=== PATIENT | male | born 1985 | race American Indian/Alaskan Native ===

== ENCOUNTER 2018-05-17 08:39 | Emergency (ER) | payer MEDICAID ==
[2018-05-17] MEDS ORDERED: Sodium Chloride 0.9% 1,000 ML IV ONE (08:42)
[2018-05-17] MEDS ORDERED: HYDROmorphone 0.5 MG/0.5 ML Syringe IVPUSH ONE ×3 (08:51→09:39)
[2018-05-17] MEDS ORDERED: Aspirin 81 MG Tab.Chew PO ONE (08:53)
--- NOTE | 2018-05-17 09:00 | EDM.PDOC ---
ED HPI GENERAL MEDICAL PROBLEM - General Chief Complaint: Back Pain or Injury Stated Complaint: BY AMBULANCE Time Seen by Provider: 05/17/18 08:45 Source of Information: Reports: Patient History Limitations: Reports: No Limitations - History of Present Illness INITIAL COMMENTS - FREE TEXT/NARRATIVE: This 32 yo male patient was brought to the ED by [facility] due to upper chest, upper back and upper abdominal pain. The patient reports his pain started about 3 days ago when he was lifting up a heavy log while working with his father. The patient reports he has been dealing with pain since that time. The patient has been taking Tylenol, ibuprofen and a muscle relaxer with no changes in his pain. The patient reports his pain started with upper anterior chest pain and has spread to his upper back and upper abdomen. The patient reports his pain is currently rated at a 9/10. Onset Date: 05/15/18 Duration: Constant Location: Reports: Chest (upper anterior chest), Abdomen (diffuse upper abdominal pain), Back (upper back pain and tightness) Quality: Reports: Ache, Sharp, Throbbing Severity: Severe Improves with: Reports: None Worsens with: Reports: None Context: Reports: Other Associated Symptoms: Reports: Chest Pain Treatments RECORDS TECH: Reports: Acetaminophen, NSAIDS, Other Medication(s) (muscle relaxer) Upper Back Pain Score (Numeric/FACES): 10 - Related Data Allergies Allergy/AdvReac Type Severity Reaction Status Date / Time bee venom protein (honey bee) Allergy Severe I need to Verified 05/17/18 08:51 use an epi pen Home Meds: Home Meds . [No Known Home Meds] 05/17/18 [History] Social & Family History - Tobacco Use Smoking Status *Q: Current Every Day Smoker Years of Tobacco use: 10 Packs/Tins Daily: 0.5 ED ROS GENERAL - Review of Systems Review Of Systems: ROS reveals no pertinent complaints other than HPI. ED EXAM, GENERAL - Physical Exam Exam: See Below Exam Limited By: No Limitations General Appearance: Alert, WD/WN, Severe Distress Eye Exam: Bilateral Eye: EOMI, Normal Inspection, PERRL Ears: Normal External Exam, Normal Canal, Hearing Grossly Normal, Normal TMs Nose: Normal Inspection, Normal Mucosa, No Blood Throat/Mouth: Normal Inspection, Normal Lips, Normal Teeth, Normal Gums, Normal Oropharynx, Normal Voice, No Airway Compromise Head: Atraumatic, Normocephalic Neck: Normal Inspection, Supple, Non-Tender, Full Range of Motion Respiratory/Chest: No Respiratory Distress, Decreased Breath Sounds (bilateral lower lobes) Cardiovascular: Normal Peripheral Pulses, Regular Rate, Rhythm, No Edema, No Gallop, No JVD, No Murmur, No Rub GI/Abdominal: Normal Bowel Sounds, Soft, Tender (diffuse upper abdomen) (Male) Exam: Deferred Rectal (Males) Exam: Deferred Back Exam: Paraspinal Tenderness (upper back ), Vertebral Tenderness (upper back ) Extremities: Normal Inspection, Normal Range of Motion, Non-Tender, Normal Capillary Refill, No Pedal Edema Neurological: Alert, Oriented, CN II-XII Intact, Normal Cognition, Normal Gait, Normal Reflexes, No Motor/Sensory Deficits Psychiatric: Normal Affect, Normal Mood Skin Exam: Warm, Dry, Intact, Normal Color, No Rash Lymphatic: No Adenopathy Course - Vital Signs Last Recorded V/S: Last Vital Signs Temp 36.6 C 05/17/18 08:39 Pulse 112 H 05/17/18 08:39 Resp 36 H 05/17/18 08:39 BP 149/124 H 05/17/18 09:30 Pulse Ox 100 05/17/18 08:39 - Orders/Labs/Meds Orders: Active Orders 24 hr Category Date Time Status EKG Documentation Completion [RC] URGENT Care 05/17/18 08:43 Active CULTURE BLOOD [BC] Stat Lab 05/17/18 08:54 Received DRUG SCREEN URINE BIORAD [URCHEM] Stat Lab 05/17/18 08:42 Ordered UA W/MICROSCOPIC [URIN] Stat Lab 05/17/18 08:42 Ordered Heparin Sodium/0.45% NaCl [Heparin 25,000 Units in 1/2 Med 05/17/18 09:35 Ordered NS 500 ML] 25,000 units in 500 ml IV ONETIME Medication Orders Heparin Sodium/Sodium Chloride (Heparin 25,000 Units In 1/2 Ns 500 Ml) 25,000 units in 500 mls @ 22.317 mls/hr IV ONETIME ONE Stop: 05/18/18 07:59 Labs: Laboratory Tests 05/17/18 05/17/18 05/17/18 Range/Units 08:54 08:54 08:54 WBC 23.3 H (5.0-10.0) 10^3/uL RBC 5.32 (4.6-6.2) 10^6/uL Hgb 16.2 (14.0-18.0) g/dL Hct 47.1 (40.0-54.0) % MCV 88.5 (80-100) fL MCH 30.5 (27.0-34.0) pg MCHC 34.4 (33.0-35.0) g/dL Plt Count 199 (150-450) 10^3/uL Neut % (Auto) 79.2 H (42.2-75.2) % Lymph % (Auto) 10.1 L (20.5-50.1) % [place] % (Auto) 10.3 H (2-8) % Eos % (Auto) 0.2 L (1.0-3.0) % Baso % (Auto) 0.2 (0.0-1.0) % Sodium 134 L (135-145) mmol/L Potassium 3.8 (3.6-5.0) mmol/L Chloride 100 L (101-111) mmol/L Carbon Dioxide 21.0 (21.0-31.0) mmol/L Anion Gap 16.8 BUN 23 H (7-18) mg/dL Creatinine 1.1 (0.6-1.3) mg/dL Est Cr Clr Drug Dosing 101.73 mL/min Estimated GFR (MDRD) > 60 BUN/Creatinine Ratio 20.90 Glucose 118 H (74-105) mg/dL Lactic Acid 1.8 (0.5-2.2) mmol/L Calcium 9.5 (8.4-10.2) mg/dl Total Bilirubin 2.7 H (0.2-1.0) mg/dL AST 521 H (10-42) IU/L ALT 121 H (10-60) IU/L Alkaline Phosphatase 91 (42-121) IU/L Troponin I 92.69 H* (0.00-0.02) ng/ml Total Protein 8.1 (6.7-8.2) g/dl Albumin 4.4 (3.2-5.5) g/dl Globulin 3.7 Albumin/Globulin Ratio 1.19 Amylase 73 (28-100) U/L Lipase 34 (22-51) U/L Meds: Medications Generic Name Dose Route Start Last Admin Trade Name Freq PRN Reason Stop Dose Admin Heparin Sodium/Sodium Chloride 25,000 units in 500 mls @ 22.317 mls/hr 09:35 Heparin 25,000 Units In 1/2 Ns 500 Ml IV 05/18/18 07:59 ONETIME ONE 12 UNITS/KG/HR Discontinued Medications Generic Name Dose Route Start Last Admin Trade Name Tiera PRN Reason Stop Dose Admin Aspirin 324 mg 05/17/18 08:53 05/17/18 09:02 Aspirin PO 05/17/18 08:54 324 mg ONETIME ONE Administration Heparin Sodium (Porcine) 4,000 units 05/17/18 09:35 Heparin Sodium IVPUSH 05/17/18 09:36 .BOLUS ONE Hydromorphone HCl 0.5 mg 05/17/18 08:51 05/17/18 08:55 Dilaudid IVPUSH 05/17/18 08:52 0.5 mg ONETIME ONE Administration Hydromorphone HCl 0.5 mg 05/17/18 09:04 05/17/18 09:07 Dilaudid IVPUSH 05/17/18 09:05 0.5 mg ONETIME ONE Administration Hydromorphone HCl 1 mg 05/17/18 09:39 05/17/18 09:42 Dilaudid IVPUSH 05/17/18 09:40 1 mg ONETIME ONE Administration Sodium Chloride 1,000 mls @ 999 mls/hr 05/17/18 08:42 05/17/18 08:58 Normal Saline IV 05/17/18 09:42 125 mls/hr .BOLUS ONE Administration Nitroglycerin 0.4 mg 05/17/18 09:27 05/17/18 09:30 Nitrostat SL 05/17/18 09:28 0.4 mg ONETIME ONE Administration - Re-Assessments/Exams Free Text/Narrative Re-Assessment/Exam: 05/17/18 09:49 The patient reported no changes in pain with Aspirin, Dilaudid (0.5 mg, 0.5 mg and 1 mg), Nitro (0.4 mg SL). Departure - Departure Time of Disposition: 09:45 Disposition: DC/Tfer to Acute Hospital 02 Condition: Serious Clinical Impression: Elevated troponin I level STEMI (ST elevation myocardial infarction) Qualifiers: Involved coronary artery: unspecified coronary artery Qualified Code(s): I21.3 - ST elevation (STEMI) myocardial infarction of unspecified site - Discharge Information *PRESCRIPTION DRUG MONITORING PROGRAM REVIEWED*: Not Applicable *COPY OF PRESCRIPTION DRUG MONITORING REPORT IN PATIENT FRANKIE: Not Applicable Forms: Interfacility Transfer EMTALA Care Plan Goals: Discussed the history, examination, lab, x-ray and EKG results with Dr. Eckert. Dr. Eckert accepted the patient for continued evaluation and management at [facility] in [place] (Emergency Department). The patient will be transported by [facility]. - My Orders Last 24 Hours: My Active Orders 05/17/18 08:42 DRUG SCREEN URINE BIORAD [URCHEM] Stat UA W/MICROSCOPIC [URIN] Stat 05/17/18 08:43 EKG Documentation Completion [RC] URGENT 05/17/18 08:54 CULTURE BLOOD [BC] Stat 05/17/18 09:35 Heparin Sodium/0.45% NaCl [Heparin 25,000 Units in 1/2 NS 500 ML] 25,000 units in 500 ml IV ONETIME - Assessment/Plan Last 24 Hours: My Active Orders 05/17/18 08:42 DRUG SCREEN URINE BIORAD [URCHEM] Stat UA W/MICROSCOPIC [URIN] Stat 05/17/18 08:43 EKG Documentation Completion [RC] URGENT 05/17/18 08:54 CULTURE BLOOD [BC] Stat 05/17/18 09:35 Heparin Sodium/0.45% NaCl [Heparin 25,000 Units in 1/2 NS 500 ML] 25,000 units in 500 ml IV ONETIME
[2018-05-17 09:25] LABS: ANION GAP 16.8; CHLORIDE,CL 100 mmol/L (101-111); SODIUM,NA 134 mmol/L (135-145)
[2018-05-17] MEDS ORDERED: Nitroglycerin 0.4 MG Tab.SL SL ONE (09:27)
--- NOTE | 2018-05-17 09:29 | CR ---
Clinical history: 32-year-old male chest pain and "DC". Interpretation: Less than optimal inspiratory effort with crowding and accentuation of the bronchovas cular markings. Normal cardiac silhouette without alveolar edema or dependent pleural fluid accumulation. No lung mass, hilar lymphadenopathy or focal lobar pneumonia. Thorax unremarkable. No pneumothorax.
[2018-05-17] MEDS ORDERED: Heparin Sodium 5,000 Units/ML Vial IVPUSH ONE (09:35)
[2018-05-17] MEDS ORDERED: Heparin Sodium/0.45% NaCl 25,000 UNITS/500 ML BAG IV ONE (09:35)
--- NOTE | 2018-05-19 09:37 | EKG ---
05/17/2018- REG STEIN - FINDINGS: A 12-lead EKG shows normal sinus rhythm with sinus tachycardia with heart rate of 110. No significant ST elevation or ST depression noted except for nonspecific ST-T wave changes noted on the lateral leads from V2, V3, V4, and V5. Evidence of right bundle-branch block incomplete, left anterior fascicular block, and possible acute anterior infarct. I did recommend repeating the EKG, and based on the patient's symptoms, I did recommend cardiology evaluation. [facility] /[id number]
== END 2018-05-17 10:24 ==
LOC: DL.ED 08:39
DX: I21.3 ST elevation (STEMI) myocardial infarction of unspecified site (principal); F17.210 Nicotine dependence, cigarettes, uncomplicated; Z91.030 Bee allergy status
CPT/HCPCS: 36415; 71045; 80053; 82150; 83605; 83690; 84484; 85025; 87040; 93005; 96361; 96365; 96375; 96376; 99285; A9270; J1170; J1644; J7030

== ENCOUNTER 2018-06-17 10:04 | Emergency (ER) | payer MEDICAID ==
[2018-06-17] MEDS ORDERED: Sodium Chloride 0.9% 10 ML Syringe FLUSH PRN (10:15)
[2018-06-17 10:50] LABS: ANION GAP 16.1; CHLORIDE,CL 99 mmol/L (101-111); SODIUM,NA 131 mmol/L (135-145)
--- NOTE | 2018-06-17 11:54 | EDM.PDOC ---
ED HPI GENERAL MEDICAL PROBLEM - General Chief Complaint: Chest Pain Stated Complaint: CHEST PAIN / AMBULANCE Time Seen by Provider: 06/17/18 10:17 Source of Information: Reports: Patient, EMS, EMS Notes Reviewed, RN, RN Notes Reviewed History Limitations: Reports: No Limitations - History of Present Illness INITIAL COMMENTS - FREE TEXT/NARRATIVE: Pt to ER per [facility] with c/o midsternal chest pain that began about 0400 today and has progressively gotten worse. He states the pain is worse when he coughs. In May the patient had a STEMI and was transferred to [facility] in where he had 2 stents placed. Last week he was again transferred to [facility] in [place] with pneumonia. Patient states the pain has moved from midsternal where it originated to the diaphragm area. Patient denies fever and chills, N/V/D. He states he has had chest pains and SOB. States the aspirin and Nitro that he was given in the ambulance helped the pain. Onset: Today, Sudden Duration: Intermittent, Improving Location: Reports: Chest Quality: Reports: Ache, Pressure Severity: Moderate Improves with: Reports: None Worsens with: Reports: Other (coughing) Associated Symptoms: Reports: Chest Pain, cough w sputum, Shortness of Breath - Related Data Allergies Allergy/AdvReac Type Severity Reaction Status Date / Time bee venom protein (honey bee) Allergy Severe I need to Verified 06/17/18 10:35 use an epi pen red dye Allergy Hives Verified 06/17/18 10:35 Home Meds: Home Meds Aspirin [Ecotrin] 325 mg PO BID 06/10/18 [History] Clopidogrel Bisulfate [Clopidogrel] 75 mg PO DAILY 06/10/18 [History] Lisinopril 5 mg PO DAILY 06/10/18 [History] Nitroglycerin 0.4 mg SL ASDIRECTED PRN 06/10/18 [History] Pantoprazole [ProTONIX] 40 mg PO DAILY 06/10/18 [History] Warfarin Sodium 2.5 mg PO DAILY 06/10/18 [History] atorvaSTATin [Lipitor] 40 mg PO BEDTIME 06/10/18 [History] Past Medical History - Past Health History Medical/Surgical History: Denies Medical/Surgical History HEENT History: Reports: Impaired Vision Other HEENT History: wears glasses Cardiovascular History: Reports: CAD, High Cholesterol, Hypertension, VA, SOB on Exertion, Stents Respiratory History: Reports: Pneumonia, Recurrent Gastrointestinal History: Reports: GERD - Past Surgical History Cardiovascular Surgical History: Reports: Coronary Artery Stent Social & Family History - Family History Family Medical History: Noncontributory - Tobacco Use Smoking Status *Q: Unknown Ever Smoked Tobacco Use Comment: States he does not smoke. Second Hand Smoke Exposure: No - Caffeine Use Caffeine Use: Reports: None - Recreational Drug Use Recreational Drug Use: No - Living Situation & Occupation Living situation: Reports: with Family Occupation: Disabled ED ROS GENERAL - Review of Systems Review Of Systems: ROS reveals no pertinent complaints other than HPI. ED EXAM, GENERAL - Physical Exam Exam: See Below Exam Limited By: No Limitations General Appearance: Alert, WD/WN, Mild Distress Eye Exam: Bilateral Eye: EOMI, Normal Inspection Ears: Normal External Exam, Hearing Grossly Normal Nose: Normal Inspection Throat/Mouth: Normal Inspection, No Airway Compromise Head: Atraumatic, Normocephalic Neck: Normal Inspection, Supple, Non-Tender, Full Range of Motion Respiratory/Chest: Decreased Breath Sounds, Crackles (bases bilaterally) Cardiovascular: Normal Peripheral Pulses, Regular Rate, Rhythm, No Edema, No Gallop, No JVD, No Murmur, No Rub Peripheral Pulses: 2+: Radial (L), Radial (R) GI/Abdominal: Normal Bowel Sounds, Soft, Non-Tender (Male) Exam: Deferred Rectal (Males) Exam: Deferred Back Exam: Normal Inspection, Full Range of Motion, CVA Tenderness (L), CVA Tenderness (R) Extremities: Normal Inspection, Normal Range of Motion, Non-Tender, No Pedal Edema, Normal Capillary Refill Neurological: Alert, Oriented, Normal Cognition, Normal Gait, No Motor/Sensory Deficits Psychiatric: Normal Affect, Normal Mood Skin Exam: Warm, Intact, Normal Color, No Rash, Diaphoretic Lymphatic: No Adenopathy EKG INTERPRETATION EKG Date: 06/17/18 Time: 10:19 Rhythm: Other (sinus tachycardia) Rate (Beats/Min): 109 [place]: Normal P-Wave: Present QRS: Wide ST-T: Normal QT: Prolonged Comparison: No Change Course - Vital Signs Last Recorded V/S: Last Vital Signs Temp 97.7 F 06/17/18 14:20 Pulse 110 H 06/17/18 14:20 Resp 24 H 06/17/18 14:20 BP 111/68 09/13/18 14:20 Pulse Ox 98 06/17/18 14:20 - Orders/Labs/Meds Labs: Laboratory Tests 06/17/18 06/17/18 06/17/18 Range/Units 10:22 10:22 10:27 WBC 15.0 H (5.0-10.0) 10^3/uL RBC 3.91 L (4.6-6.2) 10^6/uL Hgb 11.3 L (14.0-18.0) g/dL Hct 34.2 L (40.0-54.0) % MCV 87.5 (80-100) fL MCH 28.9 (27.0-34.0) pg MCHC 33.0 (33.0-35.0) g/dL Plt Count 367 (150-450) 10^3/uL Neut % (Auto) 79.9 H (42.2-75.2) % Lymph % (Auto) 10.6 L (20.5-50.1) % [place] % (Auto) 6.2 (2-8) % Eos % (Auto) 3.0 (1.0-3.0) % Baso % (Auto) 0.3 (0.0-1.0) % Sodium 131 L (135-145) mmol/L Potassium 4.1 (3.6-5.0) mmol/L Chloride 99 L (101-111) mmol/L Carbon Dioxide 20.0 L (21.0-31.0) mmol/L Anion Gap 16.1 BUN 9 (7-18) mg/dL Creatinine 0.9 (0.6-1.3) mg/dL Est Cr Clr Drug Dosing TNP Estimated GFR (MDRD) > 60 BUN/Creatinine Ratio 10.00 Glucose 100 (74-105) mg/dL Lactic Acid (0.5-2.2) mmol/L Calcium 8.5 (8.4-10.2) mg/dl Total Bilirubin 1.8 H (0.2-1.0) mg/dL AST 16 (10-42) IU/L ALT 19 (10-60) IU/L Alkaline Phosphatase 78 (42-121) IU/L Troponin I 1.73 H* (0.00-0.02) ng/ml B-Natriuretic Peptide 792 H (0-100) pg/ml Total Protein 7.6 (6.7-8.2) g/dl Albumin 3.4 (3.2-5.5) g/dl Globulin 4.2 Albumin/Globulin Ratio 0.81 Urine Color Cancelled Urine Appearance Cancelled Urine pH Cancelled Ur Specific [place] Cancelled Urine Protein Cancelled Urine Glucose (UA) Cancelled Urine Ketones Cancelled Urine Occult Blood Cancelled Urine Nitrite Cancelled Urine Bilirubin Cancelled Urine Urobilinogen Cancelled Ur Leukocyte Esterase Cancelled Urine RBC Cancelled Urine WBC Cancelled Ur Epithelial Cells Cancelled Calcium Phosphate Cryst Cancelled Calcium Oxalate Crystal Cancelled Uric Acid Crystals Cancelled Triple Phos Crystals Cancelled Other Crystals Cancelled Amorphous Sediment Cancelled Urine Bacteria Cancelled Hyaline Casts Cancelled Granular Casts Cancelled Fine Granular Casts Cancelled Coarse Granular Casts Cancelled Urine Mucus Cancelled Urine Other Cancelled Urine Trichomonas Cancelled Urine Yeast Cancelled Urinalysis Comment Cancelled Urine Opiates Screen (NEGATIVE) Ur Oxycodone Screen (NEGATIVE) Urine Methadone Screen (NEGATIVE) Ur Barbiturates Screen (NEGATIVE) U Tricyclic Antidepress (NEGATIVE) Ur Phencyclidine Scrn (NEGATIVE) Ur Amphetamine Screen (NEGATIVE) U Methamphetamines Scrn (NEGATIVE) Urine MDMA Screen (NEGATIVE) U Benzodiazepines Scrn (NEGATIVE) Urine Cocaine Screen (NEGATIVE) U Marijuana (THC) Screen (NEGATIVE) Ethyl Alcohol < 5 mg/dL 06/17/18 06/17/18 06/17/18 Range/Units 11:10 11:10 11:29 WBC (5.0-10.0) 10^3/uL RBC (4.6-6.2) 10^6/uL Hgb (14.0-18.0) g/dL Hct (40.0-54.0) % MCV (80-100) fL MCH (27.0-34.0) pg MCHC (33.0-35.0) g/dL Plt Count (150-450) 10^3/uL Neut % (Auto) (42.2-75.2) % Lymph % (Auto) (20.5-50.1) % [place] % (Auto) (2-8) % Eos % (Auto) (1.0-3.0) % Baso % (Auto) (0.0-1.0) % Sodium (135-145) mmol/L Potassium (3.6-5.0) mmol/L Chloride (101-111) mmol/L Carbon Dioxide (21.0-31.0) mmol/L Anion Gap BUN (7-18) mg/dL Creatinine (0.6-1.3) mg/dL Est Cr Clr Drug Dosing Estimated GFR (MDRD) BUN/Creatinine Ratio Glucose (74-105) mg/dL Lactic Acid 1.0 (0.5-2.2) mmol/L Calcium (8.4-10.2) mg/dl Total Bilirubin (0.2-1.0) mg/dL AST (10-42) IU/L ALT (10-60) IU/L Alkaline Phosphatase (42-121) IU/L Troponin I (0.00-0.02) ng/ml B-Natriuretic Peptide (0-100) pg/ml Total Protein (6.7-8.2) g/dl Albumin (3.2-5.5) g/dl Globulin Albumin/Globulin Ratio Urine Color Straw Urine Appearance Slightly cloudy Urine pH 6.0 Ur Specific [place] 1.025 Urine Protein Trace H Urine Glucose (UA) Negative Urine Ketones >=160 H Urine Occult Blood Negative Urine Nitrite Negative Urine Bilirubin Moderate H Urine Urobilinogen 0.2 Ur Leukocyte Esterase Negative Urine RBC Not seen Urine WBC 0-5 Ur Epithelial Cells Few Calcium Phosphate Cryst Calcium Oxalate Crystal Uric Acid Crystals Triple Phos Crystals Other Crystals Amorphous Sediment Rare Urine Bacteria Few Hyaline Casts Granular Casts Fine Granular Casts Coarse Granular Casts Urine Mucus Many H Urine Other Urine Trichomonas Urine Yeast Urinalysis Comment Urine Opiates Screen Negative (NEGATIVE) Ur Oxycodone Screen Negative (NEGATIVE) Urine Methadone Screen Negative (NEGATIVE) Ur Barbiturates Screen Negative (NEGATIVE) U Tricyclic Antidepress Negative (NEGATIVE) Ur Phencyclidine Scrn Negative (NEGATIVE) Ur Amphetamine Screen Negative (NEGATIVE) U Methamphetamines Scrn Negative (NEGATIVE) Urine MDMA Screen Negative (NEGATIVE) U Benzodiazepines Scrn Negative (NEGATIVE) Urine Cocaine Screen Negative (NEGATIVE) U Marijuana (THC) Screen Positive H (NEGATIVE) Ethyl Alcohol mg/dL Meds: Medications Discontinued Medications Generic Name Dose Route Start Last Admin Trade Name Freq PRN Reason Stop Dose Admin Ceftriaxone Sodium 1 gm 06/17/18 12:00 06/17/18 12:18 Rocephin IVPUSH 06/17/18 12:01 1 gm ONETIME ONE Administration Furosemide 80 mg 06/17/18 12:58 06/17/18 13:51 Lasix IVPUSH 06/17/18 12:59 Not Given NOW ONE Levofloxacin/Dextrose 500 mg/ 100 mls @ 100 mls/hr 06/17/18 12:01 06/17/18 12 :22 Premix IV 06/17/18 13:00 100 mls/hr ONETIME ONE Administration Sodium Chloride 1,000 mls @ 999 mls/hr 06/17/18 12:02 06/17/18 12:17 Normal Saline IV 06/17/18 13:02 999 mls/hr .BOLUS ONE Administration Sodium Chloride 10 ml 06/17/18 10:15 06/17/18 10:19 Saline Flush FLUSH 10 ml ASDIRECTED PRN Administration Keep Vein Open - Radiology Interpretation Free Text/Narrative:: Chest xray: IMPRESSION: Decreased right basilar chest compared with 06/10/18, with interval development of left basilar infiltrate. Recommend continued followup. Consider PA and lateral views for better assessment when the patient is able. See rad report - Re-Assessments/Exams Free Text/Narrative Re-Assessment/Exam: 06/17/18 12:10 Patient case discussed with Dr. Parish, hospitalist at [facility]. Dr. Parish feels the patient would be best suited to go to [facility] for further care, knowing is recent history. Patient case then discussed with Dr. An at [facility] in [place] who accepted the patient for transfer. Departure - Departure Time of Disposition: 15:00 Disposition: DC/Tfer to Acute Hospital 02 Reason for Transfer *Q: Other Condition: Fair Clinical Impression: History of ST elevation myocardial infarction (STEMI) Pneumonia Qualifiers: Pneumonia type: due to unspecified organism Laterality: right Lung location: lower lobe of lung Qualified Code(s): J18.1 - Lobar pneumonia, unspecified organism Referrals: Racheal Diggs MD [Primary Care Provider] - Forms: ED Department Discharge, Interfacility Transfer SUMAYA
[2018-06-17] MEDS ORDERED: cefTRIAXone 1 GM Vial IVPUSH ONE (12:00)
[2018-06-17] MEDS ORDERED: Levofloxacin/Dextrose 5%-Water 500 MG in Premix Bag 1 BAG IV ONE (12:01)
[2018-06-17] MEDS ORDERED: Sodium Chloride 0.9% 1,000 ML IV ONE (12:02)
[2018-06-17] MEDS ORDERED: Furosemide 40 MG/4 ML VIAL IVPUSH ONE (12:58)
--- NOTE | 2018-06-20 14:13 | EKG ---
06/17/2018 - REG STEIN - TIME: 10:19 a.m. FINDINGS: Sinus tachycardia at 109. [facility] /[id number]
--- NOTE | 2018-06-20 15:13 | EKG ---
06/17/2018 - REG STEIN - TIME: 10:04 p.m. FINDINGS: As per my reading, sinus tachycardia at 109, probable left atrial abnormality. [facility] /[id number]
== END 2018-06-17 15:00 ==
LOC: DL.ED 10:04
DX: J18.9 Pneumonia, unspecified organism (principal); I10 Essential (primary) hypertension; E78.00 Pure hypercholesterolemia, unspecified; I25.2 Old myocardial infarction; Z91.030 Bee allergy status; Z79.82 Long term (current) use of aspirin; Z79.01 Long term (current) use of anticoagulants; Z79.899 Other long term (current) drug therapy; Z95.5 Presence of coronary angioplasty implant and graft; Z87.01 Personal history of pneumonia (recurrent)
CPT/HCPCS: 36415; 71045; 80053; 80305; 81001; 83605; 83880; 84484; 85025; 87040; 93005; 96361; 96365; 96375; 99285; G0480; J0696; J1956; J7030; J7050

== ENCOUNTER 2018-12-15 09:31 | Emergency (ER) | payer MEDICAID, OTHER ==
[2018-12-15] MEDS ORDERED: Sodium Chloride 0.9% 10 ML Syringe FLUSH PRN (09:37)
[2018-12-15] MEDS ORDERED: diphenhydrAMINE 50 MG/ML SDV IVPUSH ONE (09:46)
[2018-12-15] MEDS ORDERED: Ondansetron 4 MG/2 ML SDV IV ONE (09:46)
--- NOTE | 2018-12-15 09:50 | EDM.PDOC ---
ED HPI GENERAL MEDICAL PROBLEM - General Chief Complaint: Chest Pain Stated Complaint: COMING BY AMBULANCE Time Seen by Provider: 12/15/18 09:35 Source of Information: Reports: Patient History Limitations: Reports: No Limitations - History of Present Illness INITIAL COMMENTS - FREE TEXT/NARRATIVE: Patient comes emergency department today with complaints of right-sided chest pain and abdominal pain. Reports for the last 3 days he has had intermittent sharp shooting stabbing right-sided chest pain. He is also developed some abdominal distention and abdominal pain. He was recently in the hospital in [place] following a paracentesis as well as some fluid overload concerns. He feels that for the last couple of days that his water pill stopped working and he is urinating very little. He has been drinking his normal amount of 5 glasses of water a day. He does complain of subjective fever and chills but did not check his temperature. No black or tarry stools. He is nauseated and vomiting when he enters the emergency department. He did have 4 aspirins by ambulance well logging captain. Right Chest Pain Score (Numeric/FACES): 8 Right Upper Abdominal Pain Score (Numeric/FACES): 10 - Related Data Allergies Allergy/AdvReac Type Severity Reaction Status Date / Time bee venom protein (honey bee) Allergy Severe I need to Verified 12/15/18 09:39 use an epi pen red dye Allergy Hives Verified 12/15/18 09:39 [place] And Derivatives AdvReac abd. fluid Verified 12/15/18 09:40 grapefruit AdvReac Mild Other Uncoded 12/15/18 09:39 Home Meds: Home Meds Clopidogrel Bisulfate [Clopidogrel] 75 mg PO DAILY 06/10/18 [History] Lisinopril 2.5 mg PO DAILY 06/10/18 [History] Nitroglycerin 0.4 mg SL ASDIRECTED PRN 06/10/18 [History] Pantoprazole [ProTONIX] 40 mg PO DAILY 06/10/18 [History] Warfarin Sodium 2.5 mg PO DAILY 06/10/18 [History] atorvaSTATin [Lipitor] 40 mg PO BEDTIME 06/10/18 [History] Aspirin [Lo-Dose Aspirin EC] 81 mg PO DAILY 10/04/18 [History] Furosemide 80 mg PO BID 10/04/18 [History] hydrOXYzine HCl [Atarax] 50 mg PO QID 10/04/18 [History] Past Medical History - Past Health History Medical/Surgical History: Denies Medical/Surgical History HEENT History: Reports: Impaired Vision Other HEENT History: wears glasses Cardiovascular History: Reports: CAD, High Cholesterol, Hypertension, [place], SOB on Exertion, Stents Respiratory History: Reports: Pneumonia, Recurrent Gastrointestinal History: Reports: GERD, GI Bleed Musculoskeletal History: Reports: Back Pain, Chronic Neurological History: Reports: None Psychiatric History: Reports: Addiction Immunologic History: Reports: None Oncologic (Cancer) History: Reports: None Dermatologic History: Reports: Other (See Below) Other Dermatologic History: patient has multiple tatoos to arms and chest - Infectious Disease History Infectious Disease History: Reports: None - Past Surgical History Cardiovascular Surgical History: Reports: Coronary Artery Stent GI Surgical History: Reports: Appendectomy, Other (See Below) Other GI Surgeries/Procedures: ?abdominal surgery just prior to 2017 Social & Family History - Family History Family Medical History: Noncontributory - Caffeine Use Caffeine Use: Reports: None - Living Situation & Occupation Living situation: Reports: with Family Occupation: Disabled ED ROS GENERAL - Review of Systems Review Of Systems: ROS reveals no pertinent complaints other than HPI. ED EXAM, GENERAL - Physical Exam Exam: See Below Exam Limited By: No Limitations General Appearance: Alert Eye Exam: Bilateral Eye: EOMI, PERRL, Other (mild icteric) Ears: Normal External Exam Nose: Normal Inspection Throat/Mouth: No: Normal Inspection (oral mucosa is dry. ) Head: Atraumatic, Normocephalic Neck: Normal Inspection, Supple, Non-Tender Respiratory/Chest: No Respiratory Distress, Lungs Clear, Normal Breath Sounds, No Accessory Muscle Use, Chest Non-Tender Cardiovascular: Normal Peripheral Pulses, Regular Rate, Rhythm Peripheral Pulses: 2+: Radial (L), Radial (R), Posterior Tibial (L), Posterior Tibial (R), Dorsalis Pedis (L), Dorsalis Pedis (R) GI/Abdominal: Normal Bowel Sounds (Well healed vertical abd incision. ), Distended (rounded), Tender (generalized without rebound. ) Back Exam: Normal Inspection, Full Range of Motion Extremities: Normal Inspection Neurological: Alert, Oriented, CN II-XII Intact, Normal Cognition, No Motor/ Sensory Deficits Psychiatric: Normal Affect, Normal Mood Skin Exam: No Rash, Cool, Diaphoretic, Ecchymosis (on the arms but appears to be from phlebotomy or other injections. ), Pallor. No: Cyanosis EKG INTERPRETATION EKG Date: 12/15/18 Time: 10:18 Rhythm: NSR Rate (Beats/Min): 89 [place]: Normal P-Wave: Present QRS: Normal ST-T: Normal QT: Normal Comparison: No Change Course - Vital Signs Last Recorded V/S: Last Vital Signs Temp 35.9 C 12/15/18 09:32 Pulse 84 12/15/18 09:32 Resp 18 12/15/18 09:32 BP 98/65 12/15/18 09:32 Pulse Ox 99 12/15/18 09:32 - Orders/Labs/Meds Orders: Active Orders 24 hr Category Date Time Status EKG 12 Lead [EKG Documentation Completion] [RC] URGENT Care 12/15/18 09:38 Active Peripheral IV Care [RC] . DIRECTED Care 12/15/18 09:38 Active DRUG SCREEN, URINE [URCHEM] Stat Lab 12/15/18 09:38 Ordered ETHANOL (MEDICAL) [REF] Urgent Lab 12/15/18 09:38 Ordered Sodium Chloride 0.9% [Saline Flush] Med 12/15/18 09:37 Active 10 ml FLUSH ASDIRECTED PRN Peripheral IV Insertion Adult [OM.PC] Stat Oth 12/15/18 09:38 Ordered Medication Orders Sodium Chloride (Saline Flush) 10 ml FLUSH ASDIRECTED PRN PRN Reason: Keep Vein Open Last Admin: 12/15/18 09:54 Dose: 10 ml Labs: Laboratory Tests 12/15/18 12/15/18 12/15/18 Range/Units 09:40 09:40 09:40 WBC 11.6 H (5.0-10.0) 10^3/uL RBC 4.94 (4.6-6.2) 10^6/uL Hgb 12.6 L (14.0-18.0) g/dL Hct 37.9 L (40.0-54.0) % MCV 76.7 L (80-100) fL MCH 25.5 L (27.0-34.0) pg MCHC 33.2 (33.0-35.0) g/dL Plt Count 329 D (150-450) 10^3/uL Neut % (Auto) 70.7 (42.2-75.2) % Lymph % (Auto) 16.4 L (20.5-50.1) % [place] % (Auto) 9.7 H (2-8) % Eos % (Auto) 2.7 (1.0-3.0) % Baso % (Auto) 0.5 (0.0-1.0) % PT (9.0-12.0) SEC INR (0.9-1.2) Sodium 130 L (135-145) mmol/L Potassium 3.7 (3.6-5.0) mmol/L Chloride 100 L (101-111) mmol/L Carbon Dioxide 20.0 L (21.0-31.0) mmol/L Anion Gap 13.7 BUN 26 H (7-18) mg/dL Creatinine 0.9 (0.6-1.3) mg/dL Est Cr Clr Drug Dosing TNP Estimated GFR (MDRD) > 60 BUN/Creatinine Ratio 28.88 Glucose 103 (74-105) mg/dL Calcium 8.3 L (8.4-10.2) mg/dl Total Bilirubin 1.6 H (0.2-1.0) mg/dL AST 32 (10-42) IU/L ALT 22 (10-60) IU/L Alkaline Phosphatase 150 H (42-121) IU/L Ammonia (11-35) umol/L Troponin I 0.05 H* (0.00-0.02) ng/ml C-Reactive Protein 0.8 (0.0-1.3) mg/dL B-Natriuretic Peptide 2120 H (0-100) pg/ml Total Protein 7.6 (6.7-8.2) g/dl Albumin 3.4 (3.2-5.5) g/dl Globulin 4.2 Albumin/Globulin Ratio 0.81 Ethyl Alcohol < 5 mg/dL 12/15/18 12/15/18 Range/Units 09:40 09:40 WBC (5.0-10.0) 10^3/uL RBC (4.6-6.2) 10^6/uL Hgb (14.0-18.0) g/dL Hct (40.0-54.0) % MCV (80-100) fL MCH (27.0-34.0) pg MCHC (33.0-35.0) g/dL Plt Count (150-450) 10^3/uL Neut % (Auto) (42.2-75.2) % Lymph % (Auto) (20.5-50.1) % [place] % (Auto) (2-8) % Eos % (Auto) (1.0-3.0) % Baso % (Auto) (0.0-1.0) % PT 18.1 H D (9.0-12.0) SEC INR 1.8 H (0.9-1.2) Sodium (135-145) mmol/L Potassium (3.6-5.0) mmol/L Chloride (101-111) mmol/L Carbon Dioxide (21.0-31.0) mmol/L Anion Gap BUN (7-18) mg/dL Creatinine (0.6-1.3) mg/dL Est Cr Clr Drug Dosing Estimated GFR (MDRD) BUN/Creatinine Ratio Glucose (74-105) mg/dL Calcium (8.4-10.2) mg/dl Total Bilirubin (0.2-1.0) mg/dL AST (10-42) IU/L ALT (10-60) IU/L Alkaline Phosphatase (42-121) IU/L Ammonia 38 H (11-35) umol/L Troponin I (0.00-0.02) ng/ml C-Reactive Protein (0.0-1.3) mg/dL B-Natriuretic Peptide (0-100) pg/ml Total Protein (6.7-8.2) g/dl Albumin (3.2-5.5) g/dl Globulin Albumin/Globulin Ratio Ethyl Alcohol mg/dL Meds: Medications Generic Name Dose Route Start Last Admin Trade Name Freq PRN Reason Stop Dose Admin Sodium Chloride 10 ml 12/15/18 09:37 12/15/18 09:54 Saline Flush FLUSH 10 ml ASDIRECTED PRN Administration Keep Vein Open Discontinued Medications Generic Name Dose Route Start Last Admin Trade Name Freq PRN Reason Stop Dose Admin Diphenhydramine HCl 25 mg 12/15/18 09:46 12/15/18 10:01 Benadryl IVPUSH 12/15/18 09:47 25 mg ONETIME ONE Administration Furosemide 40 mg 12/15/18 10:36 12/15/18 10:43 Lasix IVPUSH 12/15/18 10:37 40 mg NOW ONE Administration Ondansetron HCl 4 mg 12/15/18 09:46 12/15/18 09:58 Zofran IV 12/15/18 09:47 4 mg ONETIME ONE Administration - Radiology Interpretation Free Text/Narrative:: small bibasilar effusions improved from previous. No mass or pneumonia. - Re-Assessments/Exams Free Text/Narrative Re-Assessment/Exam: 12/15/18 10:50 Patient was given 40 of Lasix IV push. His proBNP is highes that we have recorded here with good kidney function. I do have concerns for SBP due to the recent taps within distended abdomen and pain. He also has an elevated troponin which is most likely due to his cardiomyopathy and congestive heart failure. His EKG is rather unchanged. I called and spoke with the hospitalist on-call at [facility] and he accepted the patient in transfer. Departure - Departure Time of Disposition: 10:50 Disposition: DC/Tfer to [facility] 02 Reason for Transfer *Q: Other Clinical Impression: Elevated troponin, care home current use of anticoagulant Congestive heart failure Qualifiers: Heart failure type: unspecified Heart failure chronicity: acute on chronic Qualified Code(s): I50.9 - Heart failure, unspecified Forms: ED Department Discharge ED Communication - Discussed Case With (1) Discussed Case With (1): Admitting Provider (I called and spoke with Dr Burdick at [facility] in [place]. HPI ER COURSE findings and concerns were relayed to him. HIs questions were answered and no new orders at this time to include rocephin for possible SBP.) - My Orders Last 24 Hours: My Active Orders 12/15/18 09:37 Sodium Chloride 0.9% [Saline Flush] 10 ml FLUSH ASDIRECTED PRN 12/15/18 09:38 EKG 12 Lead [EKG Documentation Completion] [RC] URGENT Peripheral IV Care [RC] . DIRECTED DRUG SCREEN, URINE [URCHEM] Stat ETHANOL (MEDICAL) [REF] Urgent Peripheral IV Insertion Adult [OM.PC] Stat - Assessment/Plan Last 24 Hours: My Active Orders 12/15/18 09:37 Sodium Chloride 0.9% [Saline Flush] 10 ml FLUSH ASDIRECTED PRN 03/13/19 09:38 EKG 12 Lead [EKG Documentation Completion] [RC] URGENT Peripheral IV Care [RC] . DIRECTED DRUG SCREEN, URINE [URCHEM] Stat ETHANOL (MEDICAL) [REF] Urgent Peripheral IV Insertion Adult [OM.PC] Stat Assessment:: Elevated troponin CP CHF Cardiomyopathy Cirrhosis abd pain distention recent tap with concerns for SBP. Plan: Transfer to [facility].
[2018-12-15 10:21] LABS: ANION GAP 13.7; CHLORIDE,CL 100 mmol/L (101-111); SODIUM,NA 130 mmol/L (135-145)
--- NOTE | 2018-12-15 10:26 | CR ---
Clinical history: 33-year-old chronically ill patient with history of cirrhosis, heart disease and now right chest pain. Interpretation: PA lateral chest films today confirm small dependent subpulmonic pleural effusions bilaterally (blunting posterior costophrenic sulcus) and some underlying lower lobe atelectasis or fibrosis. Normal cardiac silhouette without cephalization of vascular flow or alveolar edema. No lung mass or focal lobar pneumonia. No free subdiaphragmatic air or signs of pneumothorax is patient who previously (04 October 2018 had right chest tube). CONCLUSION: Small bibasilar effusions. Otherwise negative exam.
[2018-12-15] MEDS ORDERED: Furosemide 40 MG/4 ML VIAL IVPUSH ONE (10:36)
== END 2018-12-15 11:25 ==
LOC: DL.ED 09:31
DX: I11.0 Hypertensive heart disease with heart failure (principal); I50.9 Heart failure, unspecified; R79.89 Other specified abnormal findings of blood chemistry; K74.60 Unspecified cirrhosis of liver; I42.9 Cardiomyopathy, unspecified; R10.9 Unspecified abdominal pain; Z91.030 Bee allergy status; Z91.041 Radiographic dye allergy status; Z79.899 Other long term (current) drug therapy; Z79.01 Long term (current) use of anticoagulants; I25.10 Atherosclerotic heart disease of native coronary artery without angina pectoris; I25.2 Old myocardial infarction
CPT/HCPCS: 36415; 71046; 80053; 80305; 82140; 83880; 84484; 85025; 85610; 86140; 93005; 96374; 96375; 99285; G0480; J1200; J1940; J2405

== ENCOUNTER 2018-12-25 17:39 | Emergency (ER) | payer MEDICAID ==
[2018-12-25] MEDS ORDERED: Sodium Chloride 0.9% 10 ML Syringe FLUSH PRN (17:40)
[2018-12-25 18:50] LABS: CHLORIDE,CL 103 mmol/L (101-111); SODIUM,NA 135 mmol/L (135-145)
--- NOTE | 2018-12-25 19:04 | EDM.PDOC ---
Scribed by Estefany Ojeda 12/25/18 [id number] for Silke Egan NP ED HPI GENERAL MEDICAL PROBLEM - General Chief Complaint: Respiratory Problem Stated Complaint: [facility] Time Seen by Provider: 12/25/18 17:48 Source of Information: Reports: Patient, EMS, EMS Notes Reviewed, RN, RN Notes Reviewed History Limitations: Reports: No Limitations - History of Present Illness INITIAL COMMENTS - FREE TEXT/NARRATIVE: Patient presents to ER per [facility] with complaints of shortness of breath. He was discharged from [facility] 1 week ago. He was to have paracentesis next week when pacemaker/defibrillator would be placed. He rates pain in chest and abdomen 7-/10. He has had chest pains, shortness of breath, fever and chills. No nausea, vomiting or diarrhea. Onset: Today Duration: Getting Worse Location: Reports: Chest Quality: Reports: Ache Severity: Severe Improves with: Reports: None Worsens with: Reports: None Associated Symptoms: Reports: No Other Symptoms Treatments FLOAT BUILDER: Reports: EKG, IV/IO Right Chest Pain Score (Numeric/FACES): 7 - Related Data Allergies Allergy/AdvReac Type Severity Reaction Status Date / Time bee venom protein (honey bee) Allergy Severe I need to Verified 12/25/18 18:06 use an epi pen red dye Allergy Hives Verified 12/25/18 18:06 [place] And Derivatives AdvReac abd. fluid Verified 12/25/18 18:06 grapefruit AdvReac Mild Other Uncoded 12/25/18 18:06 Home Meds: Home Meds Clopidogrel Bisulfate [Clopidogrel] 75 mg PO DAILY 06/10/18 [History] Lisinopril 2.5 mg PO DAILY 06/10/18 [History] Nitroglycerin 0.4 mg SL ASDIRECTED PRN 06/10/18 [History] Pantoprazole [ProTONIX] 40 mg PO DAILY 06/10/18 [History] Warfarin Sodium 2.5 mg PO DAILY 06/10/18 [History] atorvaSTATin [Lipitor] 40 mg PO BEDTIME 06/10/18 [History] Aspirin [Lo-Dose Aspirin EC] 81 mg PO DAILY 10/04/18 [History] Furosemide 80 mg PO BID 10/04/18 [History] hydrOXYzine HCl [Atarax] 50 mg PO QID 10/04/18 [History] Past Medical History - Past Health History Medical/Surgical History: Denies Medical/Surgical History HEENT History: Reports: Impaired Vision Other HEENT History: wears glasses Cardiovascular History: Reports: CAD, Heart Failure, High Cholesterol, Hypertension, [place], SOB on Exertion, Stents Other Cardiovascular History: Ejection Fraction of 25% Respiratory History: Reports: Pneumonia, Recurrent Gastrointestinal History: Reports: GERD, GI Bleed Musculoskeletal History: Reports: Back Pain, Chronic Neurological History: Reports: None Psychiatric History: Reports: Addiction Immunologic History: Reports: None Oncologic (Cancer) History: Reports: None Dermatologic History: Reports: Other (See Below) Other Dermatologic History: patient has multiple tatoos to arms and chest - Infectious Disease History Infectious Disease History: Reports: None - Past Surgical History Cardiovascular Surgical History: Reports: Coronary Artery Stent GI Surgical History: Reports: Appendectomy, Other (See Below) Other GI Surgeries/Procedures: ?abdominal surgery just prior to 2017 Social & Family History - Family History Family Medical History: Noncontributory - Tobacco Use Smoking Status *Q: Never Smoker - Caffeine Use Caffeine Use: Reports: None - Recreational Drug Use Recreational Drug Use: No - Living Situation & Occupation Living situation: Reports: with Family Occupation: Disabled ED ROS GENERAL - Review of Systems Review Of Systems: ROS reveals no pertinent complaints other than HPI. ED EXAM, GENERAL - Physical Exam Exam: See Below Exam Limited By: No Limitations General Appearance: Alert, WD/WN, No Apparent Distress Eye Exam: Bilateral Eye: EOMI, Normal Inspection, PERRL Ears: Normal External Exam, Normal Canal, Hearing Grossly Normal, Normal TMs Nose: Normal Inspection, Normal Mucosa, No Blood Throat/Mouth: Normal Inspection, Normal Lips, Normal Teeth, Normal Gums, Normal Oropharynx, Normal Voice, No Airway Compromise Head: Atraumatic, Normocephalic Neck: Normal Inspection, Supple, Non-Tender, Full Range of Motion Cardiovascular: Systolic Murmur (regular) GI/Abdominal: Distended, Other (decreased bowel sounds) (Male) Exam: Deferred Rectal (Males) Exam: Deferred Back Exam: Normal Inspection, Full Range of Motion, NT Extremities: Normal Inspection, Normal Range of Motion, Non-Tender, Normal Capillary Refill, No Pedal Edema Neurological: Alert, Oriented, CN II-XII Intact, Normal Cognition, Normal Gait, Normal Reflexes, No Motor/Sensory Deficits Psychiatric: Normal Affect, Normal Mood Skin Exam: Warm, Dry, Intact, Normal Color, No Rash Lymphatic: No Adenopathy EKG INTERPRETATION EKG Date: 12/25/18 Time: 17:44 Rhythm: Other (sinus rhythm) Rate (Beats/Min): 89 EKG Interpretation Comments: Probable left atrial abnormality. Lateral infarct, age indeterminate. Probable anteroseptal infarct, age indeterminate. Borderline T abnormalities, inferior leads. Course - Vital Signs Last Recorded V/S: Last Vital Signs Temp 98.8 F 12/25/18 17:42 Pulse 92 12/25/18 17:42 Resp 20 12/25/18 17:42 BP 97/59 L 12/25/18 17:42 Pulse Ox 97 12/25/18 17:42 - Orders/Labs/Meds Orders: Active Orders 24 hr Category Date Time Status EKG Documentation Completion [RC] STAT Care 12/25/18 17:40 Active Peripheral IV Care [RC] . DIRECTED Care 12/25/18 17:41 Active DRUG SCREEN URINE BIORAD [URCHEM] Stat Lab 12/25/18 17:40 Ordered UA RFX EVANGELIST AND CULT IF INDIC [URIN] Stat Lab 12/25/18 17:41 Ordered Sodium Chloride 0.9% [Saline Flush] Med 12/25/18 17:40 Active 10 ml FLUSH ASDIRECTED PRN Peripheral IV Insertion Adult [OM.PC] Stat Oth 12/25/18 17:40 Ordered Medication Orders Sodium Chloride (Saline Flush) 10 ml FLUSH ASDIRECTED PRN PRN Reason: Keep Vein Open Last Admin: 12/25/18 18:21 Dose: 10 ml Labs: Laboratory Tests 12/25/18 12/25/18 Range/Units 18:20 18:20 WBC 6.9 (5.0-10.0) 10^3/uL RBC 4.70 (4.6-6.2) 10^6/uL Hgb 11.7 L (14.0-18.0) g/dL Hct 36.3 L (40.0-54.0) % MCV 77.2 L (80-100) fL MCH 24.9 L (27.0-34.0) pg MCHC 32.2 L (33.0-35.0) g/dL Plt Count 224 D (150-450) 10^3/uL Neut % (Auto) 73.1 (42.2-75.2) % Lymph % (Auto) 15.1 L (20.5-50.1) % [place] % (Auto) 6.9 (2-8) % Eos % (Auto) 4.3 H (1.0-3.0) % Baso % (Auto) 0.6 (0.0-1.0) % Sodium 135 (135-145) mmol/L Potassium 4.0 (3.6-5.0) mmol/L Chloride 103 (101-111) mmol/L Carbon Dioxide 21.0 (21.0-31.0) mmol/L Anion Gap 15.0 BUN 20 H (7-18) mg/dL Creatinine 1.1 (0.6-1.3) mg/dL Est Cr Clr Drug Dosing 100.78 mL/min Estimated GFR (MDRD) > 60 BUN/Creatinine Ratio 18.18 Glucose 90 (74-105) mg/dL Calcium 8.4 (8.4-10.2) mg/dl Total Bilirubin 1.7 H (0.2-1.0) mg/dL AST 31 (10-42) IU/L ALT 18 (10-60) IU/L Alkaline Phosphatase 101 (42-121) IU/L Troponin I 0.04 H* (0.00-0.02) ng/ml B-Natriuretic Peptide 1390 H (0-100) pg/ml Total Protein 7.0 (6.7-8.2) g/dl Albumin 3.1 L (3.2-5.5) g/dl Globulin 3.9 Albumin/Globulin Ratio 0.79 Ethyl Alcohol < 5 mg/dL Meds: Medications Generic Name Dose Route Start Last Admin Trade Name Freq PRN Reason Stop Dose Admin Sodium Chloride 10 ml 12/25/18 17:40 12/25/18 18:21 Saline Flush FLUSH 10 ml ASDIRECTED PRN Administration Keep Vein Open - Radiology Interpretation Free Text/Narrative:: Chest xray: FINDINGS: Lungs: Unremarkable. No consolidation. Pleural space: Unremarkable. No pleural effusion. No pneumothorax. Heart/Mediastinum: Unremarkable. No cardiomegaly. Bones/joints: Unremarkable. IMPRESSION: No acute findings. Thank you for allowing us to participate in the care of your patient. Dictated and Authenticated by: Alexandr Velasquez MD 12/25/2018 7:01 PM Central Time ([place] & [place]) See rad report - Re-Assessments/Exams Free Text/Narrative Re-Assessment/Exam: 12/25/18 19:02 Discussed patient case with Dr. Concepcion who agreed to accept the patient for transfer. Departure - Departure Time of Disposition: 19:02 Disposition: DC/Tfer to [facility] 02 Condition: Fair Clinical Impression: Ascites Qualifiers: Ascites type: other type Qualified Code(s): R18.8 - Other ascites - Discharge Information *PRESCRIPTION DRUG MONITORING PROGRAM REVIEWED*: No *COPY OF PRESCRIPTION DRUG MONITORING REPORT IN PATIENT FRANKIE: No Forms: ED Department Discharge, Interfacility Transfer EMTALA - My Orders Last 24 Hours: My Active Orders 12/25/18 17:40 EKG Documentation Completion [RC] STAT DRUG SCREEN URINE BIORAD [URCHEM] Stat Sodium Chloride 0.9% [Saline Flush] 10 ml FLUSH ASDIRECTED PRN Peripheral IV Insertion Adult [OM.PC] Stat 12/25/18 17:41 Peripheral IV Care [RC] . DIRECTED UA RFX EVANGELIST AND CULT IF INDIC [URIN] Stat - Assessment/Plan Last 24 Hours: My Active Orders 12/25/18 17:40 EKG Documentation Completion [RC] STAT DRUG SCREEN URINE [place]ORAD [URCHEM] Stat Sodium Chloride 0.9% [Saline Flush] 10 ml FLUSH ASDIRECTED PRN Peripheral IV Insertion Adult [OM.PC] Stat 12/25/18 17:41 Peripheral IV Care [RC] . DIRECTED UA RFX EVANGELIST AND CULT IF INDIC [URIN] Stat I have read and agree with the documentation that has been completed regarding this visit. By signing this record, I attest that the documentation was completed in my physical presence and is an accurate record of the encounter.
== END 2018-12-25 19:25 ==
LOC: DL.ED 17:39
DX: R18.8 Other ascites (principal); I11.0 Hypertensive heart disease with heart failure; I50.9 Heart failure, unspecified; E78.00 Pure hypercholesterolemia, unspecified; K21.9 Gastro-esophageal reflux disease without esophagitis; Z79.82 Long term (current) use of aspirin; Z79.899 Other long term (current) drug therapy; Z91.030 Bee allergy status; Z91.041 Radiographic dye allergy status; Z91.018 Allergy to other foods
CPT/HCPCS: 36415; 71045; 80053; 83880; 84484; 85025; 93005; 99285; G0480

== ENCOUNTER 2019-01-09 10:00 | Emergency (ER) | payer MEDICAID ==
[2019-01-09] MEDS ORDERED: Sodium Chloride 0.9% 10 ML Syringe FLUSH PRN (10:11)
[2019-01-09 10:40] LABS: ANION GAP 13.1; CHLORIDE,CL 103 mmol/L (101-111); SODIUM,NA 137 mmol/L (135-145)
--- NOTE | 2019-01-09 11:30 | EDM.PDOC ---
Scribed by Estefany Ojeda 01/09/19 1038 Jonas Velez MD ED HPI GENERAL MEDICAL PROBLEM - General Chief Complaint: Abdominal Pain Stated Complaint: AMBULANCE Time Seen by Provider: 01/09/19 10:16 Source of Information: Reports: Patient, EMS, EMS Notes Reviewed, RN, RN Notes Reviewed History Limitations: Reports: No Limitations - History of Present Illness INITIAL COMMENTS - FREE TEXT/NARRATIVE: Patient presents to the ER by [facility]. Patient c/o a large distended abdomen. He states that it has been this way since he was discharged from [facility]. Patient states that he called the ambulance today because the pain in his upper abdomen has progressively been getting worse and starting last night he just cant take it anymore. He states that it is now starting to cause him to SOB. Patient states that both sides of abdomen hurt but the left is worse. He did not have paracentesis during his last admission. He denies fever, chills, N/V, diarrhea, lower extremity edema, or orthopnea. Onset: Gradual Duration: Getting Worse Location: Reports: Abdomen Quality: Reports: Pressure, Same as Previous Episode Severity: Severe Improves with: Reports: None Worsens with: Reports: None Associated Symptoms: Reports: No Other Symptoms Bilateral Upper Abdominal Pain Score (Numeric/FACES): 9 - Related Data Allergies Allergy/AdvReac Type Severity Reaction Status Date / Time bee venom protein (honey bee) Allergy Severe I need to Verified 01/09/19 10:06 use an epi pen red dye Allergy Hives Verified 01/09/19 10:06 [place] And Derivatives AdvReac abd. fluid Verified 01/09/19 10:06 grapefruit AdvReac Mild Other Uncoded 01/09/19 10:06 Home Meds: Home Meds Clopidogrel Bisulfate [Clopidogrel] 75 mg PO DAILY 06/10/18 [History] Lisinopril 2.5 mg PO DAILY 06/10/18 [History] Nitroglycerin 0.4 mg SL ASDIRECTED PRN 06/10/18 [History] Pantoprazole [ProTONIX] 40 mg PO DAILY 06/10/18 [History] Warfarin Sodium 2.5 mg PO DAILY 06/10/18 [History] atorvaSTATin [Lipitor] 40 mg PO BEDTIME 06/10/18 [History] Aspirin [Lo-Dose Aspirin EC] 81 mg PO DAILY 10/04/18 [History] Furosemide 80 mg PO BID 10/04/18 [History] hydrOXYzine HCl [Atarax] 50 mg PO QID 10/04/18 [History] Past Medical History - Past Health History Medical/Surgical History: Denies Medical/Surgical History HEENT History: Reports: Impaired Vision Other HEENT History: wears glasses Cardiovascular History: Reports: CAD, Heart Failure, High Cholesterol, Hypertension, OR, SOB on Exertion, Stents Other Cardiovascular History: Ejection Fraction of 25% Respiratory History: Reports: Pneumonia, Recurrent Gastrointestinal History: Reports: GERD, GI Bleed Other Gastrointestinal History: ascites Genitourinary History: Reports: None Musculoskeletal History: Reports: Back Pain, Chronic Neurological History: Reports: None Psychiatric History: Reports: Addiction Endocrine/Metabolic History: Reports: None Hematologic History: Reports: None Immunologic History: Reports: None Oncologic (Cancer) History: Reports: None Dermatologic History: Reports: Other (See Below) Other Dermatologic History: patient has multiple tatoos to arms and chest - Infectious Disease History Infectious Disease History: Reports: None - Past Surgical History Head Surgeries/Procedures: Reports: None Cardiovascular Surgical History: Reports: Coronary Artery Stent GI Surgical History: Reports: Appendectomy, Other (See Below) Other GI Surgeries/Procedures: ?abdominal surgery just prior to 2017 Social & Family History - Family History Family Medical History: Noncontributory - Tobacco Use Smoking Status *Q: Never Smoker Second Hand Smoke Exposure: No - Caffeine Use Caffeine Use: Reports: None - Recreational Drug Use Recreational Drug Use: No - Living Situation & Occupation Living situation: Reports: with Family Occupation: Disabled ED ROS GENERAL - Review of Systems Review Of Systems: ROS reveals no pertinent complaints other than HPI. ED EXAM, GI/ABD - Physical Exam Exam: See Below Exam Limited By: No Limitations General Appearance: Alert, No Apparent Distress, Other (Chronically ill appearing) Eyes: Bilateral: Normal Appearance (No scleral icterus) Nose: Normal Inspection, Normal Mucosa, No Blood Throat/Mouth: Normal Inspection, Normal Lips, Normal Voice, No Airway Compromise Head: Atraumatic, Normocephalic Neck: Normal Inspection, Supple, Non-Tender, Full Range of Motion Respiratory/Chest: No Respiratory Distress, No Accessory Muscle Use, Decreased Breath Sounds. No: Crackles, Rales, Rhonchi, Wheezing Cardiovascular: Regular Rate, Rhythm, No Edema GI/Abdominal Exam: Normal Bowel Sounds, Other (large distended abdomen w/fluid wave consistent with significant ascites). No: Guarding, Rigid, Rebound (Male) Exam: Deferred Rectal (Males) Exam: Deferred Back Exam: Normal Inspection Extremities: Normal Inspection, Normal Range of Motion, Non-Tender, Normal Capillary Refill, No Pedal Edema Neurological: Alert, Oriented, CN II-XII Intact, Normal Cognition, No Motor/ Sensory Deficits Psychiatric: Normal Mood, Flat Affect Skin Exam: Warm, Dry, Intact, Normal Color, No Rash. No: Jaundice, Petechiae Course - Vital Signs Last Recorded V/S: Last Vital Signs Temp 36.8 C 01/09/19 10:00 Pulse 85 01/09/19 10:00 Resp 16 01/09/19 10:00 BP 106/76 01/09/19 10:00 Pulse Ox 100 01/09/19 10:00 - Orders/Labs/Meds Orders: Active Orders 24 hr Category Date Time Status Peripheral IV Care [RC] . DIRECTED Care 01/09/19 10:11 Active Sodium Chloride 0.9% [Saline Flush] Med 01/09/19 10:11 Active 10 ml FLUSH ASDIRECTED PRN Peripheral IV Insertion Adult [OM.PC] Routine Oth 01/09/19 10:11 Ordered Medication Orders Sodium Chloride (Saline Flush) 10 ml FLUSH ASDIRECTED PRN PRN Reason: Keep Vein Open Last Admin: 01/09/19 10:12 Dose: 10 ml Labs: Laboratory Tests 01/09/19 01/09/19 01/09/19 Range/Units 10:14 10:14 10:14 WBC 8.8 (5.0-10.0) 10^3/uL RBC 4.66 (4.6-6.2) 10^6/uL Hgb 11.7 L (14.0-18.0) g/dL Hct 36.0 L (40.0-54.0) % MCV 77.3 L (80-100) fL MCH 25.1 L (27.0-34.0) pg MCHC 32.5 L (33.0-35.0) g/dL Plt Count 333 D (150-450) 10^3/uL Neut % (Auto) 69.2 (42.2-75.2) % Lymph % (Auto) 19.3 L (20.5-50.1) % [place] % (Auto) 7.9 (2-8) % Eos % (Auto) 3.1 H (1.0-3.0) % Baso % (Auto) 0.5 (0.0-1.0) % PT 12.6 H D (9.0-12.0) SEC INR 1.3 H (0.9-1.2) APTT 26.2 (22.0-34.0) SEC Sodium 137 (135-145) mmol/L Potassium 3.1 L (3.6-5.0) mmol/L Chloride 103 (101-111) mmol/L Carbon Dioxide 24.0 (21.0-31.0) mmol/L Anion Gap 13.1 BUN 16 (7-18) mg/dL Creatinine 0.9 (0.6-1.3) mg/dL Est Cr Clr Drug Dosing 123.18 mL/min Estimated GFR (MDRD) > 60 BUN/Creatinine Ratio 17.77 Glucose 82 (74-105) mg/dL Lactic Acid (0.5-2.2) mmol/L Calcium 8.5 (8.4-10.2) mg/dl Total Bilirubin 1.6 H (0.2-1.0) mg/dL AST 27 (10-42) IU/L ALT 19 (10-60) IU/L Alkaline Phosphatase 141 H (42-121) IU/L Ammonia (11-35) umol/L B-Natriuretic Peptide (0-100) pg/ml Total Protein 7.6 (6.7-8.2) g/dl Albumin 3.1 L (3.2-5.5) g/dl Globulin 4.5 Albumin/Globulin Ratio 0.69 Lipase (22-51) U/L 01/09/19 01/09/19 01/09/19 Range/Units 10:14 10:14 10:14 WBC (5.0-10.0) 10^3/uL RBC (4.6-6.2) 10^6/uL Hgb (14.0-18.0) g/dL Hct (40.0-54.0) % MCV (80-100) fL MCH (27.0-34.0) pg MCHC (33.0-35.0) g/dL Plt Count (150-450) 10^3/uL Neut % (Auto) (42.2-75.2) % Lymph % (Auto) (20.5-50.1) % [place] % (Auto) (2-8) % Eos % (Auto) (1.0-3.0) % Baso % (Auto) (0.0-1.0) % PT (9.0-12.0) SEC INR (0.9-1.2) APTT (22.0-34.0) SEC Sodium (135-145) mmol/L Potassium (3.6-5.0) mmol/L Chloride (101-111) mmol/L Carbon Dioxide (21.0-31.0) mmol/L Anion Gap BUN (7-18) mg/dL Creatinine (0.6-1.3) mg/dL Est Cr Clr Drug Dosing mL/min Estimated GFR (MDRD) BUN/Creatinine Ratio Glucose (74-105) mg/dL Lactic Acid 1.4 (0.5-2.2) mmol/L Calcium (8.4-10.2) mg/dl Total Bilirubin (0.2-1.0) mg/dL AST (10-42) IU/L ALT (10-60) IU/L Alkaline Phosphatase (42-121) IU/L Ammonia 18 (11-35) umol/L B-Natriuretic Peptide 1020 H (0-100) pg/ml Total Protein (6.7-8.2) g/dl Albumin (3.2-5.5) g/dl Globulin Albumin/Globulin Ratio Lipase 39 (22-51) U/L Meds: Medications Generic Name Dose Route Start Last Admin Trade Name Freq PRN Reason Stop Dose Admin Sodium Chloride 10 ml 01/09/19 10:11 01/09/19 10:12 Saline Flush FLUSH 10 ml ASDIRECTED PRN Administration Keep Vein Open - Radiology Interpretation Free Text/Narrative:: CXR: stable chest, no acute process, see Rad. report. Departure - Departure Time of Disposition: 11:27 Disposition: DC/Tfer to Acute Hospital 02 Condition: Serious Clinical Impression: Ascites Qualifiers: Ascites type: other type Qualified Code(s): R18.8 - Other ascites Abdominal pain Qualifiers: Abdominal location: generalized Qualified Code(s): R10.84 - Generalized abdominal pain - Discharge Information *PRESCRIPTION DRUG MONITORING PROGRAM REVIEWED*: No *COPY OF PRESCRIPTION DRUG MONITORING REPORT IN PATIENT FRANKIE: No Forms: ED Department Discharge, Interfacility Transfer EMTALA - My Orders Last 24 Hours: My Active Orders 01/09/19 10:11 Peripheral IV Care [RC] . DIRECTED Sodium Chloride 0.9% [Saline Flush] 10 ml FLUSH ASDIRECTED PRN Peripheral IV Insertion Adult [OM.PC] Routine - Assessment/Plan Last 24 Hours: My Active Orders 01/09/19 10:11 Peripheral IV Care [RC] . DIRECTED Sodium Chloride 0.9% [Saline Flush] 10 ml FLUSH ASDIRECTED PRN Peripheral IV Insertion Adult [OM.PC] Routine I have read and agree with the documentation that has been completed regarding this visit. By signing this record, I attest that the documentation was completed in my physical presence and is an accurate record of the encounter.
[2019-01-09] MEDS ORDERED: HYDROmorphone 1 MG/ML Syringe IVPUSH ONE (11:37)
== END 2019-01-09 12:08 ==
LOC: DL.ED 10:00
DX: R18.8 Other ascites (principal); R10.84 Generalized abdominal pain; I11.0 Hypertensive heart disease with heart failure; I50.9 Heart failure, unspecified; E78.00 Pure hypercholesterolemia, unspecified; I25.2 Old myocardial infarction; I25.10 Atherosclerotic heart disease of native coronary artery without angina pectoris; K21.9 Gastro-esophageal reflux disease without esophagitis; Z79.899 Other long term (current) drug therapy; Z79.82 Long term (current) use of aspirin; Z91.018 Allergy to other foods; Z91.030 Bee allergy status; Z91.09 Other allergy status, other than to drugs and biological substances
CPT/HCPCS: 36415; 71045; 80053; 82140; 83605; 83690; 83880; 85025; 85610; 85730; 96374; 99285; J1170

== ENCOUNTER 2019-01-22 13:48 | Emergency (ER) | payer MEDICAID ==
[2019-01-22] MEDS ORDERED: Sodium Chloride 0.9% 10 ML Syringe FLUSH PRN (13:59)
[2019-01-22 14:29] LABS: ANION GAP 15.6; CHLORIDE,CL 104 mmol/L (101-111); SODIUM,NA 137 mmol/L (135-145)
[2019-01-22] MEDS ORDERED: HYDROmorphone 1 MG/ML Syringe IVPUSH ONE (14:43)
--- NOTE | 2019-01-22 14:52 | EDM.PDOC ---
Scribed by Estefany Ojeda 01/22/19 [id number] for Silke Egan NP ED HPI GENERAL MEDICAL PROBLEM - General Chief Complaint: Abdominal Pain Stated Complaint: AMBULANCE/UNKNOWN Time Seen by Provider: 01/22/19 13:50 Source of Information: Reports: Patient, RN, RN Notes Reviewed History Limitations: Reports: No Limitations - History of Present Illness INITIAL COMMENTS - FREE TEXT/NARRATIVE: Patient presents to ER by [facility] with complaint of chest pain and abdominal discomfort. He last had paracentesis done last week. He has history of chronic ascites. Denies fever, chills, nausea, vomiting and diarrhea. States he has had chest pain and shortness of breath. Onset: Gradual Duration: Getting Worse Location: Reports: Chest, Abdomen Quality: Reports: Ache Severity: Moderate Improves with: Reports: None Worsens with: Reports: None Associated Symptoms: Reports: No Other Symptoms Upper Abdomen Pain Score (Numeric/FACES): 9 - Related Data Allergies Allergy/AdvReac Type Severity Reaction Status Date / Time bee venom protein (honey bee) Allergy Severe I need to Verified 01/09/19 10:06 use an epi pen red dye Allergy Hives Verified 01/09/19 10:06 [place] And Derivatives AdvReac abd. fluid Verified 01/09/19 10:06 grapefruit AdvReac Mild Other Uncoded 01/09/19 10:06 Home Meds: Home Meds Clopidogrel Bisulfate [Clopidogrel] 75 mg PO DAILY 06/10/18 [History] Lisinopril 2.5 mg PO DAILY 06/10/18 [History] Nitroglycerin 0.4 mg SL ASDIRECTED PRN 06/10/18 [History] Pantoprazole [ProTONIX] 40 mg PO DAILY 06/10/18 [History] Warfarin Sodium 2.5 mg PO DAILY 06/10/18 [History] atorvaSTATin [Lipitor] 40 mg PO BEDTIME 06/10/18 [History] Aspirin [Lo-Dose Aspirin EC] 81 mg PO DAILY 10/04/18 [History] Furosemide 80 mg PO BID 10/04/18 [History] hydrOXYzine HCl [Atarax] 50 mg PO QID 10/04/18 [History] Past Medical History - Past Health History Medical/Surgical History: Denies Medical/Surgical History HEENT History: Reports: Impaired Vision Other HEENT History: wears glasses Cardiovascular History: Reports: CAD, Heart Failure, High Cholesterol, Hypertension, PR, SOB on Exertion, Stents Other Cardiovascular History: Ejection Fraction of 25% Respiratory History: Reports: Pneumonia, Recurrent Gastrointestinal History: Reports: GERD, GI Bleed Other Gastrointestinal History: ascites Genitourinary History: Reports: None Musculoskeletal History: Reports: Back Pain, Chronic Neurological History: Reports: None Psychiatric History: Reports: Addiction Endocrine/Metabolic History: Reports: None Hematologic History: Reports: None Immunologic History: Reports: None Oncologic (Cancer) History: Reports: None Dermatologic History: Reports: Other (See Below) Other Dermatologic History: patient has multiple tatoos to arms and chest - Infectious Disease History Infectious Disease History: Reports: None - Past Surgical History Head Surgeries/Procedures: Reports: None Cardiovascular Surgical History: Reports: Coronary Artery Stent GI Surgical History: Reports: Appendectomy, Other (See Below) Other GI Surgeries/Procedures: ?abdominal surgery just prior to 2017 Social & Family History - Family History Family Medical History: Noncontributory - Tobacco Use Smoking Status *Q: Never Smoker Second Hand Smoke Exposure: No - Caffeine Use Caffeine Use: Reports: None - Recreational Drug Use Recreational Drug Use: No - Living Situation & Occupation Living situation: Reports: with Family Occupation: Disabled ED ROS GENERAL - Review of Systems Review Of Systems: ROS reveals no pertinent complaints other than HPI. ED EXAM, GI/ABD - Physical Exam Exam: See Below Exam Limited By: No Limitations General Appearance: Moderate Distress Eyes: Bilateral: Normal Appearance Ears: Normal External Exam, Normal Canal, Hearing Grossly Normal, Normal TMs Nose: Normal Inspection, Normal Mucosa, No Blood Throat/Mouth: Normal Inspection, Normal Lips, Normal Teeth, Normal Gums, Normal Oropharynx, Normal Voice, No Airway Compromise Head: Atraumatic, Normocephalic Neck: Normal Inspection, Supple, Non-Tender, Full Range of Motion Respiratory/Chest: Crackles (bases bilateral. Diminished) Cardiovascular: Normal Peripheral Pulses, Regular Rate, Rhythm, No Edema, No Gallop, No JVD, No Murmur, No Rub GI/Abdominal Exam: Other (distended and rigid. ) (Male) Exam: Deferred Rectal (Males) Exam: Deferred Back Exam: Normal Inspection, Full Range of Motion, NT Extremities: Normal Inspection, Normal Range of Motion, Non-Tender, Normal Capillary Refill, No Pedal Edema Neurological: Alert, Oriented, CN II-XII Intact, Normal Cognition, Normal Gait, Normal Reflexes, No Motor/Sensory Deficits Psychiatric: Normal Affect, Normal Mood Skin Exam: Cool (moist), Diaphoretic, Pallor Lymphatic: No Adenopathy Course - Vital Signs Last Recorded V/S: Last Vital Signs Temp 96.3 F 01/22/19 13:48 Pulse 91 01/22/19 13:48 Resp 18 01/22/19 13:48 BP 107/74 01/22/19 13:48 Pulse Ox 100 01/22/19 13:48 - Orders/Labs/Meds Orders: Active Orders 24 hr Category Date Time Status EKG Documentation Completion [RC] STAT Care 01/22/19 14:00 Active Peripheral IV Care [RC] . DIRECTED Care 01/22/19 14:00 Active Sodium Chloride 0.9% [Saline Flush] Med 01/22/19 13:59 Active 10 ml FLUSH ASDIRECTED PRN Peripheral IV Insertion Adult [OM.PC] Stat Oth 01/22/19 13:59 Ordered Medication Orders Sodium Chloride (Saline Flush) 10 ml FLUSH ASDIRECTED PRN PRN Reason: Keep Vein Open Last Admin: 01/22/19 14:02 Dose: 10 ml Labs: Laboratory Tests 01/22/19 01/22/19 Range/Units 14:01 14:01 WBC 9.6 (5.0-10.0) 10^3/uL RBC 4.93 (4.6-6.2) 10^6/uL Hgb 12.5 L (14.0-18.0) g/dL Hct 38.6 L (40.0-54.0) % MCV 78.3 L (80-100) fL MCH 25.4 L (27.0-34.0) pg MCHC 32.4 L (33.0-35.0) g/dL Plt Count 300 (150-450) 10^3/uL Neut % (Auto) 69.9 (42.2-75.2) % Lymph % (Auto) 16.3 L (20.5-50.1) % [place] % (Auto) 8.2 H (2-8) % Eos % (Auto) 5.3 H (1.0-3.0) % Baso % (Auto) 0.3 (0.0-1.0) % Sodium 137 (135-145) mmol/L Potassium 3.6 (3.6-5.0) mmol/L Chloride 104 (101-111) mmol/L Carbon Dioxide 21.0 (21.0-31.0) mmol/L Anion Gap 15.6 BUN 21 H (7-18) mg/dL Creatinine 1.0 (0.6-1.3) mg/dL Est Cr Clr Drug Dosing 110.86 mL/min Estimated GFR (MDRD) > 60 BUN/Creatinine Ratio 21.00 Glucose 113 H (74-105) mg/dL Calcium 8.8 (8.4-10.2) mg/dl Total Bilirubin 1.9 H (0.2-1.0) mg/dL AST 34 (10-42) IU/L ALT 18 (10-60) IU/L Alkaline Phosphatase 134 H (42-121) IU/L Troponin I 0.06 H* (0.00-0.02) ng/ml B-Natriuretic Peptide 1310 H (0-100) pg/ml Total Protein 8.0 (6.7-8.2) g/dl Albumin 3.4 (3.2-5.5) g/dl Globulin 4.6 Albumin/Globulin Ratio 0.74 Meds: Medications Generic Name Dose Route Start Last Admin Trade Name Freq PRN Reason Stop Dose Admin Sodium Chloride 10 ml 01/22/19 13:59 01/22/19 14:02 Saline Flush FLUSH 10 ml ASDIRECTED PRN Administration Keep Vein Open Discontinued Medications Generic Name Dose Route Start Last Admin Trade Name Freq PRN Reason Stop Dose Admin Hydromorphone HCl 1 mg 01/22/19 14:43 01/22/19 14:47 Dilaudid IVPUSH 01/22/19 14:44 1 mg ONETIME ONE Administration - Re-Assessments/Exams Free Text/Narrative Re-Assessment/Exam: 01/22/19 14:50 Discussed patient case with Dr. Davis who agreed to accept the patient for transfer to [facility]. Departure - Departure Time of Disposition: 14:50 Disposition: DC/Tfer to Acute Hospital 02 Condition: Fair Clinical Impression: Cirrhosis Qualifiers: Hepatic cirrhosis type: unspecified hepatic cirrhosis Ascites presence: with ascites Qualified Code(s): K74.60 - Unspecified cirrhosis of liver; R18.8 - Other ascites Ascites Qualifiers: Ascites type: due to alcoholic cirrhosis Qualified Code(s): K70.31 - Alcoholic cirrhosis of liver with ascites - Discharge Information *PRESCRIPTION DRUG MONITORING PROGRAM REVIEWED*: No *COPY OF PRESCRIPTION DRUG MONITORING REPORT IN PATIENT FRANKIE: No Forms: ED Department Discharge, Interfacility Transfer EMTALA - My Orders Last 24 Hours: My Active Orders 01/22/19 13:59 Sodium Chloride 0.9% [Saline Flush] 10 ml FLUSH ASDIRECTED PRN Peripheral IV Insertion Adult [OM.PC] Stat 01/22/19 14:00 EKG Documentation Completion [RC] STAT Peripheral IV Care [RC] . DIRECTED - Assessment/Plan Last 24 Hours: My Active Orders 01/22/19 13:59 Sodium Chloride 0.9% [Saline Flush] 10 ml FLUSH ASDIRECTED PRN Peripheral IV Insertion Adult [OM.PC] Stat 01/22/19 14:00 EKG Documentation Completion [RC] STAT Peripheral IV Care [RC] . DIRECTED I have read and agree with the documentation that has been completed regarding this visit. By signing this record, I attest that the documentation was completed in my physical presence and is an accurate record of the encounter.
== END 2019-01-22 15:40 ==
LOC: DL.ED 13:48
DX: K70.31 Alcoholic cirrhosis of liver with ascites (principal); I11.0 Hypertensive heart disease with heart failure; I50.9 Heart failure, unspecified; I25.2 Old myocardial infarction; I25.10 Atherosclerotic heart disease of native coronary artery without angina pectoris; K21.9 Gastro-esophageal reflux disease without esophagitis; Z91.030 Bee allergy status; Z91.018 Allergy to other foods; Z79.899 Other long term (current) drug therapy
CPT/HCPCS: 36415; 80053; 83880; 84484; 85025; 93005; 96374; 99285; J1170

== ENCOUNTER 2019-02-09 18:15 | Emergency (ER) | payer MEDICAID ==
--- NOTE | 2019-02-09 18:15 | EDM.PDOC ---
ED HPI GENERAL MEDICAL PROBLEM - General Chief Complaint: Abdominal Pain Stated Complaint: AMBULANCE Time Seen by Provider: 02/09/19 18:15 Source of Information: Reports: Patient, RN, RN Notes Reviewed History Limitations: Reports: No Limitations - History of Present Illness INITIAL COMMENTS - FREE TEXT/NARRATIVE: Pt presents to ER by ambulance with c/o increased abdomen size, lower extremity edema, and mild shortness of breath. Pt states that he has ascites and he knows that he needs to be "tapped" again. He denies fever, chill, N/V, or confusion. He ran out of his Lactulose for a few days, but got it refilled today. He has not had a BM today. He states that his abdominal is "sore", but not painful. Onset: Gradual Duration: Constant Location: Reports: Abdomen Quality: Reports: Pressure Severity: Moderate Improves with: Reports: None Worsens with: Reports: Movement Associated Symptoms: Reports: No Other Symptoms - Related Data Allergies Allergy/AdvReac Type Severity Reaction Status Date / Time bee venom protein (honey bee) Allergy Severe I need to Verified 01/09/19 10:06 use an epi pen red dye Allergy Hives Verified 01/09/19 10:06 Haynes And Derivatives AdvReac abd. fluid Verified 01/09/19 10:06 grapefruit AdvReac Mild Other Uncoded 01/09/19 10:06 Home Meds: Home Meds Clopidogrel Bisulfate [Clopidogrel] 75 mg PO DAILY 06/10/18 [History] Lisinopril 2.5 mg PO DAILY 06/10/18 [History] Nitroglycerin 0.4 mg SL ASDIRECTED PRN 06/10/18 [History] Pantoprazole [ProTONIX] 40 mg PO DAILY 06/10/18 [History] Warfarin Sodium 2.5 mg PO DAILY 06/10/18 [History] atorvaSTATin [Lipitor] 40 mg PO BEDTIME 06/10/18 [History] Aspirin [Lo-Dose Aspirin EC] 81 mg PO DAILY 10/04/18 [History] Furosemide 80 mg PO BID 10/04/18 [History] hydrOXYzine HCl [Atarax] 50 mg PO QID 10/04/18 [History] Past Medical History - Past Health History Medical/Surgical History: Denies Medical/Surgical History HEENT History: Reports: Impaired Vision Other HEENT History: wears glasses Cardiovascular History: Reports: CAD, Heart Failure, High Cholesterol, Hypertension, [place], SOB on Exertion, Stents Other Cardiovascular History: Ejection Fraction of 25% Respiratory History: Reports: Pneumonia, Recurrent Gastrointestinal History: Reports: GERD, GI Bleed Other Gastrointestinal History: ascites Genitourinary History: Reports: None Musculoskeletal History: Reports: Back Pain, Chronic Neurological History: Reports: None Psychiatric History: Reports: Addiction Endocrine/Metabolic History: Reports: None Hematologic History: Reports: None Immunologic History: Reports: None Oncologic (Cancer) History: Reports: None Dermatologic History: Reports: Other (See Below) Other Dermatologic History: patient has multiple tatoos to arms and chest - Infectious Disease History Infectious Disease History: Reports: None - Past Surgical History Head Surgeries/Procedures: Reports: None Cardiovascular Surgical History: Reports: Coronary Artery Stent GI Surgical History: Reports: Appendectomy, Other (See Below) Other GI Surgeries/Procedures: ?abdominal surgery just prior to 2017 Social & Family History - Family History Family Medical History: Noncontributory - Caffeine Use Caffeine Use: Reports: None - Living Situation & Occupation Living situation: Reports: with Family Occupation: Disabled ED ROS GENERAL - Review of Systems Review Of Systems: ROS reveals no pertinent complaints other than HPI. ED EXAM, GENERAL - Physical Exam Exam: See Below Exam Limited By: No Limitations General Appearance: Alert, No Apparent Distress, Other (Chronically ill appearing) Eye Exam: Bilateral Eye: Normal Inspection (No scleral icterus) Nose: Normal Inspection Throat/Mouth: Normal Inspection, Normal Oropharynx, Normal Voice, No Airway Compromise Head: Atraumatic, Normocephalic Neck: Normal Inspection, Supple, Non-Tender, Full Range of Motion Respiratory/Chest: No Respiratory Distress, Lungs Clear, Normal Breath Sounds, No Accessory Muscle Use, Chest Non-Tender Cardiovascular: Regular Rate, Rhythm GI/Abdominal: Normal Bowel Sounds, Soft, Other (protruberant abdomen with large ascites and fluid wave) Extremities: Normal Range of Motion, Non-Tender, Pedal Edema Neurological: Alert, Oriented, Normal Gait, No Motor/Sensory Deficits Psychiatric: Normal Mood Skin Exam: Warm, Dry, Intact, Jaundice Course - Vital Signs Last Recorded V/S: Last Vital Signs Temp 36.4 C 02/09/19 18:34 Pulse Resp 16 02/09/19 18:34 BP 110/74 05/08/19 18:34 Pulse Ox 99 02/09/19 18:34 - Orders/Labs/Meds Orders: Active Orders 24 hr Category Date Time Status Peripheral IV Care [RC] . DIRECTED Care 02/09/19 18:17 Active Sodium Chloride 0.9% [Saline Flush] Med 02/09/19 18:16 Active 10 ml FLUSH ASDIRECTED PRN Peripheral IV Insertion Adult [OM.PC] Stat Oth 02/09/19 18:16 Ordered Medication Orders Sodium Chloride (Saline Flush) 10 ml FLUSH ASDIRECTED PRN PRN Reason: Keep Vein Open Labs: Laboratory Tests 02/09/19 02/09/19 02/09/19 Range/Units 18:30 18:30 18:30 WBC 9.3 (5.0-10.0) 10^3/uL RBC 4.66 (4.6-6.2) 10^6/uL Hgb 12.1 L (14.0-18.0) g/dL Hct 37.0 L (40.0-54.0) % MCV 79.4 L (80-100) fL MCH 26.0 L (27.0-34.0) pg MCHC 32.7 L (33.0-35.0) g/dL Plt Count 259 (150-450) 10^3/uL Neut % (Auto) 65.5 (42.2-75.2) % Lymph % (Auto) 20.4 L (20.5-50.1) % [place] % (Auto) 8.6 H (2-8) % Eos % (Auto) 5.1 H (1.0-3.0) % Baso % (Auto) 0.4 (0.0-1.0) % PT 17.0 H D (9.0-12.0) SEC INR 1.7 H (0.9-1.2) APTT 26.2 (22.0-34.0) SEC Sodium 134 L (135-145) mmol/L Potassium 3.9 (3.6-5.0) mmol/L Chloride 98 L (101-111) mmol/L Carbon Dioxide 25.0 (21.0-31.0) mmol/L Anion Gap 14.9 BUN 21 H (7-18) mg/dL Creatinine 0.9 (0.6-1.3) mg/dL Est Cr Clr Drug Dosing 119.41 mL/min Estimated GFR (MDRD) > 60 BUN/Creatinine Ratio 23.33 Glucose 78 (74-105) mg/dL Lactic Acid (0.5-2.2) mmol/L Calcium 8.2 L (8.4-10.2) mg/dl Total Bilirubin 1.4 H (0.2-1.0) mg/dL AST 35 (10-42) IU/L ALT 18 (10-60) IU/L Alkaline Phosphatase 160 H (42-121) IU/L B-Natriuretic Peptide 1020 H (0-100) pg/ml Total Protein 7.1 (6.7-8.2) g/dl Albumin 3.2 (3.2-5.5) g/dl Globulin 3.9 Albumin/Globulin Ratio 0.82 Amylase 52 (28-100) U/L Lipase 51 (22-51) U/L /05/23 Range/Units 18:30 WBC (5.0-10.0) 10^3/uL RBC (4.6-6.2) 10^6/uL Hgb (14.0-18.0) g/dL Hct (40.0-54.0) % MCV (80-100) fL MCH (27.0-34.0) pg MCHC (33.0-35.0) g/dL Plt Count (150-450) 10^3/uL Neut % (Auto) (42.2-75.2) % Lymph % (Auto) (20.5-50.1) % [place] % (Auto) (2-8) % Eos % (Auto) (1.0-3.0) % Baso % (Auto) (0.0-1.0) % PT (9.0-12.0) SEC INR (0.9-1.2) APTT (22.0-34.0) SEC Sodium (135-145) mmol/L Potassium (3.6-5.0) mmol/L Chloride (101-111) mmol/L Carbon Dioxide (21.0-31.0) mmol/L Anion Gap BUN (7-18) mg/dL Creatinine (0.6-1.3) mg/dL Est Cr Clr Drug Dosing mL/min Estimated GFR (MDRD) BUN/Creatinine Ratio Glucose (74-105) mg/dL Lactic Acid 1.8 (0.5-2.2) mmol/L Calcium (8.4-10.2) mg/dl Total Bilirubin (0.2-1.0) mg/dL AST (10-42) IU/L ALT (10-60) IU/L Alkaline Phosphatase (42-121) IU/L B-Natriuretic Peptide (0-100) pg/ml Total Protein (6.7-8.2) g/dl Albumin (3.2-5.5) g/dl Globulin Albumin/Globulin Ratio Amylase (28-100) U/L Lipase (22-51) U/L Meds: Medications Generic Name Dose Route Start Last Admin Trade Name Freq PRN Reason Stop Dose Admin Sodium Chloride 10 ml 02/09/19 18:16 Saline Flush FLUSH ASDIRECTED PRN Keep Vein Open Departure - Departure Time of Disposition: 19:00 Disposition: DC/Tfer to [facility] 02 Condition: Serious Clinical Impression: Ascites Qualifiers: Ascites type: due to alcoholic cirrhosis Qualified Code(s): K70.31 - Alcoholic cirrhosis of liver with ascites Cirrhosis Qualifiers: Hepatic cirrhosis type: unspecified hepatic cirrhosis Ascites presence: with ascites Qualified Code(s): K74.60 - Unspecified cirrhosis of liver - Discharge Information *PRESCRIPTION DRUG MONITORING PROGRAM REVIEWED*: No *COPY OF PRESCRIPTION DRUG MONITORING REPORT IN PATIENT FRANKIE: No Forms: ED Department Discharge, Interfacility Transfer EMTALA - My Orders Last 24 Hours: My Active Orders 02/09/19 18:16 Sodium Chloride 0.9% [Saline Flush] 10 ml FLUSH ASDIRECTED PRN Peripheral IV Insertion Adult [OM.PC] Stat 02/09/19 18:17 Peripheral IV Care [RC] . DIRECTED - Assessment/Plan Last 24 Hours: My Active Orders 02/09/19 18:16 Sodium Chloride 0.9% [Saline Flush] 10 ml FLUSH ASDIRECTED PRN Peripheral IV Insertion Adult [OM.PC] Stat 02/09/19 18:17 Peripheral IV Care [RC] . DIRECTED
[2019-02-09] MEDS ORDERED: Sodium Chloride 0.9% 10 ML Syringe FLUSH PRN (18:16)
[2019-02-09 18:58] LABS: ANION GAP 14.9; CHLORIDE,CL 98 mmol/L (101-111); SODIUM,NA 134 mmol/L (135-145)
== END 2019-02-09 19:36 ==
LOC: DL.ED 18:15
DX: K70.31 Alcoholic cirrhosis of liver with ascites (principal); I11.0 Hypertensive heart disease with heart failure; I50.9 Heart failure, unspecified; E78.00 Pure hypercholesterolemia, unspecified; I25.10 Atherosclerotic heart disease of native coronary artery without angina pectoris; K21.9 Gastro-esophageal reflux disease without esophagitis; Z79.01 Long term (current) use of anticoagulants; Z79.82 Long term (current) use of aspirin; Z79.899 Other long term (current) drug therapy; Z91.018 Allergy to other foods; Z91.030 Bee allergy status; Z91.09 Other allergy status, other than to drugs and biological substances
CPT/HCPCS: 36415; 80053; 82150; 83605; 83690; 83880; 85025; 85610; 85730; 99285

== ENCOUNTER 2019-03-22 00:52 | Emergency (ER) | payer MEDICAID ==
[2019-03-22 01:34] LABS: ANION GAP 14.5; CHLORIDE,CL 105 mmol/L (101-111); SODIUM,NA 139 mmol/L (135-145)
[2019-03-22] MEDS ORDERED: Ondansetron 4 MG/2 ML SDV IV ONE (01:35)
[2019-03-22] MEDS ORDERED: Morphine 2 MG/ML Syringe IVPUSH ONE (01:36)
[2019-03-22] MEDS ORDERED: Furosemide 40 MG/4 ML VIAL IVPUSH ONE (01:38)
--- NOTE | 2019-03-22 01:40 | EDM.PDOC ---
"ED HPI GENERAL MEDICAL PROBLEM - General Chief Complaint: Abdominal Pain Stated Complaint: AMBULANCE-UNKNOWN Time Seen by Provider: 03/22/19 00:55 Source of Information: Reports: Patient, EMS, RN History Limitations: Reports: No Limitations - History of Present Illness INITIAL COMMENTS - FREE TEXT/NARRATIVE: ED with c/o abdominal pain and distension. Denies nausea or vomiting. appetite good, BM today, passing flatus. intermittent chest pain, with burping bile. No fever or chills. Hx cirrhosis and ascites. Abdomen Pain Score (Numeric/FACES): 10 - Related Data Allergies Allergy/AdvReac Type Severity Reaction Status Date / Time bee venom protein (honey bee) Allergy Severe I need to Verified 03/22/19 00:57 use an epi pen red dye Allergy Hives Verified 03/22/19 00:57 [place] And Derivatives AdvReac abd. fluid Verified 03/22/19 00:57 grapefruit AdvReac Mild Other Uncoded 03/22/19 00:57 Home Meds: Home Meds Clopidogrel Bisulfate [Clopidogrel] 75 mg PO DAILY 06/10/18 [History] Lisinopril 2.5 mg PO DAILY 06/10/18 [History] Nitroglycerin 0.4 mg SL ASDIRECTED PRN 06/10/18 [History] Pantoprazole [ProTONIX] 40 mg PO DAILY 06/10/18 [History] Warfarin Sodium 2.5 mg PO DAILY 06/10/18 [History] atorvaSTATin [Lipitor] 40 mg PO BEDTIME 06/10/18 [History] Aspirin [Lo-Dose Aspirin EC] 81 mg PO DAILY 10/04/18 [History] Furosemide 80 mg PO BID 10/04/18 [History] hydrOXYzine HCl [Atarax] 50 mg PO QID 10/04/18 [History] Past Medical History - Past Health History Medical/Surgical History: Denies Medical/Surgical History HEENT History: Reports: Impaired Vision Other HEENT History: wears glasses Cardiovascular History: Reports: CAD, Heart Failure, High Cholesterol, Hypertension, [place], SOB on Exertion, Stents Other Cardiovascular History: Ejection Fraction of 25% Respiratory History: Reports: Pneumonia, Recurrent Gastrointestinal History: Reports: GERD, GI Bleed Other Gastrointestinal History: ascites, liver disease Genitourinary History: Reports: None Musculoskeletal History: Reports: Back Pain, Chronic Neurological History: Reports: None Psychiatric History: Reports: Addiction Endocrine/Metabolic History: Reports: None Hematologic History: Reports: None Immunologic History: Reports: None Oncologic (Cancer) History: Reports: None Dermatologic History: Reports: Other (See Below) Other Dermatologic History: patient has multiple tatoos to arms and chest - Infectious Disease History Infectious Disease History: Reports: None - Past Surgical History Head Surgeries/Procedures: Reports: None Cardiovascular Surgical History: Reports: Coronary Artery Stent GI Surgical History: Reports: Appendectomy, Other (See Below) Other GI Surgeries/Procedures: ?abdominal surgery just prior to 2017 Social & Family History - Family History Family Medical History: Noncontributory - Tobacco Use Smoking Status *Q: Never Smoker - Caffeine Use Caffeine Use: Reports: Tea - Recreational Drug Use Recreational Drug Use: No - Living Situation & Occupation Living situation: Reports: with Family Occupation: Disabled ED ROS GENERAL - Review of Systems Review Of Systems: ROS reveals no pertinent complaints other than HPI. ED EXAM, GI/ABD - Physical Exam Exam: See Below Exam Limited By: No Limitations General Appearance: Alert, Mild Distress Ears: Normal External Exam, Hearing Grossly Normal Nose: Normal Inspection Throat/Mouth: Normal Inspection, Normal Voice Head: Atraumatic, Normocephalic Neck: Normal Inspection Respiratory/Chest: No Respiratory Distress, Decreased Breath Sounds. No: Crackles, Rales Cardiovascular: Normal Peripheral Pulses, Regular Rate, Rhythm GI/Abdominal Exam: Distended, Tender (general greater ruq), Abnormal Bowel Sounds (distant) Extremities: Normal Inspection, Normal Range of Motion Neurological: Alert, Oriented, Normal Cognition Psychiatric: Normal Affect, Normal Mood Skin Exam: Warm, Dry, Intact, Tattoo(s) EKG INTERPRETATION Rhythm: NSR Course - Vital Signs Last Recorded V/S: Last Vital Signs Temp 98.4 F 03/22/19 00:52 Pulse 99 03/22/19 00:52 Resp 14 03/22/19 00:52 BP 114/80 03/22/19 00:52 Pulse Ox 100 03/22/19 00:52 - Orders/Labs/Meds Orders: Active Orders 24 hr Category Date Time Status EKG Documentation Completion [RC] URGENT Care 03/22/19 00:52 Active Abdomen Pelvis wo Cont [CT] Urgent Exams 03/22/19 01:41 Taken CXR [Chest 1V Frontal] [CR] Urgent Exams 03/22/19 00:52 Taken CULTURE BLOOD [BC] Stat Lab 03/22/19 01:05 Results CULTURE BLOOD [BC] Stat Lab 03/22/19 02:05 Received Blood Culture x2 Reflex Set [OM.PC] Stat Oth 03/22/19 00:56 Ordered Labs: Laboratory Tests 03/22/19 03/22/19 03/22/19 Range/Units 01:05 01:05 01:05 WBC 8.9 (5.0-10.0) 10^3/uL RBC 4.78 (4.6-6.2) 10^6/uL Hgb 12.3 L (14.0-18.0) g/dL Hct 38.9 L (40.0-54.0) % MCV 81.4 (80-100) fL MCH 25.7 L (27.0-34.0) pg MCHC 31.6 L (33.0-35.0) g/dL Plt Count 267 (150-450) 10^3/uL Neut % (Auto) 69.8 (42.2-75.2) % Lymph % (Auto) 17.4 L (20.5-50.1) % [place] % (Auto) 8.4 H (2-8) % Eos % (Auto) 3.8 H (1.0-3.0) % Baso % (Auto) 0.6 (0.0-1.0) % PT (9.0-12.0) SEC INR (0.9-1.2) Sodium 139 (135-145) mmol/L Potassium 3.5 L (3.6-5.0) mmol/L Chloride 105 (101-111) mmol/L Carbon Dioxide 23.0 (21.0-31.0) mmol/L Anion Gap 14.5 BUN 21 H (7-18) mg/dL Creatinine 1.5 H (0.6-1.3) mg/dL Est Cr Clr Drug Dosing 73.91 mL/min Estimated GFR (MDRD) 54 BUN/Creatinine Ratio 14.00 Glucose 70 L (74-105) mg/dL Lactic Acid (0.5-2.2) mmol/L Calcium 8.4 (8.4-10.2) mg/dl Total Bilirubin 1.4 H (0.2-1.0) mg/dL AST 25 (10-42) IU/L ALT 16 (10-60) IU/L Alkaline Phosphatase 146 H (42-121) IU/L CK-MB (CK-2) 1.10 (0.4-4.7) ng/mL Troponin I 0.04 H* (0.00-0.02) ng/ml B-Natriuretic Peptide (0-100) pg/ml Total Protein 7.5 (6.7-8.2) g/dl Albumin 3.4 (3.2-5.5) g/dl Globulin 4.1 Albumin/Globulin Ratio 0.83 Amylase 61 (28-100) U/L Lipase 33 (22-51) U/L Urine Opiates Screen (NEGATIVE) Ur Oxycodone Screen (NEGATIVE) Urine Methadone Screen (NEGATIVE) Ur Barbiturates Screen (NEGATIVE) U Tricyclic Antidepress (NEGATIVE) Ur Phencyclidine Scrn (NEGATIVE) Ur Amphetamine Screen (NEGATIVE) U Methamphetamines Scrn (NEGATIVE) Urine MDMA Screen (NEGATIVE) U Benzodiazepines Scrn (NEGATIVE) Urine Cocaine Screen (NEGATIVE) U Marijuana (THC) Screen (NEGATIVE) Ethyl Alcohol < 5 mg/dL 03/22/19 03/22/19 03/22/19 Range/Units 01:05 01:05 01:05 WBC (5.0-10.0) 10^3/uL RBC (4.6-6.2) 10^6/uL Hgb (14.0-18.0) g/dL Hct (40.0-54.0) % MCV (80-100) fL MCH (27.0-34.0) pg MCHC (33.0-35.0) g/dL Plt Count (150-450) 10^3/uL Neut % (Auto) (42.2-75.2) % Lymph % (Auto) (20.5-50.1) % [place] % (Auto) (2-8) % Eos % (Auto) (1.0-3.0) % Baso % (Auto) (0.0-1.0) % PT 11.6 D (9.0-12.0) SEC INR 1.1 (0.9-1.2) Sodium (135-145) mmol/L Potassium (3.6-5.0) mmol/L Chloride (101-111) mmol/L Carbon Dioxide (21.0-31.0) mmol/L Anion Gap BUN (7-18) mg/dL Creatinine (0.6-1.3) mg/dL Est Cr Clr Drug Dosing mL/min Estimated GFR (MDRD) BUN/Creatinine Ratio Glucose (74-105) mg/dL Lactic Acid 1.9 (0.5-2.2) mmol/L Calcium (8.4-10.2) mg/dl Total Bilirubin (0.2-1.0) mg/dL AST (10-42) IU/L ALT (10-60) IU/L Alkaline Phosphatase (42-121) IU/L CK-MB (CK-2) (0.4-4.7) ng/mL Troponin I (0.00-0.02) ng/ml B-Natriuretic Peptide 1480 H (0-100) pg/ml Total Protein (6.7-8.2) g/dl Albumin (3.2-5.5) g/dl Globulin Albumin/Globulin Ratio Amylase (28-100) U/L Lipase (22-51) U/L Urine Opiates Screen (NEGATIVE) Ur Oxycodone Screen (NEGATIVE) Urine Methadone Screen (NEGATIVE) Ur Barbiturates Screen (NEGATIVE) U Tricyclic Antidepress (NEGATIVE) Ur Phencyclidine Scrn (NEGATIVE) Ur Amphetamine Screen (NEGATIVE) U Methamphetamines Scrn (NEGATIVE) Urine MDMA Screen (NEGATIVE) U Benzodiazepines Scrn (NEGATIVE) Urine Cocaine Screen (NEGATIVE) U Marijuana (THC) Screen (NEGATIVE) Ethyl Alcohol mg/dL 03/22/19 Range/Units 02:30 WBC (5.0-10.0) 10^3/uL RBC (4.6-6.2) 10^6/uL Hgb (14.0-18.0) g/dL Hct (40.0-54.0) % MCV (80-100) fL MCH (27.0-34.0) pg MCHC (33.0-35.0) g/dL Plt Count (150-450) 10^3/uL Neut % (Auto) (42.2-75.2) % Lymph % (Auto) (20.5-50.1) % [place] % (Auto) (2-8) % Eos % (Auto) (1.0-3.0) % Baso % (Auto) (0.0-1.0) % PT (9.0-12.0) SEC INR (0.9-1.2) Sodium (135-145) mmol/L Potassium (3.6-5.0) mmol/L Chloride (101-111) mmol/L Carbon Dioxide (21.0-31.0) mmol/L Anion Gap BUN (7-18) mg/dL Creatinine (0.6-1.3) mg/dL Est Cr Clr Drug Dosing mL/min Estimated GFR (MDRD) BUN/Creatinine Ratio Glucose (74-105) mg/dL Lactic Acid (0.5-2.2) mmol/L Calcium (8.4-10.2) mg/dl Total Bilirubin (0.2-1.0) mg/dL AST (10-42) IU/L ALT (10-60) IU/L Alkaline Phosphatase (42-121) IU/L CK-MB (CK-2) (0.4-4.7) ng/mL Troponin I (0.00-0.02) ng/ml B-Natriuretic Peptide (0-100) pg/ml Total Protein (6.7-8.2) g/dl Albumin (3.2-5.5) g/dl Globulin Albumin/Globulin Ratio Amylase (28-100) U/L Lipase (22-51) U/L Urine Opiates Screen Positive H (NEGATIVE) Ur Oxycodone Screen Negative (NEGATIVE) Urine Methadone Screen Negative (NEGATIVE) Ur Barbiturates Screen Negative (NEGATIVE) U Tricyclic Antidepress Negative (NEGATIVE) Ur Phencyclidine Scrn Negative (NEGATIVE) Ur Amphetamine Screen Negative (NEGATIVE) U Methamphetamines Scrn Positive H (NEGATIVE) Urine MDMA Screen Negative (NEGATIVE) U Benzodiazepines Scrn Negative (NEGATIVE) Urine Cocaine Screen Negative (NEGATIVE) U Marijuana (THC) Screen Positive H (NEGATIVE) Ethyl Alcohol mg/dL Meds: Medications Discontinued Medications Generic Name Dose Route Start Last Admin Trade Name Carlosq PRN Reason Stop Dose Admin Furosemide 40 mg 03/22/19 01:38 03/22/19 01:45 Lasix IVPUSH 03/22/19 01:39 40 mg NOW ONE Administration Morphine Sulfate 2 mg 03/22/19 01:36 03/22/19 01:44 Morphine IVPUSH 03/22/19 01:37 2 mg ONETIME ONE Administration Ondansetron HCl 4 mg 03/22/19 01:35 03/22/19 01:44 Zofran IV 03/22/19 01:36 4 mg ONETIME ONE Administration - Radiology Interpretation Free Text/Narrative:: [facility] Final Radiology Report Call: [phone] assistance Online chat: [email or web address] Name: REG STEIN Age: 33Years M Date: 03/22/2019 SSN: -- : 1985 Study: XR CHEST 1 VIEW FRONTAL Requesting Physician: NENO SANCHEZ Images: 1 Addl Studies: Provided Clinical History: Contrast: Contrast Medium: Contrast Amount: Contrast Method: CONFIDENTIALITY STATEMENT This report is intended only for use by the referring physician, and only in accordance with law. If you received this in error, call [phone]. Page 1 of 1 EXAM: XR Chest, 1 View EXAM DATE/TIME: 03/22/2019 1:25 AM CLINICAL HISTORY: 33 years old, male; Signs and symptoms; Shortness of breath and other: Abdomen pain TECHNIQUE: Imaging protocol: XR of the chest, 1 view. COMPARISON: CR Chest 1V Frontal 01/09/2019 10:38 AM FINDINGS: Lungs: Unremarkable. No consolidation. Pleural space: Unremarkable. No pleural effusion. No pneumothorax. Heart/Mediastinum: Unremarkable. No cardiomegaly. Bones/joints: Unremarkable. IMPRESSION: No acute findings. Thank you for allowing us to participate in the care of your patient. Dictated and Authenticated by: Filiberto Cole MD [facility] Final Radiology Report Call: [phone] assistance Online chat: [email or web address] Name: REG STEIN Age: 33Years M Date: 03/22/2019 SSN: -- : 1985 Study: CT ABDOMEN/PELVIS WO Requesting Physician: NENO SANCHEZ Images: 257 Addl Studies: Provided Clinical History: Contrast: Without Contrast Medium: Contrast Amount: Contrast Method: Page 1 of 2 EXAM: CT Abdomen and Pelvis Without Contrast EXAM DATE/TIME: 03/22/2019 1:54 AM CLINICAL HISTORY: 33 years old, male; Other: Abdomen pain and distension, HX of cirrhosis TECHNIQUE: Imaging protocol: Axial computed tomography images of the abdomen and pelvis without contrast. Coronal and sagittal reformatted images were created and reviewed. Radiation optimization: All CT scans at this facility use at least one of these dose optimization techniques: automated exposure control; mA and/or kV adjustment per patient size (includes targeted exams where dose is matched to clinical indication); or iterative reconstruction. COMPARISON: No relevant prior studies available. FINDINGS: Lungs: Minimal subsegmental atelectasis in both lower lungs Pleural space: Small bilateral pleural effusions ABDOMEN: Liver: Cirrhosis of the liver. No mass is identified Gallbladder and bile ducts: Normal. No calcified stones. No ductal dilation. Pancreas: Normal. No ductal dilation. Spleen: Normal. No splenomegaly. Adrenals: Normal. No mass. Kidneys and ureters: Normal. No hydronephrosis. Stomach and bowel: Normal. No obstruction. No mucosal thickening. [facility] | Final Radiology Report CONFIDENTIALITY STATEMENT This report is intended only for use by the referring physician, and only in accordance with law. If you received this in error, call [phone]. Page 2 of 2 Appendix: No evidence of appendicitis. PELVIS: Bladder: Unremarkable as visualized. Reproductive: Unremarkable as visualized. ABDOMEN and PELVIS: Intraperitoneal space: Massive abdominal and pelvic ascites Bones/joints: No acute fracture. No dislocation. Soft tissues: Unremarkable. Vasculature: Normal. No abdominal aortic aneurysm. Lymph nodes: Normal. No enlarged lymph nodes. IMPRESSION: 1. Cirrhosis of the liver 2. Massive abdominal and pelvic ascites 3. Small umbilical hernia containing mesenteric fat and ascites. Thank you for allowing us to participate in the care of your patient. Dictated and Authenticated by: Filiberto Cole MD 03/22/2019 2:40 AM Central Time ([place] & [place]) - Re-Assessments/Exams Free Text/Narrative Re-Assessment/Exam: 03/22/19 02:[address] Negrete accepting of patient in tx. Tx via [facility]. Departure - Departure Time of Disposition: 02:31 Disposition: DC/Tfer to Acute Hospital 02 Condition: Undetermined Clinical Impression: Abdominal distension, History of ST elevation myocardial infarction (STEMI), Elevated troponin I level, Subtherapeutic anticoagulation Abdominal pain Qualifiers: Abdominal location: generalized Qualified Code(s): R10.84 - Generalized abdominal pain Ascites Qualifiers: Ascites type: due to alcoholic cirrhosis Qualified Code(s): K70.31 - Alcoholic cirrhosis of liver with ascites Cirrhosis Qualifiers: Hepatic cirrhosis type: unspecified hepatic cirrhosis Ascites presence: with ascites Qualified Code(s): K74.60 - Unspecified cirrhosis of liver - Discharge Information *PRESCRIPTION DRUG MONITORING PROGRAM REVIEWED*: Not Applicable *COPY OF PRESCRIPTION DRUG MONITORING REPORT IN PATIENT FRANKIE: Not Applicable Referrals: Ruben Sevilla [Primary Care Provider] - Forms: ED Department Discharge - My Orders Last 24 Hours: My Active Orders 03/22/19 00:52 EKG Documentation Completion [RC] URGENT CXR [Chest 1V Frontal] [CR] Urgent 03/22/19 00:56 Blood Culture x2 Reflex Set [OM.PC] Stat 03/22/19 01:05 CULTURE BLOOD [BC] Stat 03/22/19 01:41 Abdomen Pelvis wo Cont [CT] Urgent 03/22/19 02:05 CULTURE BLOOD [BC] Stat - Assessment/Plan Last 24 Hours: My Active Orders 03/22/19 00:52 EKG Documentation Completion [RC] URGENT CXR [Chest 1V Frontal] [CR] Urgent 03/22/19 00:56 Blood Culture x2 Reflex Set [OM.PC] Stat 03/22/19 01:05 CULTURE BLOOD [BC] Stat 03/22/19 01:41 Abdomen Pelvis wo Cont [CT] Urgent 03/22/19 02:05 CULTURE BLOOD [BC] Stat"
== END 2019-03-22 02:54 ==
LOC: DL.ED 00:52
DX: K70.31 Alcoholic cirrhosis of liver with ascites (principal); I25.2 Old myocardial infarction; I11.0 Hypertensive heart disease with heart failure; I50.9 Heart failure, unspecified; K21.9 Gastro-esophageal reflux disease without esophagitis; Z79.82 Long term (current) use of aspirin; Z79.899 Other long term (current) drug therapy; Z79.01 Long term (current) use of anticoagulants; Z87.01 Personal history of pneumonia (recurrent); Z95.5 Presence of coronary angioplasty implant and graft; Z90.49 Acquired absence of other specified parts of digestive tract; Z91.018 Allergy to other foods; Z91.030 Bee allergy status
CPT/HCPCS: 36415; 71045; 74176; 80053; 80305; 82150; 82553; 83605; 83690; 83880; 84484; 85025; 85610; 87040; 93005; 96374; 96375; 99285; G0480; J1940; J2270; J2405

== ENCOUNTER 2019-06-28 14:21 | Emergency (ER) | payer MEDICAID ==
--- NOTE | 2019-06-28 14:17 | EDM.PDOC ---
ED HPI GENERAL MEDICAL PROBLEM - General Chief Complaint: Abdominal Pain Stated Complaint: ambulance Time Seen by Provider: 06/28/19 14:17 Source of Information: Reports: Patient, EMS, EMS Notes Reviewed, RN, RN Notes Reviewed History Limitations: Reports: No Limitations - History of Present Illness INITIAL COMMENTS - FREE TEXT/NARRATIVE: Patient presents to ER per [facility] with complaints of chest and abdominal pain. Patient has history of alcoholic liver cirrhosis. He was transferred to [place] on 06/10/19. States pain has gradually been getting worse. Admits to nausea. Denies vomiting or diarrhea. Admits to shortness of breath at times. Denies fever or chills. States he was told that he had an infection in his abdomen when he was last in [place]. He rates pain 8/10. Onset: Gradual Duration: Getting Worse Location: Reports: Abdomen Quality: Reports: Ache Severity: Severe Improves with: Reports: None Worsens with: Reports: None Associated Symptoms: Reports: No Other Symptoms Back Pain Score (Numeric/FACES): 10 - Related Data Allergies Allergy/AdvReac Type Severity Reaction Status Date / Time bee venom protein (honey bee) Allergy Severe I need to Verified 06/28/19 14:56 use an epi pen red dye Allergy Hives Verified 06/28/19 14:56 [place] And Derivatives AdvReac Other Verified 06/28/19 14:56 grapefruit AdvReac Mild Other Uncoded 06/28/19 14:56 Home Meds: Home Meds Clopidogrel Bisulfate [Clopidogrel] 75 mg PO DAILY 06/10/18 [History] Lisinopril 2.5 mg PO DAILY 06/10/18 [History] Nitroglycerin 0.4 mg SL ASDIRECTED PRN 06/10/18 [History] Pantoprazole [ProTONIX] 40 mg PO DAILY 06/10/18 [History] Warfarin Sodium 2.5 mg PO DAILY 06/10/18 [History] atorvaSTATin [Lipitor] 40 mg PO BEDTIME 06/10/18 [History] Aspirin [Lo-Dose Aspirin EC] 81 mg PO DAILY 10/04/18 [History] Furosemide 80 mg PO BID 10/04/18 [History] hydrOXYzine HCl [Atarax] 50 mg PO QID 10/04/18 [History] Lactulose 15 ml PO TID 04/12/19 [History] Past Medical History - Past Health History Medical/Surgical History: Denies Medical/Surgical History HEENT History: Reports: Impaired Vision Other HEENT History: wears glasses Cardiovascular History: Reports: CAD, Heart Failure, High Cholesterol, Hypertension, [place], SOB on Exertion, Stents Other Cardiovascular History: Ejection Fraction of 25% Respiratory History: Reports: Pneumonia, Recurrent Gastrointestinal History: Reports: GERD, GI Bleed Other Gastrointestinal History: ascites, liver disease Genitourinary History: Reports: None Musculoskeletal History: Reports: Back Pain, Chronic Neurological History: Reports: None Psychiatric History: Reports: Addiction Endocrine/Metabolic History: Reports: None Hematologic History: Reports: None Immunologic History: Reports: None Oncologic (Cancer) History: Reports: None Dermatologic History: Reports: Other (See Below) Other Dermatologic History: patient has multiple tatoos to arms and chest - Infectious Disease History Infectious Disease History: Reports: None - Past Surgical History Head Surgeries/Procedures: Reports: None Cardiovascular Surgical History: Reports: Coronary Artery Stent GI Surgical History: Reports: Appendectomy, Other (See Below) Other GI Surgeries/Procedures: ?abdominal surgery just prior to 2017 Social & Family History - Family History Family Medical History: Noncontributory - Caffeine Use Caffeine Use: Reports: None - Living Situation & Occupation Living situation: Reports: with Family Occupation: Disabled ED ROS GENERAL - Review of Systems Review Of Systems: ROS reveals no pertinent complaints other than HPI. ED EXAM, GENERAL - Physical Exam Exam: See Below Exam Limited By: No Limitations General Appearance: Moderate Distress Eye Exam: Bilateral Eye: EOMI, Normal Inspection, PERRL Ears: Normal External Exam, Normal Canal, Hearing Grossly Normal, Normal TMs Nose: Normal Inspection, Normal Mucosa, No Blood Throat/Mouth: Normal Inspection, Normal Lips, Normal Teeth, Normal Gums, Normal Oropharynx, Normal Voice, No Airway Compromise Head: Atraumatic, Normocephalic Neck: Normal Inspection, Supple, Non-Tender, Full Range of Motion Respiratory/Chest: Other (diminished breath sounds) Cardiovascular: Normal Peripheral Pulses, Regular Rate, Rhythm, No Edema, No Gallop, No JVD, No Murmur, No Rub GI/Abdominal: Other (distended. Large ascites) (Male) Exam: Deferred Rectal (Males) Exam: Deferred Back Exam: Normal Inspection, Full Range of Motion, NT Extremities: Normal Inspection, Normal Range of Motion, Non-Tender, Normal Capillary Refill, No Pedal Edema Neurological: Alert, Oriented, CN II-XII Intact, Normal Cognition, Normal Gait, Normal Reflexes, No Motor/Sensory Deficits Psychiatric: Normal Affect, Normal Mood Skin Exam: Warm, Dry, Intact, Normal Color, No Rash Lymphatic: No Adenopathy Course - Vital Signs Last Recorded V/S: Last Vital Signs Temp 97.0 F 06/28/19 14:17 Pulse 108 H 06/28/19 14:17 Resp 16 06/28/19 14:17 BP 124/91 H 06/28/19 14:17 Pulse Ox 98 06/28/19 14:17 - Orders/Labs/Meds Orders: Active Orders 24 hr Category Date Time Status EKG Documentation Completion [RC] STAT Care 06/28/19 14:18 Active Peripheral IV Care [RC] . DIRECTED Care 06/28/19 14:18 Active CULTURE BLOOD [BC] Stat Lab 06/28/19 14:28 Received CULTURE BLOOD [BC] Stat Lab 06/28/19 14:42 Received Blood Culture x2 Reflex Set [OM.PC] Stat Oth 06/28/19 14:18 Ordered Peripheral IV Insertion Adult [OM.PC] Stat Oth 06/28/19 14:17 Ordered Labs: Laboratory Tests 06/28/19 06/28/19 06/28/19 Range/Units 14:18 14:18 14:18 WBC 7.5 (5.0-10.0) 10^3/uL RBC 5.13 (4.6-6.2) 10^6/uL Hgb 13.4 L (14.0-18.0) g/dL Hct 42.2 (40.0-54.0) % MCV 82.3 (80-100) fL MCH 26.1 L (27.0-34.0) pg MCHC 31.8 L (33.0-35.0) g/dL Plt Count 287 (150-450) 10^3/uL Neut % (Auto) 63.5 (42.2-75.2) % Lymph % (Auto) 19.1 L (20.5-50.1) % [place] % (Auto) 8.5 H (2-8) % Eos % (Auto) 8.1 H (1.0-3.0) % Baso % (Auto) 0.8 (0.0-1.0) % Sodium 139 (135-145) mmol/L Potassium 3.4 L (3.6-5.0) mmol/L Chloride 106 (101-111) mmol/L Carbon Dioxide 25.0 (21.0-31.0) mmol/L Anion Gap 11.4 BUN 17 (7-18) mg/dL Creatinine 0.8 (0.6-1.3) mg/dL Est Cr Clr Drug Dosing 138.57 mL/min Estimated GFR (MDRD) > 60 BUN/Creatinine Ratio 21.25 Glucose 70 L (74-105) mg/dL Lactic Acid 1.8 (0.5-2.2) mmol/L Calcium 8.5 (8.4-10.2) mg/dl Total Bilirubin 1.7 H (0.2-1.0) mg/dL AST 33 (10-42) IU/L ALT 33 (10-60) IU/L Alkaline Phosphatase 120 (42-121) IU/L Troponin I 0.09 H* (0.00-0.02) ng/ml B-Natriuretic Peptide 835 H (0-100) pg/ml Total Protein 7.3 (6.7-8.2) g/dl Albumin 3.4 (3.2-5.5) g/dl Globulin 3.9 Albumin/Globulin Ratio 0.87 Amylase 51 (28-100) U/L Lipase 29 (22-51) U/L Urine Color (YELLOW) Urine Appearance (CLEAR) Urine pH (5.0-9.0) Ur Specific [place] (1.005-1.030) Urine Protein (NEGATIVE) Urine Glucose (UA) (NEGATIVE) Urine Ketones (NEGATIVE) Urine Occult Blood (NEGATIVE) Urine Nitrite (NEGATIVE) Urine Bilirubin (NEGATIVE) Urine Urobilinogen (0.2-1.0) mg/dL Ur Leukocyte Esterase (NEGATIVE) Urine Opiates Screen (NEGATIVE) Ur Oxycodone Screen (NEGATIVE) Urine Methadone Screen (NEGATIVE) Ur Barbiturates Screen (NEGATIVE) U Tricyclic Antidepress (NEGATIVE) Ur Phencyclidine Scrn (NEGATIVE) Ur Amphetamine Screen (NEGATIVE) U Methamphetamines Scrn (NEGATIVE) Urine MDMA Screen (NEGATIVE) U Benzodiazepines Scrn (NEGATIVE) Urine Cocaine Screen (NEGATIVE) U Marijuana (THC) Screen (NEGATIVE) Ethyl Alcohol < 5 mg/dL 06/28/19 06/28/19 Range/Units 15:19 15:19 WBC (5.0-10.0) 10^3/uL RBC (4.6-6.2) 10^6/uL Hgb (14.0-18.0) g/dL Hct (40.0-54.0) % MCV (80-100) fL MCH (27.0-34.0) pg MCHC (33.0-35.0) g/dL Plt Count (150-450) 10^3/uL Neut % (Auto) (42.2-75.2) % Lymph % (Auto) (20.5-50.1) % [place] % (Auto) (2-8) % Eos % (Auto) (1.0-3.0) % Baso % (Auto) (0.0-1.0) % Sodium (135-145) mmol/L Potassium (3.6-5.0) mmol/L Chloride (101-111) mmol/L Carbon Dioxide (21.0-31.0) mmol/L Anion Gap BUN (7-18) mg/dL Creatinine (0.6-1.3) mg/dL Est Cr Clr Drug Dosing mL/min Estimated GFR (MDRD) BUN/Creatinine Ratio Glucose (74-105) mg/dL Lactic Acid (0.5-2.2) mmol/L Calcium (8.4-10.2) mg/dl Total Bilirubin (0.2-1.0) mg/dL AST (10-42) IU/L ALT (10-60) IU/L Alkaline Phosphatase (42-121) IU/L Troponin I (0.00-0.02) ng/ml B-Natriuretic Peptide (0-100) pg/ml Total Protein (6.7-8.2) g/dl Albumin (3.2-5.5) g/dl Globulin Albumin/Globulin Ratio Amylase (28-100) U/L Lipase (22-51) U/L Urine Color Yellow (YELLOW) Urine Appearance Clear (CLEAR) Urine pH 5.5 (5.0-9.0) Ur Specific [place] 1.025 (1.005-1.030) Urine Protein Negative (NEGATIVE) Urine Glucose (UA) Negative (NEGATIVE) Urine Ketones Trace H (NEGATIVE) Urine Occult Blood Negative (NEGATIVE) Urine Nitrite Negative (NEGATIVE) Urine Bilirubin Negative (NEGATIVE) Urine Urobilinogen 0.2 (0.2-1.0) mg/dL Ur Leukocyte Esterase Negative (NEGATIVE) Urine Opiates Screen Negative (NEGATIVE) Ur Oxycodone Screen Negative (NEGATIVE) Urine Methadone Screen Negative (NEGATIVE) Ur Barbiturates Screen Negative (NEGATIVE) U Tricyclic Antidepress Negative (NEGATIVE) Ur Phencyclidine Scrn Negative (NEGATIVE) Ur Amphetamine Screen Negative (NEGATIVE) U Methamphetamines Scrn Positive H (NEGATIVE) Urine MDMA Screen Negative (NEGATIVE) U Benzodiazepines Scrn Negative (NEGATIVE) Urine Cocaine Screen Negative (NEGATIVE) U Marijuana (THC) Screen Positive H (NEGATIVE) Ethyl Alcohol mg/dL Meds: Medications Discontinued Medications Generic Name Dose Route Start Last Admin Trade Name Freq PRN Reason Stop Dose Admin Fentanyl 100 mcg 06/28/19 15:47 06/28/19 15:54 Sublimaze IVPUSH 06/28/19 15:48 100 mcg ONETIME ONE Administration Ondansetron HCl 4 mg 06/28/19 15:48 06/28/19 15:54 Zofran IV 06/28/19 15:49 4 mg ONETIME ONE Administration Sodium Chloride 10 ml 06/28/19 14:17 06/28/19 14:39 Saline Flush FLUSH 10 ml ASDIRECTED PRN Administration Keep Vein Open - Radiology Interpretation Free Text/Narrative:: Chest xray: New platelike atelectasis and/or infiltrate left midlung since 22 March 2019 comparison film Normal cardiac silhouette without alveolar edema or dependent effusion No lung mass, other focal lobar consolidation or pneumothorax See rad report - Re-Assessments/Exams Free Text/Narrative Re-Assessment/Exam: 06/28/19 18:20 Discussed patient case with Dr. An who agreed to accept the patient for transfer to [facility] Departure - Departure Time of Disposition: 16:04 Disposition: DC/Tfer to Acute Hospital 02 Reason for Transfer *Q: Other Condition: Fair Clinical Impression: Elevated troponin Alcoholic cirrhosis of liver Qualifiers: Ascites presence: with ascites Qualified Code(s): K70.31 - Alcoholic cirrhosis of liver with ascites Referrals: PCP,Unobtain [Primary Care Provider] - Forms: ED Department Discharge, Interfacility Transfer EMTALA - My Orders Last 24 Hours: My Active Orders 06/28/19 14:17 Peripheral IV Insertion Adult [OM.PC] Stat 06/28/19 14:18 EKG Documentation Completion [RC] STAT Peripheral IV Care [RC] . DIRECTED Blood Culture x2 Reflex Set [OM.PC] Stat 06/28/19 14:28 CULTURE BLOOD [BC] Stat 06/28/19 14:42 CULTURE BLOOD [BC] Stat - Assessment/Plan Last 24 Hours: My Active Orders 06/28/19 14:17 Peripheral IV Insertion Adult [OM.PC] Stat 06/28/19 14:18 EKG Documentation Completion [RC] STAT Peripheral IV Care [RC] . DIRECTED Blood Culture x2 Reflex Set [OM.PC] Stat 06/28/19 14:28 CULTURE BLOOD [BC] Stat 06/28/19 14:42 CULTURE BLOOD [BC] Stat
[~2019-06-28 14:21] MED LIST: Sodium Chloride 0.9% 10 ML Syringe FLUSH PRN
[2019-06-28 15:03] LABS: ANION GAP 11.4; CHLORIDE,CL 106 mmol/L (101-111); SODIUM,NA 139 mmol/L (135-145)
--- NOTE | 2019-06-28 15:12 | CR ---
EXAMINATION: Chest 1V Frontal SEX: Male AGE: 33 years CLINICAL HISTORY: 33-year-old obese male with chest pain. INTERPRETATION: Upright AP portable chest film abnormal. 1. *New platelike atelectasis and/or developing infiltrate left midlung since 22 March 2019 comparison film. 2. Normal cardiac silhouette without alveolar edema or dependent effusion. 3. No lung mass, other focal lobar consolidation or pneumothorax.
[2019-06-28] MEDS ORDERED: fentaNYL 100 MCG/2 ML SDV IVPUSH ONE (15:47)
[2019-06-28] MEDS ORDERED: Ondansetron 4 MG/2 ML SDV IV ONE (15:48)
== END 2019-06-28 16:04 ==
LOC: DL.ED 14:21
DX: K70.31 Alcoholic cirrhosis of liver with ascites (principal); R79.89 Other specified abnormal findings of blood chemistry; I11.0 Hypertensive heart disease with heart failure; I50.9 Heart failure, unspecified; I25.2 Old myocardial infarction; K21.9 Gastro-esophageal reflux disease without esophagitis; Z91.030 Bee allergy status; Z91.041 Radiographic dye allergy status; Z91.018 Allergy to other foods; Z79.899 Other long term (current) drug therapy; Z79.01 Long term (current) use of anticoagulants; Z79.82 Long term (current) use of aspirin
CPT/HCPCS: 36415; 71045; 80053; 80305-QW; 81003; 82150; 83605; 83690; 83880; 84484; 85025; 87040; 93005; 96374; 96375; 99285-25; G0480; J2405; J3010

== ENCOUNTER 2019-07-19 17:37 | Emergency (ER) | payer MEDICAID ==
[2019-07-19] MEDS ORDERED: Aspirin 81 MG Tab.Chew PO ONE (17:57)
--- NOTE | 2019-07-19 18:18 | EDM.PDOC ---
ED HPI GENERAL MEDICAL PROBLEM - General Chief Complaint: Chest Pain Stated Complaint: [facility] Time Seen by Provider: 07/19/19 18:05 Source of Information: Reports: Patient History Limitations: Reports: No Limitations - History of Present Illness INITIAL COMMENTS - FREE TEXT/NARRATIVE: This 33 yo male patient was brought to the ED by [facility] due to increased chest pain (tightness) and increased abdominal distension. The patient has a history of ascites and has needed to have the fluid drained every 2 weeks. The patient reports he was last drained about 2 1/2 weeks ago. The patient also reports he has chest pain over the past two days. The patient reports that his chest feels "like it is wrapped in plastic wrap." The patient does also have a history of a previous RI and an elevated Troponin level. Duration: Day(s): (2 days increased chest pain/tightness, 4 days increased abdominal distension) Location: Reports: Chest, Abdomen Quality: Reports: Dull, Pressure Severity: Moderate Improves with: Reports: None Worsens with: Reports: None Context: Reports: Other Associated Symptoms: Reports: Chest Pain, Other Chest Pain Score (Numeric/FACES): 8 - Related Data Allergies Allergy/AdvReac Type Severity Reaction Status Date / Time bee venom protein (honey bee) Allergy Severe I need to Verified 06/28/19 14:56 use an epi pen red dye Allergy Hives Verified 06/28/19 14:56 [place] And Derivatives AdvReac Other Verified 06/28/19 14:56 grapefruit AdvReac Mild Other Uncoded 06/28/19 14:56 Home Meds: Home Meds Clopidogrel Bisulfate [Clopidogrel] 75 mg PO DAILY 06/10/18 [History] Lisinopril 2.5 mg PO DAILY 06/10/18 [History] Nitroglycerin 0.4 mg SL ASDIRECTED PRN 06/10/18 [History] Pantoprazole [ProTONIX] 40 mg PO DAILY 06/10/18 [History] Warfarin Sodium 2.5 mg PO DAILY 06/10/18 [History] atorvaSTATin [Lipitor] 40 mg PO BEDTIME 06/10/18 [History] Aspirin [Lo-Dose Aspirin EC] 81 mg PO DAILY 10/04/18 [History] Furosemide 80 mg PO BID 10/04/18 [History] Lactulose 15 ml PO TID 04/12/19 [History] Past Medical History - Past Health History Medical/Surgical History: Denies Medical/Surgical History HEENT History: Reports: Impaired Vision Other HEENT History: wears glasses Cardiovascular History: Reports: CAD, Heart Failure, High Cholesterol, Hypertension, [place], SOB on Exertion, Stents Other Cardiovascular History: Ejection Fraction of 25% Respiratory History: Reports: Pneumonia, Recurrent Gastrointestinal History: Reports: GERD, GI Bleed Other Gastrointestinal History: ascites, liver disease Genitourinary History: Reports: None Musculoskeletal History: Reports: Back Pain, Chronic Neurological History: Reports: None Psychiatric History: Reports: Addiction Endocrine/Metabolic History: Reports: None Hematologic History: Reports: None Immunologic History: Reports: None Oncologic (Cancer) History: Reports: None Dermatologic History: Reports: Other (See Below) Other Dermatologic History: patient has multiple tatoos to arms and chest - Infectious Disease History Infectious Disease History: Reports: None - Past Surgical History Head Surgeries/Procedures: Reports: None Cardiovascular Surgical History: Reports: Coronary Artery Stent GI Surgical History: Reports: Appendectomy, Other (See Below) Other GI Surgeries/Procedures: ?abdominal surgery just prior to 2017 Social & Family History - Family History Family Medical History: Noncontributory - Tobacco Use Smoking Status *Q: Never Smoker - Caffeine Use Caffeine Use: Reports: None - Recreational Drug Use Recreational Drug Use: Yes Drug Use in Last 12 Months: Yes Recreational Drug Type: Reports: Marijuana/Hashish, Methamphetamine - Living Situation & Occupation Living situation: Reports: with Family Occupation: Disabled ED ROS GENERAL - Review of Systems Review Of Systems: ROS reveals no pertinent complaints other than HPI. ED EXAM, GENERAL - Physical Exam Exam: See Below Exam Limited By: No Limitations General Appearance: Alert, WD/WN, Moderate Distress Eye Exam: Bilateral Eye: EOMI, Normal Inspection, PERRL Ears: Normal External Exam, Normal Canal, Hearing Grossly Normal, Normal TMs Nose: Normal Inspection, Normal Mucosa, No Blood Throat/Mouth: Normal Inspection, Normal Lips, Normal Teeth, Normal Gums, Normal Oropharynx, Normal Voice, No Airway Compromise Head: Atraumatic, Normocephalic Neck: Normal Inspection, Supple, Non-Tender, Full Range of Motion Respiratory/Chest: No Respiratory Distress, Lungs Clear, Normal Breath Sounds, No Accessory Muscle Use, Chest Non-Tender Cardiovascular: Regular Rate, Rhythm, No Edema, No Gallop, No JVD, No Rub, Systolic Murmur GI/Abdominal: Distended, Tender (diffuse), Other (fluid wave) (Male) Exam: Deferred Rectal (Males) Exam: Deferred Back Exam: Normal Inspection, Full Range of Motion, NT Extremities: Normal Inspection, Normal Range of Motion, Non-Tender, Normal Capillary Refill, No Pedal Edema Neurological: Alert, Oriented, CN II-XII Intact, Normal Cognition, Normal Gait, Normal Reflexes, No Motor/Sensory Deficits Psychiatric: Normal Affect, Normal Mood Skin Exam: Warm, Dry, Intact, Normal Color, No Rash Lymphatic: No Adenopathy Course - Vital Signs Last Recorded V/S: Last Vital Signs Temp 36.3 C 07/19/19 17:34 Pulse 100 07/19/19 17:34 Resp 18 07/19/19 17:34 BP 114/88 07/19/19 17:34 Pulse Ox 100 07/19/19 17:34 - Orders/Labs/Meds Orders: Active Orders 24 hr Category Date Time Status EKG Documentation Completion [RC] URGENT Care 07/19/19 17:26 Active Chest 1V Frontal [CR] Urgent Exams 07/19/19 17:26 Taken B-TYPE NATRIURETIC PEPTIDE,BNP [CHEM] Stat Lab 07/19/19 18:30 Ordered Labs: Laboratory Tests 07/19/19 07/19/19 07/19/19 Range/Units 17:50 17:50 17:50 WBC (5.0-10.0) 10^3/uL RBC (4.6-6.2) 10^6/uL Hgb (14.0-18.0) g/dL Hct (40.0-54.0) % MCV (80-100) fL MCH (27.0-34.0) pg MCHC (33.0-35.0) g/dL Plt Count (150-450) 10^3/uL Neut % (Auto) (42.2-75.2) % Lymph % (Auto) (20.5-50.1) % [place] % (Auto) (2-8) % Eos % (Auto) (1.0-3.0) % Baso % (Auto) (0.0-1.0) % Sodium (135-145) mmol/L Potassium (3.6-5.0) mmol/L Chloride (101-111) mmol/L Carbon Dioxide (21.0-31.0) mmol/L Anion Gap BUN (7-18) mg/dL Creatinine (0.6-1.3) mg/dL Est Cr Clr Drug Dosing mL/min Estimated GFR (MDRD) BUN/Creatinine Ratio Glucose (74-105) mg/dL Lactic Acid 1.1 (0.5-2.2) mmol/L Calcium (8.4-10.2) mg/dl Total Bilirubin (0.2-1.0) mg/dL AST (10-42) IU/L ALT (10-60) IU/L Alkaline Phosphatase (42-121) IU/L Ammonia 18 (11-35) umol/L Troponin I (0.00-0.02) ng/ml Total Protein (6.7-8.2) g/dl Albumin (3.2-5.5) g/dl Globulin Albumin/Globulin Ratio Urine Color (YELLOW) Urine Appearance (CLEAR) Urine pH (5.0-9.0) Ur Specific [place] (1.005-1.030) Urine Protein (NEGATIVE) Urine Glucose (UA) (NEGATIVE) Urine Ketones (NEGATIVE) Urine Occult Blood (NEGATIVE) Urine Nitrite (NEGATIVE) Urine Bilirubin (NEGATIVE) Urine Urobilinogen (0.2-1.0) mg/dL Ur Leukocyte Esterase (NEGATIVE) Salicylates < 4 mg/dL Urine Opiates Screen (NEGATIVE) Ur Oxycodone Screen (NEGATIVE) Urine Methadone Screen (NEGATIVE) Acetaminophen < 10 ug/mL Ur Barbiturates Screen (NEGATIVE) U Tricyclic Antidepress (NEGATIVE) Ur Phencyclidine Scrn (NEGATIVE) Ur Amphetamine Screen (NEGATIVE) U Methamphetamines Scrn (NEGATIVE) Urine MDMA Screen (NEGATIVE) U Benzodiazepines Scrn (NEGATIVE) Urine Cocaine Screen (NEGATIVE) U Marijuana (THC) Screen (NEGATIVE) 07/19/19 07/19/19 07/19/19 Range/Units 17:50 17:50 18:07 WBC 9.1 (5.0-10.0) 10^3/uL RBC 5.33 (4.6-6.2) 10^6/uL Hgb 14.1 (14.0-18.0) g/dL Hct 43.4 (40.0-54.0) % MCV 81.4 (80-100) fL MCH 26.5 L (27.0-34.0) pg MCHC 32.5 L (33.0-35.0) g/dL Plt Count 312 (150-450) 10^3/uL Neut % (Auto) 65.6 (42.2-75.2) % Lymph % (Auto) 19.1 L (20.5-50.1) % [place] % (Auto) 8.8 H (2-8) % Eos % (Auto) 5.8 H (1.0-3.0) % Baso % (Auto) 0.7 (0.0-1.0) % Sodium 136 (135-145) mmol/L Potassium 4.6 (3.6-5.0) mmol/L Chloride 100 L (101-111) mmol/L Carbon Dioxide 27.0 (21.0-31.0) mmol/L Anion Gap 13.6 BUN 20 H (7-18) mg/dL Creatinine 1.1 (0.6-1.3) mg/dL Est Cr Clr Drug Dosing 100.78 mL/min Estimated GFR (MDRD) > 60 BUN/Creatinine Ratio 18.18 Glucose 104 (74-105) mg/dL Lactic Acid (0.5-2.2) mmol/L Calcium 9.1 (8.4-10.2) mg/dl Total Bilirubin 2.2 H (0.2-1.0) mg/dL AST 25 (10-42) IU/L ALT 23 (10-60) IU/L Alkaline Phosphatase 127 H (42-121) IU/L Ammonia (11-35) umol/L Troponin I 0.06 H* (0.00-0.02) ng/ml Total Protein 7.9 (6.7-8.2) g/dl Albumin 3.6 (3.2-5.5) g/dl Globulin 4.3 Albumin/Globulin Ratio 0.84 Urine Color Yellow (YELLOW) Urine Appearance Clear (CLEAR) Urine pH 5.5 (5.0-9.0) Ur Specific [place] 1.015 (1.005-1.030) Urine Protein Negative (NEGATIVE) Urine Glucose (UA) Negative (NEGATIVE) Urine Ketones Negative (NEGATIVE) Urine Occult Blood Negative (NEGATIVE) Urine Nitrite Negative (NEGATIVE) Urine Bilirubin Negative (NEGATIVE) Urine Urobilinogen 0.2 (0.2-1.0) mg/dL Ur Leukocyte Esterase Negative (NEGATIVE) Salicylates mg/dL Urine Opiates Screen (NEGATIVE) Ur Oxycodone Screen (NEGATIVE) Urine Methadone Screen (NEGATIVE) Acetaminophen ug/mL Ur Barbiturates Screen (NEGATIVE) U Tricyclic Antidepress (NEGATIVE) Ur Phencyclidine Scrn (NEGATIVE) Ur Amphetamine Screen (NEGATIVE) U Methamphetamines Scrn (NEGATIVE) Urine MDMA Screen (NEGATIVE) U Benzodiazepines Scrn (NEGATIVE) Urine Cocaine Screen (NEGATIVE) U Marijuana (THC) Screen (NEGATIVE) 07/19/19 Range/Units 18:07 WBC (5.0-10.0) 10^3/uL RBC (4.6-6.2) 10^6/uL Hgb (14.0-18.0) g/dL Hct (40.0-54.0) % MCV (80-100) fL MCH (27.0-34.0) pg MCHC (33.0-35.0) g/dL Plt Count (150-450) 10^3/uL Neut % (Auto) (42.2-75.2) % Lymph % (Auto) (20.5-50.1) % [place] % (Auto) (2-8) % Eos % (Auto) (1.0-3.0) % Baso % (Auto) (0.0-1.0) % Sodium (135-145) mmol/L Potassium (3.6-5.0) mmol/L Chloride (101-111) mmol/L Carbon Dioxide (21.0-31.0) mmol/L Anion Gap BUN (7-18) mg/dL Creatinine (0.6-1.3) mg/dL Est Cr Clr Drug Dosing mL/min Estimated GFR (MDRD) BUN/Creatinine Ratio Glucose (74-105) mg/dL Lactic Acid (0.5-2.2) mmol/L Calcium (8.4-10.2) mg/dl Total Bilirubin (0.2-1.0) mg/dL AST (10-42) IU/L ALT (10-60) IU/L Alkaline Phosphatase (42-121) IU/L Ammonia (11-35) umol/L Troponin I (0.00-0.02) ng/ml Total Protein (6.7-8.2) g/dl Albumin (3.2-5.5) g/dl Globulin Albumin/Globulin Ratio Urine Color (YELLOW) Urine Appearance (CLEAR) Urine pH (5.0-9.0) Ur Specific [place] (1.005-1.030) Urine Protein (NEGATIVE) Urine Glucose (UA) (NEGATIVE) Urine Ketones (NEGATIVE) Urine Occult Blood (NEGATIVE) Urine Nitrite (NEGATIVE) Urine Bilirubin (NEGATIVE) Urine Urobilinogen (0.2-1.0) mg/dL Ur Leukocyte Esterase (NEGATIVE) Salicylates mg/dL Urine Opiates Screen Negative (NEGATIVE) Ur Oxycodone Screen Negative (NEGATIVE) Urine Methadone Screen Negative (NEGATIVE) Acetaminophen ug/mL Ur Barbiturates Screen Negative (NEGATIVE) U Tricyclic Antidepress Negative (NEGATIVE) Ur Phencyclidine Scrn Negative (NEGATIVE) Ur Amphetamine Screen Negative (NEGATIVE) U Methamphetamines Scrn Negative (NEGATIVE) Urine MDMA Screen Negative (NEGATIVE) U Benzodiazepines Scrn Negative (NEGATIVE) Urine Cocaine Screen Negative (NEGATIVE) U Marijuana (THC) Screen Negative (NEGATIVE) Meds: Medications Discontinued Medications Generic Name Dose Route Start Last Admin Trade Name Freq PRN Reason Stop Dose Admin Aspirin 324 mg 07/19/19 17:57 07/19/19 18:04 Aspirin PO 07/19/19 17:58 324 mg ONETIME ONE Administration Departure - Departure Time of Disposition: 18:49 Disposition: DC/Tfer to Acute Hospital 02 Reason for Transfer *Q: Other Condition: Poor Clinical Impression: Elevated troponin I level Ascites Qualifiers: Ascites type: due to alcoholic cirrhosis Qualified Code(s): K70.31 - Alcoholic cirrhosis of liver with ascites Forms: Interfacility Transfer EMTALA Care Plan Goals: Discussed the patient's history, examination, treatments and lab results with Dr. Concepcion. Dr. Concepcion accepted the patient for continued evaluation and management as an inpatient at [facility] in [place]. The patient will be transported by [facility]. - My Orders Last 24 Hours: My Active Orders 07/19/19 17:26 EKG Documentation Completion [RC] URGENT Chest 1V Frontal [CR] Urgent 07/19/19 18:30 B-TYPE NATRIURETIC PEPTIDE,BNP [CHEM] Stat - Assessment/Plan Last 24 Hours: My Active Orders 07/19/19 17:26 EKG Documentation Completion [RC] URGENT Chest 1V Frontal [CR] Urgent 07/19/19 18:30 B-TYPE NATRIURETIC PEPTIDE,BNP [CHEM] Stat
[2019-07-19 18:25] LABS: ANION GAP 13.6; CHLORIDE,CL 100 mmol/L (101-111); SODIUM,NA 136 mmol/L (135-145)
[2019-07-19 18:33] LABS: ACETAMINOPHEN < 10 ug/mL
== END 2019-07-19 19:15 ==
LOC: DL.ED 17:37
DX: K70.31 Alcoholic cirrhosis of liver with ascites (principal); R79.89 Other specified abnormal findings of blood chemistry; I25.10 Atherosclerotic heart disease of native coronary artery without angina pectoris; I11.0 Hypertensive heart disease with heart failure; I50.9 Heart failure, unspecified; E78.00 Pure hypercholesterolemia, unspecified; I25.2 Old myocardial infarction; K21.9 Gastro-esophageal reflux disease without esophagitis; Z91.030 Bee allergy status; Z91.048 Other nonmedicinal substance allergy status; Z91.018 Allergy to other foods; Z79.01 Long term (current) use of anticoagulants; Z79.82 Long term (current) use of aspirin; Z79.899 Other long term (current) drug therapy; Z95.5 Presence of coronary angioplasty implant and graft
CPT/HCPCS: 36415; 71045; 80053; 80305; 80329; 81003; 82140; 83605; 83880; 84484; 85025; 93005; 99285; A9270; G0480

== ENCOUNTER 2019-07-23 23:19 | Emergency (ER) | payer MEDICAID ==
--- NOTE | 2019-07-23 23:39 | EDM.PDOC ---
ED HPI GENERAL MEDICAL PROBLEM - General Chief Complaint: Abdominal Pain Stated Complaint: AMBULANCE Time Seen by Provider: 07/23/19 23:37 Source of Information: Reports: Patient History Limitations: Reports: No Limitations - History of Present Illness INITIAL COMMENTS - FREE TEXT/NARRATIVE: h/o ascites requiring drainage in GF. last one 3 days ago but it filled back up following day and now hurts and can feel a hard pocket left side. no appetite. Left Lower Abdomen Pain Score (Numeric/FACES): 10 Right Upper Chest Pain Score (Numeric/FACES): 10 - Related Data Allergies Allergy/AdvReac Type Severity Reaction Status Date / Time bee venom protein (honey bee) Allergy Severe I need to Verified 07/23/19 23:25 use an epi pen red dye Allergy Hives Verified 07/23/19 23:25 [place] And Derivatives AdvReac Other Verified 07/23/19 23:25 grapefruit AdvReac Mild Other Uncoded 06/28/19 14:56 Home Meds: Home Meds Clopidogrel Bisulfate [Clopidogrel] 75 mg PO DAILY 06/10/18 [History] Lisinopril 2.5 mg PO DAILY 06/10/18 [History] Nitroglycerin 0.4 mg SL ASDIRECTED PRN 06/10/18 [History] Pantoprazole [ProTONIX] 40 mg PO DAILY 06/10/18 [History] Warfarin Sodium 2.5 mg PO DAILY 06/10/18 [History] atorvaSTATin [Lipitor] 40 mg PO BEDTIME 06/10/18 [History] Aspirin [Lo-Dose Aspirin EC] 81 mg PO DAILY 10/04/18 [History] Furosemide 80 mg PO BID 10/04/18 [History] Lactulose 15 ml PO TID 04/12/19 [History] Past Medical History - Past Health History Medical/Surgical History: Denies Medical/Surgical History HEENT History: Reports: Impaired Vision Other HEENT History: wears glasses Cardiovascular History: Reports: CAD, Heart Failure, High Cholesterol, Hypertension, MD, SOB on Exertion, Stents Other Cardiovascular History: Ejection Fraction of 25% Respiratory History: Reports: Pneumonia, Recurrent Gastrointestinal History: Reports: GERD, GI Bleed Other Gastrointestinal History: ascites, liver disease Genitourinary History: Reports: None Musculoskeletal History: Reports: Back Pain, Chronic Neurological History: Reports: None Psychiatric History: Reports: Addiction Endocrine/Metabolic History: Reports: None Hematologic History: Reports: None Immunologic History: Reports: None Oncologic (Cancer) History: Reports: None Dermatologic History: Reports: Other (See Below) Other Dermatologic History: patient has multiple tatoos to arms and chest - Infectious Disease History Infectious Disease History: Reports: None - Past Surgical History Head Surgeries/Procedures: Reports: None Cardiovascular Surgical History: Reports: Coronary Artery Stent GI Surgical History: Reports: Appendectomy, Other (See Below) Other GI Surgeries/Procedures: ?abdominal surgery just prior to 2017 Social & Family History - Family History Family Medical History: Noncontributory - Tobacco Use Smoking Status *Q: Never Smoker - Caffeine Use Caffeine Use: Reports: None - Recreational Drug Use Recreational Drug Use: No - Living Situation & Occupation Living situation: Reports: with Family Occupation: Disabled ED ROS GENERAL - Review of Systems Review Of Systems: ROS reveals no pertinent complaints other than HPI. ED EXAM, GI/ABD - Physical Exam Exam: See Below Exam Limited By: No Limitations General Appearance: Alert, WD/WN, Mild Distress, Other. No: Active Emesis ( tearful) Ears: Hearing Grossly Normal Throat/Mouth: Normal Voice, No Airway Compromise Head: Atraumatic Neck: Non-Tender, Full Range of Motion Respiratory/Chest: No Respiratory Distress Cardiovascular: Regular Rate, Rhythm GI/Abdominal Exam: Distended, Tender, Other (left mass without erythema but warm to touch, puncture site oozing fluid, ascites). No: Guarding, Rigid, Rebound Neurological: Alert, Oriented, Normal Cognition, Normal Gait, No Motor/Sensory Deficits Psychiatric: Tearful Skin Exam: Warm, Dry, Normal Color Lymphatic: No Adenopathy Course - Vital Signs Last Recorded V/S: Last Vital Signs Temp 36.5 C 07/23/19 23:25 Pulse 95 07/24/19 00:44 Resp 18 07/24/19 00:44 BP 107/75 07/24/19 00:44 Pulse Ox 100 07/24/19 00:44 - Orders/Labs/Meds Orders: Active Orders 24 hr Category Date Time Status Abdomen Pelvis wo Cont [CT] Urgent Exams 07/24/19 00:25 Taken CULTURE BLOOD [BC] Stat Lab 07/24/19 01:51 Ordered ceFAZolin [Ancef] 1 gm Med 07/24/19 01:52 Active Premix Bag 1 bag IV ONETIME Medication Orders Cefazolin Sodium/Dextrose 1 gm (/ Premix) 50 mls @ 100 mls/hr IV ONETIME ONE Stop: 07/24/19 02:21 Labs: Laboratory Tests 07/23/19 07/23/19 07/23/19 Range/Units 23:45 23:45 23:45 WBC 10.8 H (5.0-10.0) 10^3/uL RBC 5.21 (4.6-6.2) 10^6/uL Hgb 13.8 L (14.0-18.0) g/dL Hct 41.8 (40.0-54.0) % MCV 80.2 (80-100) fL MCH 26.5 L (27.0-34.0) pg MCHC 33.0 (33.0-35.0) g/dL Plt Count 282 (150-450) 10^3/uL Neut % (Auto) 68.6 (42.2-75.2) % Lymph % (Auto) 14.2 L (20.5-50.1) % Hall % (Auto) 11.0 H (2-8) % Eos % (Auto) 5.8 H (1.0-3.0) % Baso % (Auto) 0.4 (0.0-1.0) % PT (9.0-12.0) SEC INR (0.9-1.2) APTT (22.0-34.0) SEC Sodium 139 (135-145) mmol/L Potassium 4.1 (3.6-5.0) mmol/L Chloride 103 (101-111) mmol/L Carbon Dioxide 26.0 (21.0-31.0) mmol/L Anion Gap 14.1 BUN 40 H (7-18) mg/dL Creatinine 1.1 (0.6-1.3) mg/dL Est Cr Clr Drug Dosing 100.78 mL/min Estimated GFR (MDRD) > 60 BUN/Creatinine Ratio 36.36 Glucose 84 (74-105) mg/dL Lactic Acid 1.2 (0.5-2.2) mmol/L Calcium 8.6 (8.4-10.2) mg/dl Total Bilirubin 1.6 H (0.2-1.0) mg/dL AST 30 (10-42) IU/L ALT 39 (10-60) IU/L Alkaline Phosphatase 154 H (42-121) IU/L Troponin I (0.00-0.08) ng/mL B-Natriuretic Peptide 716 H (0-100) pg/ml Total Protein 7.3 (6.7-8.2) g/dl Albumin 3.7 (3.2-5.5) g/dl Globulin 3.6 Albumin/Globulin Ratio 1.03 Ethyl Alcohol mg/dL 07/23/19 07/23/19 Range/Units 23:45 23:45 WBC (5.0-10.0) 10^3/uL RBC (4.6-6.2) 10^6/uL Hgb (14.0-18.0) g/dL Hct (40.0-54.0) % MCV (80-100) fL MCH (27.0-34.0) pg MCHC (33.0-35.0) g/dL Plt Count (150-450) 10^3/uL Neut % (Auto) (42.2-75.2) % Lymph % (Auto) (20.5-50.1) % Hall % (Auto) (2-8) % Eos % (Auto) (1.0-3.0) % Baso % (Auto) (0.0-1.0) % PT 24.2 H D (9.0-12.0) SEC INR 2.5 H (0.9-1.2) APTT 27.9 (22.0-34.0) SEC Sodium (135-145) mmol/L Potassium (3.6-5.0) mmol/L Chloride (101-111) mmol/L Carbon Dioxide (21.0-31.0) mmol/L Anion Gap BUN (7-18) mg/dL Creatinine (0.6-1.3) mg/dL Est Cr Clr Drug Dosing mL/min Estimated GFR (MDRD) BUN/Creatinine Ratio Glucose (74-105) mg/dL Lactic Acid (0.5-2.2) mmol/L Calcium (8.4-10.2) mg/dl Total Bilirubin (0.2-1.0) mg/dL AST (10-42) IU/L ALT (10-60) IU/L Alkaline Phosphatase (42-121) IU/L Troponin I 0.01 (0.00-0.08) ng/mL B-Natriuretic Peptide (0-100) pg/ml Total Protein (6.7-8.2) g/dl Albumin (3.2-5.5) g/dl Globulin Albumin/Globulin Ratio Ethyl Alcohol < 5 mg/dL Meds: Medications Generic Name Dose Route Start Last Admin Trade Name Tiera PRN Reason Stop Dose Admin Cefazolin Sodium/Dextrose 1 gm 50 mls @ 100 mls/hr 07/24/19 01:52 / Premix IV 07/24/19 02:21 ONETIME ONE Discontinued Medications Generic Name Dose Route Start Last Admin Trade Name Freq PRN Reason Stop Dose Admin Iopamidol 100 ml 07/24/19 00:10 07/24/19 00:16 Isovue-300 (61%) IVPUSH 07/24/19 00:11 100 ml ONETIME ONE Administration Morphine Sulfate 2 mg 07/23/19 23:46 07/23/19 23:54 Morphine IVPUSH 07/23/19 23:47 2 mg ONETIME ONE Administration Morphine Sulfate 2 mg 07/24/19 01:13 07/24/19 01:30 Morphine IVPUSH 07/24/19 01:14 2 mg ONETIME ONE Administration Ondansetron HCl 4 mg 07/23/19 23:46 07/23/19 23:54 Zofran IV 07/23/19 23:47 4 mg ONETIME ONE Administration - Re-Assessments/Exams Free Text/Narrative Re-Assessment/Exam: 07/24/19 01:[address] Vidales who kindly accepted pt Departure - Departure Time of Disposition: 01:57 Disposition: DC/Tfer to Acute Hospital 02 Condition: Fair Clinical Impression: Abdominal wall cellulitis Ascites Qualifiers: Ascites type: due to alcoholic cirrhosis Qualified Code(s): K70.31 - Alcoholic cirrhosis of liver with ascites Alcoholic cirrhosis of liver Qualifiers: Ascites presence: with ascites Qualified Code(s): K70.31 - Alcoholic cirrhosis of liver with ascites - Discharge Information Forms: Interfacility Transfer EMTALA - My Orders Last 24 Hours: My Active Orders 07/24/19 00:25 Abdomen Pelvis wo Cont [CT] Urgent 07/24/19 01:51 CULTURE BLOOD [BC] Stat 07/24/19 01:52 ceFAZolin [Ancef] 1 gm Premix Bag 1 bag IV ONETIME - Assessment/Plan Last 24 Hours: My Active Orders 07/24/19 00:25 Abdomen Pelvis wo Cont [CT] Urgent 07/24/19 01:51 CULTURE BLOOD [BC] Stat 07/24/19 01:52 ceFAZolin [Ancef] 1 gm Premix Bag 1 bag IV ONETIME
[2019-07-23] MEDS ORDERED: Ondansetron 4 MG/2 ML SDV IV ONE (23:46)
[2019-07-23] MEDS ORDERED: Morphine 2 MG/ML Syringe IVPUSH ONE (23:46)
[2019-07-24 00:10] LABS: ANION GAP 14.1; CHLORIDE,CL 103 mmol/L (101-111); SODIUM,NA 139 mmol/L (135-145)
[2019-07-24] MEDS ORDERED: Iopamidol 612 MG/ML 100 ML Bottle IVPUSH ONE (00:10)
[2019-07-24] MEDS ORDERED: Morphine 2 MG/ML Syringe IVPUSH ONE (01:13)
[2019-07-24] MEDS ORDERED: ceFAZolin 1 GM in Premix Bag 1 BAG IV ONE (01:52)
[2019-07-24] MEDS ORDERED: HYDROmorphone 1 MG/ML Syringe IVPUSH ONE (02:37)
== END 2019-07-24 02:54 ==
LOC: DL.ED 23:19
DX: L03.311 Cellulitis of abdominal wall (principal); K70.31 Alcoholic cirrhosis of liver with ascites; I25.10 Atherosclerotic heart disease of native coronary artery without angina pectoris; I11.0 Hypertensive heart disease with heart failure; I50.9 Heart failure, unspecified; I25.2 Old myocardial infarction; K21.9 Gastro-esophageal reflux disease without esophagitis; E78.00 Pure hypercholesterolemia, unspecified; Z91.030 Bee allergy status; Z91.041 Radiographic dye allergy status; Z91.018 Allergy to other foods; Z79.01 Long term (current) use of anticoagulants; Z79.899 Other long term (current) drug therapy; Z79.82 Long term (current) use of aspirin
CPT/HCPCS: 36415; 74176; 80053; 80320; 83605; 83880; 84484; 85025; 85610; 85730; 87040; 96365; 96375; 96376; 99285; J0690; J1170; J2270; J2405; Q9967; G0480

== ENCOUNTER 2019-08-02 10:40 | Emergency (ER) | payer MEDICAID ==
--- NOTE | 2019-08-02 09:36 | EDM.PDOC ---
ED HPI GENERAL MEDICAL PROBLEM - General Stated Complaint: AMBULANCE Time Seen by Provider: 08/02/19 09:35 Source of Information: Reports: Patient, EMS History Limitations: Reports: No Limitations - History of Present Illness INITIAL COMMENTS - FREE TEXT/NARRATIVE: This 33 yo male patient was brought to the ED by [facility] due to increased abdominal pain and bloating. The patient also reports right sided chest pain ( described as pressure). The patient reports his increased abdominal pain and chest pain started last Thursday and has been getting worse throughout the weekend. The patient reports a history of alcoholic cirrhosis that has required him to be tapped to remove excess fluid. The patient reports he was last sent to [facility] in [place] on 07/23/19 and 07/19/19. The patient also reports a history of previous AR. The patient reports he does have a follow-up appointment established for this Thursday, but does not think he can wait that long. The patient reports he is currently waiting for the [facility] to complete a weekly referral for continued evaluation and care. Duration: Day(s):, Constant, Getting Worse Location: Reports: Chest (right sided chest pressure), Abdomen (Diffuse abdominal pain ) Quality: Reports: Ache, Pressure Severity: Severe Improves with: Reports: None Worsens with: Reports: Movement Context: Reports: Other Associated Symptoms: Reports: Chest Pain (Right sided chest pressure) Abdomen Pain Score (Numeric/FACES): 10 - Related Data Allergies Allergy/AdvReac Type Severity Reaction Status Date / Time bee venom protein (honey bee) Allergy Severe I need to Verified 07/23/19 23:25 use an epi pen red dye Allergy Hives Verified 07/23/19 23:25 [place] And Derivatives AdvReac Other Verified 07/23/19 23:25 grapefruit AdvReac Mild Other Uncoded 06/28/19 14:56 Home Meds: Home Meds Clopidogrel Bisulfate [Clopidogrel] 75 mg PO DAILY 06/10/18 [History] Lisinopril 2.5 mg PO DAILY 06/10/18 [History] Nitroglycerin 0.4 mg SL ASDIRECTED PRN 06/10/18 [History] Pantoprazole [ProTONIX] 40 mg PO DAILY 06/10/18 [History] Warfarin Sodium 2.5 mg PO DAILY 06/10/18 [History] atorvaSTATin [Lipitor] 40 mg PO BEDTIME 06/10/18 [History] Aspirin [Lo-Dose Aspirin EC] 81 mg PO DAILY 10/04/18 [History] Furosemide 80 mg PO BID 10/04/18 [History] Lactulose 15 ml PO TID 04/12/19 [History] Past Medical History - Past Health History Medical/Surgical History: Denies Medical/Surgical History HEENT History: Reports: Impaired Vision Other HEENT History: wears glasses Cardiovascular History: Reports: CAD, Heart Failure, High Cholesterol, Hypertension, AR, SOB on Exertion, Stents Other Cardiovascular History: Ejection Fraction of 25% Respiratory History: Reports: Pneumonia, Recurrent Gastrointestinal History: Reports: GERD, GI Bleed Other Gastrointestinal History: ascites, liver disease Genitourinary History: Reports: None Musculoskeletal History: Reports: Back Pain, Chronic Neurological History: Reports: None Psychiatric History: Reports: Addiction Endocrine/Metabolic History: Reports: None Hematologic History: Reports: None Immunologic History: Reports: None Oncologic (Cancer) History: Reports: None Dermatologic History: Reports: Other (See Below) Other Dermatologic History: patient has multiple tatoos to arms and chest - Infectious Disease History Infectious Disease History: Reports: None - Past Surgical History Head Surgeries/Procedures: Reports: None Cardiovascular Surgical History: Reports: Coronary Artery Stent GI Surgical History: Reports: Appendectomy, Other (See Below) Other GI Surgeries/Procedures: ?abdominal surgery just prior to 2017 Social & Family History - Family History Family Medical History: Noncontributory - Caffeine Use Caffeine Use: Reports: None - Living Situation & Occupation Living situation: Reports: with Family Occupation: Disabled ED ROS GENERAL - Review of Systems Review Of Systems: ROS reveals no pertinent complaints other than HPI. ED EXAM, GI/ABD - Physical Exam Exam: See Below Exam Limited By: No Limitations General Appearance: Alert, WD/WN, Moderate Distress Eyes: Bilateral: Normal Appearance, EOMI Ears: Normal External Exam, Normal Canal, Hearing Grossly Normal, Normal TMs Nose: Normal Inspection, Normal Mucosa, No Blood Throat/Mouth: Normal Inspection, Normal Lips, Normal Teeth, Normal Gums, Normal Oropharynx, Normal Voice, No Airway Compromise Head: Atraumatic, Normocephalic Neck: Normal Inspection, Supple, Non-Tender, Full Range of Motion Respiratory/Chest: No Respiratory Distress, Lungs Clear, Normal Breath Sounds, No Accessory Muscle Use, Chest Non-Tender Cardiovascular: Normal Peripheral Pulses, Regular Rate, Rhythm, No Edema, No Gallop, No JVD, No Rub, Systolic Murmur GI/Abdominal Exam: Normal Bowel Sounds, Distended, Tender (diffuse) (Male) Exam: Deferred Rectal (Males) Exam: Deferred Back Exam: Normal Inspection, Full Range of Motion, NT Extremities: Normal Inspection, Normal Range of Motion, Non-Tender, Normal Capillary Refill, No Pedal Edema Neurological: Alert, Oriented, CN II-XII Intact, Normal Cognition, Normal Gait, Normal Reflexes, No Motor/Sensory Deficits Psychiatric: Normal Affect, Normal Mood Skin Exam: Warm, Dry, Intact, Normal Color, No Rash Lymphatic: No Adenopathy Course - Vital Signs Last Recorded V/S: Last Vital Signs Temp 36.2 C 08/02/19 09:24 Pulse 97 08/02/19 09:24 Resp 18 08/02/19 09:24 BP 121/78 08/02/19 09:24 Pulse Ox 100 08/02/19 09:24 - Orders/Labs/Meds Orders: Active Orders 24 hr Category Date Time Status EKG Documentation Completion [RC] URGENT Care 08/02/19 09:36 Active Labs: Laboratory Tests 08/02/19 08/02/19 08/02/19 Range/Units 09:40 09:40 09:40 WBC 10.1 H (5.0-10.0) 10^3/uL RBC 4.99 (4.6-6.2) 10^6/uL Hgb 13.3 L (14.0-18.0) g/dL Hct 40.7 (40.0-54.0) % MCV 81.6 (80-100) fL MCH 26.7 L (27.0-34.0) pg MCHC 32.7 L (33.0-35.0) g/dL Plt Count 316 (150-450) 10^3/uL Neut % (Auto) 65.1 (42.2-75.2) % Lymph % (Auto) 17.0 L (20.5-50.1) % [place] % (Auto) 11.7 H (2-8) % Eos % (Auto) 5.3 H (1.0-3.0) % Baso % (Auto) 0.9 (0.0-1.0) % Sodium 134 L (135-145) mmol/L Potassium 4.4 (3.6-5.0) mmol/L Chloride 102 (101-111) mmol/L Carbon Dioxide 25.0 (21.0-31.0) mmol/L Anion Gap 11.4 BUN 30 H (7-18) mg/dL Creatinine 1.1 (0.6-1.3) mg/dL Est Cr Clr Drug Dosing 103.86 mL/min Estimated GFR (MDRD) > 60 BUN/Creatinine Ratio 27.27 Glucose 75 (74-105) mg/dL Calcium 8.5 (8.4-10.2) mg/dl Total Bilirubin 1.3 H (0.2-1.0) mg/dL AST 22 (10-42) IU/L ALT 20 (10-60) IU/L Alkaline Phosphatase 123 H (42-121) IU/L Troponin I (0.00-0.02) ng/ml Total Protein 6.8 (6.7-8.2) g/dl Albumin 3.3 (3.2-5.5) g/dl Globulin 3.5 Albumin/Globulin Ratio 0.94 Amylase 51 (28-100) U/L Lipase 38 (22-51) U/L Urine Color (YELLOW) Urine Appearance (CLEAR) Urine pH (5.0-9.0) Ur Specific Cranks (1.005-1.030) Urine Protein (NEGATIVE) Urine Glucose (UA) (NEGATIVE) Urine Ketones (NEGATIVE) Urine Occult Blood (NEGATIVE) Urine Nitrite (NEGATIVE) Urine Bilirubin (NEGATIVE) Urine Urobilinogen (0.2-1.0) mg/dL Ur Leukocyte Esterase (NEGATIVE) Salicylates < 4 mg/dL Urine Opiates Screen (NEGATIVE) Ur Oxycodone Screen (NEGATIVE) Urine Methadone Screen (NEGATIVE) Acetaminophen < 10 ug/mL Ur Barbiturates Screen (NEGATIVE) U Tricyclic Antidepress (NEGATIVE) Ur Phencyclidine Scrn (NEGATIVE) Ur Amphetamine Screen (NEGATIVE) U Methamphetamines Scrn (NEGATIVE) Urine MDMA Screen (NEGATIVE) U Benzodiazepines Scrn (NEGATIVE) Urine Cocaine Screen (NEGATIVE) U Marijuana (THC) Screen (NEGATIVE) Ethyl Alcohol < 5 mg/dL 08/02/19 08/02/19 08/02/19 Range/Units 09:40 10:21 10:21 WBC (5.0-10.0) 10^3/uL RBC (4.6-6.2) 10^6/uL Hgb (14.0-18.0) g/dL Hct (40.0-54.0) % MCV (80-100) fL MCH (27.0-34.0) pg MCHC (33.0-35.0) g/dL Plt Count (150-450) 10^3/uL Neut % (Auto) (42.2-75.2) % Lymph % (Auto) (20.5-50.1) % [place] % (Auto) (2-8) % Eos % (Auto) (1.0-3.0) % Baso % (Auto) (0.0-1.0) % Sodium (135-145) mmol/L Potassium (3.6-5.0) mmol/L Chloride (101-111) mmol/L Carbon Dioxide (21.0-31.0) mmol/L Anion Gap BUN (7-18) mg/dL Creatinine (0.6-1.3) mg/dL Est Cr Clr Drug Dosing mL/min Estimated GFR (MDRD) BUN/Creatinine Ratio Glucose (74-105) mg/dL Calcium (8.4-10.2) mg/dl Total Bilirubin (0.2-1.0) mg/dL AST (10-42) IU/L ALT (10-60) IU/L Alkaline Phosphatase (42-121) IU/L Troponin I 0.06 H* (0.00-0.02) ng/ml Total Protein (6.7-8.2) g/dl Albumin (3.2-5.5) g/dl Globulin Albumin/Globulin Ratio Amylase (28-100) U/L Lipase (22-51) U/L Urine Color Yellow (YELLOW) Urine Appearance Clear (CLEAR) Urine pH 6.0 (5.0-9.0) Ur Specific Cranks 1.020 (1.005-1.030) Urine Protein Negative (NEGATIVE) Urine Glucose (UA) Negative (NEGATIVE) Urine Ketones Negative (NEGATIVE) Urine Occult Blood Negative (NEGATIVE) Urine Nitrite Negative (NEGATIVE) Urine Bilirubin Negative (NEGATIVE) Urine Urobilinogen 0.2 (0.2-1.0) mg/dL Ur Leukocyte Esterase Negative (NEGATIVE) Salicylates mg/dL Urine Opiates Screen Negative (NEGATIVE) Ur Oxycodone Screen Negative (NEGATIVE) Urine Methadone Screen Negative (NEGATIVE) Acetaminophen ug/mL Ur Barbiturates Screen Negative (NEGATIVE) U Tricyclic Antidepress Negative (NEGATIVE) Ur Phencyclidine Scrn Negative (NEGATIVE) Ur Amphetamine Screen Negative (NEGATIVE) U Methamphetamines Scrn Negative (NEGATIVE) Urine MDMA Screen Negative (NEGATIVE) U Benzodiazepines Scrn Negative (NEGATIVE) Urine Cocaine Screen Negative (NEGATIVE) U Marijuana (THC) Screen Positive H (NEGATIVE) Ethyl Alcohol mg/dL Meds: Medications Discontinued Medications Generic Name Dose Route Start Last Admin Trade Name Freq PRN Reason Stop Dose Admin Hydromorphone HCl 1 mg 08/02/19 09:43 08/02/19 09:57 Dilaudid IVPUSH 08/02/19 09:44 1 mg ONETIME ONE Administration Ondansetron HCl 4 mg 08/02/19 09:53 08/02/19 09:57 Zofran IV 08/02/19 09:54 4 mg ONETIME ONE Administration Departure - Departure Time of Disposition: 10:38 Disposition: DC/Tfer to Acute Hospital 02 Condition: Poor Clinical Impression: Abdominal distension Alcoholic cirrhosis of liver Qualifiers: Ascites presence: with ascites Qualified Code(s): K70.31 - Alcoholic cirrhosis of liver with ascites Ascites Qualifiers: Ascites type: due to alcoholic cirrhosis Qualified Code(s): K70.31 - Alcoholic cirrhosis of liver with ascites Abdominal pain Qualifiers: Abdominal location: generalized Qualified Code(s): R10.84 - Generalized abdominal pain - Discharge Information *PRESCRIPTION DRUG MONITORING PROGRAM REVIEWED*: Not Applicable *COPY OF PRESCRIPTION DRUG MONITORING REPORT IN PATIENT FRANKIE: Not Applicable Forms: Interfacility Transfer EMTALA Care Plan Goals: Discussed the patient's history, examination, EKG and lab results with Dr. An (Hospitalist with [facility] in [place]). Dr. An accepted the patient for continued evaluation and management. The patient will be transported by [facility]. - My Orders Last 24 Hours: My Active Orders 08/02/19 09:36 EKG Documentation Completion [RC] URGENT - Assessment/Plan Last 24 Hours: My Active Orders 08/02/19 09:36 EKG Documentation Completion [RC] URGENT
[2019-08-02 10:09] LABS: ANION GAP 11.4; CHLORIDE,CL 102 mmol/L (101-111); SODIUM,NA 134 mmol/L (135-145)
[2019-08-02 10:13] LABS: ACETAMINOPHEN < 10 ug/mL
[~2019-08-02 10:40] MED LIST changes: +HYDROmorphone 1 MG/ML Syringe IVPUSH ONE; +Ondansetron 4 MG/2 ML SDV IV ONE; -Sodium Chloride 0.9% 10 ML Syringe FLUSH PRN
== END 2019-08-02 11:14 ==
LOC: DL.ED 10:40
DX: K70.31 Alcoholic cirrhosis of liver with ascites (principal); I25.2 Old myocardial infarction; I11.0 Hypertensive heart disease with heart failure; I50.9 Heart failure, unspecified; E78.00 Pure hypercholesterolemia, unspecified; K21.9 Gastro-esophageal reflux disease without esophagitis; Z91.030 Bee allergy status; Z91.041 Radiographic dye allergy status; Z91.018 Allergy to other foods; Z79.899 Other long term (current) drug therapy; Z79.01 Long term (current) use of anticoagulants
CPT/HCPCS: 36415; 80053; 80305; 80320; 80329; 81003; 82150; 83690; 84484; 85025; 93005; 96374; 96375; 99284; J1170; J2405; G0480

== ENCOUNTER 2019-09-12 14:08 | Emergency (ER) | payer SELFPAY ==
--- NOTE | 2019-09-12 15:11 | EDM.PDOC ---
ED HPI GENERAL MEDICAL PROBLEM - General Chief Complaint: Respiratory Problem Stated Complaint: AMBULANCE Time Seen by Provider: 09/12/19 15:00 Source of Information: Reports: Patient History Limitations: Reports: No Limitations - History of Present Illness INITIAL COMMENTS - FREE TEXT/NARRATIVE: This 33 yo male patient was brought to the ED by [facility] due to tightness in the right side of his chest. The patient reports he started noticing symptoms 3-4 days. The patient has a history of ascites (last tapped about 1 month ago). The patient reports a previous episode of a pulmonary effusion requiring chest tubes (about 1 year ago) with similar symptoms. The patient reports he has not had any follow-up since the last time he was transferred to [facility] in [place]. The patient reports that he was not aware of any scheduled appointments or follow-up appointments that he has or has missed. Onset Date: 09/08/19 Duration: Constant, Getting Worse Location: Reports: Chest (right sided) Quality: Reports: Dull, Pressure Severity: Moderate Improves with: Reports: None Worsens with: Reports: None Context: Reports: Other Associated Symptoms: Reports: Chest Pain (right sided chest "squeezing" ), Shortness of Breath Right Back Pain Score (Numeric/FACES): 6 - Related Data Allergies Allergy/AdvReac Type Severity Reaction Status Date / Time bee venom protein (honey bee) Allergy Severe I need to Verified 08/23/19 08:56 use an epi pen red dye Allergy Hives Verified 08/23/19 08:56 [place] And Derivatives AdvReac Other Verified 08/23/19 08:56 grapefruit AdvReac Mild Other Uncoded 06/28/19 14:56 Home Meds: Home Meds Clopidogrel Bisulfate [Clopidogrel] 75 mg PO DAILY 06/10/18 [History] Lisinopril 2.5 mg PO DAILY 06/10/18 [History] Nitroglycerin 0.4 mg SL ASDIRECTED PRN 06/10/18 [History] Pantoprazole [ProTONIX] 40 mg PO DAILY 06/10/18 [History] Warfarin Sodium 2.5 mg PO DAILY 06/10/18 [History] atorvaSTATin [Lipitor] 40 mg PO BEDTIME 06/10/18 [History] Aspirin [Lo-Dose Aspirin EC] 81 mg PO DAILY 10/04/18 [History] Furosemide 80 mg PO BID 10/04/18 [History] Lactulose 15 ml PO TID 04/12/19 [History] Past Medical History - Past Health History Medical/Surgical History: Denies Medical/Surgical History HEENT History: Reports: Impaired Vision Other HEENT History: wears glasses Cardiovascular History: Reports: CAD, Heart Failure, High Cholesterol, Hypertension, [place], SOB on Exertion, Stents Other Cardiovascular History: Ejection Fraction of 25% Respiratory History: Reports: Pneumonia, Recurrent Gastrointestinal History: Reports: GERD, GI Bleed Other Gastrointestinal History: ascites, liver disease Genitourinary History: Reports: None Musculoskeletal History: Reports: Back Pain, Chronic Neurological History: Reports: None Psychiatric History: Reports: Addiction Endocrine/Metabolic History: Reports: None Hematologic History: Reports: None Immunologic History: Reports: None Oncologic (Cancer) History: Reports: None Dermatologic History: Reports: Other (See Below) Other Dermatologic History: patient has multiple tatoos to arms and chest - Infectious Disease History Infectious Disease History: Reports: None - Past Surgical History Head Surgeries/Procedures: Reports: None Cardiovascular Surgical History: Reports: Coronary Artery Stent GI Surgical History: Reports: Appendectomy, Other (See Below) Other GI Surgeries/Procedures: ?abdominal surgery just prior to 2017 Social & Family History - Family History Family Medical History: Noncontributory - Caffeine Use Caffeine Use: Reports: None - Living Situation & Occupation Living situation: Reports: with Family Occupation: Disabled ED ROS GENERAL - Review of Systems Review Of Systems: Comprehensive ROS is negative, except as noted in HPI. ED EXAM, GENERAL - Physical Exam Exam: See Below Exam Limited By: No Limitations General Appearance: Alert, WD/WN, Moderate Distress Eye Exam: Bilateral Eye: EOMI, Normal Inspection, PERRL Ears: Normal External Exam, Normal Canal, Hearing Grossly Normal, Normal TMs Nose: Normal Inspection, Normal Mucosa, No Blood Throat/Mouth: Normal Inspection, Normal Lips, Normal Teeth, Normal Gums, Normal Oropharynx, Normal Voice, No Airway Compromise Head: Atraumatic, Normocephalic Neck: Normal Inspection, Supple, Non-Tender, Full Range of Motion Respiratory/Chest: Decreased Breath Sounds (right side) Cardiovascular: Normal Peripheral Pulses, Regular Rate, Rhythm, No Edema, No Gallop, No JVD, No Murmur, No Rub GI/Abdominal: Normal Bowel Sounds, Soft, Non-Tender, No Organomegaly, Distended (mild) (Male) Exam: Deferred Rectal (Males) Exam: Deferred Back Exam: Normal Inspection, Full Range of Motion, NT Extremities: Normal Inspection, Normal Range of Motion, Non-Tender, Normal Capillary Refill, No Pedal Edema Neurological: Alert, Oriented, CN II-XII Intact, Normal Cognition, Normal Gait, Normal Reflexes, No Motor/Sensory Deficits Psychiatric: Normal Affect, Normal Mood Skin Exam: Warm, Dry, Intact, Normal Color, No Rash Lymphatic: No Adenopathy Course - Vital Signs Last Recorded V/S: Last Vital Signs Temp 36.6 C 09/12/19 14:52 Pulse 97 09/12/19 14:52 Resp 18 09/12/19 14:52 BP 124/86 09/12/19 14:52 Pulse Ox 100 09/12/19 14:52 - Orders/Labs/Meds Orders: Active Orders 24 hr Category Date Time Status EKG Documentation Completion [RC] URGENT Care 09/12/19 15:04 Ordered CBC WITH AUTO DIFF [HEME] Urgent Lab 09/12/19 16:30 Ordered COMPREHENSIVE METABOLIC PN,CMP [CHEM] Urgent Lab 09/12/19 16:30 Ordered CULTURE BLOOD [BC] Stat Lab 09/12/19 15:03 Ordered DRUG SCREEN URINE BIORAD [URCHEM] Stat Lab 09/12/19 15:03 Ordered UA RFX EVANGELIST AND CULT IF INDIC [URIN] Urgent Lab 09/12/19 15:03 Ordered Labs: Laboratory Tests 09/12/19 09/12/19 09/12/19 Range/Units 15:10 15:10 15:10 Lactic Acid 1.4 (0.5-2.2) mmol/L Ammonia 17 (11-35) umol/L Troponin I 0.04 H* (0.00-0.02) ng/ml B-Natriuretic Peptide 873 H (0-100) pg/ml Amylase 42 (28-100) U/L Lipase 28 (22-51) U/L Departure - Departure Time of Disposition: 16:45 Disposition: DC/Tfer to [facility] 02 Condition: Poor Clinical Impression: 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, right - Discharge Information *PRESCRIPTION DRUG MONITORING PROGRAM REVIEWED*: Not Applicable *COPY OF PRESCRIPTION DRUG MONITORING REPORT IN PATIENT FRANKIE: Not Applicable Forms: Interfacility Transfer EMTALA Care Plan Goals: Discussed the patient's history, examination, lab, EKG and x-ray results with Dr. An (Hospitalist with [facility] in [place]). Dr. An accepted the patient for continued evaluation and further management as an inpatient at [facility] in [place]. The patient will be transported by [facility]. - My Orders Last 24 Hours: My Active Orders 09/12/19 15:03 CULTURE BLOOD [BC] Stat DRUG SCREEN URINE BIORAD [URCHEM] Stat UA RFX EVANGELIST AND CULT IF INDIC [URIN] Urgent 09/12/19 15:04 EKG Documentation Completion [RC] URGENT 09/12/19 16:30 CBC WITH AUTO DIFF [HEME] Urgent COMPREHENSIVE METABOLIC PN,CMP [CHEM] Urgent - Assessment/Plan Last 24 Hours: My Active Orders 09/12/19 15:03 CULTURE BLOOD [BC] Stat DRUG SCREEN URINE BIORAD [URCHEM] Stat UA RFX EVANGELIST AND CULT IF INDIC [URIN] Urgent 09/12/19 15:04 EKG Documentation Completion [RC] URGENT 09/12/19 16:30 CBC WITH AUTO DIFF [HEME] Urgent COMPREHENSIVE METABOLIC PN,CMP [CHEM] Urgent
--- NOTE | 2019-09-12 16:23 | CR ---
EXAMINATION: Chest 2V SEX: Male AGE: 33 years CLINICAL HISTORY: 33-year-old male complaining of short of breath (SOB). Comparison CXR 19 July 2019. INTERPRETATION: 1. Complete opacification lower two thirds of the right hemithorax with lateral "meniscus" indicating huge right PLEURAL EFFUSION that is new since comparison film 19 July 2019. 2. No obvious rib fractures or pneumothorax. 3. Chronic enlarged cardiac silhouette without vascular congestion, cephalization of flow or alveolar edema. 4. Left lung and pleural space remain clear. CONCLUSION: Large new right pleural effusion. (See above)
[2019-09-12 16:58] LABS: ANION GAP 14.9; CHLORIDE,CL 107 mmol/L (101-111); SODIUM,NA 138 mmol/L (135-145)
== END 2019-09-12 17:20 ==
LOC: DL.ED 14:08
DX: J90 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, not elsewhere classified (principal); I11.0 Hypertensive heart disease with heart failure; I50.9 Heart failure, unspecified; I25.10 Atherosclerotic heart disease of native coronary artery without angina pectoris; K21.9 Gastro-esophageal reflux disease without esophagitis; Z79.01 Long term (current) use of anticoagulants; Z79.899 Other long term (current) drug therapy; Z91.030 Bee allergy status; Z91.018 Allergy to other foods
CPT/HCPCS: 36415; 71046; 80053; 80305-QW; 81003; 82140; 82150; 83605; 83690; 83880; 84484; 85025; 87040; 93005; 99284; 99285-25

== ENCOUNTER 2019-10-18 08:33 | Emergency (ER) | payer SELFPAY ==
--- NOTE | 2019-10-18 08:35 | EDM.PDOC ---
ED HPI GENERAL MEDICAL PROBLEM - General Stated Complaint: ABDOMINAL PAIN Time Seen by Provider: 10/18/19 08:25 Source of Information: Reports: Patient, EMS History Limitations: Reports: No Limitations - History of Present Illness INITIAL COMMENTS - FREE TEXT/NARRATIVE: This 33 yo male patient reports to the ED with increased shortness of breath and abdominal distension. The patient reports the shortness of breath has been getting worse over the past 2 weeks to the point that the patient has to lay on his right side to be able to breath. The patient reports he has also noticed increased abdominal distension over the past 3 weeks. The patient reports he was last in [facility] on 09/12/19 due to ascites. Duration: Week(s):, Constant, Getting Worse Location: Reports: Chest, Abdomen Quality: Reports: Ache, Dull Severity: Moderate Improves with: Reports: None Worsens with: Reports: None Associated Symptoms: Reports: Cough, Shortness of Breath - Related Data Allergies Allergy/AdvReac Type Severity Reaction Status Date / Time bee venom protein (honey bee) Allergy Severe I need to Verified 08/23/19 08:56 use an epi pen red dye Allergy Hives Verified 08/23/19 08:56 [place] And Derivatives AdvReac Other Verified 08/23/19 08:56 grapefruit AdvReac Mild Other Uncoded 06/28/19 14:56 Home Meds: Home Meds Clopidogrel Bisulfate [Clopidogrel] 75 mg PO DAILY 06/10/18 [History] Lisinopril 2.5 mg PO DAILY 06/10/18 [History] Nitroglycerin 0.4 mg SL ASDIRECTED PRN 06/10/18 [History] Pantoprazole [ProTONIX] 40 mg PO DAILY 06/10/18 [History] Warfarin Sodium 2.5 mg PO DAILY 06/10/18 [History] atorvaSTATin [Lipitor] 40 mg PO BEDTIME 06/10/18 [History] Aspirin [Lo-Dose Aspirin EC] 81 mg PO DAILY 10/04/18 [History] Furosemide 80 mg PO BID 10/04/18 [History] Lactulose 15 ml PO TID 04/12/19 [History] Past Medical History - Past Health History Medical/Surgical History: Denies Medical/Surgical History HEENT History: Reports: Impaired Vision Other HEENT History: wears glasses Cardiovascular History: Reports: CAD, Heart Failure, High Cholesterol, Hypertension, [place], SOB on Exertion, Stents Other Cardiovascular History: Ejection Fraction of 25% Respiratory History: Reports: Pneumonia, Recurrent Gastrointestinal History: Reports: GERD, GI Bleed Other Gastrointestinal History: ascites, liver disease Genitourinary History: Reports: None Musculoskeletal History: Reports: Back Pain, Chronic Neurological History: Reports: None Psychiatric History: Reports: Addiction Endocrine/Metabolic History: Reports: None Hematologic History: Reports: None Immunologic History: Reports: None Oncologic (Cancer) History: Reports: None Dermatologic History: Reports: Other (See Below) Other Dermatologic History: patient has multiple tatoos to arms and chest - Infectious Disease History Infectious Disease History: Reports: None - Past Surgical History Head Surgeries/Procedures: Reports: None Cardiovascular Surgical History: Reports: Coronary Artery Stent GI Surgical History: Reports: Appendectomy, Other (See Below) Other GI Surgeries/Procedures: ?abdominal surgery just prior to 2017 Social & Family History - Family History Family Medical History: Noncontributory - Caffeine Use Caffeine Use: Reports: None - Living Situation & Occupation Living situation: Reports: with Family Occupation: Disabled ED ROS GENERAL - Review of Systems Review Of Systems: Comprehensive ROS is negative, except as noted in HPI. ED EXAM, GENERAL - Physical Exam Exam: See Below Exam Limited By: No Limitations General Appearance: Alert, WD/WN, Moderate Distress Eye Exam: Bilateral Eye: EOMI, Normal Inspection, PERRL Ears: Normal External Exam, Normal Canal, Hearing Grossly Normal, Normal TMs Nose: Normal Inspection, Normal Mucosa, No Blood Throat/Mouth: Normal Inspection, Normal Lips, Normal Teeth, Normal Gums, Normal Oropharynx, Normal Voice, No Airway Compromise Head: Atraumatic, Normocephalic Neck: Normal Inspection, Supple, Non-Tender, Full Range of Motion Respiratory/Chest: Decreased Breath Sounds (right side), Wheezing (diffuse left side) Cardiovascular: Normal Peripheral Pulses, Regular Rate, Rhythm, No Edema, No Gallop, No JVD, No Murmur, No Rub GI/Abdominal: Distended, Tender, Hernia (periumbilical ) (Male) Exam: Deferred Rectal (Males) Exam: Deferred Back Exam: Normal Inspection, Full Range of Motion, NT Extremities: Normal Inspection, Normal Range of Motion, Non-Tender, Normal Capillary Refill, No Pedal Edema Neurological: Alert, Oriented, CN II-XII Intact, Normal Cognition, Normal Gait, Normal Reflexes, No Motor/Sensory Deficits Psychiatric: Normal Affect, Normal Mood Skin Exam: Warm, Dry, Intact, Normal Color, No Rash Lymphatic: No Adenopathy Course - Vital Signs Last Recorded V/S: Last Vital Signs Temp 36.4 C 10/18/19 08:30 Pulse 102 H 10/18/19 08:30 Resp 18 10/18/19 08:30 BP 123/76 10/18/19 08:30 Pulse Ox 98 10/18/19 08:30 - Orders/Labs/Meds Orders: Active Orders 24 hr Category Date Time Status EKG Documentation Completion [RC] URGENT Care 10/18/19 08:13 Active DRUG SCREEN URINE BIORAD [URCHEM] Stat Lab 10/18/19 08:14 Ordered UA RFX EVANGELIST AND CULT IF INDIC [URIN] Urgent Lab 10/18/19 08:14 Ordered Labs: Laboratory Tests 10/18/19 10/18/19 10/18/19 Range/Units 08:40 08:40 08:40 WBC 8.2 (5.0-10.0) 10^3/uL RBC 4.95 (4.6-6.2) 10^6/uL Hgb 13.4 L D (14.0-18.0) g/dL Hct 40.8 (40.0-54.0) % MCV 82.4 (80-100) fL MCH 27.1 (27.0-34.0) pg MCHC 32.8 L (33.0-35.0) g/dL Plt Count 291 (150-450) 10^3/uL Neut % (Auto) 70.3 (42.2-75.2) % Lymph % (Auto) 14.7 L (20.5-50.1) % [place] % (Auto) 11.1 H (2-8) % Eos % (Auto) 3.5 H (1.0-3.0) % Baso % (Auto) 0.4 (0.0-1.0) % Sodium 137 (135-145) mmol/L Potassium 3.7 (3.6-5.0) mmol/L Chloride 105 (101-111) mmol/L Carbon Dioxide 23.0 (21.0-31.0) mmol/L Anion Gap 12.7 BUN 14 (7-18) mg/dL Creatinine 0.8 (0.6-1.3) mg/dL Est Cr Clr Drug Dosing TNP Estimated GFR (MDRD) > 60 BUN/Creatinine Ratio 17.50 Glucose 95 (74-105) mg/dL Calcium 8.5 (8.4-10.2) mg/dl Total Bilirubin 2.7 H (0.2-1.0) mg/dL AST 24 (10-42) IU/L ALT 16 (10-60) IU/L Alkaline Phosphatase 159 H (42-121) IU/L Troponin I 0.06 H* (0.00-0.02) ng/ml B-Natriuretic Peptide 863 H (0-100) pg/ml Total Protein 8.4 H (6.7-8.2) g/dl Albumin 3.2 (3.2-5.5) g/dl Globulin 5.2 Albumin/Globulin Ratio 0.62 Amylase 31 (28-100) U/L Lipase 22 (22-51) U/L Ethyl Alcohol < 5 mg/dL Departure - Departure Time of Disposition: 09:17 Disposition: DC/Tfer to [facility] 02 Condition: Poor Clinical Impression: Recurrent right pleural effusion Ascites Qualifiers: Ascites type: due to alcoholic cirrhosis Qualified Code(s): K70.31 - Alcoholic cirrhosis of liver with ascites - Discharge Information *PRESCRIPTION DRUG MONITORING PROGRAM REVIEWED*: Not Applicable *COPY OF PRESCRIPTION DRUG MONITORING REPORT IN PATIENT FRANKIE: Not Applicable Forms: Interfacility Transfer EMTALA Care Plan Goals: Discussed the patient's history, examination, lab and x-ray results with Dr. An (Hospitalist with [facility] in [place]). Dr. An accepted the patient for continued evaluation and further management. The patient will be transferred by [facility]. Sepsis Event Note - Focused Exam Vital Signs: Vital Signs Temp Pulse Resp BP Pulse Ox 10/18/19 08:30 36.4 C 102 H 18 123/76 98 Date Exam was Performed: 10/18/19 Time Exam was Performed: 09:17 - My Orders Last 24 Hours: My Active Orders 10/18/19 08:13 EKG Documentation Completion [RC] URGENT 10/18/19 08:14 DRUG SCREEN URINE BIORAD [URCHEM] Stat UA RFX EVANGELIST AND CULT IF INDIC [URIN] Urgent - Assessment/Plan Last 24 Hours: My Active Orders 10/18/19 08:13 EKG Documentation Completion [RC] URGENT 10/18/19 08:14 DRUG SCREEN URINE BIORAD [URCHEM] Stat UA RFX EVANGELIST AND CULT IF INDIC [URIN] Urgent
[2019-10-18 09:07] LABS: ANION GAP 12.7; CHLORIDE,CL 105 mmol/L (101-111); SODIUM,NA 137 mmol/L (135-145)
[2019-10-18] MEDS ORDERED: HYDROmorphone 1 MG/ML Syringe IVPUSH ONE (09:18)
== END 2019-10-18 09:48 ==
LOC: DL.ED 08:33
DX: J90 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, not elsewhere classified (principal); K70.31 Alcoholic cirrhosis of liver with ascites; I11.0 Hypertensive heart disease with heart failure; I50.9 Heart failure, unspecified; I25.10 Atherosclerotic heart disease of native coronary artery without angina pectoris; E78.00 Pure hypercholesterolemia, unspecified; I25.2 Old myocardial infarction; K21.9 Gastro-esophageal reflux disease without esophagitis; Z90.49 Acquired absence of other specified parts of digestive tract; Z91.030 Bee allergy status; Z91.018 Allergy to other foods; Z79.02 Long term (current) use of antithrombotics/antiplatelets; Z79.899 Other long term (current) drug therapy; Z79.01 Long term (current) use of anticoagulants; Z79.82 Long term (current) use of aspirin
CPT/HCPCS: 36415; 71046; 80053; 80305; 80320; 81001; 82150; 83690; 83880; 84484; 85025; 93005; 96374; 99284; 99285; J1170; G0480

== ENCOUNTER 2019-11-17 14:26 | Emergency (ER) | payer SELFPAY ==
--- NOTE | 2019-11-17 14:35 | CR ---
EXAMINATION: Chest 1V Frontal SEX: Male AGE: 33 years CLINICAL HISTORY: 33-year-old male with CHEST PAIN reported on recent exam October, to have "large new right pleural effusion". INTERPRETATION: 1. Persistent dependent right pleural effusion but decided decreased volume since and October exam (thoracentesis?). 2. No postprocedural pneumothorax, signs of pneumomediastinum or free subdiaphragmatic air. 3. Cardiac silhouette prominent without increased pulmonary venous congestion, new cephalization of vascular flow or alveolar edema. 4. Underlying lower lobe atelectasis or infiltrate possible. No sign of lung mass or other focal lobar consolidation. CONCLUSION: Decreased volume dependent right pleural effusion. No pneumothorax or other abnormality.
--- NOTE | 2019-11-17 14:44 | EDM.PDOC ---
<Hank Connors - Last Filed: 11/17/19 18:55> ED HPI GENERAL MEDICAL PROBLEM - General Chief Complaint: Chest Pain Stated Complaint: UNKNOWN Time Seen by Provider: 11/17/19 14:30 Source of Information: Reports: Patient, RN, RN Notes Reviewed History Limitations: Reports: No Limitations - History of Present Illness INITIAL COMMENTS - FREE TEXT/NARRATIVE: Patient arrived via [facility], did need assistance to move from stretcher to cot. Patient reports chest pain started last night which is constant and sharp and radiates to his back. Patient states he took nitro about an hour ago, approximately 1300 with no relief. Pain has not changed from last night and was not able to sleep due to the pain. Patient denies headache, N/V, dizziness, feeling ill. Has not been around any sick contacts. Onset Date: 11/16/19 Duration: Constant Quality: Reports: Sharp Severity: Moderate Improves with: Reports: None Worsens with: Reports: None Associated Symptoms: Reports: Chest Pain. Denies: Cough, Fever/Chills, Headaches, Loss of Appetite, Nausea/Vomiting, Shortness of Breath, Syncope Chest Pain Score (Numeric/FACES): 9 - Related Data Allergies Allergy/AdvReac Type Severity Reaction Status Date / Time bee venom protein (honey bee) Allergy Severe I need to Verified 11/17/19 14:09 use an epi pen red dye Allergy Hives Verified 11/17/19 14:09 [place] And Derivatives AdvReac Other Verified 11/17/19 14:09 grapefruit AdvReac Mild Other Uncoded 11/17/19 14:09 Home Meds: Home Meds Clopidogrel Bisulfate [Clopidogrel] 75 mg PO DAILY 06/10/18 [History] Lisinopril 2.5 mg PO DAILY 06/10/18 [History] Nitroglycerin 0.4 mg SL ASDIRECTED PRN 06/10/18 [History] Pantoprazole [ProTONIX] 40 mg PO DAILY 06/10/18 [History] Warfarin Sodium 2.5 mg PO .SUNMONWEDFRI 06/10/18 [History] atorvaSTATin [Lipitor] 40 mg PO BEDTIME 06/10/18 [History] Aspirin [Lo-Dose Aspirin EC] 81 mg PO DAILY 10/04/18 [History] Furosemide 80 mg PO BID 10/04/18 [History] Lactulose 15 ml PO TID 04/12/19 [History] Warfarin [Coumadin] 5 mg PO .TUESTHURSAT 11/17/19 [History] Past Medical History - Past Health History Medical/Surgical History: Denies Medical/Surgical History HEENT History: Reports: Impaired Vision Other HEENT History: wears glasses Cardiovascular History: Reports: CAD, Heart Failure, High Cholesterol, Hypertension, [place], SOB on Exertion, Stents Other Cardiovascular History: Ejection Fraction of 25% Respiratory History: Reports: Pneumonia, Recurrent Gastrointestinal History: Reports: GERD, GI Bleed Other Gastrointestinal History: ascites, liver disease Genitourinary History: Reports: None Musculoskeletal History: Reports: Back Pain, Chronic Neurological History: Reports: None Psychiatric History: Reports: Addiction Endocrine/Metabolic History: Reports: None Hematologic History: Reports: None Immunologic History: Reports: None Oncologic (Cancer) History: Reports: None Dermatologic History: Reports: Other (See Below) Other Dermatologic History: patient has multiple tatoos to arms and chest - Infectious Disease History Infectious Disease History: Reports: None - Past Surgical History Head Surgeries/Procedures: Reports: None Cardiovascular Surgical History: Reports: Coronary Artery Stent GI Surgical History: Reports: Appendectomy, Other (See Below) Other GI Surgeries/Procedures: ?abdominal surgery just prior to 2017 Social & Family History - Family History Family Medical History: Noncontributory - Tobacco Use Smoking Status *Q: Former Smoker Used Tobacco, but Quit: Yes Month/Year Tobacco Last Used: 1 year ago - Caffeine Use Caffeine Use: Reports: None - Recreational Drug Use Recreational Drug Use: Yes Drug Use in Last 12 Months: Yes Recreational Drug Type: Reports: Marijuana/Hashish Recreational Drug Use Frequency: Weekly Recreational Drug Last Use: 11/14/2019 - Living Situation & Occupation Living situation: Reports: with Family Occupation: Disabled ED ROS GENERAL - Review of Systems Review Of Systems: See Below Constitutional: Denies: Fever, Chills, Weakness, Night Sweats HEENT: Reports: No Symptoms Respiratory: Reports: No Symptoms Cardiovascular: Reports: Chest Pain. Denies: Lightheadedness, Palpitations, Syncope Endocrine: Reports: No Symptoms GI/Abdominal: Reports: No Symptoms : Reports: No Symptoms Musculoskeletal: Reports: Back Pain (radiation from chest pain) Skin: Reports: No Symptoms Neurological: Reports: No Symptoms Psychiatric: Reports: No Symptoms Hematologic/Lymphatic: Reports: No Symptoms Immunologic: Reports: No Symptoms ED EXAM, GENERAL - Physical Exam Exam: See Below Exam Limited By: No Limitations General Appearance: Alert, WD/WN, Moderate Distress Head: Atraumatic, Normocephalic Neck: Normal Inspection, Supple, Non-Tender, Full Range of Motion Respiratory/Chest: No Respiratory Distress, Lungs Clear, Normal Breath Sounds, No Accessory Muscle Use, Chest Non-Tender Cardiovascular: Normal Peripheral Pulses, Regular Rate, Rhythm, No Edema, No Gallop, No JVD, No Murmur, No Rub Peripheral Pulses: 2+: Carotid (L), Carotid (R), Radial (L), Radial (R) GI/Abdominal: Normal Bowel Sounds, Soft, Non-Tender, No Organomegaly, No Distention, No Abnormal Bruit, No Mass (Male) Exam: Deferred Rectal (Males) Exam: Deferred Back Exam: Normal Inspection, Full Range of Motion, NT Extremities: Normal Inspection, Normal Range of Motion, Non-Tender, Normal Capillary Refill, No Pedal Edema Neurological: Alert, Oriented, CN II-XII Intact, Normal Cognition, Normal Gait, Normal Reflexes, No Motor/Sensory Deficits Psychiatric: Normal Affect, Normal Mood Skin Exam: Warm, Dry, Intact, Normal Color Lymphatic: No Adenopathy Course - Vital Signs Last Recorded V/S: Last Vital Signs Temp 96.7 F L 11/17/19 14:09 Pulse 94 11/17/19 14:09 Resp 18 11/17/19 14:09 BP 112/78 11/17/19 14:09 Pulse Ox 100 11/17/19 14:09 - Orders/Labs/Meds Orders: Active Orders 24 hr Category Date Time Status EKG 12 Lead [EKG Documentation Completion] [RC] STAT Care 11/17/19 14:13 Active Labs: Laboratory Tests 11/17/19 11/17/19 11/17/19 Range/Units 14:17 14:17 14:28 WBC 8.3 (5.0-10.0) 10^3/uL RBC 5.02 (4.6-6.2) 10^6/uL Hgb 13.6 L (14.0-18.0) g/dL Hct 43.0 (40.0-54.0) % MCV 85.7 D (80-100) fL MCH 27.1 (27.0-34.0) pg MCHC 31.6 L (33.0-35.0) g/dL Plt Count 232 (150-450) 10^3/uL Neut % (Auto) 66.3 (42.2-75.2) % Lymph % (Auto) 15.0 L (20.5-50.1) % [place] % (Auto) 12.0 H (2-8) % Eos % (Auto) 6.3 H (1.0-3.0) % Baso % (Auto) 0.4 (0.0-1.0) % Sodium 133 L (135-145) mmol/L Potassium 4.6 (3.6-5.0) mmol/L Chloride 104 (101-111) mmol/L Carbon Dioxide 20.0 L (21.0-31.0) mmol/L Anion Gap 13.6 BUN 18 (7-18) mg/dL Creatinine 0.7 (0.6-1.3) mg/dL Est Cr Clr Drug Dosing 158.37 mL/min Estimated GFR (MDRD) > 60 BUN/Creatinine Ratio 25.71 Glucose 82 (74-105) mg/dL Calcium 8.6 (8.4-10.2) mg/dl Total Bilirubin 1.3 H (0.2-1.0) mg/dL AST 20 (10-42) IU/L ALT 15 (10-60) IU/L Alkaline Phosphatase 142 H (42-121) IU/L Troponin I 0.05 H* (0.00-0.02) ng/ml Total Protein 8.0 (6.7-8.2) g/dl Albumin 3.6 (3.2-5.5) g/dl Globulin 4.4 Albumin/Globulin Ratio 0.82 Amylase 49 (28-100) U/L Lipase 27 (22-51) U/L Urine Opiates Screen Negative (NEGATIVE) Ur Oxycodone Screen Negative (NEGATIVE) Urine Methadone Screen Negative (NEGATIVE) Ur Barbiturates Screen Negative (NEGATIVE) U Tricyclic Antidepress Negative (NEGATIVE) Ur Phencyclidine Scrn Negative (NEGATIVE) Ur Amphetamine Screen Positive H (NEGATIVE) U Methamphetamines Scrn Positive H (NEGATIVE) Urine MDMA Screen Negative (NEGATIVE) U Benzodiazepines Scrn Negative (NEGATIVE) Urine Cocaine Screen Negative (NEGATIVE) U Marijuana (THC) Screen Positive H (NEGATIVE) Meds: Medications Discontinued Medications Generic Name Dose Route Start Last Admin Trade Name Tiera PRN Reason Stop Dose Admin Lorazepam 1 mg 11/17/19 15:28 11/17/19 15:44 Ativan IVPUSH 11/17/19 15:29 1 mg ONETIME ONE Administration Departure - Departure Disposition: Home, Self-Care 01 Condition: Good Clinical Impression: Atypical chest pain Instructions: Nonspecific Chest Pain, [id number], Pain Without a Known Cause , Chest Wall Pain Forms: ED Department Discharge Additional Instructions: Pain does not appear to be cardiac in nature. Follow-up with primary care provider in clinic next week for evaluation for anxiety. Sepsis Event Note - Evaluation Sepsis Screening Result: No Definite Risk - Focused Exam Vital Signs: Vital Signs Temp Pulse Resp BP Pulse Ox 11/17/19 14:09 96.7 F L 94 18 112/78 100 Date Exam was Performed: 11/17/19 Time Exam was Performed: 18:55 <Silke Egan - Last Filed: 11/17/19 19:37> Course - Re-Assessments/Exams Free Text/Narrative Re-Assessment/Exam: 11/17/19 19:37 I personally performed or re-performed the physical examination and medical decision making. I have verified all student documentation or findings, including history, physical exam and/or medical decision making. Departure - Departure Time of Disposition: 16:26 Sepsis Event Note - Focused Exam Date Exam was Performed: 11/17/19 Time Exam was Performed: 19:36
[2019-11-17 14:45] LABS: ANION GAP 13.6; CHLORIDE,CL 104 mmol/L (101-111); SODIUM,NA 133 mmol/L (135-145)
[2019-11-17] MEDS ORDERED: LORazepam 2 MG/ML SDV IVPUSH ONE (15:28)
== END 2019-11-17 16:42 | disposition home or self-care (01) ==
LOC: DL.ED 14:26
DX: R07.89 Other chest pain (principal); I25.2 Old myocardial infarction; I25.10 Atherosclerotic heart disease of native coronary artery without angina pectoris; I10 Essential (primary) hypertension; E78.00 Pure hypercholesterolemia, unspecified; Z79.01 Long term (current) use of anticoagulants; Z79.02 Long term (current) use of antithrombotics/antiplatelets; Z79.82 Long term (current) use of aspirin; Z79.899 Other long term (current) drug therapy; Z87.891 Personal history of nicotine dependence; Z91.018 Allergy to other foods; Z91.030 Bee allergy status; Z91.048 Other nonmedicinal substance allergy status; Z95.5 Presence of coronary angioplasty implant and graft
CPT/HCPCS: 36415; 71045; 80053; 80305; 82150; 83690; 84484; 85025; 93005; 96374; 99285; J2060; 99283

== ENCOUNTER 2020-02-21 19:58 | Emergency (ER) | payer SELFPAY ==
[2020-02-21 20:54] LABS: ANION GAP 10.5 mEq/L (7-13); CHLORIDE,CL 97 mmol/L (98-107); SODIUM,NA 133 mmol/L (136-145)
[2020-02-21] MEDS: Morphine 2 MG/ML Syringe IVPUSH ONE (21:35)
--- NOTE | 2020-02-23 05:14 | EDM.PDOC ---
ED HPI GENERAL MEDICAL PROBLEM - General Chief Complaint: Respiratory Problem Stated Complaint: ambulance Time Seen by Provider: 02/21/20 20:15 Source of Information: Reports: Patient, EMS History Limitations: Reports: No Limitations - History of Present Illness INITIAL COMMENTS - FREE TEXT/NARRATIVE: ED via [facility] with report of SOB tonight, admits progressive worsening over last 2 -3 weeks, Attempting to work in garage tonight and got worse. No chest pain on presentation. Stated had been trying to take better care of self and take medications. Some swelling to lower legs starting this week, Abdomen bloating again. Last "tap" approximately 2 months prior. No fever or chills. No known exposure to Covid . No travel. 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 - Related Data Allergies Allergy/AdvReac Type Severity Reaction Status Date / Time bee venom protein (honey bee) Allergy Severe I need to Verified 02/21/20 20:25 use an epi pen red dye Allergy Hives Verified 02/21/20 20:25 [place] And Derivatives AdvReac Other Verified 02/21/20 20:25 grapefruit AdvReac Mild Other Uncoded 02/21/20 20:25 Home Meds: Home Meds Clopidogrel Bisulfate [Clopidogrel] 75 mg PO DAILY 06/10/18 [History] Lisinopril 2.5 mg PO DAILY 06/10/18 [History] Nitroglycerin 0.4 mg SL ASDIRECTED PRN 06/10/18 [History] Pantoprazole [ProTONIX] 40 mg PO DAILY 06/10/18 [History] Warfarin Sodium 2.5 mg PO .SUNMONWEDFRI 06/10/18 [History] atorvaSTATin [Lipitor] 40 mg PO BEDTIME 06/10/18 [History] Aspirin [Lo-Dose Aspirin EC] 81 mg PO DAILY 10/04/18 [History] Furosemide 80 mg PO BID 10/04/18 [History] Lactulose 15 ml PO TID 04/12/19 [History] Warfarin [Coumadin] 5 mg PO .TUESTHURSAT 11/17/19 [History] Past Medical History - Past Health History Medical/Surgical History: Denies Medical/Surgical History HEENT History: Reports: Impaired Vision Other HEENT History: wears glasses Cardiovascular History: Reports: CAD, Heart Failure, High Cholesterol, Hypertension, [place], SOB on Exertion, Stents Other Cardiovascular History: Ejection Fraction of 25% Respiratory History: Reports: Pneumonia, Recurrent Gastrointestinal History: Reports: GERD, GI Bleed Other Gastrointestinal History: ascites, liver disease Genitourinary History: Reports: None Musculoskeletal History: Reports: Back Pain, Chronic Neurological History: Reports: None Psychiatric History: Reports: Addiction Endocrine/Metabolic History: Reports: None Hematologic History: Reports: None Immunologic History: Reports: None Oncologic (Cancer) History: Reports: None Dermatologic History: Reports: Other (See Below) Other Dermatologic History: patient has multiple tatoos to arms and chest - Infectious Disease History Infectious Disease History: Reports: None - Past Surgical History Head Surgeries/Procedures: Reports: None Cardiovascular Surgical History: Reports: Coronary Artery Stent GI Surgical History: Reports: Appendectomy, Other (See Below) Other GI Surgeries/Procedures: ?abdominal surgery just prior to 2017 Social & Family History - Family History Family Medical History: Noncontributory - Tobacco Use Smoking Status *Q: Never Smoker - Caffeine Use Caffeine Use: Reports: Soda - Recreational Drug Use Recreational Drug Use: Yes Drug Use in Last 12 Months: No - Living Situation & Occupation Living situation: Reports: with Family Occupation: Disabled ED ROS GENERAL - Review of Systems Review Of Systems: Comprehensive ROS is negative, except as noted in HPI. ED EXAM, GENERAL - Physical Exam Exam: See Below Exam Limited By: No Limitations General Appearance: Alert, Mild Distress, Thin Eye Exam: Bilateral Eye: PERRL Ears: Normal External Exam Nose: Normal Inspection Throat/Mouth: Normal Inspection Head: Atraumatic, Normocephalic Neck: Normal Inspection Respiratory/Chest: No Respiratory Distress, Lungs Clear, Normal Breath Sounds Cardiovascular: Normal Peripheral Pulses, Regular Rate, Rhythm. No: No Edema GI/Abdominal: Other (BS present, distant, Abdomen mild distension, soft, ascities) Extremities: Pedal Edema (2+) Neurological: Alert, Oriented, Normal Cognition Psychiatric: Normal Affect Skin Exam: Warm, Dry, Intact, Normal Color Course - Vital Signs Last Recorded V/S: Last Vital Signs Temp 97.9 F 02/21/20 20:05 Pulse 118 H 02/21/20 20:05 Resp 25 H 02/21/20 20:05 BP 104/74 02/21/20 20:05 Pulse Ox 100 02/21/20 20:05 - Orders/Labs/Meds Labs: Laboratory Tests 05/02/21/20 02/21/20 Range/Units 20:11 20:11 20:11 WBC 12.6 H (5.0-10.0) 10^3/uL RBC 4.94 (4.6-6.2) 10^6/uL Hgb 13.0 L (14.0-18.0) g/dL Hct 38.5 L (40.0-54.0) % MCV 77.9 L D (80-100) fL MCH 26.3 L (27.0-34.0) pg MCHC 33.8 (33.0-35.0) g/dL Plt Count 305 (150-450) 10^3/uL Neut % (Auto) 75.9 H (42.2-75.2) % Lymph % (Auto) 7.9 L (20.5-50.1) % [place] % (Auto) 14.8 H (2-8) % Eos % (Auto) 1.2 (1.0-3.0) % Baso % (Auto) 0.2 (0.0-1.0) % Add Manual Diff Yes Neutrophils % (Manual) 70 (42-75) % Band Neutrophils % 1 % Lymphocytes % (Manual) 14 L (20-50) % Monocytes % (Manual) 14 H (2-8) % Eosinophils % (Manual) 1 (1-3) % PT (9.0-12.0) SEC INR (0.9-1.2) D-Dimer, Quantitative (0-400) ng/mL Sodium 133 L (136-145) mmol/L Potassium 3.5 (3.5-5.1) mmol/L Chloride 97 L (98-107) mmol/L Carbon Dioxide 29 (21-32) mmol/L Anion Gap 10.5 (7-13) mEq/L BUN 13 (7-18) mg/dL Creatinine 1.02 (0.70-1.30) mg/dL Est Cr Clr Drug Dosing 110.95 mL/min Estimated GFR (MDRD) > 60 BUN/Creatinine Ratio 12.7 (No establ ref range) Glucose 109 H (74-99) mg/dL Calcium 7.6 L (8.5-10.1) mg/dL Total Bilirubin 2.8 H (0.2-1.0) mg/dL AST 40 H (15-37) U/L ALT 30 (16-63) U/L Alkaline Phosphatase 240 H (46-116) U/L CK-MB (CK-2) < 0.5 (0.0-3.6) ng/mL Troponin I 0.277 H* (0.000-0.056) ng/mL C-Reactive Protein 19.4 H (0.0-0.9) mg/dL B-Natriuretic Peptide 983 H (0-100) pg/ml Total Protein 7.6 (6.4-8.2) g/dL Albumin 2.0 L (3.4-5.0) g/dL Globulin 5.6 Albumin/Globulin Ratio 0.36 Urine Color (YELLOW) Urine Appearance (CLEAR) Urine pH (5.0-9.0) Ur Specific [place] (1.005-1.030) Urine Protein (NEGATIVE) Urine Glucose (UA) (NEGATIVE) Urine Ketones (NEGATIVE) Urine Occult Blood (NEGATIVE) Urine Nitrite (NEGATIVE) Urine Bilirubin (NEGATIVE) Urine Urobilinogen (0.2-1.0) mg/dL Ur Leukocyte Esterase (NEGATIVE) Urine RBC /HPF Urine WBC (0-5/HPF) /HPF Ur Epithelial Cells (NOT SEEN) /HPF Amorphous Sediment (NOT SEEN) /HPF Urine Mucus (NOT SEEN) /LPF Urine Opiates Screen (NEGATIVE) Ur Oxycodone Screen (NEGATIVE) Urine Methadone Screen (NEGATIVE) Ur Barbiturates Screen (NEGATIVE) U Tricyclic Antidepress (NEGATIVE) Ur Phencyclidine Scrn (NEGATIVE) Ur Amphetamine Screen (NEGATIVE) U Methamphetamines Scrn (NEGATIVE) Urine MDMA Screen (NEGATIVE) U Benzodiazepines Scrn (NEGATIVE) Urine Cocaine Screen (NEGATIVE) U Marijuana (THC) Screen (NEGATIVE) SARS-CoV-2 RNA (RT-PCR) (NEGATIVE) 02/21/20 02/21/20 02/21/20 Range/Units 20:11 20:11 20:44 WBC (5.0-10.0) 10^3/uL RBC (4.6-6.2) 10^6/uL Hgb (14.0-18.0) g/dL Hct (40.0-54.0) % MCV (80-100) fL MCH (27.0-34.0) pg MCHC (33.0-35.0) g/dL Plt Count (150-450) 10^3/uL Neut % (Auto) (42.2-75.2) % Lymph % (Auto) (20.5-50.1) % [place] % (Auto) (2-8) % Eos % (Auto) (1.0-3.0) % Baso % (Auto) (0.0-1.0) % Add Manual Diff Neutrophils % (Manual) (42-75) % Band Neutrophils % % Lymphocytes % (Manual) (20-50) % Monocytes % (Manual) (2-8) % Eosinophils % (Manual) (1-3) % PT 13.0 H D (9.0-12.0) SEC INR 1.4 H (0.9-1.2) D-Dimer, Quantitative > 5000 H (0-400) ng/mL Sodium (136-145) mmol/L Potassium (3.5-5.1) mmol/L Chloride (98-107) mmol/L Carbon Dioxide (21-32) mmol/L Anion Gap (7-13) mEq/L BUN (7-18) mg/dL Creatinine (0.70-1.30) mg/dL Est Cr Clr Drug Dosing mL/min Estimated GFR (MDRD) BUN/Creatinine Ratio (No establ ref range) Glucose (74-99) mg/dL Calcium (8.5-10.1) mg/dL Total Bilirubin (0.2-1.0) mg/dL AST (15-37) U/L ALT (16-63) U/L Alkaline Phosphatase (46-116) U/L CK-MB (CK-2) (0.0-3.6) ng/mL Troponin I (0.000-0.056) ng/mL C-Reactive Protein (0.0-0.9) mg/dL B-Natriuretic Peptide (0-100) pg/ml Total Protein (6.4-8.2) g/dL Albumin (3.4-5.0) g/dL Globulin Albumin/Globulin Ratio Urine Color (YELLOW) Urine Appearance (CLEAR) Urine pH (5.0-9.0) Ur Specific [place] (1.005-1.030) Urine Protein (NEGATIVE) Urine Glucose (UA) (NEGATIVE) Urine Ketones (NEGATIVE) Urine Occult Blood (NEGATIVE) Urine Nitrite (NEGATIVE) Urine Bilirubin (NEGATIVE) Urine Urobilinogen (0.2-1.0) mg/dL Ur Leukocyte Esterase (NEGATIVE) Urine RBC /HPF Urine WBC (0-5/HPF) /HPF Ur Epithelial Cells (NOT SEEN) /HPF Amorphous Sediment (NOT SEEN) /HPF Urine Mucus (NOT SEEN) /LPF Urine Opiates Screen (NEGATIVE) Ur Oxycodone Screen (NEGATIVE) Urine Methadone Screen (NEGATIVE) Ur Barbiturates Screen (NEGATIVE) U Tricyclic Antidepress (NEGATIVE) Ur Phencyclidine Scrn (NEGATIVE) Ur Amphetamine Screen (NEGATIVE) U Methamphetamines Scrn (NEGATIVE) Urine MDMA Screen (NEGATIVE) U Benzodiazepines Scrn (NEGATIVE) Urine Cocaine Screen (NEGATIVE) U Marijuana (THC) Screen (NEGATIVE) SARS-CoV-2 RNA (RT-PCR) Negative (NEGATIVE) 02/21/20 02/21/20 Range/Units 21:48 21:48 WBC (5.0-10.0) 10^3/uL RBC (4.6-6.2) 10^6/uL Hgb (14.0-18.0) g/dL Hct (40.0-54.0) % MCV (80-100) fL MCH (27.0-34.0) pg MCHC (33.0-35.0) g/dL Plt Count (150-450) 10^3/uL Neut % (Auto) (42.2-75.2) % Lymph % (Auto) (20.5-50.1) % [place] % (Auto) (2-8) % Eos % (Auto) (1.0-3.0) % Baso % (Auto) (0.0-1.0) % Add Manual Diff Neutrophils % (Manual) (42-75) % Band Neutrophils % % Lymphocytes % (Manual) (20-50) % Monocytes % (Manual) (2-8) % Eosinophils % (Manual) (1-3) % PT (9.0-12.0) SEC INR (0.9-1.2) D-Dimer, Quantitative (0-400) ng/mL Sodium (136-145) mmol/L Potassium (3.5-5.1) mmol/L Chloride (98-107) mmol/L Carbon Dioxide (21-32) mmol/L Anion Gap (7-13) mEq/L BUN (7-18) mg/dL Creatinine (0.70-1.30) mg/dL Est Cr Clr Drug Dosing mL/min Estimated GFR (MDRD) BUN/Creatinine Ratio (No establ ref range) Glucose (74-99) mg/dL Calcium (8.5-10.1) mg/dL Total Bilirubin (0.2-1.0) mg/dL AST (15-37) U/L ALT (16-63) U/L Alkaline Phosphatase (46-116) U/L CK-MB (CK-2) (0.0-3.6) ng/mL Troponin I (0.000-0.056) ng/mL C-Reactive Protein (0.0-0.9) mg/dL B-Natriuretic Peptide (0-100) pg/ml Total Protein (6.4-8.2) g/dL Albumin (3.4-5.0) g/dL Globulin Albumin/Globulin Ratio Urine Color Dark yellow (YELLOW) Urine Appearance Slightly cloudy (CLEAR) Urine pH 6.0 (5.0-9.0) Ur Specific [place] 1.020 (1.005-1.030) Urine Protein 30 H (NEGATIVE) Urine Glucose (UA) Negative (NEGATIVE) Urine Ketones Trace H (NEGATIVE) Urine Occult Blood Negative (NEGATIVE) Urine Nitrite Negative (NEGATIVE) Urine Bilirubin Moderate H (NEGATIVE) Urine Urobilinogen >=8.0 H (0.2-1.0) mg/dL Ur Leukocyte Esterase Negative (NEGATIVE) Urine RBC 0-5 /HPF Urine WBC 0-5 (0-5/HPF) /HPF Ur Epithelial Cells Rare (NOT SEEN) /HPF Amorphous Sediment Rare (NOT SEEN) /HPF Urine Mucus Moderate H (NOT SEEN) /LPF Urine Opiates Screen Negative (NEGATIVE) Ur Oxycodone Screen Negative (NEGATIVE) Urine Methadone Screen Negative (NEGATIVE) Ur Barbiturates Screen Negative (NEGATIVE) U Tricyclic Antidepress Negative (NEGATIVE) Ur Phencyclidine Scrn Negative (NEGATIVE) Ur Amphetamine Screen Negative (NEGATIVE) U Methamphetamines Scrn Positive H (NEGATIVE) Urine MDMA Screen Negative (NEGATIVE) U Benzodiazepines Scrn Negative (NEGATIVE) Urine Cocaine Screen Negative (NEGATIVE) U Marijuana (THC) Screen Positive H (NEGATIVE) SARS-CoV-2 RNA (RT-PCR) (NEGATIVE) Meds: Medications Discontinued Medications Generic Name Dose Route Start Last Admin Trade Name Freq PRN Reason Stop Dose Admin Morphine Sulfate 2 mg 02/21/20 21:29 02/21/20 21:35 Morphine IVPUSH 02/21/20 21:30 2 mg ONETIME ONE Administration Departure - Departure Time of Disposition: 21:45 Disposition: DC/Tfer to Acute Hospital 02 Condition: Poor Clinical Impression: 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, 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, 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, Subtherapeutic anticoagulation Congestive heart failure Qualifiers: Heart failure type: unspecified Heart failure chronicity: acute on chronic Qualified Code(s): I50.9 - Heart failure, unspecified Ascites Qualifiers: Ascites type: due to alcoholic cirrhosis Qualified Code(s): K70.31 - Alcoholic cirrhosis of liver with ascites Cirrhosis Qualifiers: Hepatic cirrhosis type: unspecified hepatic cirrhosis Ascites presence: with ascites Qualified Code(s): K74.60 - Unspecified cirrhosis of liver - Discharge Information *PRESCRIPTION DRUG MONITORING PROGRAM REVIEWED*: No *COPY OF PRESCRIPTION DRUG MONITORING REPORT IN PATIENT FRANKIE: No Referrals: PCP,None [Primary Care Provider] - Sepsis Event Note - Evaluation Sepsis Screening Result: No Definite Risk
== END 2020-02-21 21:45 ==
LOC: DL.ED 19:58
DX: J90 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, not elsewhere classified (principal); R79.1 Abnormal coagulation profile; K70.31 Alcoholic cirrhosis of liver with ascites; I11.0 Hypertensive heart disease with heart failure; I50.9 Heart failure, unspecified; I25.10 Atherosclerotic heart disease of native coronary artery without angina pectoris; E78.00 Pure hypercholesterolemia, unspecified; I25.2 Old myocardial infarction; Z91.030 Bee allergy status; Z79.01 Long term (current) use of anticoagulants; Z91.048 Other nonmedicinal substance allergy status; Z79.899 Other long term (current) drug therapy; Z79.02 Long term (current) use of antithrombotics/antiplatelets; Z79.82 Long term (current) use of aspirin; Z95.5 Presence of coronary angioplasty implant and graft
CPT/HCPCS: 36415; 71045; 80053; 80305; 81001; 82553; 83880; 84484; 85025; 85379; 85610; 86140; 87635; 93005; 96374; 99285; J2270; U0002

== ENCOUNTER 2020-03-14 15:30 | Emergency (ER) | payer SELFPAY ==
[2020-03-14] MEDS ORDERED: Sodium Chloride 0.9% 10 ML Syringe FLUSH PRN (15:44)
[2020-03-14] MEDS ORDERED: HYDROmorphone 0.5 MG/0.5 ML Syringe IVPUSH ONE (16:41)
[2020-03-14 16:46] LABS: ANION GAP 9.6 mEq/L (7-13); CHLORIDE,CL 100 mmol/L (98-107); SODIUM,NA 135 mmol/L (136-145)
[2020-03-14 16:49] LABS: PTT,PARTIAL THROMBOPLSTIN TIME 23.6 SEC (22.0-34.0)
--- NOTE | 2020-03-14 17:20 | EDM.PDOC ---
Scribed by Estefany Ojeda 03/14/20 3045 for Jonas Deng MD ED HPI GENERAL MEDICAL PROBLEM - General Chief Complaint: Abdominal Pain Stated Complaint: AMBULANCE Time Seen by Provider: 03/14/20 15:40 Source of Information: Reports: Patient, EMS, EMS Notes Reviewed, RN, RN Notes Reviewed History Limitations: Reports: No Limitations - History of Present Illness INITIAL COMMENTS - FREE TEXT/NARRATIVE: Patient arrives to ER by [facility]. Patient states that he is having right upper abdominal pain. He states that this is a chronic issue for him. He also states that he gets ascites and needs to have his abdomen drained when this happens. He states that he first got the pain 4 days ago. Denies fever, chills, N/V/D, syncope, confusion, or edema. Onset: Gradual Onset Date: 03/10/20 Duration: Getting Worse Location: Reports: Abdomen Quality: Reports: Ache, Pressure, Same as Previous Episode Severity: Severe Improves with: Reports: None Worsens with: Reports: None Associated Symptoms: Reports: No Other Symptoms Right Upper Abdomen Pain Score (Numeric/FACES): 7 - Related Data Allergies Allergy/AdvReac Type Severity Reaction Status Date / Time bee venom protein (honey bee) Allergy Severe I need to Verified 02/21/20 20:25 use an epi pen red dye Allergy Hives Verified 02/21/20 20:25 [place] And Derivatives AdvReac Other Verified 02/21/20 20:25 grapefruit AdvReac Mild Other Uncoded 02/21/20 20:25 Home Meds: Home Meds Clopidogrel Bisulfate [Clopidogrel] 75 mg PO DAILY 06/10/18 [History] Lisinopril 2.5 mg PO DAILY 06/10/18 [History] Nitroglycerin 0.4 mg SL ASDIRECTED PRN 06/10/18 [History] Pantoprazole [ProTONIX] 40 mg PO DAILY 06/10/18 [History] Warfarin Sodium 2.5 mg PO .SUNMONWEDFRI 06/10/18 [History] atorvaSTATin [Lipitor] 40 mg PO BEDTIME 06/10/18 [History] Aspirin [Lo-Dose Aspirin EC] 81 mg PO DAILY 10/04/18 [History] Furosemide 80 mg PO BID 10/04/18 [History] Lactulose 15 ml PO TID 04/12/19 [History] Warfarin [Coumadin] 5 mg PO .TUESTHURSAT 11/17/19 [History] Past Medical History - Past Health History Medical/Surgical History: Denies Medical/Surgical History HEENT History: Reports: Impaired Vision Other HEENT History: wears glasses Cardiovascular History: Reports: CAD, Heart Failure, High Cholesterol, Hypertension, [place], SOB on Exertion, Stents Other Cardiovascular History: Ejection Fraction of 25% Respiratory History: Reports: Pneumonia, Recurrent Gastrointestinal History: Reports: GERD, GI Bleed Other Gastrointestinal History: ascites, liver disease Genitourinary History: Reports: None Musculoskeletal History: Reports: Back Pain, Chronic Neurological History: Reports: None Psychiatric History: Reports: Addiction Endocrine/Metabolic History: Reports: None Hematologic History: Reports: None Immunologic History: Reports: None Oncologic (Cancer) History: Reports: None Dermatologic History: Reports: Other (See Below) Other Dermatologic History: patient has multiple tatoos to arms and chest - Infectious Disease History Infectious Disease History: Reports: None - Past Surgical History Head Surgeries/Procedures: Reports: None Cardiovascular Surgical History: Reports: Coronary Artery Stent GI Surgical History: Reports: Appendectomy, Other (See Below) Other GI Surgeries/Procedures: ?abdominal surgery just prior to 2017 Social & Family History - Family History Family Medical History: Noncontributory - Caffeine Use Caffeine Use: Reports: Soda - Living Situation & Occupation Living situation: Reports: with Family Occupation: Disabled ED ROS GENERAL - Review of Systems Review Of Systems: Comprehensive ROS is negative, except as noted in HPI. ED EXAM, GENERAL - Physical Exam Exam: See Below Exam Limited By: No Limitations General Appearance: Alert, No Apparent Distress, Other (Chronically ill appearing) Eye Exam: Bilateral Eye: EOMI (Mild scleral icterus (chronic/stable per pt)), PERRL Nose: Normal Inspection Throat/Mouth: Normal Inspection, Normal Voice, No Airway Compromise Head: Atraumatic, Normocephalic Neck: Normal Inspection, Supple, Non-Tender, Full Range of Motion Respiratory/Chest: No Respiratory Distress, Lungs Clear, Normal Breath Sounds, No Accessory Muscle Use, Chest Non-Tender Cardiovascular: Regular Rate, Rhythm, Tachycardia GI/Abdominal: Normal Bowel Sounds, Soft, Tender (RUQ, protruberant abdomen with large fluid wave consistent with ascites.). No: Guarding, Rigid, Rebound (Male) Exam: Deferred Rectal (Males) Exam: Deferred Back Exam: Normal Inspection Extremities: Normal Range of Motion, Non-Tender, Pedal Edema (Trace). No: Joint Swelling, Pramod's Sign Neurological: Alert, Oriented, CN II-XII Intact, Normal Cognition, Normal Gait, No Motor/Sensory Deficits Psychiatric: Normal Mood Skin Exam: Warm, Dry, Intact, Jaundice (Mild) Course - Vital Signs Last Recorded V/S: Last Vital Signs Temp 97.8 F 03/14/20 15:33 Pulse 100 03/14/20 15:33 Resp 18 03/14/20 15:33 BP 114/75 03/14/20 15:33 Pulse Ox 96 03/14/20 15:33 - Orders/Labs/Meds Orders: Active Orders 24 hr Category Date Time Status Peripheral IV Care [RC] . DIRECTED Care 03/14/20 15:44 Active DRUG SCREEN URINE BIORAD [URCHEM] Stat Lab 03/14/20 15:43 Ordered UA RFX EVANGELIST AND CULT IF INDIC [URIN] Stat Lab 03/14/20 15:44 Ordered Sodium Chloride 0.9% [Saline Flush] Med 03/14/20 15:44 Active 10 ml FLUSH ASDIRECTED PRN Peripheral IV Insertion Adult [OM.PC] Stat Oth 03/14/20 15:43 Ordered Medication Orders Sodium Chloride (Saline Flush) 10 ml FLUSH ASDIRECTED PRN PRN Reason: Keep Vein Open Last Admin: 03/14/20 16:50 Dose: 10 ml Labs: Laboratory Tests 03/14/20 03/14/20 03/14/20 Range/Units 15:56 15:56 15:56 WBC 9.9 (5.0-10.0) 10^3/uL RBC 4.82 (4.6-6.2) 10^6/uL Hgb 13.0 L (14.0-18.0) g/dL Hct 40.3 (40.0-54.0) % MCV 83.6 D (80-100) fL MCH 27.0 (27.0-34.0) pg MCHC 32.3 L (33.0-35.0) g/dL Plt Count 290 (150-450) 10^3/uL Neut % (Auto) 69.6 (42.2-75.2) % Lymph % (Auto) 14.0 L (20.5-50.1) % [place] % (Auto) 10.7 H (2-8) % Eos % (Auto) 5.2 H (1.0-3.0) % Baso % (Auto) 0.5 (0.0-1.0) % PT 12.6 H (9.0-12.0) SEC INR 1.3 H (0.9-1.2) APTT 23.6 (22.0-34.0) SEC Sodium 135 L (136-145) mmol/L Potassium 3.6 (3.5-5.1) mmol/L Chloride 100 (98-107) mmol/L Carbon Dioxide 29 (21-32) mmol/L Anion Gap 9.6 (7-13) mEq/L BUN 23 H (7-18) mg/dL Creatinine 0.99 (0.70-1.30) mg/dL Est Cr Clr Drug Dosing 114.31 mL/min Estimated GFR (MDRD) > 60 BUN/Creatinine Ratio 23.2 (No establ ref range) Glucose 107 H (74-99) mg/dL Lactic Acid (0.4-2.0) mmol/L Calcium 8.1 L (8.5-10.1) mg/dL Total Bilirubin 1.7 H (0.2-1.0) mg/dL AST 27 (15-37) U/L ALT 20 (16-63) U/L Alkaline Phosphatase 235 H (46-116) U/L Ammonia (11-32) umol/L B-Natriuretic Peptide 1230 H (0-100) pg/ml Total Protein 7.9 (6.4-8.2) g/dL Albumin 2.2 L (3.4-5.0) g/dL Globulin 5.7 Albumin/Globulin Ratio 0.39 Amylase 40 (25-115) U/L Lipase 65 L (73-393) U/L Ethyl Alcohol < 3 (0) mg/dL 03/14/20 03/14/20 Range/Units 15:56 15:56 WBC (5.0-10.0) 10^3/uL RBC (4.6-6.2) 10^6/uL Hgb (14.0-18.0) g/dL Hct (40.0-54.0) % MCV (80-100) fL MCH (27.0-34.0) pg MCHC (33.0-35.0) g/dL Plt Count (150-450) 10^3/uL Neut % (Auto) (42.2-75.2) % Lymph % (Auto) (20.5-50.1) % [place] % (Auto) (2-8) % Eos % (Auto) (1.0-3.0) % Baso % (Auto) (0.0-1.0) % PT (9.0-12.0) SEC INR (0.9-1.2) APTT (22.0-34.0) SEC Sodium (136-145) mmol/L Potassium (3.5-5.1) mmol/L Chloride (98-107) mmol/L Carbon Dioxide (21-32) mmol/L Anion Gap (7-13) mEq/L BUN (7-18) mg/dL Creatinine (0.70-1.30) mg/dL Est Cr Clr Drug Dosing mL/min Estimated GFR (MDRD) BUN/Creatinine Ratio (No establ ref range) Glucose (74-99) mg/dL Lactic Acid 1.4 (0.4-2.0) mmol/L Calcium (8.5-10.1) mg/dL Total Bilirubin (0.2-1.0) mg/dL AST (15-37) U/L ALT (16-63) U/L Alkaline Phosphatase (46-116) U/L Ammonia 22 (11-32) umol/L B-Natriuretic Peptide (0-100) pg/ml Total Protein (6.4-8.2) g/dL Albumin (3.4-5.0) g/dL Globulin Albumin/Globulin Ratio Amylase (25-115) U/L Lipase (73-393) U/L Ethyl Alcohol (0) mg/dL Meds: Medications Generic Name Dose Route Start Last Admin Trade Name Freq PRN Reason Stop Dose Admin Sodium Chloride 10 ml 03/14/20 15:44 03/14/20 16:50 Saline Flush FLUSH 10 ml ASDIRECTED PRN Administration Keep Vein Open Discontinued Medications Generic Name Dose Route Start Last Admin Trade Name Freq PRN Reason Stop Dose Admin Hydromorphone HCl 0.5 mg 03/14/20 16:41 03/14/20 16:47 Dilaudid IVPUSH 03/14/20 16:42 0.5 mg ONETIME ONE Administration Departure - Departure Time of Disposition: 17:18 Disposition: DC/Tfer to Acute Hospital 02 Condition: Fair Clinical Impression: Abdominal pain Ascites Qualifiers: Ascites type: due to alcoholic cirrhosis Qualified Code(s): K70.31 - Alcoholic cirrhosis of liver with ascites - Discharge Information *PRESCRIPTION DRUG MONITORING PROGRAM REVIEWED*: Not Applicable *COPY OF PRESCRIPTION DRUG MONITORING REPORT IN PATIENT FRANKIE: Not Applicable Forms: ED Department Discharge, Interfacility Transfer EMTALA Sepsis Event Note (ED) - Focused Exam Vital Signs: Vital Signs Temp Pulse Resp BP Pulse Ox 03/14/20 15:33 97.8 F 100 18 114/75 96 - My Orders Last 24 Hours: My Active Orders 03/14/20 15:43 DRUG SCREEN URINE BIORAD [URCHEM] Stat Peripheral IV Insertion Adult [OM.PC] Stat 03/14/20 15:44 Peripheral IV Care [RC] . DIRECTED UA RFX EVANGELIST AND CULT IF INDIC [URIN] Stat Sodium Chloride 0.9% [Saline Flush] 10 ml FLUSH ASDIRECTED PRN - Assessment/Plan Last 24 Hours: My Active Orders 03/14/20 15:43 DRUG SCREEN URINE BIORAD [URCHEM] Stat Peripheral IV Insertion Adult [OM.PC] Stat 03/14/20 15:44 Peripheral IV Care [RC] . DIRECTED UA RFX EVANGELIST AND CULT IF INDIC [URIN] Stat Sodium Chloride 0.9% [Saline Flush] 10 ml FLUSH ASDIRECTED PRN I have read and agree with the documentation that has been completed regarding this visit. By signing this record, I attest that the documentation was completed in my physical presence and is an accurate record of the encounter.
== END 2020-03-14 18:15 ==
LOC: DL.ED 15:30
DX: K70.31 Alcoholic cirrhosis of liver with ascites (principal); E78.00 Pure hypercholesterolemia, unspecified; I11.0 Hypertensive heart disease with heart failure; I50.9 Heart failure, unspecified; I25.10 Atherosclerotic heart disease of native coronary artery without angina pectoris; I25.2 Old myocardial infarction; K21.9 Gastro-esophageal reflux disease without esophagitis; Z91.030 Bee allergy status; Z91.041 Radiographic dye allergy status; Z91.018 Allergy to other foods; Z79.82 Long term (current) use of aspirin; Z79.899 Other long term (current) drug therapy; Z95.5 Presence of coronary angioplasty implant and graft
CPT/HCPCS: 36415; 80053; 80307; 82140; 82150; 83605; 83690; 83880; 85025; 85610; 85730; 96374; 99285; J1170; 99284

== ENCOUNTER 2020-03-30 14:56 | Emergency (ER) | payer SELFPAY ==
[2020-03-30 17:07] LABS: ANION GAP 10.7 mEq/L (7-13); CHLORIDE,CL 104 mmol/L (98-107); SODIUM,NA 139 mmol/L (136-145)
--- NOTE | 2020-03-30 17:10 | CR ---
PROCEDURE INFORMATION: Exam: XR Chest, 1 View Exam date and time: 03/30/2020 4:56 PM Age: 34 years old Clinical indication: Shortness of breath; Additional info: SOB TECHNIQUE: Imaging protocol: XR of the chest Views: 1 view. COMPARISON: CR Chest 1V Frontal 02/21/2020 8:32 PM FINDINGS: Lungs: Right middle lobe and right lower lobe infiltrate present. Atelectatic changes noted within the left lung base. Pleural space: Right pleural effusion is present. No evidence of pneumothorax. Heart/Mediastinum: The heart demonstrates mild diffuse enlargement. Bones/joints: Unremarkable. IMPRESSION: 1. Right middle lobe and right lower lobe infiltrate present. 2. Right pleural effusion is present. 3. Atelectatic changes noted within the left lung base.
--- NOTE | 2020-03-30 17:28 | EDM.PDOC ---
ED HPI GENERAL MEDICAL PROBLEM - General Chief Complaint: Abdominal Pain Stated Complaint: AMBULANCE STOMACH PAIN Time Seen by Provider: 03/30/20 15:15 Source of Information: Reports: Patient History Limitations: Reports: No Limitations - History of Present Illness INITIAL COMMENTS - FREE TEXT/NARRATIVE: ED with c/o abdominal pain x 2-3 days. SOB when lying flat, no cough. No fever No GI sx. Hx cirrhosis ascites, tapped abdomen 2 weeks ago. Onset: Other (2-3 days ago) - Related Data Allergies Allergy/AdvReac Type Severity Reaction Status Date / Time bee venom protein (honey bee) Allergy Severe I need to Verified 02/21/20 20:25 use an epi pen red dye Allergy Hives Verified 02/21/20 20:25 [place] And Derivatives AdvReac Other Verified 02/21/20 20:25 grapefruit AdvReac Mild Other Uncoded 02/21/20 20:25 Home Meds: Home Meds Clopidogrel Bisulfate [Clopidogrel] 75 mg PO DAILY 06/10/18 [History] Lisinopril 2.5 mg PO DAILY 06/10/18 [History] Nitroglycerin 0.4 mg SL ASDIRECTED PRN 06/10/18 [History] Pantoprazole [ProTONIX] 40 mg PO DAILY 06/10/18 [History] Warfarin Sodium 2.5 mg PO .SUNMONWEDFRI 06/10/18 [History] atorvaSTATin [Lipitor] 40 mg PO BEDTIME 06/10/18 [History] Aspirin [Lo-Dose Aspirin EC] 81 mg PO DAILY 10/04/18 [History] Furosemide 80 mg PO BID 10/04/18 [History] Lactulose 15 ml PO TID 04/12/19 [History] Warfarin [Coumadin] 5 mg PO .TUESTHURSAT 11/17/19 [History] Past Medical History - Past Health History Medical/Surgical History: Denies Medical/Surgical History HEENT History: Reports: Impaired Vision Other HEENT History: wears glasses Cardiovascular History: Reports: CAD, Heart Failure, High Cholesterol, Hypertension, [place], SOB on Exertion, Stents Other Cardiovascular History: Ejection Fraction of 25% Respiratory History: Reports: Pneumonia, Recurrent Gastrointestinal History: Reports: GERD, GI Bleed Other Gastrointestinal History: ascites, liver disease Genitourinary History: Reports: None Musculoskeletal History: Reports: Back Pain, Chronic Neurological History: Reports: None Psychiatric History: Reports: Addiction Endocrine/Metabolic History: Reports: None Hematologic History: Reports: None Immunologic History: Reports: None Oncologic (Cancer) History: Reports: None Dermatologic History: Reports: Other (See Below) Other Dermatologic History: patient has multiple tatoos to arms and chest - Infectious Disease History Infectious Disease History: Reports: None - Past Surgical History Head Surgeries/Procedures: Reports: None Cardiovascular Surgical History: Reports: Coronary Artery Stent GI Surgical History: Reports: Appendectomy, Other (See Below) Other GI Surgeries/Procedures: ?abdominal surgery just prior to 2017 Social & Family History - Family History Family Medical History: Noncontributory - Tobacco Use Smoking Status *Q: Never Smoker - Caffeine Use Caffeine Use: Reports: Soda - Recreational Drug Use Recreational Drug Use: No - Living Situation & Occupation Living situation: Reports: with Family Occupation: Disabled ED ROS GENERAL - Review of Systems Review Of Systems: Comprehensive ROS is negative, except as noted in HPI. ED EXAM, GENERAL - Physical Exam Exam: See Below Exam Limited By: No Limitations General Appearance: Alert, No Apparent Distress Eye Exam: Bilateral Eye: EOMI Ears: Normal External Exam Nose: Normal Inspection Throat/Mouth: Normal Inspection Head: Atraumatic, Normocephalic Neck: Normal Inspection Respiratory/Chest: No Respiratory Distress, Decreased Breath Sounds, Rales (bilateral bases) Cardiovascular: Normal Peripheral Pulses, Regular Rate, Rhythm, No Edema GI/Abdominal: Distended, Guarding, Tender, Hepatomegaly. No: Normal Bowel Sounds (distant) Extremities: Normal Range of Motion, Pedal Edema Neurological: Alert, Oriented, Normal Cognition Psychiatric: Normal Affect, Normal Mood Skin Exam: Warm, Dry, Intact, Normal Color Course - Vital Signs Last Recorded V/S: Last Vital Signs Temp 97.6 F 03/30/20 15:11 Pulse 103 H 03/30/20 15:11 Resp 16 03/30/20 15:11 BP 120/73 03/30/20 15:11 Pulse Ox 99 03/30/20 15:11 - Orders/Labs/Meds Labs: Laboratory Tests 03/30/20 03/30/20 03/30/20 Range/Units 16:39 16:39 16:39 WBC 9.2 (5.0-10.0) 10^3/uL RBC 4.87 (4.6-6.2) 10^6/uL Hgb 13.3 L (14.0-18.0) g/dL Hct 41.7 (40.0-54.0) % MCV 85.6 (80-100) fL MCH 27.3 (27.0-34.0) pg MCHC 31.9 L (33.0-35.0) g/dL Plt Count 289 (150-450) 10^3/uL Neut % (Auto) 68.9 (42.2-75.2) % Lymph % (Auto) 16.4 L (20.5-50.1) % [place] % (Auto) 9.1 H (2-8) % Eos % (Auto) 4.9 H (1.0-3.0) % Baso % (Auto) 0.7 (0.0-1.0) % PT 11.6 (9.0-12.0) SEC INR 1.2 (0.9-1.2) Sodium 139 (136-145) mmol/L Potassium 4.7 (3.5-5.1) mmol/L Chloride 104 (98-107) mmol/L Carbon Dioxide 29 (21-32) mmol/L Anion Gap 10.7 (7-13) mEq/L BUN 24 H (7-18) mg/dL Creatinine 1.02 (0.70-1.30) mg/dL Est Cr Clr Drug Dosing TNP Estimated GFR (MDRD) > 60 BUN/Creatinine Ratio 23.5 (No establ ref range) Glucose 93 (74-99) mg/dL Calcium 8.8 (8.5-10.1) mg/dL Total Bilirubin 1.3 H (0.2-1.0) mg/dL AST 41 H (15-37) U/L ALT 37 (16-63) U/L Alkaline Phosphatase 244 H (46-116) U/L Troponin I 0.326 H* (0.000-0.056) ng/mL B-Natriuretic Peptide 1020 H (0-100) pg/ml Total Protein 8.2 (6.4-8.2) g/dL Albumin 2.7 L (3.4-5.0) g/dL Globulin 5.5 Albumin/Globulin Ratio 0.49 Meds: Medications Discontinued Medications Generic Name Dose Route Start Last Admin Trade Name Freq PRN Reason Stop Dose Admin Fentanyl 25 mcg 03/30/20 17:39 03/30/20 18:03 Sublimaze IVPUSH 03/30/20 17:40 25 mcg ONETIME ONE Administration Furosemide 40 mg 03/30/20 17:38 03/30/20 18:03 Lasix IVPUSH 03/30/20 17:39 40 mg NOW ONE Administration - Re-Assessments/Exams Free Text/Narrative Re-Assessment/Exam: 04/01/20 17:00 Tx [facility] stable Primary Hospitalist accepting. Tx via [facility]. Departure - Departure Time of Disposition: 18:10 Disposition: Home, Self-Care 01 Condition: Good Clinical Impression: Abdominal distension, Recurrent right pleural effusion Alcoholic cirrhosis of liver Qualifiers: Ascites presence: with ascites Qualified Code(s): K70.31 - Alcoholic cirrhosis of liver with ascites Congestive heart failure Qualifiers: Heart failure type: unspecified Heart failure chronicity: acute on chronic Qualified Code(s): I50.9 - Heart failure, unspecified - Discharge Information *PRESCRIPTION DRUG MONITORING PROGRAM REVIEWED*: No *COPY OF PRESCRIPTION DRUG MONITORING REPORT IN PATIENT FRANKIE: No Referrals: PCP,None [Primary Care Provider] - Forms: ED Department Discharge Sepsis Event Note (ED) - Evaluation Sepsis Screening Result: No Definite Risk
[2020-03-30] MEDS ORDERED: Furosemide 40 MG/4 ML VIAL IVPUSH ONE (17:38)
[2020-03-30] MEDS ORDERED: fentaNYL 100 MCG/2 ML SDV IVPUSH ONE (17:39)
== END 2020-03-30 18:16 | disposition home or self-care (01) ==
LOC: DL.ED 14:56
DX: K70.31 Alcoholic cirrhosis of liver with ascites (principal); J90 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, not elsewhere classified; I11.0 Hypertensive heart disease with heart failure; I50.9 Heart failure, unspecified; K21.9 Gastro-esophageal reflux disease without esophagitis; I25.2 Old myocardial infarction; I25.10 Atherosclerotic heart disease of native coronary artery without angina pectoris; Z91.030 Bee allergy status; E78.00 Pure hypercholesterolemia, unspecified; Z91.041 Radiographic dye allergy status; Z95.5 Presence of coronary angioplasty implant and graft; Z91.018 Allergy to other foods; Z79.02 Long term (current) use of antithrombotics/antiplatelets; Z79.899 Other long term (current) drug therapy; Z79.82 Long term (current) use of aspirin; Z79.01 Long term (current) use of anticoagulants
CPT/HCPCS: 36415; 71045; 80053; 83880; 84484; 85025; 85610; 93005; 96374; 96375; 99285; J1940; J3010

== ENCOUNTER 2020-04-18 20:12 | Emergency (ER) | payer MEDICAID, OTHER ==
--- NOTE | 2020-04-18 20:38 | CR ---
PROCEDURE INFORMATION: Exam: XR Chest, 1 View Exam date and time: 04/18/2020 8:29 PM Age: 34 years old Clinical indication: Other: Ascites TECHNIQUE: Imaging protocol: XR of the chest Views: 1 view. COMPARISON: CR Chest 1V Frontal 03/30/2020 4:56 PM FINDINGS: Lungs: Patchy bilateral airspace disease, right greater than left. Pleural space: Right pleural effusion. Heart/Mediastinum: Cardiomegaly. Bones/joints: Unremarkable. IMPRESSION: Patchy bilateral airspace disease, right greater than left. Right pleural effusion. Cardiomegaly.
[2020-04-18 20:43] LABS: ANION GAP 11.8 mEq/L (7-13); CHLORIDE,CL 108 mmol/L (98-107); SODIUM,NA 140 mmol/L (136-145)
[2020-04-18] MEDS ORDERED: fentaNYL 100 MCG/2 ML SDV IVPUSH ONE ×2 (20:49→21:34)
[2020-04-18] MEDS ORDERED: Heparin Sodium/0.45% NaCl 25,000 UNITS/500 ML BAG IV SCH (21:30)
[2020-04-18] MEDS ORDERED: Heparin Sodium 5,000 Units/ML Vial IVPUSH ONE (21:30)
--- NOTE | 2020-04-18 21:38 | EDM.PDOC ---
ED HPI GENERAL MEDICAL PROBLEM - General Chief Complaint: Abdominal Pain Stated Complaint: AMBULANCE Time Seen by Provider: 04/18/20 20:15 Source of Information: Reports: Patient, EMS History Limitations: Reports: No Limitations - History of Present Illness INITIAL COMMENTS - FREE TEXT/NARRATIVE: hx ascites, tapped last 2 weeks ago 5 liters, increased SOB today and abdominal pain, Belly getting larger, No fever chils no cough. SOB worse if trying to lay flat. No swelling of extremities. Denies chest pain Abdominal Pain Score (Numeric/FACES): 5 - Related Data Allergies Allergy/AdvReac Type Severity Reaction Status Date / Time bee venom protein (honey bee) Allergy Severe I need to Verified 04/18/20 20:21 use an epi pen red dye Allergy Hives Verified 04/18/20 20:21 [place] And Derivatives AdvReac Other Verified 04/18/20 20:21 grapefruit AdvReac Mild Other Uncoded 04/18/20 20:21 Home Meds: Home Meds Clopidogrel Bisulfate [Clopidogrel] 75 mg PO DAILY 06/10/18 [History] Lisinopril 2.5 mg PO DAILY 06/10/18 [History] Nitroglycerin 0.4 mg SL ASDIRECTED PRN 06/10/18 [History] Pantoprazole [ProTONIX] 40 mg PO DAILY 06/10/18 [History] Warfarin Sodium 2.5 mg PO .SUNMONWEDFRI 06/10/18 [History] atorvaSTATin [Lipitor] 40 mg PO BEDTIME 06/10/18 [History] Aspirin [Lo-Dose Aspirin EC] 81 mg PO DAILY 10/04/18 [History] Furosemide 80 mg PO BID 10/04/18 [History] Lactulose 15 ml PO TID 04/12/19 [History] Warfarin [Coumadin] 5 mg PO .TUESTHURSAT 11/17/19 [History] Past Medical History - Past Health History Medical/Surgical History: Denies Medical/Surgical History HEENT History: Reports: Impaired Vision Other HEENT History: wears glasses Cardiovascular History: Reports: CAD, Heart Failure, High Cholesterol, Hypertension, [place], SOB on Exertion, Stents Other Cardiovascular History: Ejection Fraction of 25% Respiratory History: Reports: Pneumonia, Recurrent Gastrointestinal History: Reports: GERD, GI Bleed Other Gastrointestinal History: ascites, liver disease Genitourinary History: Reports: None Musculoskeletal History: Reports: Back Pain, Chronic Neurological History: Reports: None Psychiatric History: Reports: Addiction Endocrine/Metabolic History: Reports: None Hematologic History: Reports: None Immunologic History: Reports: None Oncologic (Cancer) History: Reports: None Dermatologic History: Reports: Other (See Below) Other Dermatologic History: patient has multiple tatoos to arms and chest - Infectious Disease History Infectious Disease History: Reports: None - Past Surgical History Head Surgeries/Procedures: Reports: None Cardiovascular Surgical History: Reports: Coronary Artery Stent GI Surgical History: Reports: Appendectomy, Other (See Below) Other GI Surgeries/Procedures: ?abdominal surgery just prior to 2017 Social & Family History - Family History Family Medical History: Noncontributory - Tobacco Use Smoking Status *Q: Light Tobacco Smoker Years of Tobacco use: 10 Packs/Tins Daily: 0.1 - Caffeine Use Caffeine Use: Reports: None - Recreational Drug Use Recreational Drug Use: Yes Drug Use in Last 12 Months: No - Living Situation & Occupation Living situation: Reports: with Family Occupation: Disabled ED ROS GENERAL - Review of Systems Review Of Systems: Comprehensive ROS is negative, except as noted in HPI. ED EXAM, GENERAL - Physical Exam Exam: See Below Exam Limited By: No Limitations General Appearance: Alert, Moderate Distress Eye Exam: Bilateral Eye: EOMI, PERRL Ears: Normal External Exam Nose: Normal Inspection Throat/Mouth: Normal Inspection Head: Atraumatic, Normocephalic Neck: Normal Inspection Respiratory/Chest: Normal Breath Sounds Cardiovascular: Normal Peripheral Pulses, Regular Rate, Rhythm GI/Abdominal: Distended, Tender, Hepatomegaly, Other (bowel sounds distant) Back Exam: Normal Inspection Extremities: Normal Inspection Neurological: Alert, Oriented, Normal Cognition Skin Exam: Warm, Dry, Intact Course - Vital Signs Last Recorded V/S: Last Vital Signs Temp 97.2 F 04/18/20 20:00 Pulse 104 H 04/18/20 20:00 Resp 20 04/18/20 20:00 BP 116/81 04/18/20 20:00 Pulse Ox 100 04/18/20 20:00 - Orders/Labs/Meds Labs: Laboratory Tests 04/18/20 04/18/20 04/18/20 Range/Units 20:07 20:07 20:07 WBC 6.8 (5.0-10.0) 10^3/uL RBC 4.94 (4.6-6.2) 10^6/uL Hgb 13.5 L (14.0-18.0) g/dL Hct 42.3 (40.0-54.0) % MCV 85.6 (80-100) fL MCH 27.3 (27.0-34.0) pg MCHC 31.9 L (33.0-35.0) g/dL Plt Count 237 (150-450) 10^3/uL Neut % (Auto) 69.9 (42.2-75.2) % Lymph % (Auto) 16.4 L (20.5-50.1) % [place] % (Auto) 8.5 H (2-8) % Eos % (Auto) 4.8 H (1.0-3.0) % Baso % (Auto) 0.4 (0.0-1.0) % PT (9.0-12.0) SEC INR (0.9-1.2) Sodium 140 (136-145) mmol/L Potassium 4.8 (3.5-5.1) mmol/L Chloride 108 H (98-107) mmol/L Carbon Dioxide 25 (21-32) mmol/L Anion Gap 11.8 (7-13) mEq/L BUN 19 H (7-18) mg/dL Creatinine 1.09 (0.70-1.30) mg/dL Est Cr Clr Drug Dosing 103.82 mL/min Estimated GFR (MDRD) > 60 BUN/Creatinine Ratio 17.4 (No establ ref range) Glucose 90 (74-99) mg/dL Lactic Acid 0.7 (0.4-2.0) mmol/L Calcium 8.1 L (8.5-10.1) mg/dL Total Bilirubin 1.1 H (0.2-1.0) mg/dL AST 34 (15-37) U/L ALT 30 (16-63) U/L Alkaline Phosphatase 230 H (46-116) U/L Troponin I 4.969 H* (0.000-0.056) ng/mL B-Natriuretic Peptide 824 H (0-100) pg/ml Total Protein 7.3 (6.4-8.2) g/dL Albumin 2.5 L (3.4-5.0) g/dL Globulin 4.8 Albumin/Globulin Ratio 0.52 Amylase 50 (25-115) U/L Lipase 94 (73-393) U/L 07/15/20 Range/Units 20:07 WBC (5.0-10.0) 10^3/uL RBC (4.6-6.2) 10^6/uL Hgb (14.0-18.0) g/dL Hct (40.0-54.0) % MCV (80-100) fL MCH (27.0-34.0) pg MCHC (33.0-35.0) g/dL Plt Count (150-450) 10^3/uL Neut % (Auto) (42.2-75.2) % Lymph % (Auto) (20.5-50.1) % [place] % (Auto) (2-8) % Eos % (Auto) (1.0-3.0) % Baso % (Auto) (0.0-1.0) % PT 10.9 (9.0-12.0) SEC INR 1.2 (0.9-1.2) Sodium (136-145) mmol/L Potassium (3.5-5.1) mmol/L Chloride (98-107) mmol/L Carbon Dioxide (21-32) mmol/L Anion Gap (7-13) mEq/L BUN (7-18) mg/dL Creatinine (0.70-1.30) mg/dL Est Cr Clr Drug Dosing mL/min Estimated GFR (MDRD) BUN/Creatinine Ratio (No establ ref range) Glucose (74-99) mg/dL Lactic Acid (0.4-2.0) mmol/L Calcium (8.5-10.1) mg/dL Total Bilirubin (0.2-1.0) mg/dL AST (15-37) U/L ALT (16-63) U/L Alkaline Phosphatase (46-116) U/L Troponin I (0.000-0.056) ng/mL B-Natriuretic Peptide (0-100) pg/ml Total Protein (6.4-8.2) g/dL Albumin (3.4-5.0) g/dL Globulin Albumin/Globulin Ratio Amylase (25-115) U/L Lipase (73-393) U/L Meds: Medications Discontinued Medications Generic Name Dose Route Start Last Admin Trade Name Freq PRN Reason Stop Dose Admin Fentanyl 50 mcg 04/18/20 20:49 04/18/20 20:53 Sublimaze IVPUSH 04/18/20 20:50 50 mcg ONETIME ONE Administration Fentanyl 50 mcg 04/18/20 21:34 04/18/20 21:43 Sublimaze IVPUSH 04/18/20 21:35 50 mcg ONETIME ONE Administration Heparin Sodium (Porcine) 4,000 units 04/18/20 21:30 04/18/20 21:36 Heparin Sodium IVPUSH 04/18/20 21:31 4,000 units .BOLUS ONE Administration Heparin Sodium/Sodium Chloride 25,000 units in 500 mls @ 20.814 mls/hr 04/18/20 21:30 04/18/20 21:38 Heparin 25,000 Units In 1/2 Ns 500 Ml IV 12 units/kg/hr TITRATE KIRK 20.814 mls/hr Administration Protocol 12 UNITS/KG/HR - Re-Assessments/Exams Free Text/Narrative Re-Assessment/Exam: 04/19/20 06:36 Dr Davis accepting patient, Tx via [facility]. Departure - Departure Time of Disposition: 22:20 Disposition: Admitted As Inpatient 65 Condition: Undetermined Clinical Impression: NSTEMI (non-ST elevated myocardial infarction), 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, right Ascites Qualifiers: Ascites type: due to alcoholic cirrhosis Qualified Code(s): K70.31 - Alcoholic cirrhosis of liver with ascites - Discharge Information *PRESCRIPTION DRUG MONITORING PROGRAM REVIEWED*: No *COPY OF PRESCRIPTION DRUG MONITORING REPORT IN PATIENT FRANKIE: No Referrals: PCP,Unobtain [Primary Care Provider] - Forms: ED Department Discharge Sepsis Event Note (ED) - Evaluation Sepsis Screening Result: No Definite Risk - Focused Exam Vital Signs: Vital Signs Temp Pulse Resp BP Pulse Ox 04/18/20 20:00 97.2 F 104 H 20 116/81 100
== END 2020-04-18 22:00 | disposition critical access hospital (66) ==
LOC: DL.ED 20:12
DX: I21.4 Non-ST elevation (NSTEMI) myocardial infarction (principal); K70.31 Alcoholic cirrhosis of liver with ascites; J90 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, not elsewhere classified; I11.0 Hypertensive heart disease with heart failure; I50.9 Heart failure, unspecified; I25.10 Atherosclerotic heart disease of native coronary artery without angina pectoris; I25.2 Old myocardial infarction; K21.9 Gastro-esophageal reflux disease without esophagitis; F17.290 Nicotine dependence, other tobacco product, uncomplicated; Z79.82 Long term (current) use of aspirin; Z91.030 Bee allergy status; Z91.041 Radiographic dye allergy status; Z91.018 Allergy to other foods; Z79.02 Long term (current) use of antithrombotics/antiplatelets; Z79.899 Other long term (current) drug therapy
CPT/HCPCS: 36415; 71045; 80053; 82150; 83605; 83690; 83880; 84484; 85025; 85610; 93005; 96365; 96375; 96376; 99285; J1644; J3010; 99284

== ENCOUNTER 2020-06-01 15:15 | Emergency (ER) | payer MEDICAID, MEDICARE ==
[2020-06-01 16:06] LABS: ANION GAP 13.3 mEq/L (7-13); CHLORIDE,CL 108 mmol/L (98-107); SODIUM,NA 141 mmol/L (136-145)
[2020-06-01] MEDS ORDERED: Orphenadrine 60 MG/2 ML Inj IM ONE (16:19)
--- NOTE | 2020-06-01 16:34 | EDM.PDOC ---
ED HPI GENERAL MEDICAL PROBLEM - General Chief Complaint: Upper Extremity Injury/Pain Stated Complaint: AMBULANCE Time Seen by Provider: 06/01/20 16:00 Source of Information: Reports: Patient, RN History Limitations: Reports: No Limitations - History of Present Illness INITIAL COMMENTS - FREE TEXT/NARRATIVE: 34-year-old male who presents to the ER with right shoulder pain after falling at home 2 days ago. He reports his shoulder has been hurting but he is able to walk around at home with it. he denies any numbness and tingling in his arms. he rates his pain as a 6 on the 10 and describes it as spasms. He did not try anything at home for pain. He also states he is here to be transferred for paracentesis for ascites. He is almost 2 weeks past his last appointment for a tap. Patient has a known history for liver cirrhosis and ascites. He gets a paracentesis at [facility] in [place] every 2 minutes. Right Neck Pain Score (Numeric/FACES): 10 - Related Data Allergies Allergy/AdvReac Type Severity Reaction Status Date / Time bee venom protein (honey bee) Allergy Severe I need to Verified 06/01/20 15:20 use an epi pen red dye Allergy Hives Verified 06/01/20 15:20 [place] And Derivatives AdvReac Other Verified 06/01/20 15:20 grapefruit AdvReac Mild Other Uncoded 06/01/20 15:20 Home Meds: Home Meds Clopidogrel Bisulfate [Clopidogrel] 75 mg PO DAILY 06/10/18 [History] Lisinopril 2.5 mg PO DAILY 06/10/18 [History] Nitroglycerin 0.4 mg SL ASDIRECTED PRN 06/10/18 [History] Pantoprazole [ProTONIX] 40 mg PO DAILY 06/10/18 [History] Warfarin Sodium 2.5 mg PO .SUNMONWEDFRI 06/10/18 [History] atorvaSTATin [Lipitor] 40 mg PO BEDTIME 06/10/18 [History] Aspirin [Lo-Dose Aspirin EC] 81 mg PO DAILY 10/04/18 [History] Furosemide 80 mg PO BID 10/04/18 [History] Lactulose 15 ml PO TID 04/12/19 [History] Warfarin [Coumadin] 5 mg PO .TUESTHURSAT 11/17/19 [History] Past Medical History - Past Health History Medical/Surgical History: Denies Medical/Surgical History HEENT History: Reports: Impaired Vision Other HEENT History: wears glasses Cardiovascular History: Reports: CAD, Heart Failure, High Cholesterol, Hypertension, [place], SOB on Exertion, Stents Other Cardiovascular History: Ejection Fraction of 25% Respiratory History: Reports: Pneumonia, Recurrent Gastrointestinal History: Reports: GERD, GI Bleed Other Gastrointestinal History: ascites, liver disease Genitourinary History: Reports: None Musculoskeletal History: Reports: Back Pain, Chronic Neurological History: Reports: None Psychiatric History: Reports: Addiction Endocrine/Metabolic History: Reports: None Hematologic History: Reports: None Immunologic History: Reports: None Oncologic (Cancer) History: Reports: None Dermatologic History: Reports: Other (See Below) Other Dermatologic History: patient has multiple tatoos to arms and chest - Infectious Disease History Infectious Disease History: Reports: None - Past Surgical History Head Surgeries/Procedures: Reports: None Cardiovascular Surgical History: Reports: Coronary Artery Stent GI Surgical History: Reports: Appendectomy, Other (See Below) Other GI Surgeries/Procedures: ?abdominal surgery just prior to 2017 Social & Family History - Family History Family Medical History: Noncontributory - Tobacco Use Smoking Status *Q: Current Some Day Smoker Years of Tobacco use: 10 Packs/Tins Daily: 0.1 - Caffeine Use Caffeine Use: Reports: None - Recreational Drug Use Recreational Drug Use: No - Living Situation & Occupation Living situation: Reports: with Family Occupation: Disabled Review of Systems - Review of Systems Review Of Systems: See Below Constitutional: Reports: No Symptoms Mouth/Throat: Reports: No Symptoms Respiratory: Reports: No Symptoms Cardiovascular: Reports: No Symptoms GI/Abdominal: Reports: Abdominal Pain. Denies: Constipation, Hematemesis, Nausea, Vomiting Genitourinary: Reports: No Symptoms Musculoskeletal: Reports: Shoulder Pain, Muscle Stiffness Skin: Reports: No Symptoms Neurological: Reports: No Symptoms Psychiatric: Reports: Anxiety ED EXAM, GENERAL - Physical Exam Exam: See Below Exam Limited By: No Limitations General Appearance: Alert, Moderate Distress Head: Atraumatic, Normocephalic Neck: Normal Inspection, Supple, Full Range of Motion, Other (muscle spasms on the trapezius muscle) Respiratory/Chest: No Respiratory Distress, Lungs Clear, Normal Breath Sounds, No Accessory Muscle Use, Chest Non-Tender Cardiovascular: Normal Peripheral Pulses, Regular Rate, Rhythm, No Gallop, No JVD, No Murmur, No Rub Peripheral Pulses: 3+: Dorsalis Pedis (L), Dorsalis Pedis (R) GI/Abdominal: Normal Bowel Sounds, No Abnormal Bruit, No Mass, Distended, Guarding, Tender Neurological: Alert, Oriented Psychiatric: Anxious Skin Exam: Warm Course - Vital Signs Last Recorded V/S: Last Vital Signs Temp 96.9 F 06/01/20 15:24 Pulse 103 H 06/01/20 15:24 Resp 20 06/01/20 15:24 BP 123/78 06/01/20 15:24 Pulse Ox 98 06/01/20 15:24 - Orders/Labs/Meds Labs: Laboratory Tests 06/01/20 06/01/20 Range/Units 15:39 15:39 WBC 8.0 (5.0-10.0) 10^3/uL RBC 4.68 (4.6-6.2) 10^6/uL Hgb 13.0 L (14.0-18.0) g/dL Hct 39.9 L (40.0-54.0) % MCV 85.3 (80-100) fL MCH 27.8 (27.0-34.0) pg MCHC 32.6 L (33.0-35.0) g/dL Plt Count 260 (150-450) 10^3/uL Neut % (Auto) 71.8 (42.2-75.2) % Lymph % (Auto) 12.0 L (20.5-50.1) % [place] % (Auto) 8.6 H (2-8) % Eos % (Auto) 7.3 H (1.0-3.0) % Baso % (Auto) 0.3 (0.0-1.0) % Sodium 141 (136-145) mmol/L Potassium 4.3 (3.5-5.1) mmol/L Chloride 108 H (98-107) mmol/L Carbon Dioxide 24 (21-32) mmol/L Anion Gap 13.3 H (7-13) mEq/L BUN 19 H (7-18) mg/dL Creatinine 1.14 (0.70-1.30) mg/dL Est Cr Clr Drug Dosing 99.27 mL/min Estimated GFR (MDRD) > 60 BUN/Creatinine Ratio 16.7 (No establ ref range) Glucose 104 H (74-99) mg/dL Calcium 8.0 L (8.5-10.1) mg/dL Total Bilirubin 1.1 H (0.2-1.0) mg/dL AST 23 (15-37) U/L ALT 19 (16-63) U/L Alkaline Phosphatase 212 H (46-116) U/L B-Natriuretic Peptide 927 H (0-100) pg/ml Total Protein 7.0 (6.4-8.2) g/dL Albumin 2.4 L (3.4-5.0) g/dL Globulin 4.6 Albumin/Globulin Ratio 0.52 Meds: Medications Discontinued Medications Generic Name Dose Route Start Last Admin Trade Name Freq PRN Reason Stop Dose Admin Orphenadrine Citrate 60 mg 06/01/20 16:19 06/01/20 16:29 Norflex IM 06/01/20 16:20 60 mg ONETIME ONE Administration - Re-Assessments/Exams Free Text/Narrative Re-Assessment/Exam: Review exam findings with patient. Norflex given for right side neck spasms. Lab reviewed with patient. Consulted with ER at [facility] for transfer for paracentesis and the Er is on divert. Call [facility] call and patient was accepted for transfer by Dr. Núñez (IR)/Dr. Woodruff. Patient transferred to [place] by ground ambulance. 06/01/20 18:16 R Departure - Departure Time of Disposition: 18:12 Disposition: DC/Tfer to Acute Hospital 02 Condition: Good Clinical Impression: Neck muscle spasm Cirrhosis Qualifiers: Hepatic cirrhosis type: unspecified hepatic cirrhosis Ascites presence: with ascites Qualified Code(s): K74.60 - Unspecified cirrhosis of liver Abdominal pain Qualifiers: Abdominal location: generalized Qualified Code(s): R10.84 - Generalized abdomi nal pain Ascites Qualifiers: Ascites type: due to alcoholic cirrhosis Qualified Code(s): K70.31 - Alcoholic cirrhosis of liver with ascites - Discharge Information Forms: ED Department Discharge, Interfacility Transfer [facility] Sepsis Event Note (ED) - Evaluation Sepsis Screening Result: No Definite Risk
[2020-06-01] MEDS ORDERED: Lidocaine 2% with EPINEPHrine 1:200,000 20 ML SDV INJECT ONE (18:22)
== END 2020-06-01 18:41 ==
LOC: DL.ED 15:15
DX: K70.31 Alcoholic cirrhosis of liver with ascites (principal); M62.838 Other muscle spasm; I25.10 Atherosclerotic heart disease of native coronary artery without angina pectoris; I11.0 Hypertensive heart disease with heart failure; I50.9 Heart failure, unspecified; K21.9 Gastro-esophageal reflux disease without esophagitis; E78.00 Pure hypercholesterolemia, unspecified; F17.210 Nicotine dependence, cigarettes, uncomplicated; I25.2 Old myocardial infarction; Z95.5 Presence of coronary angioplasty implant and graft; Z79.01 Long term (current) use of anticoagulants; Z79.02 Long term (current) use of antithrombotics/antiplatelets; Z79.899 Other long term (current) drug therapy; Z79.82 Long term (current) use of aspirin; Z91.030 Bee allergy status; Z91.041 Radiographic dye allergy status; Z91.018 Allergy to other foods
CPT/HCPCS: 36415; 80053; 83880; 85025; 96372; 99285; J2360; 99283

== ENCOUNTER 2020-06-20 18:56 | Emergency (ER) | payer MEDICAID ==
[2020-06-20 19:52] LABS: ANION GAP 11.7 mEq/L (7-13); CHLORIDE,CL 106 mmol/L (98-107); SODIUM,NA 141 mmol/L (136-145)
--- NOTE | 2020-06-20 20:04 | CR ---
PROCEDURE INFORMATION: Exam: XR Chest, 1 View Exam date and time: 06/20/2020 7:47 PM Age: 34 years old Clinical indication: Shortness of breath; Additional info: SOB abdominal pain TECHNIQUE: Imaging protocol: XR of the chest Views: 1 view. COMPARISON: CR Chest 1V Frontal 04/18/2020 8:29 PM FINDINGS: Lungs: There are extensive ground-glass opacities in both mid and lower lung h[place]. There is mild nonspecific prominence of the pulmonary vasculature. Pleural space: There is a small right pleural fluid collection present. There is a small left pleural fluid collection present. Heart/Mediastinum: The heart demonstrates moderate diffuse enlargement. Bones/joints: Unremarkable IMPRESSION: 1. Small right pleural effusion. 2. Small left pleural effusion. 3. Cardiomegaly and pulmonary vascular prominence consistent with volume overload or congestive heart failure. 4. Nonspecific ground-glass opacities in both lungs. Edema versus pneumonia.
[2020-06-20] MEDS ORDERED: HYDROmorphone 0.5 MG/0.5 ML Syringe IVPUSH ONE (20:14)
--- NOTE | 2020-06-20 20:37 | EDM.PDOC ---
ED HPI GENERAL MEDICAL PROBLEM - General Chief Complaint: Gastrointestinal Problem Time Seen by Provider: 06/20/20 19:15 Source of Information: Reports: Patient History Limitations: Reports: No Limitations - History of Present Illness INITIAL COMMENTS - FREE TEXT/NARRATIVE: ED via [facility] with c/o abdominal tenderness, swelling increased SOB worse when flat, cough at night when lying down nothig during day- Denies COVID risk. Hx Ascites and was scheduled for draining yesterday in [place], missed appointment. notes increased swelling in face, Abdomen tender when sitting up. Reports compliance with medication. Right Anterior Chest Pain Score (Numeric/FACES): 6 - Related Data Allergies Allergy/AdvReac Type Severity Reaction Status Date / Time bee venom protein (honey bee) Allergy Severe I need to Verified 06/20/20 21:23 use an epi pen red dye Allergy Hives Verified 06/20/20 21:23 M[place]ulloch And Derivatives AdvReac Other Verified 06/20/20 21:23 grapefruit AdvReac Mild Other Uncoded 06/20/20 21:23 Home Meds: Home Meds Clopidogrel Bisulfate [Clopidogrel] 75 mg PO DAILY 06/10/18 [History] Lisinopril 2.5 mg PO DAILY 06/10/18 [History] Nitroglycerin 0.4 mg SL ASDIRECTED PRN 06/10/18 [History] Pantoprazole [ProTONIX] 40 mg PO DAILY 06/10/18 [History] Warfarin Sodium 2.5 mg PO .SUNMONWEDFRI 06/10/18 [History] atorvaSTATin [Lipitor] 40 mg PO BEDTIME 06/10/18 [History] Aspirin [Lo-Dose Aspirin EC] 81 mg PO DAILY 10/04/18 [History] Furosemide 80 mg PO BID 10/04/18 [History] Lactulose 15 ml PO TID 04/12/19 [History] Warfarin [Coumadin] 5 mg PO .TUESTHURSAT 11/17/19 [History] Past Medical History - Past Health History Medical/Surgical History: Denies Medical/Surgical History HEENT History: Reports: Impaired Vision Other HEENT History: wears glasses Cardiovascular History: Reports: CAD, Heart Failure, High Cholesterol, Hypertension, [place], SOB on Exertion, Stents Other Cardiovascular History: Ejection Fraction of 25% Respiratory History: Reports: Pneumonia, Recurrent Gastrointestinal History: Reports: GERD, GI Bleed Other Gastrointestinal History: ascites, liver disease Genitourinary History: Reports: None Musculoskeletal History: Reports: Back Pain, Chronic Neurological History: Reports: None Psychiatric History: Reports: Addiction Endocrine/Metabolic History: Reports: None Hematologic History: Reports: None Immunologic History: Reports: None Oncologic (Cancer) History: Reports: None Dermatologic History: Reports: Other (See Below) Other Dermatologic History: patient has multiple tatoos to arms and chest - Infectious Disease History Infectious Disease History: Reports: None - Past Surgical History Head Surgeries/Procedures: Reports: None Cardiovascular Surgical History: Reports: Coronary Artery Stent GI Surgical History: Reports: Appendectomy, Other (See Below) Other GI Surgeries/Procedures: ?abdominal surgery just prior to 2017 Social & Family History - Family History Family Medical History: Noncontributory - Tobacco Use Smoking Status *Q: Former Smoker Used Tobacco, but Quit: No - Caffeine Use Caffeine Use: Reports: None - Recreational Drug Use Recreational Drug Use: No - Living Situation & Occupation Living situation: Reports: with Family Occupation: Disabled ED ROS GENERAL - Review of Systems Review Of Systems: Comprehensive ROS is negative, except as noted in HPI. ED EXAM, GI/ABD - Physical Exam Exam: See Below Exam Limited By: No Limitations General Appearance: Alert, Mild Distress Eyes: Bilateral: EOMI, Pale Conjunctiva Ears: Normal External Exam Nose: Normal Inspection Throat/Mouth: Normal Inspection Respiratory/Chest: Decreased Breath Sounds. No: Respiratory Distress, Rhonchi Cardiovascular: Normal Peripheral Pulses, Regular Rate, Rhythm GI/Abdominal Exam: Soft, Distended, Tender (mild with palpation), Abnormal Bowel Sounds (distant). No: Guarding Extremities: Pedal Edema Neurological: Alert, Oriented, Normal Cognition Psychiatric: Normal Affect, Normal Mood Skin Exam: Warm, Dry, Intact EKG INTERPRETATION Rhythm: NSR Course - Vital Signs Last Recorded V/S: Last Vital Signs Temp 96.6 F L 06/20/20 19:07 Pulse 104 H 06/20/20 19:07 Resp 18 06/20/20 19:07 BP 123/86 06/20/20 19:07 Pulse Ox 99 06/20/20 19:07 - Orders/Labs/Meds Labs: Laboratory Tests 06/20/20 06/20/20 06/20/20 Range/Units 19:24 19:24 19:24 WBC 9.5 (5.0-10.0) 10^3/uL RBC 4.83 (4.6-6.2) 10^6/uL Hgb 13.3 L (14.0-18.0) g/dL Hct 41.1 (40.0-54.0) % MCV 85.1 (80-100) fL MCH 27.5 (27.0-34.0) pg MCHC 32.4 L (33.0-35.0) g/dL Plt Count 300 (150-450) 10^3/uL Neut % (Auto) 73.8 (42.2-75.2) % Lymph % (Auto) 13.2 L (20.5-50.1) % Cass % (Auto) 7.7 (2-8) % Eos % (Auto) 4.7 H (1.0-3.0) % Baso % (Auto) 0.6 (0.0-1.0) % PT (9.0-12.0) SEC INR (0.9-1.2) Sodium 141 (136-145) mmol/L Potassium 4.7 (3.5-5.1) mmol/L Chloride 106 (98-107) mmol/L Carbon Dioxide 28 (21-32) mmol/L Anion Gap 11.7 (7-13) mEq/L BUN 23 H (7-18) mg/dL Creatinine 1.10 (0.70-1.30) mg/dL Est Cr Clr Drug Dosing 102.88 mL/min Estimated GFR (MDRD) > 60 BUN/Creatinine Ratio 20.9 (No establ ref range) Glucose 73 L (74-99) mg/dL Calcium 8.7 (8.5-10.1) mg/dL Total Bilirubin 1.1 H (0.2-1.0) mg/dL AST 24 (15-37) U/L ALT 22 (16-63) U/L Alkaline Phosphatase 228 H (46-116) U/L Ammonia 58 H (11-32) umol/L Troponin I 0.655 H* (0.000-0.056) ng/mL B-Natriuretic Peptide 1120 H (0-100) pg/ml Total Protein 8.0 (6.4-8.2) g/dL Albumin 2.9 L (3.4-5.0) g/dL Globulin 5.1 Albumin/Globulin Ratio 0.57 Amylase 49 (25-115) U/L Lipase 84 (73-393) U/L / Range/Units 19:24 WBC (5.0-10.0) 10^3/uL RBC (4.6-6.2) 10^6/uL Hgb (14.0-18.0) g/dL Hct (40.0-54.0) % MCV (80-100) fL MCH (27.0-34.0) pg MCHC (33.0-35.0) g/dL Plt Count (150-450) 10^3/uL Neut % (Auto) (42.2-75.2) % Lymph % (Auto) (20.5-50.1) % Cass % (Auto) (2-8) % Eos % (Auto) (1.0-3.0) % Baso % (Auto) (0.0-1.0) % PT 17.8 H D (9.0-12.0) SEC INR 1.9 H (0.9-1.2) Sodium (136-145) mmol/L Potassium (3.5-5.1) mmol/L Chloride (98-107) mmol/L Carbon Dioxide (21-32) mmol/L Anion Gap (7-13) mEq/L BUN (7-18) mg/dL Creatinine (0.70-1.30) mg/dL Est Cr Clr Drug Dosing mL/min Estimated GFR (MDRD) BUN/Creatinine Ratio (No establ ref range) Glucose (74-99) mg/dL Calcium (8.5-10.1) mg/dL Total Bilirubin (0.2-1.0) mg/dL AST (15-37) U/L ALT (16-63) U/L Alkaline Phosphatase (46-116) U/L Ammonia (11-32) umol/L Troponin I (0.000-0.056) ng/mL B-Natriuretic Peptide (0-100) pg/ml Total Protein (6.4-8.2) g/dL Albumin (3.4-5.0) g/dL Globulin Albumin/Globulin Ratio Amylase (25-115) U/L Lipase (73-393) U/L Meds: Medications Discontinued Medications Generic Name Dose Route Start Last Admin Trade Name Tiera PRN Reason Stop Dose Admin Hydromorphone HCl 0.5 mg 06/20/20 20:14 06/20/20 20:19 Dilaudid IVPUSH 06/20/20 20:15 0.5 mg ONETIME ONE Administration - Re-Assessments/Exams Free Text/Narrative Re-Assessment/Exam: 06/20/20 20:38 CAROLYNN Marc. Patient accepted for tx. Tx via [facility]. Departure - Departure Time of Disposition: 20:39 Disposition: DC/Tfer to 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 current use of anticoagulant, 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, Orthopnea Ascites Qualifiers: Ascites type: due to alcoholic cirrhosis Qualified Code(s): K70.31 - Alcoholic cirrhosis of liver with ascites Cirrhosis Qualifiers: Hepatic cirrhosis type: unspecified hepatic cirrhosis Ascites presence: with ascites Qualified Code(s): K74.60 - Unspecified cirrhosis of liver Ascites Qualifiers: Ascites type: due to alcoholic cirrhosis Qualified Code(s): K70.31 - Alcoholic cirrhosis of liver with ascites CHF (congestive heart failure) Qualifiers: Heart failure type: unspecified Heart failure chronicity: acute on chronic Qualified Code(s): I50.9 - Heart failure, unspecified - Discharge Information *PRESCRIPTION DRUG MONITORING PROGRAM REVIEWED*: No *COPY OF PRESCRIPTION DRUG MONITORING REPORT IN PATIENT FRANKIE: No Forms: ED Department Discharge, Interfacility Transfer SUMAYA Sepsis Event Note (ED) - Evaluation Sepsis Screening Result: No Definite Risk - Focused Exam Vital Signs: Vital Signs Temp Pulse Resp BP Pulse Ox 06/20/20 19:07 96.6 F L 104 H 18 123/86 99
== END 2020-06-20 21:07 ==
LOC: DL.ED 18:56
DX: K70.31 Alcoholic cirrhosis of liver with ascites (principal); I11.0 Hypertensive heart disease with heart failure; I50.9 Heart failure, unspecified; I25.10 Atherosclerotic heart disease of native coronary artery without angina pectoris; E78.00 Pure hypercholesterolemia, unspecified; I25.2 Old myocardial infarction; K21.9 Gastro-esophageal reflux disease without esophagitis; Z87.891 Personal history of nicotine dependence; Z95.5 Presence of coronary angioplasty implant and graft; Z91.030 Bee allergy status; Z79.899 Other long term (current) drug therapy; Z79.82 Long term (current) use of aspirin
CPT/HCPCS: 36415; 71045; 80053; 82140; 82150; 83690; 83880; 84484; 85025; 85610; 96374; 99285-25; J1170

== ENCOUNTER 2020-06-30 15:52 | Emergency (ER) | payer MEDICAID ==
[2020-06-30] MEDS ORDERED: Furosemide 40 MG Tab PO ONE (15:53)
[2020-06-30] MEDS ORDERED: Lactulose Soln 10 GM/15 ML 30 ML UD Cup PO ONE (15:53)
[2020-06-30] MEDS ORDERED: Warfarin 5 MG Tab PO ONE (15:53)
[2020-06-30] MEDS ORDERED: Sodium Chloride 0.9% 10 ML Syringe FLUSH PRN (16:01)
[2020-06-30 16:40] LABS: ANION GAP 10.7 mEq/L (7-13); CHLORIDE,CL 106 mmol/L (98-107); SODIUM,NA 136 mmol/L (136-145)
[2020-06-30] MEDS ORDERED: Ketorolac 10 MG Tab PO ONE (18:08)
--- NOTE | 2020-06-30 18:08 | EDM.PDOC ---
Scribed by Estefany Ojeda 06/30/20 [id number] for Molly Leon MD ED HPI GENERAL MEDICAL PROBLEM - General Chief Complaint: Abdominal Pain Stated Complaint: AMBULANCE Time Seen by Provider: 06/30/20 16:00 Source of Information: Reports: Patient, EMS, EMS Notes Reviewed, RN, RN Notes Reviewed History Limitations: Reports: No Limitations - History of Present Illness INITIAL COMMENTS - FREE TEXT/NARRATIVE: Patient presents to ED by [facility] stating that he ran out of his meds on Thursday. He did not have a ride on and clinic closed on Thursday. Now he feels like his belly is tight and painful and almost feels a little asphyxiation. He is now doctoring in [place] and has rides arranged. No fevers or chills. He feels like his belly needs to be drained. Onset: Unknown/Unsure Duration: Getting Worse Location: Reports: Abdomen Severity: Moderate Improves with: Reports: None Worsens with: Reports: None Associated Symptoms: Reports: No Other Symptoms Abdomen Pain Score (Numeric/FACES): 7 - Related Data Allergies Allergy/AdvReac Type Severity Reaction Status Date / Time bee venom protein (honey bee) Allergy Severe I need to Verified 06/30/20 15:53 use an epi pen red dye Allergy Hives Verified 06/30/20 15:53 Nelson And Derivatives AdvReac Other Verified 06/30/20 15:53 grapefruit AdvReac Mild Other Uncoded 06/20/20 21:23 Home Meds: Home Meds Clopidogrel Bisulfate [Clopidogrel] 75 mg PO DAILY 06/10/18 [History] Lisinopril 2.5 mg PO DAILY 06/10/18 [History] Nitroglycerin 0.4 mg SL ASDIRECTED PRN 06/10/18 [History] Pantoprazole [ProTONIX] 40 mg PO DAILY 06/10/18 [History] Warfarin Sodium 2.5 mg PO .SUNMONWEDFRI 06/10/18 [History] atorvaSTATin [Lipitor] 40 mg PO BEDTIME 06/10/18 [History] Aspirin [Lo-Dose Aspirin EC] 81 mg PO DAILY 10/04/18 [History] Furosemide 80 mg PO BID 10/04/18 [History] Lactulose 15 ml PO TID 04/12/19 [History] Warfarin [Coumadin] 5 mg PO .TUESTHURSAT 11/17/19 [History] Past Medical History - Past Health History Medical/Surgical History: Denies Medical/Surgical History HEENT History: Reports: Impaired Vision Other HEENT History: wears glasses Cardiovascular History: Reports: CAD, Heart Failure, High Cholesterol, Hypertension, [place], SOB on Exertion, Stents Other Cardiovascular History: Ejection Fraction of 25% Respiratory History: Reports: Pneumonia, Recurrent Gastrointestinal History: Reports: GERD, GI Bleed Other Gastrointestinal History: ascites, liver disease Genitourinary History: Reports: None Musculoskeletal History: Reports: Back Pain, Chronic Neurological History: Reports: None Psychiatric History: Reports: Addiction Endocrine/Metabolic History: Reports: None Hematologic History: Reports: None Immunologic History: Reports: None Oncologic (Cancer) History: Reports: None Dermatologic History: Reports: Other (See Below) Other Dermatologic History: patient has multiple tatoos to arms and chest - Infectious Disease History Infectious Disease History: Reports: None - Past Surgical History Head Surgeries/Procedures: Reports: None Cardiovascular Surgical History: Reports: Coronary Artery Stent GI Surgical History: Reports: Appendectomy, Other (See Below) Other GI Surgeries/Procedures: ?abdominal surgery just prior to 2017 Social & Family History - Family History Family Medical History: Noncontributory - Caffeine Use Caffeine Use: Reports: None - Living Situation & Occupation Living situation: Reports: with Family Occupation: Disabled ED ROS GENERAL - Review of Systems Review Of Systems: Comprehensive ROS is negative, except as noted in HPI. ED EXAM, GI/ABD - Physical Exam Exam: See Below Exam Limited By: No Limitations General Appearance: Alert, WD/WN, No Apparent Distress Eyes: Bilateral: Normal Appearance Ears: Normal External Exam, Normal Canal, Hearing Grossly Normal, Normal TMs Nose: Normal Inspection, Normal Mucosa, No Blood Throat/Mouth: Normal Inspection, Normal Lips, Normal Teeth, Normal Gums, Normal Oropharynx, Normal Voice, No Airway Compromise Head: Atraumatic, Normocephalic Neck: Normal Inspection, Supple, Non-Tender, Full Range of Motion Respiratory/Chest: No Respiratory Distress, Lungs Clear, Normal Breath Sounds, No Accessory Muscle Use, Chest Non-Tender Cardiovascular: Normal Peripheral Pulses, Regular Rate, Rhythm, No Edema, No Gallop, No JVD, No Murmur, No Rub GI/Abdominal Exam: Soft, Distended, Tender. No: Guarding (Male) Exam: Deferred Rectal (Males) Exam: Deferred Back Exam: Normal Inspection, Full Range of Motion, NT Extremities: Normal Inspection, Normal Range of Motion, Non-Tender, Normal [place] Refill, No Pedal Edema Neurological: Alert, Oriented, CN II-XII Intact, Normal Cognition, Normal Gait, Normal Reflexes, No Motor/Sensory Deficits Psychiatric: Normal Affect, Normal Mood Skin Exam: Warm, Dry, Intact, Normal Color, No Rash Lymphatic: No Adenopathy Course - Vital Signs Last Recorded V/S: Last Vital Signs Temp 96.9 F 06/30/20 15:53 Pulse 100 06/30/20 15:53 Resp 25 H 06/30/20 15:53 BP 133/80 06/30/20 15:53 Pulse Ox 99 06/30/20 15:53 - Orders/Labs/Meds Orders: Active Orders 24 hr Category Date Time Status Peripheral IV Care [RC] . DIRECTED Care 06/30/20 16:04 Ordered UA RFX EVANGELIST AND CULT IF INDIC [URIN] Stat Lab 06/30/20 16:01 Ordered Sodium Chloride 0.9% [Saline Flush] Med 06/30/20 16:01 Ordered 10 ml FLUSH ASDIRECTED PRN Peripheral IV Insertion Adult [OM.PC] Stat Oth 06/30/20 16:01 Ordered Medication Orders Sodium Chloride (Saline Flush) 10 ml FLUSH ASDIRECTED PRN PRN Reason: Keep Vein Open Last Admin: 06/30/20 16:12 Dose: 10 ml Documented by: MILO Labs: Laboratory Tests 06/30/20 06/30/20 Range/Units 16:11 16:11 WBC 9.4 (5.0-10.0) 10^3/uL RBC 4.65 (4.6-6.2) 10^6/uL Hgb 12.9 L (14.0-18.0) g/dL Hct 39.5 L (40.0-54.0) % MCV 84.9 (80-100) fL MCH 27.7 (27.0-34.0) pg MCHC 32.7 L (33.0-35.0) g/dL Plt Count 269 (150-450) 10^3/uL Neut % (Auto) 73.8 (42.2-75.2) % Lymph % (Auto) 10.3 L (20.5-50.1) % [place] % (Auto) 10.2 H (2-8) % Eos % (Auto) 5.3 H (1.0-3.0) % Baso % (Auto) 0.4 (0.0-1.0) % Sodium 136 (136-145) mmol/L Potassium 3.7 (3.5-5.1) mmol/L Chloride 106 (98-107) mmol/L Carbon Dioxide 23 (21-32) mmol/L Anion Gap 10.7 (7-13) mEq/L BUN 25 H (7-18) mg/dL Creatinine 0.93 (0.70-1.30) mg/dL Est Cr Clr Drug Dosing 121.68 mL/min Estimated GFR (MDRD) > 60 BUN/Creatinine Ratio 26.9 (No establ ref range) Glucose 97 (74-99) mg/dL Calcium 7.8 L (8.5-10.1) mg/dL Total Bilirubin 1.0 (0.2-1.0) mg/dL AST 27 (15-37) U/L ALT 23 (16-63) U/L Alkaline Phosphatase 243 H (46-116) U/L Total Protein 7.0 (6.4-8.2) g/dL Albumin 2.5 L (3.4-5.0) g/dL Globulin 4.5 Albumin/Globulin Ratio 0.56 Meds: Medications Generic Name Dose Route Start Last Admin Trade Name Freq PRN Reason Stop Dose Admin Sodium Chloride 10 ml 06/30/20 16:01 06/30/20 16:12 Saline Flush FLUSH 10 ml ASDIRECTED PRN Administration Keep Vein Open Departure - Departure Time of Disposition: 18:03 Disposition: Home, Self-Care 01 Condition: Good Clinical Impression: Ascites Qualifiers: Ascites type: due to alcoholic cirrhosis Qualified Code(s): K70.31 - Alcoholic cirrhosis of liver with ascites - Discharge Information *PRESCRIPTION DRUG MONITORING PROGRAM REVIEWED*: Not Applicable *COPY OF PRESCRIPTION DRUG MONITORING REPORT IN PATIENT FRANKIE: Not Applicable Forms: ED Department Discharge Additional Instructions: Keep follow up appointment with provider in [place] Make sure to take your medications as prescribed Keep on top of your medication refills so you do not run out in the future. Sepsis Event Note (ED) - Focused Exam Vital Signs: Vital Signs Temp Pulse Resp BP Pulse Ox 06/30/20 15:53 96.9 F 100 25 H 133/80 99 - My Orders Last 24 Hours: My Active Orders 06/30/20 16:01 UA RFX EVANGELIST AND CULT IF INDIC [URIN] Stat Sodium Chloride 0.9% [Saline Flush] 10 ml FLUSH ASDIRECTED PRN Peripheral IV Insertion Adult [OM.PC] Stat 06/30/20 16:04 Peripheral IV Care [RC] . DIRECTED - Assessment/Plan Last 24 Hours: My Active Orders 06/30/20 16:01 UA RFX EVANGELIST AND CULT IF INDIC [URIN] Stat Sodium Chloride 0.9% [Saline Flush] 10 ml FLUSH ASDIRECTED PRN Peripheral IV Insertion Adult [OM.PC] Stat 06/30/20 16:04 Peripheral IV Care [RC] . DIRECTED Assessment:: 34 yo male presents with recurrent ascites and pain in the abdomen after running out of his medications at home. Plan: meds to get through to thursday toradol for pain in ER keep upcoming appointment in [place] on Thursday I have read and agree with the documentation that has been completed regarding this visit. By signing this record, I attest that the documentation was completed in my physical presence and is an accurate record of the encounter.
[2020-06-30] MEDS ORDERED: Furosemide 40 MG Tab ONE (18:14)
[2020-06-30] MEDS ORDERED: Lactulose Soln 10 GM/15 ML 30 ML UD Cup ONE (18:16)
[2020-06-30] MEDS ORDERED: Warfarin 5 MG Tab ONE (18:26)
== END 2020-06-30 18:38 | disposition home or self-care (01) ==
LOC: DL.ED 15:52
DX: K70.31 Alcoholic cirrhosis of liver with ascites (principal); I11.0 Hypertensive heart disease with heart failure; I50.9 Heart failure, unspecified; I25.10 Atherosclerotic heart disease of native coronary artery without angina pectoris; E78.00 Pure hypercholesterolemia, unspecified; I25.2 Old myocardial infarction; K21.9 Gastro-esophageal reflux disease without esophagitis; Z91.030 Bee allergy status; Z91.018 Allergy to other foods; Z91.048 Other nonmedicinal substance allergy status; Z79.02 Long term (current) use of antithrombotics/antiplatelets; Z79.82 Long term (current) use of aspirin; Z79.899 Other long term (current) drug therapy; Z90.49 Acquired absence of other specified parts of digestive tract
CPT/HCPCS: 36415; 80053; 85025; 99284; A9270; 99283

== ENCOUNTER 2020-07-02 23:53 | Emergency (ER) | payer MEDICAID ==
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
[2020-07-03 00:59] LABS: ANION GAP 12.4 mEq/L (7-13); CHLORIDE,CL 108 mmol/L (98-107); SODIUM,NA 142 mmol/L (136-145)
[2020-07-03 01:01] LABS: ACETAMINOPHEN 0 ug/mL (10-30 (Therapeutic))
== END 2020-07-03 01:59 | disposition home or self-care (01) ==
LOC: DL.ED 23:53
DX: K70.31 Alcoholic cirrhosis of liver with ascites (principal); I11.0 Hypertensive heart disease with heart failure; I50.9 Heart failure, unspecified; I25.10 Atherosclerotic heart disease of native coronary artery without angina pectoris; E78.00 Pure hypercholesterolemia, unspecified; I25.2 Old myocardial infarction; K21.9 Gastro-esophageal reflux disease without esophagitis; Z90.49 Acquired absence of other specified parts of digestive tract; Z98.890 Other specified postprocedural states; Z91.030 Bee allergy status; Z91.018 Allergy to other foods; Z91.048 Other nonmedicinal substance allergy status; Z79.899 Other long term (current) drug therapy; Z79.82 Long term (current) use of aspirin; Z79.02 Long term (current) use of antithrombotics/antiplatelets
CPT/HCPCS: 36415; 80053; 80305-QW; 80307; 81003; 82140; 82150; 83690; 83880; 84484; 85025; 93005; 99284; 99284-25

== ENCOUNTER 2020-08-14 16:41 | Emergency (ER) | payer MEDICAID ==
[2020-08-14 17:36] LABS: ANION GAP 13.1 mEq/L (7-13); CHLORIDE,CL 104 mmol/L (98-107); SODIUM,NA 140 mmol/L (136-145)
--- NOTE | 2020-08-14 17:38 | EDM.PDOC ---
ED HPI GENERAL MEDICAL PROBLEM - General Chief Complaint: General Time Seen by Provider: 08/14/20 17:00 Source of Information: Reports: Patient, EMS, EMS Notes Reviewed, RN, RN Notes Reviewed History Limitations: Reports: No Limitations - History of Present Illness INITIAL COMMENTS - FREE TEXT/NARRATIVE: Patient presents to the ED via EMS with complaints of shortness of breath. The patient states the shortness of breath started yesterday evening and has progressively worsened since that time. Additionally he attest to chest pain which started this morning upon awakening. He notes the pain originates in his left chest and radiates into his left shoulder. He has not taken any medications for this problem. He denies vision changes, headache, fever, shaking chills, recent illness, nausea, vomiting, or diarrhea. He states he has not been recently screened for COVID and has not been positive for COVID in the past. - Related Data Allergies Allergy/AdvReac Type Severity Reaction Status Date / Time bee venom protein (honey bee) Allergy Severe I need to Verified 06/30/20 15:53 use an epi pen red dye Allergy Hives Verified 06/30/20 15:53 [place] And Derivatives AdvReac Other Verified 06/30/20 15:53 grapefruit AdvReac Mild Other Uncoded 06/20/20 21:23 Home Meds: Home Meds Clopidogrel Bisulfate [Clopidogrel] 75 mg PO DAILY 06/10/18 [History] Lisinopril 2.5 mg PO DAILY 06/10/18 [History] Nitroglycerin 0.4 mg SL ASDIRECTED PRN 06/10/18 [History] Pantoprazole [ProTONIX] 40 mg PO DAILY 06/10/18 [History] Warfarin Sodium 2.5 mg PO .SUNMONWEDFRI 06/10/18 [History] atorvaSTATin [Lipitor] 40 mg PO BEDTIME 06/10/18 [History] Aspirin [Lo-Dose Aspirin EC] 81 mg PO DAILY 10/04/18 [History] Furosemide 80 mg PO BID 10/04/18 [History] Lactulose 15 ml PO TID 04/12/19 [History] Warfarin [Coumadin] 5 mg PO .TUESTHURSAT 11/17/19 [History] Past Medical History - Past Health History Medical/Surgical History: Denies Medical/Surgical History HEENT History: Reports: Impaired Vision Other HEENT History: wears glasses Cardiovascular History: Reports: CAD, Heart Failure, High Cholesterol, Hypertension, CA, SOB on Exertion, Stents Other Cardiovascular History: Ejection Fraction of 25% Respiratory History: Reports: Pneumonia, Recurrent Gastrointestinal History: Reports: GERD, GI Bleed Other Gastrointestinal History: ascites, liver disease Genitourinary History: Reports: Retention, Urinary Musculoskeletal History: Reports: Back Pain, Chronic Neurological History: Reports: None Psychiatric History: Reports: Addiction Endocrine/Metabolic History: Reports: None Hematologic History: Reports: None Immunologic History: Reports: None Oncologic (Cancer) History: Reports: None Dermatologic History: Reports: Other (See Below) Other Dermatologic History: patient has multiple tatoos to arms and chest - Infectious Disease History Infectious Disease History: Reports: None - Past Surgical History Head Surgeries/Procedures: Reports: None Cardiovascular Surgical History: Reports: Coronary Artery Stent GI Surgical History: Reports: Appendectomy, Other (See Below) Other GI Surgeries/Procedures: ?abdominal surgery just prior to 2017 Social & Family History - Family History Family Medical History: No Pertinent Family History - Tobacco Use Tobacco Use Status *Q: Never Tobacco User Second Hand Smoke Exposure: No - Caffeine Use Caffeine Use: Reports: None - Recreational Drug Use Recreational Drug Use: No - Living Situation & Occupation Living situation: Reports: with Family Occupation: Disabled ED ROS GENERAL - Review of Systems Review Of Systems: Comprehensive ROS is negative, except as noted in HPI. ED EXAM, GENERAL - Physical Exam Exam: See Below Exam Limited By: No Limitations General Appearance: Alert, WD/WN, No Apparent Distress Eye Exam: Bilateral Eye: EOMI, Normal Inspection, PERRL Throat/Mouth: Normal Inspection, Normal Voice, No Airway Compromise Head: Atraumatic, Normocephalic Neck: Normal Inspection, Supple, Non-Tender, Full Range of Motion Respiratory/Chest: Lungs Clear, Normal Breath Sounds, Accessory Muscle Use. No: Crackles, Rales, Rhonchi, Wheezing, Stridor Cardiovascular: No Edema, No Gallop, No JVD, No Murmur, No Rub, Tachycardia, Other (Chest pain in mid-left chest, radiates to left shoulder) Peripheral Pulses: 2+: Radial (L), Radial (R) GI/Abdominal: Non-Tender, Distended, Abnormal Bowel Sounds (Hypoactive) (Male) Exam: Deferred Rectal (Males) Exam: Deferred Back Exam: Normal Inspection, Full Range of Motion. No: CVA Tenderness (L), CVA Tenderness (R) Extremities: Normal Range of Motion, Non-Tender, Pedal Edema (+1, pitting bilaterally) Neurological: Alert, Oriented, CN II-XII Intact, Normal Cognition, Normal Gait, No Motor/Sensory Deficits Psychiatric: Normal Affect, Normal Mood Skin Exam: Dry, Intact, Normal Color, No Rash, Jaundice. No: Ecchymosis, Erythema, Mottled, Pallor, Petechiae #1 Interpretation EKG Date: 08/14/20 Time: 17:09 Rhythm: Other (Sinus Tach) Rate (Beats/Min): 103 [place]: LAD-Left Kershaw Deviation P-Wave: Present QRS: Normal ST-T: Normal QT: Normal Course - Vital Signs Last Recorded V/S: Last Vital Signs Temp 97.8 F 08/14/20 16:40 Pulse 108 H 08/14/20 16:40 Resp 16 08/14/20 16:40 BP 135/90 08/14/20 16:40 Pulse Ox 99 08/14/20 16:40 - Orders/Labs/Meds Orders: Active Orders 24 hr Category Date Time Status EKG Documentation Completion [RC] STAT Care 08/14/20 17:06 Active Chest w Cont [CT] Urgent Exams 08/14/20 19:36 Ordered Heparin Sodium/0.45% NaCl [Heparin 25,000 Units in 1/2 Med 08/14/20 18:45 Active NS 500 ML] 25,000 units in 500 ml IV ASDIRECTED Medication Orders Heparin Sodium/Sodium Chloride (Heparin 25,000 Units In 1/2 Ns 500 Ml) 25,000 units in 500 mls @ 23.623 mls/hr IV ASDIRECTED KIRK; Protocol Last Admin: 08/14/20 18:42 Dose: 12 units/kg/hr, 23.623 mls/hr Documented by: SHAWNA Cosigned by: [id number] Labs: Laboratory Tests 08/14/20 08/14/20 08/14/20 Range/Units 17:07 17:07 17:07 WBC 7.6 (5.0-10.0) 10^3/uL RBC 4.97 (4.6-6.2) 10^6/uL Hgb 13.4 L (14.0-18.0) g/dL Hct 41.5 (40.0-54.0) % MCV 83.5 (80-100) fL MCH 27.0 (27.0-34.0) pg MCHC 32.3 L (33.0-35.0) g/dL Plt Count 276 (150-450) 10^3/uL Neut % (Auto) 70.5 (42.2-75.2) % Lymph % (Auto) 12.8 L (20.5-50.1) % [place] % (Auto) 10.6 H (2-8) % Eos % (Auto) 5.7 H (1.0-3.0) % Baso % (Auto) 0.4 (0.0-1.0) % PT (9.0-12.0) SEC INR (0.9-1.2) APTT (22.0-34.0) SEC D-Dimer, Quantitative (0-400) ng/mL Sodium 140 (136-145) mmol/L Potassium 4.1 (3.5-5.1) mmol/L Chloride 104 (98-107) mmol/L Carbon Dioxide 27 (21-32) mmol/L Anion Gap 13.1 H (7-13) mEq/L BUN 17 (7-18) mg/dL Creatinine 1.02 (0.70-1.30) mg/dL Est Cr Clr Drug Dosing TNP Estimated GFR (MDRD) > 60 BUN/Creatinine Ratio 16.7 (No establ ref range) Glucose 89 (74-99) mg/dL Lactic Acid (0.4-2.0) mmol/L Calcium 8.5 (8.5-10.1) mg/dL Phosphorus 4.5 (2.6-4.7) mg/dL Magnesium 2.1 (1.8-2.4) mg/dL Total Bilirubin 1.4 H (0.2-1.0) mg/dL AST 28 (15-37) U/L ALT 27 (16-63) U/L Alkaline Phosphatase 227 H (46-116) U/L Ammonia 28 (11-32) umol/L Troponin I 8.066 H* (0.000-0.056) ng/mL C-Reactive Protein 2.2 H (0.0-0.9) mg/dL B-Natriuretic Peptide 1010 H (0-100) pg/ml Total Protein 6.9 (6.4-8.2) g/dL Albumin 2.2 L (3.4-5.0) g/dL Globulin 4.7 Albumin/Globulin Ratio 0.47 Amylase 26 (25-115) U/L Lipase 41 L (73-393) U/L Urine Color (YELLOW) Urine Appearance (CLEAR) Urine pH (5.0-9.0) Ur Specific [place] (1.005-1.030) Urine Protein (NEGATIVE) Urine Glucose (UA) (NEGATIVE) Urine Ketones (NEGATIVE) Urine Occult Blood (NEGATIVE) Urine Nitrite (NEGATIVE) Urine Bilirubin (NEGATIVE) Urine Urobilinogen (0.2-1.0) mg/dL Ur Leukocyte Esterase (NEGATIVE) SARS CoV-2 RNA Rapid [place] (NEGATIVE) 08/14/20 08/14/20 08/14/20 Range/Units 17:07 17:07 17:07 WBC (5.0-10.0) 10^3/uL RBC (4.6-6.2) 10^6/uL Hgb (14.0-18.0) g/dL Hct (40.0-54.0) % MCV (80-100) fL MCH (27.0-34.0) pg MCHC (33.0-35.0) g/dL Plt Count (150-450) 10^3/uL Neut % (Auto) (42.2-75.2) % Lymph % (Auto) (20.5-50.1) % [place] % (Auto) (2-8) % Eos % (Auto) (1.0-3.0) % Baso % (Auto) (0.0-1.0) % PT 11.7 D (9.0-12.0) SEC INR 1.2 (0.9-1.2) APTT 23.9 (22.0-34.0) SEC D-Dimer, Quantitative 2430 H (0-400) ng/mL Sodium (136-145) mmol/L Potassium (3.5-5.1) mmol/L Chloride (98-107) mmol/L Carbon Dioxide (21-32) mmol/L Anion Gap (7-13) mEq/L BUN (7-18) mg/dL Creatinine (0.70-1.30) mg/dL Est Cr Clr Drug Dosing Estimated GFR (MDRD) BUN/Creatinine Ratio (No establ ref range) Glucose (74-99) mg/dL Lactic Acid 1.4 (0.4-2.0) mmol/L Calcium (8.5-10.1) mg/dL Phosphorus (2.6-4.7) mg/dL Magnesium (1.8-2.4) mg/dL Total Bilirubin (0.2-1.0) mg/dL AST (15-37) U/L ALT (16-63) U/L Alkaline Phosphatase (46-116) U/L Ammonia (11-32) umol/L Troponin I (0.000-0.056) ng/mL C-Reactive Protein (0.0-0.9) mg/dL B-Natriuretic Peptide (0-100) pg/ml Total Protein (6.4-8.2) g/dL Albumin (3.4-5.0) g/dL Globulin Albumin/Globulin Ratio Amylase (25-115) U/L Lipase (73-393) U/L Urine Color (YELLOW) Urine Appearance (CLEAR) Urine pH (5.0-9.0) Ur Specific [place] (1.005-1.030) Urine Protein (NEGATIVE) Urine Glucose (UA) (NEGATIVE) Urine Ketones (NEGATIVE) Urine Occult Blood (NEGATIVE) Urine Nitrite (NEGATIVE) Urine Bilirubin (NEGATIVE) Urine Urobilinogen (0.2-1.0) mg/dL Ur Leukocyte Esterase (NEGATIVE) SARS CoV-2 RNA Rapid [place] (NEGATIVE) 08/14/20 08/14/20 Range/Units 17:30 18:55 WBC (5.0-10.0) 10^3/uL RBC (4.6-6.2) 10^6/uL Hgb (14.0-18.0) g/dL Hct (40.0-54.0) % MCV (80-100) fL MCH (27.0-34.0) pg MCHC (33.0-35.0) g/dL Plt Count (150-450) 10^3/uL Neut % (Auto) (42.2-75.2) % Lymph % (Auto) (20.5-50.1) % [place] % (Auto) (2-8) % Eos % (Auto) (1.0-3.0) % Baso % (Auto) (0.0-1.0) % PT (9.0-12.0) SEC INR (0.9-1.2) APTT (22.0-34.0) SEC D-Dimer, Quantitative (0-400) ng/mL Sodium (136-145) mmol/L Potassium (3.5-5.1) mmol/L Chloride (98-107) mmol/L Carbon Dioxide (21-32) mmol/L Anion Gap (7-13) mEq/L BUN (7-18) mg/dL Creatinine (0.70-1.30) mg/dL Est Cr Clr Drug Dosing Estimated GFR (MDRD) BUN/Creatinine Ratio (No establ ref range) Glucose (74-99) mg/dL Lactic Acid (0.4-2.0) mmol/L Calcium (8.5-10.1) mg/dL Phosphorus (2.6-4.7) mg/dL Magnesium (1.8-2.4) mg/dL Total Bilirubin (0.2-1.0) mg/dL AST (15-37) U/L ALT (16-63) U/L Alkaline Phosphatase (46-116) U/L Ammonia (11-32) umol/L Troponin I (0.000-0.056) ng/mL C-Reactive Protein (0.0-0.9) mg/dL B-Natriuretic Peptide (0-100) pg/ml Total Protein (6.4-8.2) g/dL Albumin (3.4-5.0) g/dL Globulin Albumin/Globulin Ratio Amylase (25-115) U/L Lipase (73-393) U/L Urine Color Yellow (YELLOW) Urine Appearance Clear (CLEAR) Urine pH 6.5 (5.0-9.0) Ur Specific [place] 1.025 (1.005-1.030) Urine Protein Negative (NEGATIVE) Urine Glucose (UA) Negative (NEGATIVE) Urine Ketones Negative (NEGATIVE) Urine Occult Blood Negative (NEGATIVE) Urine Nitrite Negative (NEGATIVE) Urine Bilirubin Negative (NEGATIVE) Urine Urobilinogen 0.2 (0.2-1.0) mg/dL Ur Leukocyte Esterase Negative (NEGATIVE) SARS CoV-2 RNA Rapid [place] Negative (NEGATIVE) Meds: Medications Generic Name Dose Route Start Last Admin Trade Name Freq PRN Reason Stop Dose Admin Heparin Sodium/Sodium Chloride 25,000 units in 500 mls @ 23.623 mls/hr 08/14/20 18:45 08/14/20 18:42 Heparin 25,000 Units In 1/2 Ns 500 Ml IV 12 units/kg/hr ASDIRECTED KIRK 23.623 mls/hr Administration Protocol 12 UNITS/KG/HR Discontinued Medications Generic Name Dose Route Start Last Admin Trade Name Freq PRN Reason Stop Dose Admin Furosemide 80 mg 08/14/20 18:12 08/14/20 18:22 Lasix IVPUSH 08/14/20 18:13 80 mg NOW ONE Administration Heparin Sodium (Porcine) 4,000 units 08/14/20 18:04 08/14/20 18:10 Heparin Sodium IVPUSH 08/14/20 18:05 4,000 units .BOLUS ONE Administration Morphine Sulfate 2 mg 08/14/20 17:49 08/14/20 18:06 Morphine IVPUSH 08/14/20 17:50 2 mg ONETIME ONE Administration Morphine Sulfate 2 mg 08/14/20 18:48 08/14/20 18:54 Morphine IVPUSH 08/14/20 18:49 2 mg ONETIME ONE Administration - Re-Assessments/Exams Free Text/Narrative Re-Assessment/Exam: 08/14/20 19:54 [employer] spoke with [facility] in [place], [facility] in [place], [facility] in [place], and [facility] in [place] regarding transfer to higher level of care. In consultation with Dr. Freeman from Cardiology at [facility] in [place], will obtain a CT PE study. Patient to transfer to [facility] under the care of Dr. Santiago. Departure - Departure Time of Disposition: 19:56 Disposition: DC/Tfer to [facility] Hosp/Unit 65 Condition: Critical Clinical Impression: NSTEMI (non-ST elevated myocardial infarction) - Discharge Information Forms: ED Department Discharge, [facility] Seps[facility] Event Note (ED) - Evaluation Sepsis Screening Result: No Definite Risk - Focused Exam Vital Signs: Vital Signs Temp Pulse Resp BP Pulse Ox 08/14/20 16:40 97.8 F 108 H 16 135/90 99 - My Orders Last 24 Hours: My Active Orders 08/14/20 17:06 EKG Documentation Completion [RC] STAT 08/14/20 18:45 Heparin Sodium/0.45% NaCl [Heparin 25,000 Units in 1/2 NS 500 ML] 25,000 units in 500 ml IV ASDIRECTED 08/14/20 19:36 Chest w Cont [CT] Urgent - Assessment/Plan Last 24 Hours: My Active Orders 08/14/20 17:06 EKG Documentation Completion [RC] STAT 08/14/20 18:45 Heparin Sodium/0.45% NaCl [Heparin 25,000 Units in 1/2 NS 500 ML] 25,000 units in 500 ml IV ASDIRECTED 08/14/20 19:36 Chest w Cont [CT] Urgent
[2020-08-14] MEDS ORDERED: Morphine 2 MG/ML SYRINGE IVPUSH ONE ×3 (17:49→20:08)
[2020-08-14] MEDS ORDERED: Heparin Sodium 5,000 Units/ML Vial IVPUSH ONE (18:04)
[2020-08-14] MEDS ORDERED: Furosemide 40 MG/4 ML VIAL IVPUSH ONE (18:12)
[2020-08-14 18:28] LABS: PTT,PARTIAL THROMBOPLSTIN TIME 23.9 SEC (22.0-34.0)
[2020-08-14] MEDS ORDERED: Heparin Sodium/0.45% NaCl 25,000 UNITS/500 ML BAG IV SCH (18:45)
[2020-08-14] MEDS ORDERED: Iopamidol 755 Mg/ML 100 ML Bottle IVPUSH ONE (20:40)
--- NOTE | 2020-08-14 20:47 | CT ---
PROCEDURE INFORMATION: Exam: CT Chest With Contrast Exam date and time: 08/14/2020 8:09 PM Age: 34 years old Clinical indication: Chest pain; Additional info: Shortness of breath; Chest pain; Elevated d-dimer TECHNIQUE: Imaging protocol: Computed tomography of the chest with intravenous contrast. Radiation optimization: All CT scans at this facility use at least one of these dose optimization techniques: automated exposure control; mA and/or kV adjustment per patient size (includes targeted exams where dose is matched to clinical indication); or iterative reconstruction. Contrast material: [id number]; Contrast volume: 80 ml; Contrast route: INTRAVENOUS (IV); COMPARISON: CR Chest 1V Frontal 06/20/2020 7:47 PM FINDINGS: Lungs: There is bilateral segmental bronchial wall thickening. There is interlobular septal thickening noted in the bilateral lung bases. There is compressive atelectasis in the left lower lobe. Remainder of the lungs appear grossly clear. Pleural space: There is a moderately sized right pleural effusion which appears to be partially loculated at the basal segments. There is a large layering left pleural effusion. There is loculated pleural fluid in the left major fissure. Heart: The heart is markedly enlarged. Coronary artery stents in the LAD are noted. Pulmonary arteries: Normal in course and caliber. Aorta: Normal in course and caliber. No acute pathology. Veins: There is contrast reflux into the IVC and hepatic veins. Lymph nodes: No adenopathy. Intraperitoneal space: Large volume upper abdominal ascites are noted. Bones/joints: No acute abnormality or aggressive osseous lesion. Soft tissues: There is diffuse body wall edema. IMPRESSION: 1. Moderate to severe volume overload, as manifested by mild interstitial pulmonary edema, bilateral pleural effusions, body wall edema, and upper abdominal ascites. Cardiogenic etiology is suspected. 2. No evidence of pulmonary emboli.
== END 2020-08-14 21:00 ==
LOC: DL.ED 16:41
DX: I21.4 Non-ST elevation (NSTEMI) myocardial infarction (principal); I25.10 Atherosclerotic heart disease of native coronary artery without angina pectoris; I11.0 Hypertensive heart disease with heart failure; I50.9 Heart failure, unspecified; E78.00 Pure hypercholesterolemia, unspecified; K21.9 Gastro-esophageal reflux disease without esophagitis; Z79.82 Long term (current) use of aspirin; Z79.01 Long term (current) use of anticoagulants; Z79.02 Long term (current) use of antithrombotics/antiplatelets; Z79.899 Other long term (current) drug therapy; Z20.828 Contact with and (suspected) exposure to other viral communicable diseases; Z91.030 Bee allergy status; Z91.018 Allergy to other foods
CPT/HCPCS: 36415; 71260; 80053; 81003; 82140; 82150; 83605; 83690; 83735; 83880; 84100; 84484; 85025; 85379; 85610; 85730; 86140; 87635; 93005; 96365; 96366; 96375; 96376; 99285; J1644; J1940; J2270; Q9967; 93010; U0002

== ENCOUNTER 2020-09-29 12:14 | Emergency (ER) | payer MEDICAID ==
[2020-09-29] MEDS ORDERED: fentaNYL 100 MCG/2 ML SDV IVPUSH ONE ×3 (12:37→14:01)
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
[2020-09-29 13:05] LABS: ANION GAP 9.1 mEq/L (7-13); CHLORIDE,CL 101 mmol/L (98-107); SODIUM,NA 136 mmol/L (136-145)
== END 2020-09-29 14:23 ==
LOC: DL.ED 12:14
DX: K70.31 Alcoholic cirrhosis of liver with ascites (principal); I11.0 Hypertensive heart disease with heart failure; I50.9 Heart failure, unspecified; E78.00 Pure hypercholesterolemia, unspecified; I25.10 Atherosclerotic heart disease of native coronary artery without angina pectoris; K21.9 Gastro-esophageal reflux disease without esophagitis; I25.2 Old myocardial infarction; Z91.030 Bee allergy status; Z91.018 Allergy to other foods; Z91.048 Other nonmedicinal substance allergy status; Z79.02 Long term (current) use of antithrombotics/antiplatelets; Z79.82 Long term (current) use of aspirin; Z79.899 Other long term (current) drug therapy
CPT/HCPCS: 36415; 80053; 83735; 83880; 85025; 85610; 86140; 87635; 96374; 96376; 99284; 99285; J3010; U0002

== ENCOUNTER 2020-10-12 13:38 | Emergency (ER) | payer MEDICAID ==
--- NOTE | 2020-10-12 14:38 | EDM.PDOCBH ---
ED HPI GENERAL MEDICAL PROBLEM - General Time Seen by Provider: 10/12/20 14:37 Source of Information: Reports: EMS, EMS Notes Reviewed, Old Records, RN, RN Notes Reviewed History Limitations: Reports: Intoxication - History of Present Illness INITIAL COMMENTS - FREE TEXT/NARRATIVE: Patient presents to the ED via EMS as he was found wandering outside in [place] by [employer]. He was initially brought to [facility] as he was felt to be confused and hallucination. Report from EMS states he was given Ativan 2mg IM at [facility] for hallucinations and uncooperative behavior. He was subsequently transferred here from [facility] via EMS. The patient is lethargic and unable to provide HPI. He does not respond physically or verbally to commands but does open eyes and move extremities and trunk to painful stimuli. - Related Data Allergies Allergy/AdvReac Type Severity Reaction Status Date / Time bee venom protein (honey bee) Allergy Severe I need to Verified 09/29/20 12:50 use an epi pen red dye Allergy Hives Verified 09/29/20 12:50 Irion And Derivatives AdvReac Other Verified 09/29/20 12:50 grapefruit AdvReac Mild Other Uncoded 06/20/20 21:23 Home Meds: Home Meds Clopidogrel Bisulfate [Clopidogrel] 75 mg PO DAILY 06/10/18 [History] Lisinopril 2.5 mg PO DAILY 06/10/18 [History] Nitroglycerin 0.4 mg SL ASDIRECTED PRN 06/10/18 [History] Pantoprazole [ProTONIX] 40 mg PO DAILY 06/10/18 [History] Warfarin Sodium 2.5 mg PO .SUNMONWEDFRI 06/10/18 [History] atorvaSTATin [Lipitor] 40 mg PO BEDTIME 06/10/18 [History] Aspirin [Lo-Dose Aspirin EC] 81 mg PO DAILY 10/04/18 [History] Furosemide 80 mg PO BID 10/04/18 [History] Lactulose 15 ml PO TID 04/12/19 [History] Warfarin [Coumadin] 5 mg PO .TUESTHURSAT 11/17/19 [History] Past Medical History - Past Health History Medical/Surgical History: Denies Medical/Surgical History HEENT History: Reports: Impaired Vision Other HEENT History: wears glasses Cardiovascular History: Reports: CAD, Heart Failure, High Cholesterol, Hypertension, CT, SOB on Exertion, Stents Other Cardiovascular History: Ejection Fraction of 25% Respiratory History: Reports: Pneumonia, Recurrent Gastrointestinal History: Reports: GERD, GI Bleed Other Gastrointestinal History: ascites, liver disease Genitourinary History: Reports: Retention, Urinary Musculoskeletal History: Reports: Back Pain, Chronic Neurological History: Reports: None Psychiatric History: Reports: Addiction Endocrine/Metabolic History: Reports: None Hematologic History: Reports: None Immunologic History: Reports: None Oncologic (Cancer) History: Reports: None Dermatologic History: Reports: Other (See Below) Other Dermatologic History: patient has multiple tatoos to arms and chest - Infectious Disease History Infectious Disease History: Reports: None - Past Surgical History Head Surgeries/Procedures: Reports: None Cardiovascular Surgical History: Reports: Coronary Artery Stent GI Surgical History: Reports: Appendectomy, Other (See Below) Other GI Surgeries/Procedures: ?abdominal surgery just prior to 2017 Social & Family History - Family History Family Medical History: No Pertinent Family History - Caffeine Use Caffeine Use: Reports: None - Living Situation & Occupation Living situation: Reports: with Family Occupation: Disabled ED ROS GENERAL - Review of Systems Review Of Systems: Comprehensive ROS is negative, except as noted in HPI. ED EXAM, BEHAVIORAL HEALTH - Physical Exam Exam: See Below Exam Limited By: Intoxication General Appearance: No Apparent Distress, Lethargic, Obese Eye Exam: Right Eye: Other (Scleral injection; Serous drainage to right ), Bilateral Eye: PERRL (5mm) Throat/Mouth: Normal Voice, No Airway Compromise Head: Atraumatic, Normocephalic Neck: Normal Inspection, Supple, Full Range of Motion Respiratory/Chest: No Respiratory Distress, Normal Breath Sounds, No Accessory Muscle Use, Chest Non-Tender, Decreased Breath Sounds Cardiovascular: Normal Peripheral Pulses, Regular Rate, Rhythm, No Gallop, No Rub, JVD, Systolic Murmur (4/6; Greatest over the mitral tricuspid area) GI/Abdominal: Pelvis Stable, Distended, Tender, Abnormal Bowel Sounds (Hypoactive bowel sounds), Other (Old surgical scar to midline abdomen). No: Guarding, Rigid, Rebound (Male) Exam: Deferred Rectal (Males) Exam: Deferred Extremities: Non-Tender, Normal Capillary Refill, Pedal Edema Neurological: Withdraws to Pain Psychiatric: Incoherent Skin Exam: Intact, Jaundice. No: Ecchymosis, Erythema, Mottled, Pallor, Petechiae, Rash COURSE, BEHAVIORAL HEALTH COMP - Course Vital Signs: Last Vital Signs Temp 98.1 F 10/12/20 14:00 Pulse 106 H 10/12/20 14:00 Resp 16 10/12/20 14:00 BP 101/68 10/12/20 14:00 Pulse Ox 99 10/12/20 14:00 Orders, Labs, Meds: Laboratory Tests 10/12/20 10/12/20 10/12/20 Range/Units 14:20 14:20 14:20 WBC 8.4 (5.0-10.0) 10^3/uL RBC 4.88 (4.6-6.2) 10^6/uL Hgb 13.4 L (14.0-18.0) g/dL Hct 40.2 (40.0-54.0) % MCV 82.4 (80-100) fL MCH 27.5 (27.0-34.0) pg MCHC 33.3 (33.0-35.0) g/dL Plt Count 255 (150-450) 10^3/uL Neut % (Auto) 78.0 H (42.2-75.2) % Lymph % (Auto) 9.8 L (20.5-50.1) % Creek % (Auto) 10.1 H (2-8) % Eos % (Auto) 1.5 (1.0-3.0) % Baso % (Auto) 0.6 (0.0-1.0) % PT 13.3 H (9.0-12.0) SEC INR 1.4 H (0.9-1.2) APTT 23.9 (22.0-34.0) SEC D-Dimer, Quantitative 3520 H (0-400) ng/mL Sodium 138 (136-145) mmol/L Potassium 4.0 (3.5-5.1) mmol/L Chloride 104 (98-107) mmol/L Carbon Dioxide 21 (21-32) mmol/L Anion Gap 17.0 H (7-13) mEq/L BUN 23 H (7-18) mg/dL Creatinine 1.44 H (0.70-1.30) mg/dL Est Cr Clr Drug Dosing TNP Estimated GFR (MDRD) 56 BUN/Creatinine Ratio 16.0 (No establ ref range) Glucose 98 (74-99) mg/dL Lactic Acid (0.4-2.0) mmol/L Calcium 8.3 L (8.5-10.1) mg/dL Phosphorus 4.8 H (2.6-4.7) mg/dL Magnesium 1.9 (1.8-2.4) mg/dL Total Bilirubin 3.0 H (0.2-1.0) mg/dL AST 26 (15-37) U/L ALT 19 (16-63) U/L Alkaline Phosphatase 156 H (46-116) U/L Ammonia (11-32) umol/L Troponin I 0.353 H* (0.000-0.056) ng/mL C-Reactive Protein 1.8 H (0.0-0.9) mg/dL B-Natriuretic Peptide 1160 H (0-100) pg/ml Total Protein 6.6 (6.4-8.2) g/dL Albumin 2.8 L (3.4-5.0) g/dL Globulin 3.8 Albumin/Globulin Ratio 0.74 Urine Color (YELLOW) Urine Appearance (CLEAR) Urine pH (5.0-9.0) Ur Specific Rogers (1.005-1.030) Urine Protein (NEGATIVE) Urine Glucose (UA) (NEGATIVE) Urine Ketones (NEGATIVE) Urine Occult Blood (NEGATIVE) Urine Nitrite (NEGATIVE) Urine Bilirubin (NEGATIVE) Urine Urobilinogen (0.2-1.0) mg/dL Ur Leukocyte Esterase (NEGATIVE) U Hyaline Cast (Auto) Urine RBC /HPF Urine WBC (0-5/HPF) /HPF Ur Epithelial Cells (NOT SEEN) /HPF Amorphous Sediment (NOT SEEN) /HPF Urine Mucus (NOT SEEN) /LPF Urine Opiates Screen (NEGATIVE) Ur Oxycodone Screen (NEGATIVE) Urine Methadone Screen (NEGATIVE) Ur Barbiturates Screen (NEGATIVE) U Tricyclic Antidepress (NEGATIVE) Ur Phencyclidine Scrn (NEGATIVE) Ur Amphetamine Screen (NEGATIVE) U Methamphetamines Scrn (NEGATIVE) Urine MDMA Screen (NEGATIVE) U Benzodiazepines Scrn (NEGATIVE) Urine Cocaine Screen (NEGATIVE) U Marijuana (THC) Screen (NEGATIVE) Ethyl Alcohol (0) mg/dL SARS CoV-2 RNA Rapid CAMERON (NEGATIVE) 10/12/20 10/12/20 10/12/20 Range/Units 14:20 14:20 14:20 WBC (5.0-10.0) 10^3/uL RBC (4.6-6.2) 10^6/uL Hgb (14.0-18.0) g/dL Hct (40.0-54.0) % MCV (80-100) fL MCH (27.0-34.0) pg MCHC (33.0-35.0) g/dL Plt Count (150-450) 10^3/uL Neut % (Auto) (42.2-75.2) % Lymph % (Auto) (20.5-50.1) % Creek % (Auto) (2-8) % Eos % (Auto) (1.0-3.0) % Baso % (Auto) (0.0-1.0) % PT (9.0-12.0) SEC INR (0.9-1.2) APTT (22.0-34.0) SEC D-Dimer, Quantitative (0-400) ng/mL Sodium (136-145) mmol/L Potassium (3.5-5.1) mmol/L Chloride (98-107) mmol/L Carbon Dioxide (21-32) mmol/L Anion Gap (7-13) mEq/L BUN (7-18) mg/dL Creatinine (0.70-1.30) mg/dL Est Cr Clr Drug Dosing Estimated GFR (MDRD) BUN/Creatinine Ratio (No establ ref range) Glucose (74-99) mg/dL Lactic Acid 1.3 (0.4-2.0) mmol/L Calcium (8.5-10.1) mg/dL Phosphorus (2.6-4.7) mg/dL Magnesium (1.8-2.4) mg/dL Total Bilirubin (0.2-1.0) mg/dL AST (15-37) U/L ALT (16-63) U/L Alkaline Phosphatase (46-116) U/L Ammonia 44 H (11-32) umol/L Troponin I (0.000-0.056) ng/mL C-Reactive Protein (0.0-0.9) mg/dL B-Natriuretic Peptide (0-100) pg/ml Total Protein (6.4-8.2) g/dL Albumin (3.4-5.0) g/dL Globulin Albumin/Globulin Ratio Urine Color (YELLOW) Urine Appearance (CLEAR) Urine pH (5.0-9.0) Ur Specific Rogers (1.005-1.030) Urine Protein (NEGATIVE) Urine Glucose (UA) (NEGATIVE) Urine Ketones (NEGATIVE) Urine Occult Blood (NEGATIVE) Urine Nitrite (NEGATIVE) Urine Bilirubin (NEGATIVE) Urine Urobilinogen (0.2-1.0) mg/dL Ur Leukocyte Esterase (NEGATIVE) U Hyaline Cast (Auto) Urine RBC /HPF Urine WBC (0-5/HPF) /HPF Ur Epithelial Cells (NOT SEEN) /HPF Amorphous Sediment (NOT SEEN) /HPF Urine Mucus (NOT SEEN) /LPF Urine Opiates Screen (NEGATIVE) Ur Oxycodone Screen (NEGATIVE) Urine Methadone Screen (NEGATIVE) Ur Barbiturates Screen (NEGATIVE) U Tricyclic Antidepress (NEGATIVE) Ur Phencyclidine Scrn (NEGATIVE) Ur Amphetamine Screen (NEGATIVE) U Methamphetamines Scrn (NEGATIVE) Urine MDMA Screen (NEGATIVE) U Benzodiazepines Scrn (NEGATIVE) Urine Cocaine Screen (NEGATIVE) U Marijuana (THC) Screen (NEGATIVE) Ethyl Alcohol < 3 (0) mg/dL SARS CoV-2 RNA Rapid CAMERON (NEGATIVE) 10/12/20 10/12/20 10/12/20 Range/Units 15:47 15:47 16:30 WBC (5.0-10.0) 10^3/uL RBC (4.6-6.2) 10^6/uL Hgb (14.0-18.0) g/dL Hct (40.0-54.0) % MCV (80-100) fL MCH (27.0-34.0) pg MCHC (33.0-35.0) g/dL Plt Count (150-450) 10^3/uL Neut % (Auto) (42.2-75.2) % Lymph % (Auto) (20.5-50.1) % Creek % (Auto) (2-8) % Eos % (Auto) (1.0-3.0) % Baso % (Auto) (0.0-1.0) % PT (9.0-12.0) SEC INR (0.9-1.2) APTT (22.0-34.0) SEC D-Dimer, Quantitative (0-400) ng/mL Sodium (136-145) mmol/L Potassium (3.5-5.1) mmol/L Chloride (98-107) mmol/L Carbon Dioxide (21-32) mmol/L Anion Gap (7-13) mEq/L BUN (7-18) mg/dL Creatinine (0.70-1.30) mg/dL Est Cr Clr Drug Dosing Estimated GFR (MDRD) BUN/Creatinine Ratio (No establ ref range) Glucose (74-99) mg/dL Lactic Acid (0.4-2.0) mmol/L Calcium (8.5-10.1) mg/dL Phosphorus (2.6-4.7) mg/dL Magnesium (1.8-2.4) mg/dL Total Bilirubin (0.2-1.0) mg/dL AST (15-37) U/L ALT (16-63) U/L Alkaline Phosphatase (46-116) U/L Ammonia (11-32) umol/L Troponin I (0.000-0.056) ng/mL C-Reactive Protein (0.0-0.9) mg/dL B-Natriuretic Peptide (0-100) pg/ml Total Protein (6.4-8.2) g/dL Albumin (3.4-5.0) g/dL Globulin Albumin/Globulin Ratio Urine Color Dark yellow (YELLOW) Urine Appearance Slightly cloudy (CLEAR) Urine pH 5.5 (5.0-9.0) Ur Specific Rogers >= 1.030 (1.005-1.030) Urine Protein 100 H (NEGATIVE) Urine Glucose (UA) Negative (NEGATIVE) Urine Ketones Negative (NEGATIVE) Urine Occult Blood Negative (NEGATIVE) Urine Nitrite Negative (NEGATIVE) Urine Bilirubin Small H (NEGATIVE) Urine Urobilinogen 1.0 (0.2-1.0) mg/dL Ur Leukocyte Esterase Negative (NEGATIVE) U Hyaline Cast (Auto) Many Urine RBC 0-5 /HPF Urine WBC 0-5 (0-5/HPF) /HPF Ur Epithelial Cells Few (NOT SEEN) /HPF Amorphous Sediment Many (NOT SEEN) /HPF Urine Mucus Moderate H (NOT SEEN) /LPF Urine Opiates Screen Negative (NEGATIVE) Ur Oxycodone Screen Negative (NEGATIVE) Urine Methadone Screen Negative (NEGATIVE) Ur Barbiturates Screen Negative (NEGATIVE) U Tricyclic Antidepress Negative (NEGATIVE) Ur Phencyclidine Scrn Negative (NEGATIVE) Ur Amphetamine Screen Positive H (NEGATIVE) U Methamphetamines Scrn Positive H (NEGATIVE) Urine MDMA Screen Positive H (NEGATIVE) U Benzodiazepines Scrn Negative (NEGATIVE) Urine Cocaine Screen Negative (NEGATIVE) U Marijuana (THC) Screen Positive H (NEGATIVE) Ethyl Alcohol (0) mg/dL SARS CoV-2 RNA Rapid CAMERON Negative (NEGATIVE) Re-Assessment/Re-Exam: BNP 1160, Trop 0.353, D-dimer 3520, Creatinine 1.4, and Total Bili 3.0 Patient remains lethargic but responds verbally and physically to pain. Tox screen positive for MDMA, Methamphetamines, and THC. Case discussed with Dr. Wolff who requested a chest x-ray prior to patient's transfer from this facility, but kindly agreed to accept patient for transfer for admission. Will perform CXR and push films via PACs. Patient's mother Ashly notified of transfer to [facility] in [place]; all questions answered at this time. Departure - Departure Time of Disposition: 16:49 Disposition: DC/Tfer to Acute Hospital 02 Condition: Fair Clinical Impression: Acute encephalopathy, Elevated troponin, Elevated brain natriuretic peptide (BNP) level, Elevated d-dimer Ascites Qualifiers: Ascites type: due to alcoholic cirrhosis Qualified Code(s): K70.31 - Alcoholic cirrhosis of liver with ascites Congestive heart failure Qualifiers: Heart failure type: unspecified Heart failure chronicity: acute on chronic Qualified Code(s): I50.9 - Heart failure, unspecified - Discharge Information Forms: Interfacility Transfer [facility] Sepsis Event Note (ED) - Focused Exam Vital Signs: Vital Signs Temp Pulse Resp BP Pulse Ox 10/12/20 14:00 98.1 F 106 H 16 101/68 99
[2020-10-12 14:50] LABS: CHLORIDE,CL 104 mmol/L (98-107); SODIUM,NA 138 mmol/L (136-145)
[2020-10-12 14:57] LABS: PTT,PARTIAL THROMBOPLSTIN TIME 23.9 SEC (22.0-34.0)
--- NOTE | 2020-10-12 16:35 | CR ---
EXAMINATION: Chest 1V Frontal SEX: Male AGE: 34 years CLINICAL HISTORY: 34-year-old male with clinical CHF and BNP 1170 who was reported on previous CT exam for elevated d-dimer to have "moderate to severe volume overload; no evidence of pulmonary emboli". Interpretation: Abnormal. 1. Chronic mild cardiomegaly without current new signs of pulmonary vascular congestion, cephalization of flow or alveolar edema. 2. Chronic pleural reactive changes right lung base (effusion and/or fibrosis) as noted 20 June 2020. 3. Left lung base clear today i.e. no dependent effusion. 4. No new lung mass, hilar lymphadenopathy or focal lobar consolidation. No new peripheral "groundglass" Covid 19 interstitial lung densities. 5. Generally poor inspiratory effort. No pneumothorax or pneumomediastinum. CONCLUSION: Chronic cardiomegaly and pleural reactive abnormalities right lung base (see above).
== END 2020-10-12 16:55 ==
LOC: DL.ED 13:38
DX: G93.40 Encephalopathy, unspecified (principal); R79.89 Other specified abnormal findings of blood chemistry; R74.8 Abnormal levels of other serum enzymes; R79.1 Abnormal coagulation profile; K70.31 Alcoholic cirrhosis of liver with ascites; I25.10 Atherosclerotic heart disease of native coronary artery without angina pectoris; E78.00 Pure hypercholesterolemia, unspecified; I11.0 Hypertensive heart disease with heart failure; I50.9 Heart failure, unspecified; I25.2 Old myocardial infarction; K21.9 Gastro-esophageal reflux disease without esophagitis; Z20.822 Contact with and (suspected) exposure to COVID-19; Z91.030 Bee allergy status; Z91.041 Radiographic dye allergy status; Z91.018 Allergy to other foods; Z79.02 Long term (current) use of antithrombotics/antiplatelets; Z79.899 Other long term (current) drug therapy; Z79.82 Long term (current) use of aspirin; Z79.01 Long term (current) use of anticoagulants; Z95.5 Presence of coronary angioplasty implant and graft
CPT/HCPCS: 36415; 71045; 80053; 80305-QW; 80307; 81001; 82140; 83605; 83735; 83880; 84100; 84484; 85025; 85379; 85610; 85730; 86140; 93005; 93010; 99283; 99285-25; U0002

== ENCOUNTER 2020-11-01 09:45 | Emergency (ER) | payer MEDICAID ==
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
[2020-11-01 10:42] LABS: ANION GAP 11.5 mEq/L (7-13); CHLORIDE,CL 101 mmol/L (98-107); SODIUM,NA 138 mmol/L (136-145)
[2020-11-01 10:46] LABS: ACETAMINOPHEN 0 ug/mL (10-30 (Therapeutic))
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
== END 2020-11-01 11:12 | disposition home or self-care (01) ==
LOC: DL.ED 09:45
DX: S39.012A Strain of muscle, fascia and tendon of lower back, initial encounter (principal); S29.012A Strain of muscle and tendon of back wall of thorax, initial encounter; I25.10 Atherosclerotic heart disease of native coronary artery without angina pectoris; E78.00 Pure hypercholesterolemia, unspecified; I11.0 Hypertensive heart disease with heart failure; I50.9 Heart failure, unspecified; I25.2 Old myocardial infarction; K21.9 Gastro-esophageal reflux disease without esophagitis; Z95.5 Presence of coronary angioplasty implant and graft; Z91.030 Bee allergy status; Z91.048 Other nonmedicinal substance allergy status; Z91.018 Allergy to other foods; Z79.82 Long term (current) use of aspirin; Z79.01 Long term (current) use of anticoagulants; Z79.899 Other long term (current) drug therapy; Z79.02 Long term (current) use of antithrombotics/antiplatelets; X58.XXXA Exposure to other specified factors, initial encounter
CPT/HCPCS: 36415; 72070; 72100; 80053; 80143; 80179; 80305-QW; 80307; 81003; 83605; 83735; 85025; 99282; 99283-25

== ENCOUNTER 2020-11-08 13:09 | Emergency (ER) | payer MEDICAID ==
--- NOTE | 2020-11-08 14:04 | CR ---
PROCEDURE INFORMATION: Exam: XR Chest, 1 View Exam date and time: 11/08/2020 1:55 PM Age: 34 years old Clinical indication: Shortness of breath; Additional info: Shortness of breath; HX chf and ascites TECHNIQUE: Imaging protocol: XR of the chest Views: 1 view. COMPARISON: CR Chest 1V Frontal 10/12/2020 4:21 PM FINDINGS: Lungs: The lungs are normal. Pleural spaces: There are no pleural effusions present. Heart/Mediastinum: The heart demonstrates mild diffuse enlargement. There is mild nonspecific prominence of the pulmonary vasculature. Bones/joints: No acute abnormality. IMPRESSION: 1. Cardiomegaly and pulmonary vascular prominence consistent with volume overload or congestive heart failure.
--- NOTE | 2020-11-08 14:07 | EDM.PDOC ---
ED HPI GENERAL MEDICAL PROBLEM - General Stated Complaint: [facility] Time Seen by Provider: 11/08/20 13:40 Source of Information: Reports: Patient, EMS, Old Records, RN, RN Notes Reviewed History Limitations: Reports: No Limitations - History of Present Illness INITIAL COMMENTS - FREE TEXT/NARRATIVE: Patient presents to the ED via EMS with complaints of chest and abdominal pain. The patient reports a history of cirrhosis with ascites, CHF, and multiple MIs with stenting. He is currently taking Aldactone 50mg daily, Lisinopril 2.5mg daily, Lactulose 15mg TID, Furosemide 50mg BID, and Plavix 75mg daily; the patient states he took all of his prescribed medications today.The patient reports the pain in the chest and abdomen began simultaneously about 1.5 hours ago. He characterizes the pains as stinging and sharp; he reports it in his right mid chest and his bilateral upper abdomen. He states he has not taken any medications for this pain. The patient reports he experiences this pain before he receives a paracentesis. He states his last tap was October 14; He is unsure how much ascites was removed. He denies fever, shaking chills, headache, vision changes, cough, sore throat, dyspepsia, vomiting, melena, or hematochezia. He does attest to shortness of breath and nausea. He denies recent alcohol and recreational drug use; he denies tobacco use. Abdominal Pain Score (Numeric/FACES): 4 - Related Data Allergies Allergy/AdvReac Type Severity Reaction Status Date / Time bee venom protein (honey bee) Allergy Severe Anaphylactic Verified 11/08/20 13:37 Shock red dye Allergy Hives Verified 11/08/20 13:37 Webster And Derivatives AdvReac Other Verified 11/08/20 13:37 grapefruit AdvReac Mild Other Uncoded 11/08/20 13:37 Home Meds: Home Meds Clopidogrel Bisulfate [Clopidogrel] 75 mg PO DAILY 06/10/18 [History] Lisinopril 2.5 mg PO DAILY 06/10/18 [History] Nitroglycerin 0.4 mg SL ASDIRECTED PRN 06/10/18 [History] Pantoprazole [ProTONIX] 40 mg PO DAILY 06/10/18 [History] Warfarin Sodium 2.5 mg PO .SUNMONWEDFRI 06/10/18 [History] atorvaSTATin [Lipitor] 40 mg PO BEDTIME 06/10/18 [History] Aspirin [Lo-Dose Aspirin EC] 81 mg PO DAILY 10/04/18 [History] Furosemide 80 mg PO BID 10/04/18 [History] Lactulose 15 ml PO TID 04/12/19 [History] Warfarin [Coumadin] 5 mg PO .TUESTHURSAT 11/17/19 [History] Spironolactone [Aldactone] 50 mg PO ASDIRECTED 11/08/20 [History] Past Medical History - Past Health History Medical/Surgical History: Denies Medical/Surgical History HEENT History: Reports: Impaired Vision Other HEENT History: wears glasses Cardiovascular History: Reports: CAD, Heart Failure, High Cholesterol, Hypertension, HI, SOB on Exertion, Stents Other Cardiovascular History: Ejection Fraction of 25% Respiratory History: Reports: Pneumonia, Recurrent Gastrointestinal History: Reports: GERD, GI Bleed Other Gastrointestinal History: ascites, liver disease Genitourinary History: Reports: Retention, Urinary Musculoskeletal History: Reports: Back Pain, Chronic Neurological History: Reports: None Psychiatric History: Reports: Addiction Endocrine/Metabolic History: Reports: None Hematologic History: Reports: None Immunologic History: Reports: None Oncologic (Cancer) History: Reports: None Dermatologic History: Reports: Other (See Below) Other Dermatologic History: patient has multiple tattoos to arms and chest - Infectious Disease History Infectious Disease History: Reports: None - Past Surgical History Head Surgeries/Procedures: Reports: None Cardiovascular Surgical History: Reports: Coronary Artery Stent GI Surgical History: Reports: Appendectomy, Other (See Below) Other GI Surgeries/Procedures: ?abdominal surgery just prior to 2017 Social & Family History - Family History Family Medical History: No Pertinent Family History - Tobacco Use Tobacco Use Status *Q: Former Tobacco User Packs/Tins Daily: 1 Used Tobacco, but Quit: Yes Month/Year Tobacco Last Used: 10/25 - Caffeine Use Caffeine Use: Reports: Coffee, Energy Drinks, Soda - Recreational Drug Use Drug Use in Last 12 Months: Yes - Living Situation & Occupation Living situation: Reports: with Family Occupation: Disabled ED ROS GENERAL - Review of Systems Review Of Systems: Comprehensive ROS is negative, except as noted in HPI. ED EXAM, GENERAL - Physical Exam Exam: See Below Exam Limited By: No Limitations General Appearance: Alert, No Apparent Distress Eye Exam: Bilateral Eye: EOMI, PERRL (4mm), Other (Scleral icterus) Nose: Normal Inspection. No: Nasal Tenderness, Nasal Swelling, Nasal Drainage Throat/Mouth: Normal Voice, No Airway Compromise. No: Normal Oropharynx (Dry mucous membranes) Head: Atraumatic, Normocephalic Respiratory/Chest: Decreased Breath Sounds, Other (Tenderness to right chest). No: Chest Non-Tender, Rales, Rhonchi, Wheezing, Stridor Cardiovascular: Normal Peripheral Pulses, Regular Rate, Rhythm, No Gallop, No JVD, No Rub, Systolic Murmur (Greatest over mitral area; 5/6) Peripheral Pulses: 2+: Radial (L), Radial (R), Dorsalis Pedis (L), Dorsalis Pedis (R) GI/Abdominal: Pelvis Stable, Distended, Tender (Pain to bilateral superior abdomen ), Other (Gross ascites) (Male) Exam: Deferred Rectal (Males) Exam: Deferred Back Exam: Normal Inspection, Full Range of Motion. No: CVA Tenderness (L), CVA Tenderness (R) Extremities: Normal Range of Motion, Non-Tender, Normal Capillary Refill, Pedal Edema (+1 pitting, bilaterally) Neurological: Alert, Oriented, CN II-XII Intact, Normal Cognition, Normal Gait, No Motor/Sensory Deficits Psychiatric: Normal Affect, Normal Mood Skin Exam: Warm, Dry, Intact, No Rash, Jaundice. No: Ecchymosis, Erythema, Mottled, Pallor, Petechiae #1 Interpretation EKG Date: 11/08/20 Time: 13:23 Rhythm: NSR Rate (Beats/Min): 88 Randall: LAD-Left Randall Deviation P-Wave: Present QRS: RBBB (New in V2 when compared to previous EKG) ST-T: Normal QT: Normal Comparison: Change From Previous EKG (New RBBB in V2) EKG Interpretation Comments: NSR; New RBBB in V2; Q-waves in aVL Course - Vital Signs Last Recorded V/S: Last Vital Signs Temp 98 F 11/08/20 13:33 Pulse 89 11/08/20 13:33 Resp 16 11/08/20 13:33 BP 117/59 L 11/08/20 13:33 Pulse Ox 98 11/08/20 13:33 - Orders/Labs/Meds Labs: Laboratory Tests 11/08/20 11/08/20 11/08/20 Range/Units 13:43 13:43 13:43 WBC 7.7 (5.0-10.0) 10^3/uL RBC 4.71 (4.6-6.2) 10^6/uL Hgb 13.0 L (14.0-18.0) g/dL Hct 39.6 L (40.0-54.0) % MCV 84.1 (80-100) fL MCH 27.6 (27.0-34.0) pg MCHC 32.8 L (33.0-35.0) g/dL Plt Count 271 (150-450) 10^3/uL Neut % (Auto) 70.3 (42.2-75.2) % Lymph % (Auto) 12.7 L (20.5-50.1) % [place] % (Auto) 11.0 H (2-8) % Eos % (Auto) 5.5 H (1.0-3.0) % Baso % (Auto) 0.5 (0.0-1.0) % PT 34.5 H D (9.0-12.0) SEC INR 3.7 H (0.9-1.2) APTT 34.9 H (22.0-34.0) SEC Sodium 140 (136-145) mmol/L Potassium 4.2 (3.5-5.1) mmol/L Chloride 105 (98-107) mmol/L Carbon Dioxide 26 (21-32) mmol/L Anion Gap 13.2 H (7-13) mEq/L BUN 15 (7-18) mg/dL Creatinine 0.88 (0.70-1.30) mg/dL Est Cr Clr Drug Dosing 113.35 mL/min Estimated GFR (MDRD) > 60 BUN/Creatinine Ratio 17.0 (No establ ref range) Glucose 97 (74-99) mg/dL Lactic Acid (0.4-2.0) mmol/L Calcium 8.4 L (8.5-10.1) mg/dL Magnesium 1.8 (1.8-2.4) mg/dL Total Bilirubin 1.6 H (0.2-1.0) mg/dL AST 37 (15-37) U/L ALT 42 (16-63) U/L Alkaline Phosphatase 264 H (46-116) U/L Troponin I 0.321 H* (0.000-0.056) ng/mL C-Reactive Protein 1.1 H (0.0-0.9) mg/dL B-Natriuretic Peptide 1070 H (0-100) pg/ml Total Protein 7.6 (6.4-8.2) g/dL Albumin 3.0 L (3.4-5.0) g/dL Globulin 4.6 Albumin/Globulin Ratio 0.65 Urine Color (YELLOW) Urine Appearance (CLEAR) Urine pH (5.0-9.0) Ur Specific [place] (1.005-1.030) Urine Protein (NEGATIVE) Urine Glucose (UA) (NEGATIVE) Urine Ketones (NEGATIVE) Urine Occult Blood (NEGATIVE) Urine Nitrite (NEGATIVE) Urine Bilirubin (NEGATIVE) Urine Urobilinogen (0.2-1.0) mg/dL Ur Leukocyte Esterase (NEGATIVE) Urine RBC /HPF Urine WBC (0-5/HPF) /HPF Ur Epithelial Cells (NOT SEEN) /HPF Amorphous Sediment (NOT SEEN) /HPF Urine Bacteria (0-FEW/HPF) /HPF Urine Mucus (NOT SEEN) /LPF Urine Opiates Screen (NEGATIVE) Ur Oxycodone Screen (NEGATIVE) Urine Methadone Screen (NEGATIVE) Ur Barbiturates Screen (NEGATIVE) U Tricyclic Antidepress (NEGATIVE) Ur Phencyclidine Scrn (NEGATIVE) Ur Amphetamine Screen (NEGATIVE) U Methamphetamines Scrn (NEGATIVE) Urine MDMA Screen (NEGATIVE) U Benzodiazepines Scrn (NEGATIVE) Urine Cocaine Screen (NEGATIVE) U Marijuana (THC) Screen (NEGATIVE) Ethyl Alcohol < 3 (0) mg/dL SARS CoV-2 RNA Rapid [place] (NEGATIVE) 11/08/20 11/08/20 11/08/20 Range/Units 13:43 14:03 14:03 WBC (5.0-10.0) 10^3/uL RBC (4.6-6.2) 10^6/uL Hgb (14.0-18.0) g/dL Hct (40.0-54.0) % MCV (80-100) fL MCH (27.0-34.0) pg MCHC (33.0-35.0) g/dL Plt Count (150-450) 10^3/uL Neut % (Auto) (42.2-75.2) % Lymph % (Auto) (20.5-50.1) % [place] % (Auto) (2-8) % Eos % (Auto) (1.0-3.0) % Baso % (Auto) (0.0-1.0) % PT (9.0-12.0) SEC INR (0.9-1.2) APTT (22.0-34.0) SEC Sodium (136-145) mmol/L Potassium (3.5-5.1) mmol/L Chloride (98-107) mmol/L Carbon Dioxide (21-32) mmol/L Anion Gap (7-13) mEq/L BUN (7-18) mg/dL Creatinine (0.70-1.30) mg/dL Est Cr Clr Drug Dosing mL/min Estimated GFR (MDRD) BUN/Creatinine Ratio (No establ ref range) Glucose (74-99) mg/dL Lactic Acid 1.3 (0.4-2.0) mmol/L Calcium (8.5-10.1) mg/dL Magnesium (1.8-2.4) mg/dL Total Bilirubin (0.2-1.0) mg/dL AST (15-37) U/L ALT (16-63) U/L Alkaline Phosphatase (46-116) U/L Troponin I (0.000-0.056) ng/mL C-Reactive Protein (0.0-0.9) mg/dL B-Natriuretic Peptide (0-100) pg/ml Total Protein (6.4-8.2) g/dL Albumin (3.4-5.0) g/dL Globulin Albumin/Globulin Ratio Urine Color Dark yellow (YELLOW) Urine Appearance Slightly cloudy (CLEAR) Urine pH 6.0 (5.0-9.0) Ur Specific [place] >= 1.030 (1.005-1.030) Urine Protein 30 H (NEGATIVE) Urine Glucose (UA) Negative (NEGATIVE) Urine Ketones Negative (NEGATIVE) Urine Occult Blood Negative (NEGATIVE) Urine Nitrite Negative (NEGATIVE) Urine Bilirubin Negative (NEGATIVE) Urine Urobilinogen 1.0 (0.2-1.0) mg/dL Ur Leukocyte Esterase Negative (NEGATIVE) Urine RBC 0-5 /HPF Urine WBC 0-5 (0-5/HPF) /HPF Ur Epithelial Cells Few (NOT SEEN) /HPF Amorphous Sediment Few (NOT SEEN) /HPF Urine Bacteria Rare (0-FEW/HPF) /HPF Urine Mucus Moderate H (NOT SEEN) /LPF Urine Opiates Screen Negative (NEGATIVE) Ur Oxycodone Screen Negative (NEGATIVE) Urine Methadone Screen Negative (NEGATIVE) Ur Barbiturates Screen Negative (NEGATIVE) U Tricyclic Antidepress Negative (NEGATIVE) Ur Phencyclidine Scrn Negative (NEGATIVE) Ur Amphetamine Screen Negative (NEGATIVE) U Methamphetamines Scrn Negative (NEGATIVE) Urine MDMA Screen Negative (NEGATIVE) U Benzodiazepines Scrn Negative (NEGATIVE) Urine Cocaine Screen Negative (NEGATIVE) U Marijuana (THC) Screen Positive H (NEGATIVE) Ethyl Alcohol (0) mg/dL SARS CoV-2 RNA Rapid CAM[place] (NEGATIVE) 11/08/20 Range/Units 14:34 WBC (5.0-10.0) 10^3/uL RBC (4.6-6.2) 10^6/uL Hgb (14.0-18.0) g/dL Hct (40.0-54.0) % MCV (80-100) fL MCH (27.0-34.0) pg MCHC (33.0-35.0) g/dL Plt Count (150-450) 10^3/uL Neut % (Auto) (42.2-75.2) % Lymph % (Auto) (20.5-50.1) % [place] % (Auto) (2-8) % Eos % (Auto) (1.0-3.0) % Baso % (Auto) (0.0-1.0) % PT (9.0-12.0) SEC INR (0.9-1.2) APTT (22.0-34.0) SEC Sodium (136-145) mmol/L Potassium (3.5-5.1) mmol/L Chloride (98-107) mmol/L Carbon Dioxide (21-32) mmol/L Anion Gap (7-13) mEq/L BUN (7-18) mg/dL Creatinine (0.70-1.30) mg/dL Est Cr Clr Drug Dosing mL/min Estimated GFR (MDRD) BUN/Creatinine Ratio (No establ ref range) Glucose (74-99) mg/dL Lactic Acid (0.4-2.0) mmol/L Calcium (8.5-10.1) mg/dL Magnesium (1.8-2.4) mg/dL Total Bilirubin (0.2-1.0) mg/dL AST (15-37) U/L ALT (16-63) U/L Alkaline Phosphatase (46-116) U/L Troponin I (0.000-0.056) ng/mL C-Reactive Protein (0.0-0.9) mg/dL B-Natriuretic Peptide (0-100) pg/ml Total Protein (6.4-8.2) g/dL Albumin (3.4-5.0) g/dL Globulin Albumin/Globulin Ratio Urine Color (YELLOW) Urine Appearance (CLEAR) Urine pH (5.0-9.0) Ur Specific [place] (1.005-1.030) Urine Protein (NEGATIVE) Urine Glucose (UA) (NEGATIVE) Urine Ketones (NEGATIVE) Urine Occult Blood (NEGATIVE) Urine Nitrite (NEGATIVE) Urine Bilirubin (NEGATIVE) Urine Urobilinogen (0.2-1.0) mg/dL Ur Leukocyte Esterase (NEGATIVE) Urine RBC /HPF Urine WBC (0-5/HPF) /HPF Ur Epithelial Cells (NOT SEEN) /HPF Amorphous Sediment (NOT SEEN) /HPF Urine Bacteria (0-FEW/HPF) /HPF Urine Mucus (NOT SEEN) /LPF Urine Opiates Screen (NEGATIVE) Ur Oxycodone Screen (NEGATIVE) Urine Methadone Screen (NEGATIVE) Ur Barbiturates Screen (NEGATIVE) U Tricyclic Antidepress (NEGATIVE) Ur Phencyclidine Scrn (NEGATIVE) Ur Amphetamine Screen (NEGATIVE) U Methamphetamines Scrn (NEGATIVE) Urine MDMA Screen (NEGATIVE) U Benzodiazepines Scrn (NEGATIVE) Urine Cocaine Screen (NEGATIVE) U Marijuana (THC) Screen (NEGATIVE) Ethyl Alcohol (0) mg/dL SARS CoV-2 RNA Rapid [place] Negative (NEGATIVE) Meds: Medications Discontinued Medications Generic Name Dose Route Start Last Admin Trade Name Freq PRN Reason Stop Dose Admin Furosemide 40 mg 11/08/20 14:44 11/08/20 14:50 Lasix IVPUSH 11/08/20 14:45 40 mg NOW ONE Administration Morphine Sulfate 1 mg 11/08/20 14:54 11/08/20 15:00 Morphine IVPUSH 11/08/20 14:55 1 mg ONETIME ONE Administration - Radiology Interpretation Free Text/Narrative:: [facility] [place] [facility] Final Radiology Report Call: [phone] assistance Online chat: [email or web address] Name: REG STEIN Age: 34Years M Date: 11/08/2020 SSN: -- : [id number] Study: CR CHEST 1V FRONTAL Requesting Physician: Melonie Griffiths Images: 1 Addl Studies: Provided Clinical History: Shortness of breath; Hx CHF and ascites Contrast: Contrast Medium: Contrast Amount: Contrast Method: CONFIDENTIALITY STATEMENT This report is intended only for use by the referring physician, and only in accordance with law. If you received this in error, call [phone]. Page 1 of 1 PROCEDURE INFORMATION: Exam: XR Chest, 1 View Exam date and time: 11/08/2020 1:55 PM Age: 34 years old Clinical indication: Shortness of breath; Additional info: Shortness of breath; HX chf and ascites TECHNIQUE: Imaging protocol: XR of the chest Views: 1 view. COMPARISON: CR Chest 1V Frontal 10/12/2020 4:21 PM FINDINGS: Lungs: The lungs are normal. Pleural spaces: There are no pleural effusions present. Heart/Mediastinum: The heart demonstrates mild diffuse enlargement. There is mild nonspecific prominence of the pulmonary vasculature. Bones/joints: No acute abnormality. IMPRESSION: 1. Cardiomegaly and pulmonary vascular prominence consistent with volume overload or congestive heart failure. Thank you for allowing us to participate in the care of your patient. Dictated and Authenticated by: Sebastián Bose MD 11/08/2020 2:03 PM Central Time ([place] & [place]) - Re-Assessments/Exams Free Text/Narrative Re-Assessment/Exam: 11/08/20 New RBBB noted in V2. Patient given Morphine 1mg for chest pain. Troponin 0.321 and BNP 1070, review of records shows consistent elevation in Troponin and BNP. Total Bilirubin 1.5. Coags supratherapeutic; INR 3.7. CBC unremarkable for acute processes: WBC 7.7 without left shift. Hgb stable for patient at 13. CXR remarkable for pulmonary congestion/CHF. Given patients history, current presentation, CXR, and lab findings patient in need of paracentesis and diuresis. Patient given Lasix 40mg IVP x1; SBP 110s with MAP of [address] Davis at [facility] in [place] who kindly agreed to accept the patient for transfer and inpatient admission. Dr. Davis states he would like the patient transferred for NSTEMI, but would not like Heparin bolus or gtt initiated as the patient is supratherapeutic with an INR of 3.7. Plan of care discussed with patient who verbalized understanding and agreement with the plan of care. Departure - Departure Time of Disposition: 14:50 Disposition: DC/Tfer to [facility] 02 Reason for Transfer *Q: Primary PCI Indicated Condition: Good Clinical Impression: NSTEMI (non-ST elevated myocardial infarction), Total bilirubin, elevated, Right bundle branch block Congestive heart failure Qualifiers: Heart failure type: unspecified Heart failure chronicity: acute on chronic Qualified Code(s): I50.9 - Heart failure, unspecified Cirrhosis Qualifiers: Hepatic cirrhosis type: unspecified hepatic cirrhosis Ascites presence: with ascites Qualified Code(s): K74.60 - Unspecified cirrhosis of liver Ascites Qualifiers: Ascites type: due to alcoholic cirrhosis Qualified Code(s): K70.31 - Alcoholic cirrhosis of liver with ascites Referrals: PCP,None [Primary Care Provider] - Forms: Interfacility Transfer SU[facility] Sepsis Event Note (ED) - Evaluation Sepsis Screening Result: No Definite Risk
[2020-11-08 14:10] LABS: PTT,PARTIAL THROMBOPLSTIN TIME 34.9 SEC (22.0-34.0)
[2020-11-08 14:12] LABS: ANION GAP 13.2 mEq/L (7-13); CHLORIDE,CL 105 mmol/L (98-107); SODIUM,NA 140 mmol/L (136-145)
[2020-11-08] MEDS ORDERED: Furosemide 40 MG/4 ML VIAL IVPUSH ONE (14:44)
[2020-11-08] MEDS ORDERED: Morphine 2 MG/ML SYRINGE IVPUSH ONE (14:54)
== END 2020-11-08 16:25 ==
LOC: DL.ED 13:09
DX: I21.4 Non-ST elevation (NSTEMI) myocardial infarction (principal); I11.0 Hypertensive heart disease with heart failure; I50.9 Heart failure, unspecified; E80.6 Other disorders of bilirubin metabolism; I45.10 Unspecified right bundle-branch block; K70.31 Alcoholic cirrhosis of liver with ascites; I25.10 Atherosclerotic heart disease of native coronary artery without angina pectoris; E78.00 Pure hypercholesterolemia, unspecified; I25.2 Old myocardial infarction; K21.9 Gastro-esophageal reflux disease without esophagitis; Z20.822 Contact with and (suspected) exposure to COVID-19; Z91.030 Bee allergy status; Z91.041 Radiographic dye allergy status; Z91.018 Allergy to other foods; Z79.82 Long term (current) use of aspirin; Z79.02 Long term (current) use of antithrombotics/antiplatelets; Z79.01 Long term (current) use of anticoagulants; Z79.899 Other long term (current) drug therapy; Z95.5 Presence of coronary angioplasty implant and graft; Z87.891 Personal history of nicotine dependence
CPT/HCPCS: 36415; 71045; 80053; 80305; 80307; 81001; 83605; 83735; 83880; 84484; 85025; 85610; 85730; 86140; 87635; 93005; 96374; 96375; 99285; J1940; J2270; 93010; U0002

== ENCOUNTER 2020-12-10 20:20 | Emergency (ER) | payer MEDICAID ==
[2020-12-10] MEDS ORDERED: Morphine 2 MG/ML SYRINGE IVPUSH ONE (21:14)
--- NOTE | 2020-12-10 21:35 | CR ---
PROCEDURE INFORMATION: Exam: XR Chest Exam date and time: 12/10/2020 9:15 PM Age: 35 years old Clinical indication: Chest pain TECHNIQUE: Imaging protocol: XR of the chest Views: 1 view. Total images: 1 COMPARISON: CR Chest 1V Frontal 11/08/2020 1:55 PM FINDINGS: Lungs: Unremarkable. No consolidation. Pleural spaces: Unremarkable. No pleural effusion. No pneumothorax. Heart/Mediastinum: Mild cardiomegaly. Bones/joints: Unremarkable. IMPRESSION: Cardiomegaly. No acute cardiopulmonary disease.
[2020-12-10 21:44] LABS: ANION GAP 15.5 mEq/L (7-13); CHLORIDE,CL 102 mmol/L (98-107); SODIUM,NA 141 mmol/L (136-145)
--- NOTE | 2020-12-11 00:48 | EDM.PDOC ---
ED HPI GENERAL MEDICAL PROBLEM - General Chief Complaint: Chest Pain Stated Complaint: AMBULANCE Time Seen by Provider: 12/10/20 21:10 Source of Information: Reports: Patient, EMS, RN History Limitations: Reports: No Limitations - History of Present Illness INITIAL COMMENTS - FREE TEXT/NARRATIVE: ED with bilateral alterio-lateral chest pain greater on left, worse with movment and deep breathing. radiating to left mid back starting while doing dishes. 10/10 at onset 7/10 at present. Similar to previous episodes. Hx [place]'s in past and cirrhosis with ascites. Last fluid tap one month ago. Reports compliance with medication but somewhat vague on coumadin schedule and dosing. 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 Nitro and aspirin via EMS. No fever chills or cough. Mid-Sternal Chest Pain Score (Numeric/FACES): 3 Abdomen Pain Score (Numeric/FACES): 3 - Related Data Allergies Allergy/AdvReac Type Severity Reaction Status Date / Time bee venom protein (honey bee) Allergy Severe Anaphylactic Verified 11/08/20 13:37 Shock red dye Allergy Hives Verified 11/08/20 13:37 [place] And Derivatives AdvReac Other Verified 11/08/20 13:37 grapefruit AdvReac Mild Other Uncoded 11/08/20 13:37 Home Meds: Home Meds Clopidogrel Bisulfate [Clopidogrel] 75 mg PO DAILY 06/10/18 [History] Lisinopril 2.5 mg PO DAILY 06/10/18 [History] Nitroglycerin 0.4 mg SL ASDIRECTED PRN 06/10/18 [History] Pantoprazole [ProTONIX] 40 mg PO DAILY 06/10/18 [History] Warfarin Sodium 2.5 mg PO .SUNMONWEDFRI 06/10/18 [History] atorvaSTATin [Lipitor] 40 mg PO BEDTIME 06/10/18 [History] Aspirin [Lo-Dose Aspirin EC] 81 mg PO DAILY 10/04/18 [History] Furosemide 80 mg PO BID 10/04/18 [History] Lactulose 15 ml PO TID 04/12/19 [History] Warfarin [Coumadin] 5 mg PO .TUESTHURSAT 11/17/19 [History] Spironolactone [Aldactone] 50 mg PO ASDIRECTED 11/08/20 [History] Past Medical History - Past Health History Medical/Surgical History: Denies Medical/Surgical History HEENT History: Reports: Impaired Vision Other HEENT History: wears glasses Cardiovascular History: Reports: CAD, Heart Failure, High Cholesterol, Hypertension, [place], SOB on Exertion, Stents Other Cardiovascular History: Ejection Fraction of 25% Respiratory History: Reports: Pneumonia, Recurrent Gastrointestinal History: Reports: GERD, GI Bleed Other Gastrointestinal History: ascites, liver disease Genitourinary History: Reports: Retention, Urinary Musculoskeletal History: Reports: Back Pain, Chronic Neurological History: Reports: None Psychiatric History: Reports: Addiction Endocrine/Metabolic History: Reports: None Hematologic History: Reports: None Immunologic History: Reports: None Oncologic (Cancer) History: Reports: None Dermatologic History: Reports: Other (See Below) Other Dermatologic History: patient has multiple tattoos to arms and chest - Infectious Disease History Infectious Disease History: Reports: None - Past Surgical History Head Surgeries/Procedures: Reports: None Cardiovascular Surgical History: Reports: Coronary Artery Stent GI Surgical History: Reports: Appendectomy, Other (See Below) Other GI Surgeries/Procedures: ?abdominal surgery just prior to 2017 Social & Family History - Family History Family Medical History: No Pertinent Family History - Tobacco Use Tobacco Use Status *Q: Never Tobacco User - Caffeine Use Caffeine Use: Reports: None - Recreational Drug Use Recreational Drug Use: Yes Recreational Drug Type: Reports: Methamphetamine Recreational Drug Use Frequency: Not Used In Over 2 Months Recreational Drug Last Use: 2 months ago - Living Situation & Occupation Living situation: Reports: with Family Occupation: Disabled ED ROS GENERAL - Review of Systems Review Of Systems: Comprehensive ROS is negative, except as noted in HPI. ED EXAM, GENERAL - Physical Exam Exam: See Below Exam Limited By: No Limitations General Appearance: Alert, Mild Distress Eye Exam: Bilateral Eye: PERRL, Other (mild icterus) Ears: Normal External Exam, Hearing Grossly Normal Nose: Normal Inspection Throat/Mouth: Normal Inspection Head: Atraumatic, Normocephalic Neck: Normal Inspection, Full Range of Motion Respiratory/Chest: No Respiratory Distress, Decreased Breath Sounds. No: Chest Non-Tender (tender palpation bilaterally, greater left lateral) Cardiovascular: Normal Peripheral Pulses, Regular Rate, Rhythm, No Edema. No: JVD GI/Abdominal: Normal Bowel Sounds, Distended (mild in comparison to previous encounters) Extremities: Normal Inspection Neurological: Alert, Oriented, Normal Cognition Psychiatric: Normal Affect Skin Exam: Warm, Dry #1 Interpretation EKG Date: 12/10/20 Time: 20:43 Rhythm: NSR [place]: LAD-Left [place] Deviation P-Wave: Present QRS: Normal QT: Normal Comparison: No Change EKG Interpretation Comments: NSR Course - Vital Signs Last Recorded V/S: Last Vital Signs Temp 97.9 F 12/10/20 21:05 Pulse 81 12/10/20 21:05 Resp 18 12/10/20 21:05 BP 116/71 12/10/20 21:05 Pulse Ox 99 12/10/20 21:05 - Orders/Labs/Meds Labs: Laboratory Tests 12/10/20 12/10/20 12/10/20 Range/Units 20:40 21:17 21:17 WBC 7.6 (5.0-10.0) 10^3/uL RBC 4.34 L (4.6-6.2) 10^6/uL Hgb 12.3 L (14.0-18.0) g/dL Hct 37.1 L (40.0-54.0) % MCV 85.5 (80-100) fL MCH 28.3 (27.0-34.0) pg MCHC 33.2 (33.0-35.0) g/dL Plt Count 213 (150-450) 10^3/uL Neut % (Auto) 70.1 (42.2-75.2) % Lymph % (Auto) 13.7 L (20.5-50.1) % [place] % (Auto) 10.5 H (2-8) % Eos % (Auto) 5.3 H (1.0-3.0) % Baso % (Auto) 0.4 (0.0-1.0) % PT 15.8 H D (9.0-12.0) SEC INR 1.7 H (0.9-1.2) D-Dimer, Quantitative 1810 H (0-400) ng/mL Sodium (136-145) mmol/L Potassium (3.5-5.1) mmol/L Chloride (98-107) mmol/L Carbon Dioxide (21-32) mmol/L Anion Gap (7-13) mEq/L BUN (7-18) mg/dL Creatinine (0.70-1.30) mg/dL Est Cr Clr Drug Dosing mL/min Estimated GFR (MDRD) BUN/Creatinine Ratio (No establ ref range) Glucose (74-99) mg/dL Calcium (8.5-10.1) mg/dL Total Bilirubin (0.2-1.0) mg/dL AST (15-37) U/L ALT (16-63) U/L Alkaline Phosphatase (46-116) U/L Ammonia (11-32) umol/L Troponin I (0.000-0.056) ng/mL B-Natriuretic Peptide (0-100) pg/ml Total Protein (6.4-8.2) g/dL Albumin (3.4-5.0) g/dL Globulin Albumin/Globulin Ratio Amylase (25-115) U/L Lipase (73-393) U/L Urine Opiates Screen Negative (NEGATIVE) Ur Oxycodone Screen Negative (NEGATIVE) Urine Methadone Screen Negative (NEGATIVE) Ur Barbiturates Screen Negative (NEGATIVE) U Tricyclic Antidepress Negative (NEGATIVE) Ur Phencyclidine Scrn Negative (NEGATIVE) Ur Amphetamine Screen Negative (NEGATIVE) U Methamphetamines Scrn Negative (NEGATIVE) Urine MDMA Screen Negative (NEGATIVE) U Benzodiazepines Scrn Negative (NEGATIVE) Urine Cocaine Screen Negative (NEGATIVE) U Marijuana (THC) Screen Negative (NEGATIVE) SARS CoV-2 RNA Rapid [place] (NEGATIVE) 12/10/20 12/10/20 12/10/20 Range/Units 21:17 21:17 23:16 WBC (5.0-10.0) 10^3/uL RBC (4.6-6.2) 10^6/uL Hgb (14.0-18.0) g/dL Hct (40.0-54.0) % MCV (80-100) fL MCH (27.0-34.0) pg MCHC (33.0-35.0) g/dL Plt Count (150-450) 10^3/uL Neut % (Auto) (42.2-75.2) % Lymph % (Auto) (20.5-50.1) % [place] % (Auto) (2-8) % Eos % (Auto) (1.0-3.0) % Baso % (Auto) (0.0-1.0) % PT (9.0-12.0) SEC INR (0.9-1.2) D-Dimer, Quantitative (0-400) ng/mL Sodium 141 (136-145) mmol/L Potassium 3.5 (3.5-5.1) mmol/L Chloride 102 (98-107) mmol/L Carbon Dioxide 27 (21-32) mmol/L Anion Gap 15.5 H (7-13) mEq/L BUN 24 H (7-18) mg/dL Creatinine 1.12 (0.70-1.30) mg/dL Est Cr Clr Drug Dosing 50.43 mL/min Estimated GFR (MDRD) > 60 BUN/Creatinine Ratio 21.4 (No establ ref range) Glucose 113 H (74-99) mg/dL Calcium 8.5 (8.5-10.1) mg/dL Total Bilirubin 2.8 H (0.2-1.0) mg/dL AST 46 H (15-37) U/L ALT 68 H (16-63) U/L Alkaline Phosphatase 282 H (46-116) U/L Ammonia 34 H (11-32) umol/L Troponin I 0.339 H* (0.000-0.056) ng/mL B-Natriuretic Peptide 1010 H (0-100) pg/ml Total Protein 8.3 H (6.4-8.2) g/dL Albumin 3.5 (3.4-5.0) g/dL Globulin 4.8 Albumin/Globulin Ratio 0.7 Amylase 41 (25-115) U/L Lipase 76 (73-393) U/L Urine Opiates Screen (NEGATIVE) Ur Oxycodone Screen (NEGATIVE) Urine Methadone Screen (NEGATIVE) Ur Barbiturates Screen (NEGATIVE) U Tricyclic Antidepress (NEGATIVE) Ur Phencyclidine Scrn (NEGATIVE) Ur Amphetamine Screen (NEGATIVE) U Methamphetamines Scrn (NEGATIVE) Urine MDMA Screen (NEGATIVE) U Benzodiazepines Scrn (NEGATIVE) Urine Cocaine Screen (NEGATIVE) U Marijuana (THC) Screen (NEGATIVE) SARS CoV-2 RNA Rapid [place] Negative (NEGATIVE) Meds: Medications Discontinued Medications Generic Name Dose Route Start Last Admin Trade Name Freq PRN Reason Stop Dose Admin Morphine Sulfate 2 mg 12/10/20 21:14 12/10/20 21:58 Morphine IVPUSH 12/10/20 21:15 2 mg ONETIME ONE Administration Departure - Departure Time of Disposition: 22:30 Disposition: DC/Tfer to Acute Hospital 02 Reason for Transfer *Q: Other Condition: Good Clinical Impression: Subtherapeutic anticoagulation, Elevated troponin I level Cirrhosis Qualifiers: Hepatic cirrhosis type: unspecified hepatic cirrhosis Ascites presence: with ascites Qualified Code(s): K74.60 - Unspecified cirrhosis of liver Ascites Qualifiers: Ascites type: due to alcoholic cirrhosis Qualified Code(s): K70.31 - Alcoholic cirrhosis of liver with ascites Chest pain Qualifiers: Chest pain type: chest pain due to myocardial ischemia Ischemic chest pain type: unspecified angina pectoris type Qualified Code(s): I25.9 - Chronic isc hemic heart disease, unspecified Referrals: PCP,Unobtain [Primary Care Provider] - Forms: ED Department Discharge Sepsis Event Note (ED) - Evaluation Sepsis Screening Result: No Definite Risk - Focused Exam Vital Signs: Vital Signs Temp Pulse Resp BP Pulse Ox 12/10/20 21:05 97.9 F 81 18 116/71 99
== END 2020-12-10 23:25 ==
LOC: DL.ED 20:20
DX: I25.9 Chronic ischemic heart disease, unspecified (principal); K70.31 Alcoholic cirrhosis of liver with ascites; I25.10 Atherosclerotic heart disease of native coronary artery without angina pectoris; I11.0 Hypertensive heart disease with heart failure; I50.9 Heart failure, unspecified; K21.9 Gastro-esophageal reflux disease without esophagitis; I25.2 Old myocardial infarction; E78.00 Pure hypercholesterolemia, unspecified; R79.89 Other specified abnormal findings of blood chemistry; Z79.01 Long term (current) use of anticoagulants; Z79.899 Other long term (current) drug therapy; Z79.1 Long term (current) use of non-steroidal anti-inflammatories (NSAID); Z91.030 Bee allergy status; Z91.041 Radiographic dye allergy status; Z20.822 Contact with and (suspected) exposure to COVID-19; Z79.02 Long term (current) use of antithrombotics/antiplatelets; Z79.82 Long term (current) use of aspirin; Z91.018 Allergy to other foods
CPT/HCPCS: 36415; 71045; 80053; 80305; 82140; 82150; 83690; 83880; 84484; 85025; 85379; 85610; 87635; 93005; 96374; 99285; J2270; 93010; 99283; U0002

== ENCOUNTER 2020-12-28 20:15 | Emergency (ER) | payer MEDICAID ==
--- NOTE | 2020-12-28 20:32 | EDM.PDOC ---
ED HPI GENERAL MEDICAL PROBLEM - General Stated Complaint: AMBULANCE Time Seen by Provider: 12/28/20 20:21 Source of Information: Reports: Patient, RN History Limitations: Reports: No Limitations - History of Present Illness INITIAL COMMENTS - FREE TEXT/NARRATIVE: 35 year male who presents to the ER with complaints of distended abdomen and pain for over two weeks. Patient states he was send to [place] two weeks ago for AR rule and paracentesis. Patient reports he was told that he is not distended for paracentesis. Patient reports he has been taking his diuretics with not much relief in abdominal distention. He states that pain has gradually worsened and he rates his pain as an 8 on a 10 with 10 being the worst pain. He denies any nausea or vomiting. He denies any bloody stools. He denies fevers, chills, palpitation, peripheral edema but admits to mild shortness of breath with exertion. He denies any alcohol or drug use. Abdomen Pain Score (Numeric/FACES): 8 - Related Data Allergies Allergy/AdvReac Type Severity Reaction Status Date / Time bee venom protein (honey bee) Allergy Severe Anaphylactic Verified 12/28/20 20:39 Shock red dye Allergy Hives Verified 12/28/20 20:39 [place] And Derivatives AdvReac Other Verified 12/28/20 20:39 grapefruit AdvReac Mild Other Uncoded 12/28/20 20:39 Home Meds: Home Meds Clopidogrel Bisulfate [Clopidogrel] 75 mg PO DAILY 06/10/18 [History] Lisinopril 2.5 mg PO DAILY 06/10/18 [History] Nitroglycerin 0.4 mg SL ASDIRECTED PRN 06/10/18 [History] Pantoprazole [ProTONIX] 40 mg PO DAILY 06/10/18 [History] Warfarin Sodium 2.5 mg PO .SUNMONWEDFRI 06/10/18 [History] atorvaSTATin [Lipitor] 40 mg PO BEDTIME 06/10/18 [History] Aspirin [Lo-Dose Aspirin EC] 81 mg PO DAILY 10/04/18 [History] Furosemide 80 mg PO BID 10/04/18 [History] Lactulose 15 ml PO TID 04/12/19 [History] Warfarin [Coumadin] 5 mg PO .TUESTHURSAT 11/17/19 [History] Spironolactone [Aldactone] 50 mg PO ASDIRECTED 11/08/20 [History] Past Medical History - Past Health History Medical/Surgical History: Denies Medical/Surgical History HEENT History: Reports: Impaired Vision Other HEENT History: wears glasses Cardiovascular History: Reports: CAD, Heart Failure, High Cholesterol, Hypertension, [place], SOB on Exertion, Stents Other Cardiovascular History: Ejection Fraction of 25% Respiratory History: Reports: Pneumonia, Recurrent Gastrointestinal History: Reports: GERD, GI Bleed Other Gastrointestinal History: ascites, liver disease Genitourinary History: Reports: Retention, Urinary Musculoskeletal History: Reports: Back Pain, Chronic Neurological History: Reports: None Psychiatric History: Reports: Addiction Endocrine/Metabolic History: Reports: None Hematologic History: Reports: None Immunologic History: Reports: None Oncologic (Cancer) History: Reports: None Dermatologic History: Reports: Other (See Below) Other Dermatologic History: patient has multiple tattoos to arms and chest - Infectious Disease History Infectious Disease History: Reports: None - Past Surgical History Head Surgeries/Procedures: Reports: None Cardiovascular Surgical History: Reports: Coronary Artery Stent GI Surgical History: Reports: Appendectomy, Other (See Below) Other GI Surgeries/Procedures: ?abdominal surgery just prior to 2017 Social & Family History - Family History Family Medical History: No Pertinent Family History - Caffeine Use Caffeine Use: Reports: None - Living Situation & Occupation Living situation: Reports: with Family Occupation: Disabled ED ROS GENERAL - Review of Systems Review Of Systems: Comprehensive ROS is negative, except as noted in HPI. ED EXAM, GI/ABD - Physical Exam Exam: See Below Exam Limited By: No Limitations General Appearance: Alert, Moderate Distress Eyes: Bilateral: EOMI Ears: Normal External Exam, Normal Canal, Hearing Grossly Normal, Normal TMs Nose: Normal Inspection, Normal Mucosa Throat/Mouth: Normal Inspection, Normal Oropharynx, No Airway Compromise Head: Atraumatic, Normocephalic Neck: Normal Inspection, Non-Tender, Full Range of Motion Respiratory/Chest: No Respiratory Distress, No Accessory Muscle Use, Crackles (mild basilar crackles noted) Cardiovascular: Normal Peripheral Pulses, Regular Rate, Rhythm, No Edema, Systolic Murmur GI/Abdominal Exam: Distended, Guarding (Male) Exam: Deferred Rectal (Males) Exam: Deferred Back Exam: Normal Inspection Extremities: Normal Inspection, Normal Range of Motion, Non-Tender, No Pedal Edema Neurological: Alert, Oriented, CN II-XII Intact Psychiatric: Flat Affect Skin Exam: Warm, Dry, Intact, Jaundice (mild) Lymphatic: No Adenopathy Course - Vital Signs Last Recorded V/S: Last Vital Signs Temp 97.3 F 12/28/20 23:21 Pulse 85 12/28/20 23:21 Resp 18 12/28/20 23:21 BP 105/70 12/28/20 23:21 Pulse Ox 98 12/28/20 23:21 - Orders/Labs/Meds Orders: Active Orders 24 hr Category Date Time Status BODY FLUID, ALBUMIN Stat Lab 12/28/20 21:44 Received BODY FLUID, CELL COUNT Stat Lab 12/28/20 21:44 Received BODY FLUID, TOTAL PROTEIN Stat Lab 12/28/20 21:44 Received CULTURE BODY FLUID [RM] Stat Lab 12/28/20 21:44 Received Labs: Laboratory Tests 12/28/20 12/28/20 Range/Units 20:24 20:24 WBC 6.8 (5.0-10.0) 10^3/uL RBC 4.22 L (4.6-6.2) 10^6/uL Hgb 12.1 L (14.0-18.0) g/dL Hct 36.6 L (40.0-54.0) % MCV 86.7 (80-100) fL MCH 28.7 (27.0-34.0) pg MCHC 33.1 (33.0-35.0) g/dL Plt Count 205 (150-450) 10^3/uL Neut % (Auto) 66.1 (42.2-75.2) % Lymph % (Auto) 11.8 L (20.5-50.1) % [place] % (Auto) 12.8 H (2-8) % Eos % (Auto) 9.0 H (1.0-3.0) % Baso % (Auto) 0.3 (0.0-1.0) % Sodium 136 (136-145) mmol/L Potassium 3.4 L (3.5-5.1) mmol/L Chloride 101 (98-107) mmol/L Carbon Dioxide 25 (21-32) mmol/L Anion Gap 13.4 H (7-13) mEq/L BUN 14 (7-18) mg/dL Creatinine 1.12 (0.70-1.30) mg/dL Est Cr Clr Drug Dosing 100.08 mL/min Estimated GFR (MDRD) > 60 BUN/Creatinine Ratio 12.5 (No establ ref range) Glucose 113 H (74-99) mg/dL Calcium 8.2 L (8.5-10.1) mg/dL Total Bilirubin 2.7 H (0.2-1.0) mg/dL AST 31 (15-37) U/L ALT 50 (16-63) U/L Alkaline Phosphatase 288 H (46-116) U/L Total Protein 7.7 (6.4-8.2) g/dL Albumin 3.4 (3.4-5.0) g/dL Globulin 4.3 Albumin/Globulin Ratio 0.8 Meds: Medications Discontinued Medications Generic Name Dose Route Start Last Admin Trade Name Freq PRN Reason Stop Dose Admin Lidocaine HCl 30 ml 12/28/20 20:51 Lidocaine 1% 30 Ml Sdv .ROUTE 12/28/20 20:52 .STK-MED ONE Lidocaine HCl 30 ml 12/28/20 21:21 12/28/20 21:40 Lidocaine 1% 30 Ml Sdv INJECT 12/28/20 21:22 30 ml ONETIME ONE Administration Lidocaine HCl Confirm 12/28/20 21:21 12/28/20 21:58 Lidocaine 1% 30 Ml Sdv Administered 12/28/20 21:22 Not Given Dose 30 ml .ROUTE .STK-MED ONE - Re-Assessments/Exams Free Text/Narrative Re-Assessment/Exam: Reviewed exam findings, chest xray and lab results with patient. Consulted with who performed a diagnostic paracentesis and there was no infection at this time. Reviewed results of diagnostic paracentesis with patient. Increase his Spironolactone to 100 mg. patient will be called on Thursdaywith time for a follow up paracentesis in [place]. Patient in agreement with plan. Departure - Departure Time of Disposition: 23:43 Disposition: Home, Self-Care 01 Condition: Fair Clinical Impression: Ascites Qualifiers: Ascites type: due to alcoholic cirrhosis Qualified Code(s): K70.31 - Alcoholic cirrhosis of liver with ascites Abdominal pain Qualifiers: Abdominal location: generalized Qualified Code(s): R10.84 - Generalized abdominal pain Alcoholic cirrhosis of liver Qualifiers: Ascites presence: with ascites Qualified Code(s): K70.31 - Alcoholic cirrhosis of liver with ascites - Discharge Information Instructions: Abdominal Pain, Adult Forms: ED Department Discharge Additional Instructions: Continue taking medications as prescribed. You will be called on Thursday with a time for paracentesis. Patient verbalized understanding. Sepsis Event Note (ED) - Focused Exam Vital Signs: Vital Signs Temp Pulse Resp BP Pulse Ox 12/28/20 23:21 97.3 F 85 18 105/70 98 12/28/20 20:15 97 F 85 19 103/71 98 - My Orders Last 24 Hours: My Active Orders 12/28/20 21:44 BODY FLUID, ALBUMIN Stat BODY FLUID, CELL COUNT Stat BODY FLUID, TOTAL PROTEIN Stat CULTURE BODY FLUID [RM] Stat - Assessment/Plan Last 24 Hours: My Active Orders 12/28/20 21:44 BODY FLUID, ALBUMIN Stat BODY FLUID, CELL COUNT Stat BODY FLUID, TOTAL PROTEIN Stat CULTURE BODY FLUID [RM] Stat
[2020-12-28] MEDS ORDERED: Lidocaine 1% 30 ML SDV ONE ×2 (20:51→21:21)
[2020-12-28 20:57] LABS: ANION GAP 13.4 mEq/L (7-13); CHLORIDE,CL 101 mmol/L (98-107); SODIUM,NA 136 mmol/L (136-145)
[2020-12-28] MEDS ORDERED: Lidocaine 1% 30 ML SDV INJECT ONE (21:21)
--- NOTE | 2020-12-28 21:51 | CR ---
PROCEDURE INFORMATION: Exam: XR Chest Exam date and time: 12/28/2020 9:16 PM Age: 35 years old Clinical indication: Other: Basilar crackles TECHNIQUE: Imaging protocol: XR of the chest Views: 1 view. COMPARISON: CR Chest 1V Frontal 12/10/2020 9:15 PM FINDINGS: Lungs: Right lung base linear opacification suggesting scar or atelectasis. This was present 12/10/2020. Minor ground-glass type opacification in the right mid lung field. This also is suggested in the right lower lobe on the current study. Left lung is clear. Pleural spaces: No pleural effusions. Heart/Mediastinum: Mild cardiac enlargement. Bones/joints: Unremarkable. IMPRESSION: 1. Possible mild interstitial infiltrative changes in the right mid to lower lung field. There is a linear region of atelectatic type change at the right lung base, as well. 2. Cardiac enlargement.
== END 2020-12-29 00:03 | disposition home or self-care (01) ==
LOC: DL.ED 20:15
DX: K70.31 Alcoholic cirrhosis of liver with ascites (principal); I25.10 Atherosclerotic heart disease of native coronary artery without angina pectoris; I11.0 Hypertensive heart disease with heart failure; I50.9 Heart failure, unspecified; E78.00 Pure hypercholesterolemia, unspecified; I25.2 Old myocardial infarction; K21.9 Gastro-esophageal reflux disease without esophagitis; Z91.030 Bee allergy status; Z91.018 Allergy to other foods; Z91.048 Other nonmedicinal substance allergy status; Z79.02 Long term (current) use of antithrombotics/antiplatelets; Z79.82 Long term (current) use of aspirin; Z79.899 Other long term (current) drug therapy
CPT/HCPCS: 36415; 49082; 71045; 80053; 82042; 84157; 85025; 87070; 89051; 99284; 99284-25

== ENCOUNTER 2020-12-31 11:49 | Emergency (ER) | payer MEDICAID ==
--- NOTE | 2020-12-31 13:10 | EDM.PDOC ---
ED HPI GENERAL MEDICAL PROBLEM - General Chief Complaint: Abdominal Pain Stated Complaint: AMBULANCE Time Seen by Provider: 12/31/20 12:00 Source of Information: Reports: Patient, EMS, EMS Notes Reviewed, RN, RN Notes Reviewed History Limitations: Reports: No Limitations - History of Present Illness INITIAL COMMENTS - FREE TEXT/NARRATIVE: Patient is a 35-year-old male who presents to ER with complaint of increased ascites in the abdomen, causing increased shortness of breath. Patient states he has been worsening over the past few days. Patient states he has not had a paracentesis in approximately 2 months. Patient was to the ED ER on Thursday, Dr. Schmitt did a diagnostic paracentesis. No growth from the fluid taken from that paracentesis. Sharon, field nurse case manager, at [facility] was calling to refer the patient and set up an appointment for paracentesis. Appointment was made for patient to be seen tomorrow and have paracentesis. Patient denies any recent illnesses, fever, chills, chest pains, nausea, vomiting, diarrhea. Patient does not appear to be in any distress and oxygen saturation is 97% on room air. Onset: Gradual Abdomen Pain Score (Numeric/FACES): 8 - Related Data Allergies Allergy/AdvReac Type Severity Reaction Status Date / Time bee venom protein (honey bee) Allergy Severe Anaphylactic Verified 12/31/20 11:18 Shock red dye Allergy Hives Verified 12/31/20 11:18 [place] And Derivatives AdvReac Other Verified 12/31/20 11:18 grapefruit AdvReac Mild Other Uncoded 12/31/20 11:18 Home Meds: Home Meds Clopidogrel Bisulfate [Clopidogrel] 75 mg PO DAILY 06/10/18 [History] Lisinopril 2.5 mg PO DAILY 06/10/18 [History] Nitroglycerin 0.4 mg SL ASDIRECTED PRN 06/10/18 [History] Pantoprazole [ProTONIX] 40 mg PO DAILY 06/10/18 [History] Warfarin Sodium 2.5 mg PO .SUNMONWEDFRI 06/10/18 [History] atorvaSTATin [Lipitor] 40 mg PO BEDTIME 06/10/18 [History] Aspirin [Lo-Dose Aspirin EC] 81 mg PO DAILY 10/04/18 [History] Furosemide 80 mg PO BID 10/04/18 [History] Lactulose 15 ml PO TID 04/12/19 [History] Warfarin [Coumadin] 5 mg PO .TUESTHURSAT 11/17/19 [History] Spironolactone [Aldactone] 50 mg PO DAILY 11/08/20 [History] Past Medical History - Past Health History Medical/Surgical History: Denies Medical/Surgical History HEENT History: Reports: Impaired Vision Other HEENT History: wears glasses Cardiovascular History: Reports: CAD, Heart Failure, High Cholesterol, Hypertension, [place], SOB on Exertion, Stents Other Cardiovascular History: Ejection Fraction of 25% Respiratory History: Reports: Pneumonia, Recurrent Gastrointestinal History: Reports: GERD, GI Bleed Other Gastrointestinal History: ascites, liver disease Genitourinary History: Reports: Retention, Urinary Musculoskeletal History: Reports: Back Pain, Chronic Neurological History: Reports: None Psychiatric History: Reports: Addiction Endocrine/Metabolic History: Reports: None Hematologic History: Reports: None Immunologic History: Reports: None Oncologic (Cancer) History: Reports: None Dermatologic History: Reports: Other (See Below) Other Dermatologic History: patient has multiple tattoos to arms and chest - Infectious Disease History Infectious Disease History: Reports: None - Past Surgical History Head Surgeries/Procedures: Reports: None Cardiovascular Surgical History: Reports: Coronary Artery Stent GI Surgical History: Reports: Appendectomy, Other (See Below) Other GI Surgeries/Procedures: ?abdominal surgery just prior to 2017 Social & Family History - Family History Family Medical History: No Pertinent Family History - Tobacco Use Tobacco Use Status *Q: Current Some Day Tobacco User Years of Tobacco use: 17 Packs/Tins Daily: 0.1 - Caffeine Use Caffeine Use: Reports: None - Recreational Drug Use Recreational Drug Use: Yes Drug Use in Last 12 Months: No - Living Situation & Occupation Living situation: Reports: with Family Occupation: Disabled ED ROS GENERAL - Review of Systems Review Of Systems: Comprehensive ROS is negative, except as noted in HPI. ED EXAM, GI/ABD - Physical Exam Exam: See Below Exam Limited By: No Limitations General Appearance: Alert, WD/WN, No Apparent Distress Eyes: Bilateral: Normal Appearance, EOMI Ears: Normal External Exam, Hearing Grossly Normal Nose: Normal Inspection Throat/Mouth: Normal Inspection, Normal Voice, No Airway Compromise Head: Atraumatic, Normocephalic Neck: Normal Inspection, Supple, Non-Tender, Full Range of Motion Respiratory/Chest: No Respiratory Distress, Lungs Clear, Normal Breath Sounds, No Accessory Muscle Use, Chest Non-Tender Cardiovascular: Normal Peripheral Pulses, Regular Rate, Rhythm, No Edema, No Gallop, No JVD, No Murmur, No Rub GI/Abdominal Exam: Normal Bowel Sounds, Distended, Tender (Male) Exam: Deferred Rectal (Males) Exam: Deferred Back Exam: Normal Inspection, Full Range of Motion, NT Extremities: Normal Inspection, Normal Range of Motion, Non-Tender, Normal Capillary Refill, No Pedal Edema Neurological: Alert, Oriented, CN II-XII Intact, Normal Cognition, Normal Gait, Normal Reflexes, No Motor/Sensory Deficits Psychiatric: Normal Affect, Normal Mood Skin Exam: Warm, Dry, Intact, Normal Color, No Rash Lymphatic: No Adenopathy Course - Vital Signs Last Recorded V/S: Last Vital Signs Temp 97.8 F 12/31/20 11:11 Pulse 74 12/31/20 11:11 Resp 16 12/31/20 11:11 BP 100/66 12/31/20 11:11 Pulse Ox 99 12/31/20 11:11 - Orders/Labs/Meds Labs: Laboratory Tests 12/31/20 Range/Units 11:47 PT 15.5 H (9.0-12.0) SEC INR 1.5 H (0.9-1.2) Departure - Departure Time of Disposition: 13:30 Disposition: Home, Self-Care 01 Condition: Fair Clinical Impression: Alcoholic cirrhosis of liver with ascites - Discharge Information *PRESCRIPTION DRUG MONITORING PROGRAM REVIEWED*: No *COPY OF PRESCRIPTION DRUG MONITORING REPORT IN PATIENT FRANKIE: No Instructions: Alcoholic Liver Disease, [id number], Constipation, Adult, [id number], Abdominal Pain, Adult, [id number] Forms: ED Department Discharge Additional Instructions: You have an appointment and IR at [facility] in [place] tomorrow, arrive at 10 AM Do not take your Coumadin Follow-up with your primary care provider Sepsis Event Note (ED) - Evaluation Sepsis Screening Result: No Definite Risk
== END 2020-12-31 13:29 | disposition home or self-care (01) ==
LOC: DL.ED 11:49
DX: K70.31 Alcoholic cirrhosis of liver with ascites (principal); R06.02 Shortness of breath; I11.0 Hypertensive heart disease with heart failure; I50.9 Heart failure, unspecified; I25.10 Atherosclerotic heart disease of native coronary artery without angina pectoris; E78.00 Pure hypercholesterolemia, unspecified; I25.2 Old myocardial infarction; K21.9 Gastro-esophageal reflux disease without esophagitis; Z72.0 Tobacco use; Z79.02 Long term (current) use of antithrombotics/antiplatelets; Z79.82 Long term (current) use of aspirin; Z79.899 Other long term (current) drug therapy; Z91.030 Bee allergy status; Z91.018 Allergy to other foods; Z91.048 Other nonmedicinal substance allergy status
CPT/HCPCS: 36415; 85610; 99284; 99285

== ENCOUNTER 2021-03-16 20:57 | Emergency (ER) | payer MEDICAID ==
[2021-03-16] MEDS ORDERED: Succinylcholine 200 MG/10 ML MDV IV ONE (20:58)
[2021-03-16] MEDS ORDERED: Naloxone 2 MG/2 ML Syringe IV ONE (20:58)
[2021-03-16] MEDS ORDERED: EPINEPHrine 1:10,000 1 MG/10 ML Syringe IV ONE (20:58)
[2021-03-16] MEDS ORDERED: Naloxone 2 MG/2 ML Syringe ONE (21:32)
[2021-03-16] MEDS ORDERED: EPINEPHrine 1:10,000 1 MG/10 ML Syringe ONE (21:32)
--- NOTE | 2021-03-17 04:34 | EDM.PDOC ---
ED HPI GENERAL MEDICAL PROBLEM - General Stated Complaint: CPR Time Seen by Provider: 03/16/21 21:00 Source of Information: Reports: EMS History Limitations: Reports: Other - History of Present Illness INITIAL COMMENTS - FREE TEXT/NARRATIVE: This 35 yo male patient was brought to the ED by [facility] with CPR in progress. EMS reports the family found the patient in his room not breathing, but had a pulse. Upon EMS arrival, the patient was pulseless and apneic. CPR was initiated and the patient was given a dose of Narcan. EMS reports the patient did have a brief episode where he was moving independently, but never regained consciousness. The patient soon became unresponsive with no pulse and no spontaneous respirations. Prior to arrival, EMS had administered 3 dose of Narcan and 3 doses of Epinephrine. Upon arrival, the patient was in v-fib with a chepe airway in place and the [facility] was doing CPR. Onset: Sudden, Unknown/Unsure Duration: Constant Location: Reports: Other Quality: Reports: Other Severity: Severe Improves with: Reports: None Worsens with: Reports: None - Related Data Allergies Allergy/AdvReac Type Severity Reaction Status Date / Time bee venom protein (honey bee) Allergy Severe Anaphylactic Verified 12/31/20 11:18 Shock red dye Allergy Hives Verified 12/31/20 11:18 [place] And Derivatives AdvReac Other Verified 12/31/20 11:18 grapefruit AdvReac Mild Other Uncoded 12/31/20 11:18 Home Meds: Home Meds Clopidogrel Bisulfate [Clopidogrel] 75 mg PO DAILY 06/10/18 [History] Lisinopril 2.5 mg PO DAILY 06/10/18 [History] Nitroglycerin 0.4 mg SL ASDIRECTED PRN 06/10/18 [History] Pantoprazole [ProTONIX] 40 mg PO DAILY 06/10/18 [History] Warfarin Sodium 2.5 mg PO .SUNMONWEDFRI 06/10/18 [History] atorvaSTATin [Lipitor] 40 mg PO BEDTIME 06/10/18 [History] Aspirin [Lo-Dose Aspirin EC] 81 mg PO DAILY 10/04/18 [History] Furosemide 80 mg PO BID 10/04/18 [History] Lactulose 15 ml PO TID 04/12/19 [History] Warfarin [Coumadin] 5 mg PO .TUESTHURSAT 11/17/19 [History] Spironolactone [Aldactone] 50 mg PO DAILY 11/08/20 [History] Past Medical History - Past Health History Medical/Surgical History: Denies Medical/Surgical History HEENT History: Reports: Impaired Vision Other HEENT History: wears glasses Cardiovascular History: Reports: CAD, Heart Failure, High Cholesterol, Hypertension, [place], SOB on Exertion, Stents Other Cardiovascular History: Ejection Fraction of 25% Respiratory History: Reports: Pneumonia, Recurrent Gastrointestinal History: Reports: GERD, GI Bleed Other Gastrointestinal History: ascites, liver disease Genitourinary History: Reports: Retention, Urinary Musculoskeletal History: Reports: Back Pain, Chronic Neurological History: Reports: None Psychiatric History: Reports: Addiction Endocrine/Metabolic History: Reports: None Hematologic History: Reports: None Immunologic History: Reports: None Oncologic (Cancer) History: Reports: None Dermatologic History: Reports: Other (See Below) Other Dermatologic History: patient has multiple tattoos to arms and chest - Infectious Disease History Infectious Disease History: Reports: None - Past Surgical History Head Surgeries/Procedures: Reports: None Cardiovascular Surgical History: Reports: Coronary Artery Stent GI Surgical History: Reports: Appendectomy, Other (See Below) Other GI Surgeries/Procedures: ?abdominal surgery just prior to 2017 Social & Family History - Family History Family Medical History: No Pertinent Family History - Caffeine Use Caffeine Use: Reports: None - Living Situation & Occupation Living situation: Reports: with Family Occupation: Disabled ED ROS GENERAL - Review of Systems Review Of Systems: Unable To Obtain Reason Not Obtained: CPR in progress ED EXAM, GENERAL - Physical Exam Exam: See Below Exam Limited By: Other (CPR in progress) General Appearance: Other (CPR in progress) Eye Exam: Bilateral Eye: Other (Pupils were fixed and dialated) Ears: Normal External Exam Nose: Other (Nasal airway inplace with small amount of blood in airway) Throat/Mouth: Other (Chepe Air in place upon arrival. Intubated by APPLICATION SECURITY ARCHITECT ) Head: Atraumatic Neck: Normal Inspection Respiratory/Chest: Other (CPR in progress) Cardiovascular: Other (V-fib, V-Tach and PEA with no return of pulse) Course - Orders/Labs/Meds Meds: Medications Discontinued Medications Generic Name Dose Route Start Last Admin Trade Name Freq PRN Reason Stop Dose Admin Epinephrine HCl Confirm 03/16/21 21:32 Epinephrine 1:10,000 1 Mg/10 Ml Syringe Administered 03/16/21 21:33 Dose 3 mg .ROUTE .STK-MED ONE Naloxone HCl Confirm 03/16/21 21:32 Naloxone 2 Mg/2 Ml Syringe Administered 03/16/21 21:33 Dose 2 mg .ROUTE .STK-MED ONE - Re-Assessments/Exams Free Text/Narrative Re-Assessment/Exam: 03/17/21 04:36 The code was initially called at 2115, but the patient had agonal breathing and muscular movement. CPR was initiated again. With no improvement in the patient's situation, the code was called at 2128 with no return of pulse. Departure - Departure Time of Disposition: 21:28 Disposition: 20 Condition: Critical Clinical Impression: Cardiac arrest Referrals: PCP,None [Primary Care Provider] -
== END 2021-03-16 22:20 | disposition expired ==
LOC: DL.ED 20:57
DX: I46.9 Cardiac arrest, cause unspecified (principal); I25.10 Atherosclerotic heart disease of native coronary artery without angina pectoris; I11.0 Hypertensive heart disease with heart failure; I50.9 Heart failure, unspecified; I25.2 Old myocardial infarction; Z79.82 Long term (current) use of aspirin; Z79.02 Long term (current) use of antithrombotics/antiplatelets; Z79.01 Long term (current) use of anticoagulants; Z88.8 Allergy status to other drugs, medicaments and biological substances; Z91.030 Bee allergy status; Z91.09 Other allergy status, other than to drugs and biological substances; Z91.018 Allergy to other foods; Z91.048 Other nonmedicinal substance allergy status
CPT/HCPCS: 31500; 82947; 92950; 99284; 99285-25; J0171; J0330; J2310